=== PATIENT | male | born 1955 | race Caucasian/White ===

== ENCOUNTER → 2023-12-08 10:55 | Outpatient (REF) | payer MEDICARE, SELFPAY | LOC: RAD 10:55 | PROVIDERS: ATTENDING PHYSICIAN Surgery Vascular Surgery; FAMILY PHYSICIAN Family Medicine | DX: I73.9 Peripheral vascular disease, unspecified (principal) | CPT/HCPCS: 93922; 93925 ==

== ENCOUNTER → 2024-02-27 14:01 | Outpatient (REF) | payer MEDICARE, SELFPAY | LOC: RAD 14:01 | PROVIDERS: ATTENDING PHYSICIAN Registered Nurse; FAMILY PHYSICIAN Family Medicine | DX: I73.9 Peripheral vascular disease, unspecified (principal) | CPT/HCPCS: 93922; 93925 ==

== ENCOUNTER 2024-03-09 06:57 | Day surgery (SDC) | payer MEDICARE, SELFPAY ==
[2024-03-06 09:28] VITALS: BMI 21.3
--- NOTE | 2024-03-07 13:13 | PTCARENOTE ---
Patients 03/06 Creat- 1.5; GFR- 51.03; Hgb 9.8- Pauline @ Dr. Mendoza office notified
[2024-03-09] VITALS (22 sets, daily range): BP systolic 105–181; BP diastolic 52–79; BMI 21.2
[2024-03-09 07:30] LABS: Hematocrit 30.4 % (39.0-52.0); Hemoglobin 9.9 g/dL (13.0-18.0); Mean Corp Hgb Conc. 32.6 g/dL (33.0-37.0); Mean Corpuscular Hgb 25.4 pg (27.0-31.0); Mean Corpuscular Volume 78.1 fL (80.0-94.0); Mean Platelet Volume 11.6 fL (7.4-10.4); Platelet Count 117 10^3/uL (130-400); Red Blood Cell Count 3.89 10^6/uL (4.70-6.10); Red Cell Dist. Width 15.4 % (11.5-14.5); White Blood Cell Count 7.4 10^3/uL (4.8-10.8)
--- NOTE | 2024-03-09 08:15 | W.SUR.PREOP ---
Pre-Operative Surgical Note
-
I have examined this patient prior to the performance of the scheduled procedure.
The patient's condition is unchanged from the time of the current History and
Physical and the patient is able to undergo the scheduled procedure.
--- NOTE | 2024-03-09 09:57 | W.IMMPOSTOP ---
Surgical Immed Post Op Note
-
Primary Surgeon: Dr. Dar Morrison III, MD
Assisting Surgeon: Ramsey Felipe MD, PhD (PGY-2)
Pre-op Diagnosis: LLE peripheral arterial occlusive disease
Post-op Diagnosis: LLE peripheral arterial occlusive disease
Procedure Performed: Diagnostic arteriogram, balloon angioplasty, intravascular lithotripsy, PTX stents x2
Anesthesia Type: MAC
Specimen / Cultures: None
Estimated Blood Loss: 2cc
Complications: None
Operative Findings: The patient was brought to the OR and placed in the supine position. The patient was prepped and draped in usual sterile fashion. Fluoroscopy was used to identify the inferior and superior boundaries of the femoral head. Under
ultrasound guidance, the right PRODUCTION SHIFT SUPERVISOR was identified. Local anesthetic was delivered to the proposed puncture site. Micropuncture kit was used to access the right PRODUCTION SHIFT SUPERVISOR. This was upsized to a 5Fr sheath over a Bentson wire. A macario's hook catheter was
advanced over a guidewire into the abdominal aorta. Diagnostic arteriogram showed a patent aorto-iliac system without major occlusive disease. A glidewire and quickcross catheter was used to access the contralateral L iliofemoral system. Diagnostic
arteriogram showed disease in the proximal SFA, distal SFA, and popliteal artery. Distally, there was two vessel run off with AT and peroneal flow. A wire was advanced into the TP trunk and balloon angioplasty with intravascular lithotripsy was
performed from the popliteal and distal SFA to the proximal SFA. A small non flow limiting focal dissection was noted in the SFA. PTX stents x2 were delivered in the distal SFA-above knee popliteal artery segment and in the mid SFA. Proximally, a
balloon angioplasty with intravascular lithotripsy was performed at the proximal SFA. Post stent balloon angioplasty was performed. Completion arteriogram showed improved patency of the left SFA, popliteal artery, with continued two vessel run off
distally (AT and peroneal arteries). The sheath was pulled back to the right external iliac artery. Diagnostic arteriogram showed proximal SFA disease on the right side proximal to the previous stent delivered. In addition, there was SFA disease
distal to the previously placed stent, popliteal artery segments. Doppler signals were noted in both PT and DP sites bilaterally. The patient was transported to the PACU in stable condition and the sheath was removed with manual pressure.
[2024-03-09] MEDS: NSS 1000 IV (13:12)
[2024-03-09] MEDS: PLAVIX 75 MG PO (13:12)
--- NOTE | 2024-03-09 13:42 | OR.RPT ---
Operative Report
Operative Report
Date of Operation: 03/09/2024
Pre Op Diagnosis: Chronic limb threatening ischemia, left lower extremity with nonhealing left toe wound and osteomyelitis
Post Op Diagnosis: Chronic limb threatening ischemia, left lower extremity with nonhealing left toe wound and osteomyelitis
Procedure:
1.) Intravascular lithotripsy to left superficial femoral artery and popliteal artery calcified stenoses (6 mm x 80 mm E8 shockwave balloon)
2.) Balloon angioplasty and stenting of left popliteal artery/distal left superficial femoral artery (overlapping 6 mm x 140 mm / 6 mm x 40 mm Zilver PTX stents)
3.) Diagnostic aortobiiliac arteriogram
4.) Diagnostic bilateral lower extremity arteriogram
5.) Ultrasound-guided percutaneous access to the right common femoral artery
Surgeon: Dar Morrison III, MD
Ornamental Ironworker Helper: Ramsey Felipe MD PhD, PGY2
Anesthesia: Sedation with local
Fluoroscopy:
21.9 min
65 mGy
14.3 Gy.cm2
Complications: None
Estimated Blood Loss: Less than 20 cc
History and Indications for Procedure: 68-year-old male with chronic limb threatening ischemia of his left lower extremity manifested by nonhealing toe wound and associated osteomyelitis
Procedure in Detail: Jd Cuello was correctly identified and placed supine on the operating table. After adequate induction of anesthesia the bilateral groins were prepped and draped in the usual sterile fashion. A timeout was performed with the
nursing and anesthesia staff confirming the patient's identity as well as the nature and laterality of the procedure.
The right common femoral artery was identified under ultrasound guidance. The artery was patent. The superior and inferior aspects of the femoral head were identified with radiographic guidance and marked at the skin level. The proposed puncture
site was infiltrated with local anesthesia. Under ultrasound guidance we accessed the right common femoral artery with a micropuncture needle and upsized to a 5 Fr sheath over a Bentson wire. The wire and a [employer] hook flush catheter were
advanced into the distal abdominal aorta and a diagnostic aorto-biiliac arteriogram was performed:
AORTO-ILIAC ARTERIOGRAM:
Aorta: Patent with no significant stenosis identified. Heavily calcified
Right common iliac artery: Patent with no significant stenosis identified. Heavily calcified
Right external iliac artery: Patent with no significant stenosis identified. Heavily calcified
Left common iliac artery: Patent with no significant stenosis identified. Heavily calcified
Left external iliac artery: Patent with no significant stenosis identified. Heavily calcified
Under roadmap guidance using a Glidewire and the [employer] hook catheter we selected the left common iliac artery and then the external iliac artery. A catheter was tracked up and over the aortic bifurcation and placed in the distal external iliac
artery. A diagnostic left lower extremity arteriogram was then performed which demonstrated the following:
LEFT LOWER EXTREMITY:
Common femoral artery: Calcified but patent with mild stenosis identified
Profunda femoral artery: Patent with no significant stenosis identified
Superficial femoral artery: Patent. Scattered heavy calcification throughout. High-grade calcified stenosis proximally. Calcified stenosis identified distally
Popliteal artery: Patent. Calcified stenosis in the above-knee popliteal segment.
Anterior tibial artery: High takeoff of the anterior tibial artery. Patent. Continues across the ankle into the foot.
Tibioperoneal trunk: Patent. Mild stenosis Identified
Peroneal artery: Patent
Posterior tibial artery: Occluded
ENDOVASCULAR INTERVENTION: Systemic heparin was administered. Exchanged out for a 6 Fr 45 cm sheath over a [employer] wire. Selected the superficial femoral artery under roadmap guidance with Quickcross catheter and glidewire. The calcified stenoses in
the superficial femoral artery and popliteal artery were crossed with a Quickcross and Glidewire. The wire and catheter were advanced into the popliteal artery and subtraction angio confirmed proper position in the true lumen. Exchanged out for a
[place] ST 0.014 wire.
Due to the heavily calcified nature of the arterial disease and in an effort to modify the calcium to achieve maximum luminal gain with endovascular intervention I elected to proceed with intravascular lithotripsy. A 6 mm x 80 mm Shockwave balloon
was placed across the popliteal stenosis under roadmap guidance. Alternating rounds of lithotripsy pulse delivery at sub-nominal pressure and angioplasty at nominal pressure was performed across the stenosis. In between rounds of pulse delivery and
angioplasty the balloon was deflated and repositioned under roadmap guidance. The same balloon was used to treat the calcified disease in the proximal superficial femoral artery. All 400 pulses were delivered.
Subsequent arteriogram demonstrated a significantly improved result. The proximal superficial femoral artery was widely patent. There is a short focal nonflow limiting dissection identified in the treated segment. The flow was brisk throughout
the superficial femoral artery and popliteal artery. Distally, the popliteal artery was patent but there was a dissection flap and residual disease identified. I treated this segment with overlapping Zilver PTX stents, 6 mm x 140 mm stent was
positioned distally. A 6 mm x 40 mm was extended just proximal. The stents were deployed in the desired location and profiled with a 5 mm angioplasty balloon.
COMPLETION ARTERIOGRAM: Excellent technical result. Brisk flow through a widely patent superficial femoral artery and popliteal artery with no significant residual stenosis identified. Brisk outflow demonstrated through the anterior tibial artery
and peroneal artery.
Satisfied with this result we concluded the procedure. The sheath tip was pulled back into the right external iliac artery. A runoff arteriogram of the right lower extremity was performed which demonstrated the following:.
RIGHT LOWER EXTREMITY:
Common femoral artery: Calcified but patent with no significant stenosis identified
Profunda femoral artery: Patent with no significant stenosis identified
Superficial femoral artery: Patent. Scattered heavy calcification in the proximal artery contributing to a high-grade just proximal to the proximal stent. Scattered calcification identified throughout. Remaining stents widely patent with no
significant stenosis identified
Popliteal artery: Patent. Scattered areas of mild stenosis above the knee and behind the knee.
The patient tolerated the procedure well and was taken to the recovery area in stable condition.
Attestation: I was present and responsible for the entire procedure.
Signed:
Dar Morrison III, MD
[facility]
[phone] (cell)
== END 2024-03-09 16:31 | disposition home or self-care (01) ==
LOC: CATH 06:57
PROVIDERS: Nurse Practitioner Acute Care; ATTENDING PHYSICIAN Surgery Vascular Surgery; FAMILY PHYSICIAN Family Medicine; OTHER PHYSICIAN Internal Medicine Cardiovascular Disease
DX: I70.228 Atherosclerosis of native arteries of extremities with rest pain, other extremity (principal); M86.9 Osteomyelitis, unspecified; E11.9 Type 2 diabetes mellitus without complications; I10 Essential (primary) hypertension; J44.9 Chronic obstructive pulmonary disease, unspecified; F17.210 Nicotine dependence, cigarettes, uncomplicated; Z79.82 Long term (current) use of aspirin; Z79.02 Long term (current) use of antithrombotics/antiplatelets; Z79.4 Long term (current) use of insulin
CPT/HCPCS: C9765; C1725; C1894; 75625; 75716; 76937; 85027; 85730; C1769; C1874; Q9967

== ENCOUNTER 2024-05-04 09:16 | Day surgery (SDC) | payer MEDICARE, SELFPAY ==
[2024-05-04] VITALS (31 sets, daily range): BP systolic 121–178; BP diastolic 55–105
[2024-05-04 10:38] LABS: Glucose - Point of Care 124 mg/dl (70-99)
[2024-05-04 10:47] LABS: Blood Urea Nitrogen 24 mg/dl (9-20); Calcium 8.4 mg/dl (8.4-10.2); Carbon Dioxide 23 mmol/L (22-30); Chloride 104 mmol/L (98-107); Glucose 128 mg/dl (70-99); Hematocrit 30.6 % (39.0-52.0); Hemoglobin 9.8 g/dL (13.0-18.0); INR 1.04; Mean Corpuscular Hgb 25.5 pg (27.0-31.0); Mean Corpuscular Volume 79.7 fL (80.0-94.0); PT 13.9 Sec (11.4-14.6); Potassium 4.7 mmol/L (3.5-5.1); Red Blood Cell Count 3.84 10^6/uL (4.70-6.10); Red Cell Dist. Width 17.1 % (11.5-14.5); Sodium 136 mmol/L (135-145); White Blood Cell Count 5.9 10^3/uL (4.8-10.8); eGFR 43.91
[2024-05-04 10:48] LABS: APTT 39.1 Sec (23.4-35.0)
--- NOTE | 2024-05-04 11:24 | HP.FOC2 ---
Focused History & Physical
Chief Complaint
HPI:
Chief Complaint: Nonhealing right foot wound, PAD
HPI / Indication for Planned Procedure: This is a 68-year-old male with significant past medical history of COPD, peripheral arterial disease, hypertension, diabetes, and anemia who presents to [facility] for scheduled right lower extremity
angiogram with percutaneous femoral puncture of left femoral artery with Dr. Dar Morrison III for the treatment of his peripheral arterial disease. Patient denies recent illness, trauma, or hospitalization. Endorses he is at his baseline health.
Denies fever, chills, nausea, vomiting, abdominal pain, chest pain, and cough.
Relevant Past Medical History: COPD or Pulmonary Disease, Diabetes, Hypertension and Other
Relevant Social History: Tobacco Use
Relevant Past Surgical History: Positive for
Review of Systems
Review of Pertinent Systems: All Systems Negative
Medication
See Medication form for detailed medications: Yes
Medication List (including Herbals & OTC):
folic acid 1 mg tablet 1 mg PO NOON 11/28/15
pantoprazole 40 mg tablet,delayed release 40 mg PO .AFTERNOON 11/28/15
pregabalin 300 mg capsule (Lyrica) 300 mg PO TID 11/28/15
aspirin 81 mg chewable tablet 81 mg PO DAILY 12/04/15
gabapentin 300 mg capsule 600 mg PO DIRECTED PRN neuropathy/pain 06/09/21
amlodipine 5 mg tablet 10 mg PO DAILY 03/18/22
methadone 5 mg tablet 5 mg PO TID 03/18/22
trazodone 50 mg tablet 50 mg PO HS 03/18/22
clopidogrel 75 mg tablet (Plavix) 75 mg PO DAILY #30 tabs 04/02/22
fluticasone propionate 50 mcg/actuation nasal spray,suspension (Flonase Allergy Relief) 2 spray intranasal DAILY 04/02/22
lisinopril 40 mg tablet 40 mg PO DAILY 04/02/22
atorvastatin 40 mg tablet 40 mg PO DAILY 03/02/24
duloxetine 60 mg capsule,delayed release 60 mg PO NOON 03/02/24
lorazepam 1 mg tablet 1 mg PO .AFTERNOON 03/02/24
naproxen sodium 220 mg tablet (Aleve) 440 mg PO PRN PRN PAIN 03/02/24
Tandem T:Slim Insulin Pump 1 dose SC DIRECTED 05/03/24
clonidine HCl 0.1 mg tablet 0.1 mg PO DAILY 05/03/24
doxycycline hyclate 100 mg tablet,delayed release 100 mg PO BID 05/03/24
hydrochlorothiazide 25 mg tablet 25 mg PO DAILY 05/03/24
spironolactone 25 mg tablet 25 mg PO DAILY 05/03/24
Medications Reviewed: Yes
Allergies and Reactions
Patient has Allergies: No
Noted Allergies and Reactions:
Allergy/AdvReac Type Severity Reaction Status Date / Time
No Known Allergies Allergy Verified 05/04/24 09:45
Pertinent Physical Exam
All Other Systems: Negative
Head/Neck: Normal
Lungs: Normal
Heart: Other (Bradycardia, RRR)
Abdomen: Normal (NTND)
Extremities: Other (Right foot wound, nonpalpable distal DP and PT pulses)
Neurological: Normal
Diagnosis / Assessment
Assessment: 70-year-old male with peripheral arterial disease and evidence of high-grade stenosis involving proximal SFA into an existing stent via ultrasound.
Plan / Procedure
Plan: Will proceed with scheduled right lower extremity angiogram with left femoral access in hopes of treating proximal SFA disease within existing stent with Dr. Dar Morrison III
Anesthesia/Sedation to be done by Anesthesia Provider: Yes
[2024-05-04 11:59] LABS: Platelet Count 71 10^3/uL (130-400)
[2024-05-04 13:30] LABS: ACT-LR - POC > 397 Seconds (116-155)
[2024-05-04 14:10] LABS: Glucose - Point of Care 104 mg/dl (70-99)
--- NOTE | 2024-05-04 14:11 | W.IMMPOSTOP ---
Surgical Immed Post Op Note
-
Primary Surgeon: Prince
Assisting Surgeon: Josefa
Pre-op Diagnosis: Chronic limb threatening ischemia
Post-op Diagnosis: Chronic limb threatening ischemia, restenosis of prior L iliac stent
Procedure Performed: RLE IVL, angio, stent
Anesthesia Type: Sedation/local
Specimen / Cultures: None
Estimated Blood Loss: 2 cc
Complications: None
Operative Findings: Restenosis of proximal portion of prior R iliac stent, diffuse disease of AT, PT, peroneal arteries. Balloon angioplasty and IVL of lesions.
--- NOTE | 2024-05-04 15:02 | OR.RPT ---
Operative Report
Operative Report
Date of Operation: 05/04/2024
Pre Op Diagnosis:Chronic limb threatening ischemia, right lower extremity, with right fifth toe ulceration
Post Op Diagnosis: Chronic limb threatening ischemia, right lower extremity, with right fifth toe ulceration
Procedure:
1.) intravascular lithotripsy to proximal right superficial femoral artery stenosis (7 mm x 60 mm M5+ shockwave)
2.) intravascular lithotripsy to right anterior tibial artery occlusion (shockwave javelin catheter)
3.) balloon angioplasty of right anterior tibial artery occlusion (2.5 mm x 150 mm)
4.) balloon angioplasty of right dorsalis pedis artery (2.5 mm balloon)
5.) balloon angioplasty and stenting of right tibioperoneal trunk stenosis (3 mm x 28 mm Almodovar Esprit, post-dilated with 3 mm NC balloon)
6.) balloon angioplasty of right distal peroneal artery (2 mm x 40 mm)
7.) diagnostic aortobiiliac arteriogram
8.) diagnostic right lower extremity arteriogram
9. Ultrasound-guided percutaneous access to the left common femoral artery
Surgeon: Dar Morrison III, MD
Set Up Mechanic: Alpesh Rivero MD PGY1
Anesthesia: Sedation with local
Fluoroscopy:
46.3 min
158 mGy
29.14 Gy.cm2
Complications: None
Estimated Blood Loss: Less than 20 cc
History and Indications for Procedure: 68-year-old male with severe peripheral arterial occlusive disease/ atherosclerosis of the right lower extremity arteries leading to chronic limb threatening ischemia manifested by a right fifth toe ulceration.
Procedure in Detail: Jd Cuello was correctly identified and placed supine on the operating table. After adequate induction of anesthesia the bilateral groins were prepped and draped in the usual sterile fashion. A timeout was performed with the
nursing and anesthesia staff confirming the patient's identity as well as the nature and laterality of the procedure.
The left common femoral artery was identified under ultrasound guidance. The artery was patent with calcified luminal plaque identified. The superior and inferior aspects of the femoral head were identified with radiographic guidance and marked at
the skin level. The proposed puncture site was infiltrated with local anesthesia. Under ultrasound guidance we accessed the left common femoral artery with a micropuncture needle and upsized to a 5 Fr sheath over a [employer] wire. The wire and a
Shepherds hook flush catheter were advanced into the distal abdominal aorta and a diagnostic aorto-biiliac arteriogram was performed:
AORTO-ILIAC ARTERIOGRAM:
Aorta: Diffusely calcified but patent with no significant stenosis identified
Right common iliac artery: Calcified. Stenosis identified but not high-grade.
Right external iliac artery: Patent with no significant stenosis identified
Left common iliac artery: Calcified. No significant stenosis identified
Left external iliac artery: Patent with no significant stenosis identified
Under roadmap guidance using a Glidewire and the Shepherds hook catheter we selected the right common iliac artery and then the external iliac artery. A catheter was tracked up and over the aortic bifurcation and placed in the distal external iliac
artery. A diagnostic right lower extremity arteriogram was then performed which demonstrated the following:
RIGHT LOWER EXTREMITY:
Common femoral artery: Patent with no stenosis identified
Profunda femoral artery: Patent with no stenosis identified
Superficial femoral artery: Heavily calcified high-grade stenosis in the proximal segment proximal to an existing stent. Existing stents are patent with no significant stenosis identified.
Popliteal artery: Patent with no significant stenosis identified
Anterior tibial artery: Patent origin. Segmentally occluded throughout. Faint reconstitution of the dorsalis pedis artery.
Tibioperoneal trunk: Calcified high-grade stenosis
Peroneal artery: Patent to the ankle with focal occlusion distally
Posterior tibial artery: Occluded with no distal reconstitution
ENDOVASCULAR INTERVENTION: Systemic heparin was administered. Exchanged out for a 6 Fr 45 cm sheath over a [employer] wire. Selected the superficial femoral artery under roadmap guidance with Quickcross catheter and glidewire. The SFA stenosis was
crossed with this approach and the catheter and wire advanced to the popliteal artery below the knee. Under roadmap guidance I then selected the anterior tibial artery with a quick cross catheter and Glidewire. I could not advance the Quickcross
catheter beyond the proximal anterior tibial artery. Under roadmap guidance I was able to advance a 0.014 [employer] wire through the anterior tibial artery occlusion and into the dorsalis pedis artery in the foot.
Due to the calcified nature of the anterior tibial artery occlusion and in an effort to achieve calcium modification, maximum luminal gain and ability to deliver additional endovascular therapy I elected to proceed with intravascular lithotripsy.
Over the 0.014 wire I brought into position the shockwave javelin catheter. The catheter was positioned in the proximal anterior tibial artery. I slowly advanced the javelin catheter through the entire anterior tibial artery while simultaneously
delivering lithotripsy pulses. The catheter was advanced through the entire length of occluded anterior tibial artery and into the foot to the dorsalis pedis artery. Additional pulses were then delivered while pulling the catheter back slowly
through the entire treated segment. All 120 pulses were delivered. Subsequent arteriogram demonstrated significantly improved flow through the anterior tibial artery which was now patent. I then brought into position a 2.5 mm x 150 mm angioplasty
balloon. This was brought into position under roadmap guidance and positioned in the dorsalis pedis artery in the foot. The dorsalis pedis artery and the entire length of the anterior tibial artery back to its origin was treated with the 2.5 mm
angioplasty balloon. Each inflation was performed at nominal pressure and held in place for 2 minutes. Subsequent arteriogram demonstrated an outstanding technical result with a widely patent anterior tibial artery and dorsalis pedis artery with
no residual stenosis identified.
I then focused my attention on the tibioperoneal trunk and peroneal artery disease. Under roadmap guidance I selected the tibioperoneal trunk and peroneal artery using the quick cross catheter and Glidewire. I then exchanged out for the 0.014
[employer] wire which was advanced through the distal peroneal artery occlusion and into a posterior branch at the ankle. A 2 mm x 40 mm was used to treat the focal distal peroneal artery occlusion. This was inflated to nominal pressure in the desired
location and left in place for 2 minutes. Subsequent arteriogram demonstrated a patent peroneal artery with no significant residual stenosis identified. We then examined the tibioperoneal trunk disease under magnification view. Once again
demonstrated was a high-grade stenosis involving the tibioperoneal trunk. This was treated with a 3 mm x 28 mm Almodovar Esprit scaffold with followed by a 3 mm noncompliant angioplasty balloon with an excellent technical result And no residual
stenosis identified.
We then focused our attention on the calcified proximal superficial femoral artery disease. Due to the heavily calcified nature of the arterial disease and in an effort to modify the calcium to achieve maximum luminal gain with endovascular
intervention I elected to proceed with intravascular lithotripsy. A 7 mm x 60 mm M5+ Shockwave balloon was placed across the calcified superficial femoral artery stenosis under roadmap guidance. Alternating rounds of lithotripsy pulse delivery at
sub-nominal pressure and angioplasty at nominal pressure was performed across the stenosis. In between rounds of pulse delivery and angioplasty the balloon was deflated and repositioned under roadmap guidance. All 300 pulses were delivered.
Subsequent arteriogram demonstrated an excellent technical result with a widely patent proximal superficial femoral artery and no residual stenosis identified.
COMPLETION ARTERIOGRAM: Patent superficial femoral artery and popliteal artery with brisk flow. Patent stents. Widely patent anterior tibial artery with brisk flow to the dorsalis pedis artery and flow to the forefoot and fifth digit. Widely
patent tibioperoneal trunk and peroneal artery with no residual stenosis identified. Posterior tibial artery occlusion as seen pretreatment.
Satisfied with this result we concluded the procedure. The sheath tip was pulled back into the left external iliac artery. Protamine was administered. The sheath was secured in place with the plan to pull it in the recovery room.
The patient tolerated the procedure well and was taken to the recovery area in stable condition.
Attestation: I was present and responsible for the entire procedure.
Signed:
Dar Morrison III, MD
[facility]
[phone] (bjgy)
--- NOTE | 2024-05-04 15:17 | SUR.PHASEI ---
Left groin sheet site hemostasis achieved at 1444. Site dressed with gauze and tegaderm C/D/I
--- NOTE | 2024-05-04 15:49 | W.PN.UPDATE ---
Update Note
Progress Note Update
Patient with noted minimal bleeding at left groin puncture site, pressure held immediately by myself and then RN. No evidence of hematoma, following additional hold of 10 minutes hemostasis was achieved. However, this does delay patient's
discharge and he indicated his daughter who lives roughly an hour away would likely not feel comfortable spending the night with him or taking him home that late in the evening. Will have patient stay overnight as prolonged recovery with discharge
in the morning.
--- NOTE | 2024-05-04 15:53 | PTCARENOTE ---
received pt w ooze of left marti site that became fullly bleeding. pressure held , data operations leader colten lyon at bedside orders given to hold for 15 min and use innoseal closure pad. pt currently without hematoma or oozing .
[2024-05-04] MEDS: TYLENOL 650 MG PO (16:09)
[2024-05-04] MEDS: NSS 1000 IV (19:56)
--- NOTE | 2024-05-04 19:57 | PTCARENOTE ---
pt arrived to floor 1700. to lay flat until 2029. c/o rt toe pain probably recirculation pain. NSS at 80ml via 20g LAC. Femoral site is CDI, no hematoma. drowsy, speech a little slow. 1630 BS 139. own insulin pump
[2024-05-04] MEDS: PT'S OWN INSULIN PUMP - HumaLOG SC ×2 (20:03→22:10)
[2024-05-04] MEDS: VIBRAMYCIN 100 MG PO (22:05)
[2024-05-04] MEDS: DOLOPHINE 5 MG PO (22:05)
[2024-05-04] MEDS: LYRICA 300 MG PO (22:06)
[2024-05-04 22:10] LABS: Glucose - Point of Care 111 mg/dl (70-99)
[2024-05-05 03:00] VITALS: BP 144/62
[2024-05-05 07:23] VITALS: BP 154/63
[2024-05-05] MEDS: PT'S OWN INSULIN PUMP - HumaLOG SC (07:50)
[2024-05-05 08:16] LABS: Hemoglobin 9.3 g/dL (13.0-18.0); Mean Corp Hgb Conc. 32.1 g/dL (33.0-37.0); Mean Corpuscular Hgb 25.5 pg (27.0-31.0); Mean Corpuscular Volume 79.7 fL (80.0-94.0); Platelet Count 60 10^3/uL (130-400); Red Blood Cell Count 3.64 10^6/uL (4.70-6.10); Red Cell Dist. Width 16.9 % (11.5-14.5); White Blood Cell Count 4.9 10^3/uL (4.8-10.8)
[2024-05-05 08:21] LABS: Blood Urea Nitrogen 19 mg/dl (9-20); Calcium 8.6 mg/dl (8.4-10.2); Carbon Dioxide 23 mmol/L (22-30); Chloride 107 mmol/L (98-107); Estimated Creatinine Clearance 50 ml/min; Glucose 99 mg/dl (70-99); Potassium 4.6 mmol/L (3.5-5.1); Sodium 137 mmol/L (135-145); eGFR 55.43
--- NOTE | 2024-05-05 09:01 | W.PN.VS ---
Today's Communication / Plan
-
DC Home
Assessment/Plan
-
68M POD 1 s/p RLE angio.
-Okay for Diet
-DC Home
Subjective Data
-
Date of Service: May 05, 2024
Pt seen and examined at bedside. Resting comfortably. NAEO.
Objective Data
-
Vital Signs
Temp Pulse Resp BP Pulse Ox
97.9 F 62 16 154/63 97
05/05/24 07:23 05/05/24 07:23 05/05/24 07:23 05/05/24 07:23 05/05/24 07:23
Intake and Output
05/04/24 05/05/24 05/06/24
06:59 06:59 06:59
Intake Total 1060 / 1060
Output Total 1550 / 1550
Balance -490 / -490
Intake:
Oral fluids 1060 / 1060
Output:
Urine, Voided 1550 / 1550
Lab Results
05/05/24 06:23
05/05/24 06:23
Calcium 8.6 mg/dl (8.4-10.2) 05/05/24 06:23
Physical Exam
-
Left Groin: C/D/I. no hematoma
[2024-05-05] MEDS: VIBRAMYCIN 100 MG PO (09:17)
[2024-05-05] MEDS: TYLENOL 650 MG PO (09:17)
[2024-05-05] MEDS: LYRICA 300 MG PO (09:18)
[2024-05-05] MEDS: PLAVIX 75 MG PO (09:19)
[2024-05-05] MEDS: ZESTRIL 40 MG PO (09:19)
[2024-05-05] MEDS: NORVASC 10 MG PO (09:20)
[2024-05-05] MEDS: ALDACTONE 25 MG PO (09:20)
[2024-05-05] MEDS: DOLOPHINE 5 MG PO (09:21)
[2024-05-05] MEDS: LIPITOR 40 MG PO (09:21)
[2024-05-05] MEDS: CATAPRES 0.1 MG PO (09:22)
[2024-05-05] MEDS: LOW STRENGTH ASPIRIN 81 MG PO (09:22)
[2024-05-05] MEDS: ORETIC 25 MG PO (09:23)
--- NOTE | 2024-05-05 10:36 | CM ---
Patient seen at bedside. Patient lives with in a 2 story home with no needs. Patient PCP is Dr. Dee and he uses the [facility] on [address] in [place]. Patient family to provide transportation and patient declined any needs. IMM
completed and signed form placed on chart. CM will continue to follow for discharge planning needs.
Plan; home with no needs.
[2024-05-05 11:15] VITALS: BP 120/45
[2024-05-05] MEDS: FOLVITE 1 MG PO (11:23)
[2024-05-05] MEDS: CYMBALTA DELAYED RELEASE 60 MG PO (11:23)
[2024-05-05] MEDS: PT'S OWN INSULIN PUMP - HumaLOG 1.5 UNIT SC (12:37)
== END 2024-05-05 13:10 | disposition home or self-care (01) ==
LOC: CATH 09:16
PROVIDERS: Nurse Practitioner; ATTENDING PHYSICIAN Surgery Vascular Surgery; FAMILY PHYSICIAN Family Medicine; OTHER PHYSICIAN Internal Medicine Cardiovascular Disease
DX: I70.235 Atherosclerosis of native arteries of right leg with ulceration of other part of foot (principal); L97.519 Non-pressure chronic ulcer of other part of right foot with unspecified severity; E11.51 Type 2 diabetes mellitus with diabetic peripheral angiopathy without gangrene; I10 Essential (primary) hypertension; E11.621 Type 2 diabetes mellitus with foot ulcer; J44.9 Chronic obstructive pulmonary disease, unspecified; Z79.02 Long term (current) use of antithrombotics/antiplatelets; Z79.82 Long term (current) use of aspirin; Z79.4 Long term (current) use of insulin
CPT/HCPCS: C9773; C9764; 75625; 75716; 80048; 82962; 85027; 85610; 85730; C1725; C1769; C1874; C1894; Q9967

== ENCOUNTER → 2024-06-11 10:29 | Outpatient (REF) | payer MEDICARE, SELFPAY | LOC: RAD 10:29 | PROVIDERS: ATTENDING PHYSICIAN Surgery Vascular Surgery; FAMILY PHYSICIAN Family Medicine | DX: I73.9 Peripheral vascular disease, unspecified (principal) | CPT/HCPCS: 93923; 93925 ==

== ENCOUNTER 2024-08-15 18:23 | Inpatient (IN) | payer MEDICARE, SELFPAY ==
[2024-08-15 15:05] VITALS: BP 147/58
--- NOTE | 2024-08-15 15:34 | ED.GENMED ---
History of Present Illness
General
Chief Complaint: Skin Problem
Source: patient
Time Seen by Provider: 08/15/24 15:27
History of Present Illness
History of Present Illness:
68-year-old male with past medical history of hypertension, hyperlipidemia, insulin-dependent diabetes, peripheral arterial disease, previous alcohol abuse presenting to the emergency department at the request of his equal opportunity officer, Dr. Molina and
vascular surgeon, Dr. Morrison for wounds to the right second toe and left great toe that have been getting worse over the last couple of weeks with patient noting that he injured the left great toe a few weeks ago and the pain/swelling gotten to the
point where he is unable to tolerate. He denies any fevers, chills, rigors. He does note a history of diabetic neuropathy. He denies any drainage to the area and that his equal opportunity officer has been providing wound care since the injury.
Past History
Past History
ED Past Medical History: HTN, Hypercholesterolemia, IDDM, Psychiatric and Other (Ankle abuse)
ED Past Surgical History: None
Social History
Tobacco: Non-smoker
Alcohol: Chronic alcoholic
Drug: None
Personal:
Living: with family
Review of Systems
Review of Systems
All Other Systems: ROS reviewed and negative except as documented in HPI and ROS
Phy Exam
Physical Exam
Physical Exam:
GENERAL: Alert , in no apparent distress
EYE: conjunctiva clear
Head: Normocephalic atraumatic
NECK: Supple,
ENT: mmm.
LUNGS: no acute respiratory distress
NEUROLOGICAL: Alert and oriented
SKIN: Warm and dry, dressings overlying the left great toe and right 2nd toe. mild erythema noted. chronic PAD skin changes/mottled appearance to b/l lower legs which patient reports is chronic for him
MUSCULOSKELETAL: Difficult to palpate pedal and tibial pulses bilateral. CR ~2.5-3 seconds
PSYCH: Normal and appropriate interaction.
Scores
Heart Failure Risk
Heart Failure Risk Score: Not Applicable
Heart Score for Chest Pain Patients
STEMI patient?: Not applicable
Withdrawal Assessment of Alcohol
Withdrawal Assessment Completed?: Not applicable
Course
Orders/Labs/Results
Orders:
Orders
08/15/24 Dinner
2000 calorie (17 carb) Diabetic
At Your Request: Full Participation
Fluid Restriction: 1440 mL/day (48 oz)
Diabetic Diet: Potassium, 2 Gram
08/15/24 15:31
Morphine Sulfate 4 mg IV NOW STA
Piperacillin/Tazo 4.5 Gram [Zosyn] 4.5 gram in 100 ml IV NOW
CR Foot - Left Min 3 Views Urgent
Comment:
Reason For Exam: 2nd toe infection, concern for osteo
CR Foot - Right Min 3 Views Urgent
Comment:
Reason For Exam: 2nd toe infection, concern for osteo
08/15/24 16:02
Basic Metabolic Panel Urgent
CRP [C-Reactive Protein] Urgent
Complete Blood Count/With Diff Urgent
ESR [Erythrocyte Sed Rate] Urgent
08/15/24 17:14
Admit/Transfer Patient As Directed
Co-Sign Provider:
Level of Care: Inpatient admission
Assign to:: Medical/Surgical
Physician / Group: Torri Brewster
Diagnosis: PAD, bilateral foot wounds
Reason for Hospitalization: PAD, bilateral foot wounds
Expected length of stay greater than two midnights?: Yes
ELOS- Estimated Length of Stay in days: 2
I certify the patient meets the requirements for IP care: Yes
PRN Pain Medication Management As Directed
May give lesser potent ordered pain med per pt: Yes
preference::
Protocol:: Medication orders for pain may be administered in a
manner that supports deferring to patient preference
when the pt is:
- Requesting an ordered lesser potent pain medication.
Least to most potent pain medications are defined
as: acetaminophen < NSAID < tramadol < opioids
(morphine, oxycodone, hydromorphone).
- Requesting a lesser dose of the same medication IF
ORDERED.
- Requesting a less intrusive route of administration
if both routes are prescribed by the provider (PO <
IV).
08/15/24 17:16
Code Status As Directed
Resuscitation Status: Full Code
08/15/24 19:35
Gabapentin [Neurontin] 600 mg PO QIDPRN PRN
08/15/24 19:35
Diabetes Management by Nurse Practitioner Routine
Consulting Provider: Cassandra Tanner
Was provider already notified?: Yes
Reason for Consult: Insulin Management
PODIATRY CONSULT Routine
Consulting Provider: Amelia Cruz
Was physician already notified: Yes
Vascular Surgery Consult Routine
Consulting Provider: Collin Harrison
Was physician already notified: Yes
WOUND/OSTOMY CONSULT Routine
Reason for Consult: bilateral toe wounds
Osmolality, Random Urine Routine
Date Specimen was Collected: 08/16/24
Time Specimen was Collected: 00:24
Urine Creatinine Routine
Date Specimen was Collected: 08/16/24
Time Specimen was Collected: 00:24
Urine Sodium Routine
Date Specimen was Collected: 08/16/24
Time Specimen was Collected: 00:24
Activity As Directed
Activity Level: As Tolerated
Intake/ Output As Directed
Frequency: Per unit guidelines
Vital Signs As Directed
Frequency: Per unit guidelines
DX Deep Vein Thrombosis Video Routine
08/15/24 20:00
Pantoprazole [Protonix] 40 mg PO QPM
08/15/24 22:00
Insulin Pump [Patient's Own Insulin Pump] See Dose Instructions SC ACHS
Pregabalin [Lyrica] 100 mg PO TID
Trazodone [Desyrel] 50 mg PO HS
08/16/24 00:00
Heparin 5,000 units SC Q8
08/16/24 07:19
Basic Metabolic Panel IN AM
Complete Blood Count/No Diff IN AM
Glycohemoglobin (HgbA1c) IN AM
08/16/24 08:00
Amlodipine [Norvasc] 10 mg PO DAILY
Aspirin Chewable [Low Strength Aspirin] 81 mg PO DAILY
Atorvastatin [Lipitor] 40 mg PO DAILY
Clonidine [Catapres] 0.1 mg PO DAILY
Clopidogrel Bisulfate [Plavix] 75 mg PO DAILY
Nicotine [Nicoderm Transdermal] 21 mg TRANSDERM DAILY
08/16/24 12:00
Duloxetine Delayed Release [Cymbalta Delayed Release] 60 mg PO NOON
FOLic ACID [Folvite] 1 mg PO NOON
08/16/24 14:00
Lorazepam [Ativan] 1 mg PO DAILY@1400
Abnormal Lab Results
08/15/24
16:02
RBC 3.20 L 10^6/uL
(4.70-6.10)
Hgb 8.4 L g/dL
(13.0-18.0)
Hct 25.0 L %
(39.0-52.0)
MCV 78.1 L fL
(80.0-94.0)
MCH 26.3 L pg
(27.0-31.0)
RDW 15.0 H %
(11.5-14.5)
Plt Count 89 L 10^3/uL
(130-400)
MPV 12.9 H fL
(7.4-10.4)
Absolute Neuts (auto) 7.6 H 10^3/uL
(1.4-6.5)
Neutrophils % 76.8 H %
(42.2-75.2)
Lymphocytes % 14.8 L %
(20.5-51.1)
ESR 41 H mm/hour
(0-20)
Sodium 130 L mmol/L
(135-145)
Potassium 5.3 H mmol/L
(3.5-5.1)
Carbon Dioxide 21 L mmol/L
(22-30)
BUN 23 H mg/dl
(9-20)
Creatinine 1.6 H mg/dL
(0.7-1.3)
Glucose 139 H mg/dl
(70-99)
C-Reactive Protein 19.80 H mg/L
(0.0-10.00)
08/15/24 16:02
08/15/24 16:02
Vital Signs
Initial and Last Documented VS:
Initial Vital Signs
Temp Pulse Resp BP Pulse Ox
98.3 F 68 20 147/58 99
08/15/24 15:05 08/15/24 15:05 08/15/24 15:05 08/15/24 15:05 08/15/24 15:05
Last Documented Vital Signs
Temp Pulse Resp BP Pulse Ox
98.0 F 52 13 165/60 100
08/16/24 15:50 08/16/24 16:35 08/16/24 16:35 08/16/24 16:35 08/16/24 16:35
MDM/Problems Addressed
Differential Diagnosis Includes:
Diabetic foot ulcer, osteomyelitis, cellulitis, PAD, PVD
MDM/Problems Addressed:
68-year-old male presenting to the ER for evaluation at the request of his equal opportunity officer and vascular surgeon for admission for treatment of bilateral foot wounds. Patient with insulin-dependent diabetes, chronic diabetic foot neuropathy and has
poorly healing wounds likely secondary to his already known PAD/PVD. Will initiate patient on Zosyn. Labs and x-ray imaging ordered. Will notify podiatry here as patient's main equal opportunity officer does not come to this facility. Hospitalist team to admit.
Chronic conditions affecting care: DM and PVD
Acute Exacerbation and/or Progression of Chronic Illness: DM and PVD
*Radiology
Radiology exam reviewed: preliminary read by ED provider (no definitive osteo on either foot XR)
*Pulse Oximetry
Patient hypoxic: no
*Critical Care Note
Total Time (30-74mins, 75-104mins- exclusive of procedures): Not Applicable
Data Reviewed
Review of Other/Old Records Reveals: Labs and Records
ED Attending Note
-
Portions of this chart may have been created with voice recognition software.� Occasional wrong word or��sound alike� substitutions may have occurred due to the inherent limitations of voice recognition software.
Discharge Plan
Departure
Patient Disposition: Admit
Date of Disposition: 08/15/24
Time of Disposition: 16:10
Presentation/result/management discussed w/ accepting MD/DO: Hospitalist
Discharge Problem:
Diabetic foot ulcers, PAD (peripheral artery disease)
Interventions
Interventions:
*Risk Screen - Suicide Last Done: 08/15/24 15:54
*General Assessment Last Done: 08/15/24 15:05
*Neglect/Abuse Screening Last Done: 08/15/24 15:54
*ED- Fall Risk Assessment Last Done: 08/15/24 15:54
*ED COVID-19 Vaccine History Last Done: 08/15/24 15:54
*Nursing Disposition Last Done: 08/15/24 19:01
ED-Skin Assessment Last Done: 08/15/24 16:16
Discharge Date and Time
Discharge Date/Time: 08/15/24 19:20
[2024-08-15 15:54] VITALS: BMI 21.2
[2024-08-15] MEDS: MORPHINE SULFATE 4 MG IV (16:03)
[2024-08-15] MEDS: ZOSYN 100 IV (16:04)
[2024-08-15 16:07] VITALS: BP 124/72
--- NOTE | 2024-08-15 16:13 | HPS.HSE ---
Family Physician
-
Family Physician: Lei Dee, DO
Chief Complaint
-
referred for bilateral foot wounds
History of Present Illness
Patient is a 68-year-old male with past medical history significant for hypertension, PAD, type 2 diabetes, neuropathy, COPD and anemia who presented to [facility] ED for evaluation at request of his retail sales associate bilingual, Dr. Villanueva, and vascular surgeon,
Prince. Patient states that approximately 5 days ago he started with cramping in left calf, he has been seen by ED and primary who were attributing pain to neuropathy. He has been unable to bear weight so he called podiatry to be seen. He was seen in
office this morning and retail sales associate bilingual, Dr. Villanueva called and discussed with Dr. Morrison and they both agreed patient should be sent to hospital for evaluation and treatment. Patients Left great toe and right 2nd toe with new dressings in place from
podiatry. Patient reports some intermittent lightheadedness in past few days. Denies any fevers, chills, cough, shortness of breath, nausea, vomiting, constipation, diarrhea or urinary symptoms.
Medical History
Past Medical History
Past Medical History: Reports Other
Additional Past Medical History:
hypertension
PAD
type 2 diabetes
neuropathy
COPD
anemia
Past Surgical History: Reports Other
Additional Past Surgical History:
angioplasty
RLE arteriogram
retina surgery
Social History
Tobacco: Smoker (1.5pack per day )
Alcohol: None
Drug: None
Personal:
Living: With Family
Employment: Retired
Family History
Family History: Not pertinent
Allergies / Home Medications
Allergies reflects when Allergies were last updated in [employer].
Home Medications with original date entered in [employer]
Allergy/Medication List:
Allergies
Allergy/AdvReac Type Severity Reaction Status Date / Time
No Known Allergies Allergy Verified 08/15/24 15:05
Home Medications
folic acid 1 mg tablet 1 mg PO NOON 11/28/15
pantoprazole 40 mg tablet,delayed release 40 mg PO .AFTERNOON 11/28/15
pregabalin 300 mg capsule (Lyrica) 300 mg PO TID 11/28/15
aspirin 81 mg chewable tablet 81 mg PO DAILY 12/04/15
gabapentin 300 mg capsule 600 mg PO QIDPRN PRN neuropathy 06/09/21
amlodipine 5 mg tablet 10 mg PO DAILY 03/18/22
methadone 5 mg tablet 5 mg PO QID 03/18/22
trazodone 50 mg tablet 50 mg PO HS 03/18/22
clopidogrel 75 mg tablet (Plavix) 75 mg PO DAILY #30 tabs 04/02/22
fluticasone propionate 50 mcg/actuation nasal spray,suspension (Flonase Allergy Relief) 2 spray intranasal DAILY 04/02/22
lisinopril 40 mg tablet 40 mg PO DAILY 04/02/22
atorvastatin 40 mg tablet 40 mg PO DAILY 03/02/24
duloxetine 60 mg capsule,delayed release 60 mg PO NOON 03/02/24
lorazepam 1 mg tablet 1 mg PO .AFTERNOON 03/02/24
naproxen sodium 220 mg tablet (Aleve) 440 mg PO PRN PRN PAIN 03/02/24
Tandem T:Slim Insulin Pump 1 dose SC DIRECTED 05/03/24
clonidine HCl 0.1 mg tablet 0.1 mg PO DAILY 05/03/24
hydrochlorothiazide 25 mg tablet 25 mg PO DAILY 05/03/24
spironolactone 25 mg tablet 25 mg PO DAILY 05/03/24
Review of Systems
-
History Source: Patient
Constitutional: Reports No Symptoms
EENT: Reports No Symptoms
Respiratory: Reports No Symptoms
Cardiac: Reports No Symptoms
Abdomen/GI: Reports No Symptoms
: Reports No Symptoms
Musculoskeletal: Reports Muscle Pain and Other (bilateral feet pain)
Skin: Reports No Symptoms
Neurological: Reports No Symptoms
Endocrine: Reports No Symptoms
Hematologic/Lymphatic: Reports No Symptoms
Psych: Reports No Symptoms
Physical Exam
Vital Signs
Vital Signs
Temp Pulse Resp BP Pulse Ox
98.3 F 63 16 147/58 97
08/15/24 15:05 08/15/24 16:07 08/15/24 16:07 08/15/24 15:05 08/15/24 16:07
Physical Exam
General: Well Developed, Well Nourished, No Apparent Distress and Conversant
HEENT: NormoCephalic, Moist mucous membranes, Atraumatic, Rivanna Conjunctivae, Nose Appears Normal and Ears Appear Normal
Respiratory: Clear
Cardiac: S1/S2 and Regular Rhythm
Breast: Deferred by me
GI: Soft, Non Tender, Non Distended and Normal Bowel Sounds; No Organomegaly
Rectal: Deferred by Provider
Genito-urinary: Deferred by me
Musculoskeletal: No Clubbing, No Cyanosis, No Edema and Other (left great toe wound, right 2nd toe wound, chronic BLLE PAD changes (pale and cool to touch) )
Skin: Rash and IV/Catheter Site
Neuro: Awake, Alert, AO x 3 and Nonfocal/grossly intact
Psych: Calm and Intact Judgment/Insight
Data Reviewed
-
Diagnostic Radiology: Report Reviewed by me (L Foot: First digit soft tissue swelling without radiographic evidence to suggest osteomyelitis. Chronic appearing deformity of the fourth digit, as described. No acute fracture or dislocation.) and
Other (R Foot: Second digit soft tissue swelling. No radiographic evidence of osteomyelitis. No acute fracture or dislocation.)
Lab Data: Labs Reviewed by me
Impression/Plan
-
IMPRESSION/PLAN:
#bilateral foot wounds
#PAD
WBC 9.9
Left great toe wound, Right 2nd toe wound
Left Foot: First digit soft tissue swelling without radiographic evidence to suggest osteomyelitis.
Chronic appearing deformity of the fourth digit, as described.
No acute fracture or dislocation.
Right Foot: Second digit soft tissue swelling. No radiographic evidence of osteomyelitis. No acute fracture or dislocation.
- Admit to med/surg
- Consult podiatry
- Consult vascular
- hold on antibiotics at this time
- Consult wound care
#acute kidney injury
BUN 23, Creat 1.6
- IVF
- monitor BMP
#hyponatremia
Na+ 130
- IVF
- monitor BMP
#hypertension
- continue amlodipine and clonidine
- Hold HCTZ, lisinopril and spironolactone
#PAD
- continue aspirin, atorvastatin and clopidogrel
#type 2 diabetes
- continue patients own pump
- Consult Diabetic LICENSED MORTGAGE LOAN OFFICER
#neuropathy
- continue duloxetine, gabapentin, methadone and pregabalin
#depression/anxiety
- continue duloxetine and lorazepam
#anemia
hgb 8.4, hct 25.0
- monitor H/H
#COPD
Code status: full code
DVT prophylaxis: heparin sq
[2024-08-15 16:27] LABS: % Basophils 0.4 % (0-2); % Eosinophils 1.5 % (0-6); % Immature Granulocytes 0.3 % (0-0.5); % Lymphocytes 14.8 % (20.5-51.1); % Monocytes 6.2 % (1.7-9.3); % Neutrophils 76.8 % (42.2-75.2); Absolute Eosinophils 0.2 10^3/uL (0-0.7); Absolute Lymphocytes 1.5 10^3/uL (1.2-3.4); Absolute Monocytes 0.6 10^3/uL (0.1-0.6); Absolute Neutrophils 7.6 10^3/uL (1.4-6.5); Hemoglobin 8.4 g/dL (13.0-18.0); Mean Corp Hgb Conc. 33.6 g/dL (33.0-37.0); Mean Corpuscular Hgb 26.3 pg (27.0-31.0); Mean Corpuscular Volume 78.1 fL (80.0-94.0); Nucleated Red Blood Cells % 0 % (-); White Blood Cell Count 9.9 10^3/uL (4.8-10.8)
[2024-08-15 16:29] LABS: Blood Urea Nitrogen 23 mg/dl (9-20); Calcium 8.7 mg/dl (8.4-10.2); Carbon Dioxide 21 mmol/L (22-30); Chloride 101 mmol/L (98-107); Estimated Creatinine Clearance 43 ml/min; Glucose 139 mg/dl (70-99); Potassium 5.3 mmol/L (3.5-5.1); Sodium 130 mmol/L (135-145); eGFR 47.23
[2024-08-15 16:40] LABS: Erythrocyte Sed Rate 41 mm/hour (0-20); Mean Platelet Volume 12.9 fL (7.4-10.4); Platelet Count 89 10^3/uL (130-400)
[2024-08-15 17:00] VITALS: BP 136/59
--- NOTE | 2024-08-15 17:07 | W.PN.UPDATE ---
Update Note
Progress Note Update
This is an addendum to H&P written by CHERYL Allen
I saw and examined the patient.
The PHYSICALLY IMPAIRED TEACHER's note was reviewed and I agree with the note.
Comment:
Mr. Jd Cuello is a 68 yo man with hx essential HTN, HLD, IDDM, PAD , previous alcohol use presents to the ER for worsening diabetic wound b/l LE involving the right second toe and left great toe. No fevers/chills.
Triage VS: T 98.3, P 68, RR 20, BP 147/58, SpO2 99%
On exam patient is awake, alert, in no distress; CV: S1, S2, RRR: Chest clear. left great toe with betadine wrapping, mild erythema; right 2nd toe with wrapping and mild swelling /erythema
LABS: WBC 9.9, Hg 8.4, PLT 89, Na 130, K+ 5.3, CO2 21, BUN 23, Cr 1.6, Glucose 139, CRP 19.8, ESR 41
Left Foot X-Ray
IMPRESSION:
First digit soft tissue swelling without radiographic evidence to suggest osteomyelitis.
Chronic appearing deformity of the fourth digit, as described.
No acute fracture or dislocation.
Right Foot X-Ray
IMPRESSION:
Second digit soft tissue swelling. No radiographic evidence of osteomyelitis. No acute fracture or dislocation.
MAR: IV Morphine, IV Zosyn
Bilateral non-heeling diabetic foot wounds
Hx Peripheral Arterial Disease with multiple prior procedures, most recently RLE IVL/ balloon angioplasty and stent placement (05/04/24)
-with lack of fevers/WBC will hold off on further antibiotics to allow for biopsy
-low threshold to start antibiotics if patient develops signs of sepsis
-Vascular surgery consult
-Podiatry consult
-WAREHOUSE UNLOADER asa/plavix/statin
Chronic pain
-WAREHOUSE UNLOADER Methadone, Gabapentin, Lyrica
Essential HTN
-Hold WAREHOUSE UNLOADER Lisinopril with K+ 5.3
-Hold WAREHOUSE UNLOADER HCTZ given hyponatremia
-Hold WAREHOUSE UNLOADER Spironolactone
-WAREHOUSE UNLOADER Clonidine
-WAREHOUSE UNLOADER Amlodipine
Mild hyper K
-hold spironolactone/Lisinopril
-low K diet until resolves
IDDM
-patient to use own insulin pump
-PHYSICALLY IMPAIRED TEACHER DM consult
CKD III
-creatinine stable
mild Hyponatremia
-hold WAREHOUSE UNLOADER HCTZ
-follow up urine studies
-fluid restriction
Remainder of plan per PHYSICALLY IMPAIRED TEACHER note
76 minutes spent on patient care
[2024-08-15] MEDS: DILAUDID 0.5 MG IV (18:31)
[2024-08-15 19:58] LABS: Glucose - Point of Care 164 mg/dl (70-99)
[2024-08-15 20:19] VITALS: BP 159/72
[2024-08-15] MEDS: PROTONIX 40 MG PO (20:59)
[2024-08-15] MEDS: DESYREL 50 MG PO (20:59)
[2024-08-15] MEDS: LYRICA 100 MG PO (21:32)
[2024-08-15 22:02] LABS: Glucose - Point of Care 245 mg/dl (70-99)
[2024-08-15] MEDS: PATIENT'S OWN INSULIN PUMP 8 UNITS SC (22:25)
[2024-08-15] MEDS: DOLOPHINE 10 MG PO (22:26)
--- NOTE | 2024-08-15 22:34 | PTCARENOTE ---
Patient arrived to unit at change of shift. AAOX3. Flat affect. Cooperative with care. Bed and chair alarm in place. During skin assessment, Patient refused to have left great toe dressing, right 2nd toe and left 4th toe dressings removed as
podiatry had just applied them today. Patient educated on importance of skin assessment, but still insisted that dressing to be removed until podiatry see him in am. Call bobby within reach. oriented to unit.
[2024-08-15 23:24] VITALS: BP 156/52
[2024-08-16] VITALS (30 sets, daily range): BP systolic 108–204; BP diastolic 51–91
[2024-08-16] MEDS: DILAUDID 0.5 MG IV ×3 (00:06→22:22)
[2024-08-16] MEDS: HEPARIN 5000 UNITS SC ×2 (00:07→08:52)
[2024-08-16 01:03] LABS: Osmolality Urine 325 mOsm/kg (300-900)
[2024-08-16 01:16] LABS: Urine Sodium 86 mmol/L (30-90)
[2024-08-16] MEDS: NEURONTIN 300 MG PO (03:29)
--- NOTE | 2024-08-16 07:20 | CON.MD ---
Consultation - Medical
-
Consultation Request
Date/Time Consultation Requested :08/15/2024 @ 1740, consult performed 08/16/2024 @ 725a
Requesting Provider:Dr. Torri Brewster
Performing Provider: Dr. Amelia Cruz
Reason for Consultation: Bilateral lower extremity foot wounds/gangrene toes
Medical History
-
Chief Complaint: Gangrene toes
History of Present Illness:
This is a 68-year-old male with significant past medical history of COPD, hypertension, diabetes, active smoker, and peripheral arterial disease who has had endovascular interventions in the past to B/L Ej. He states that pain started for one week
and he believes he 'had pulled some skin off of the right 2nd toe' and he also noted discoloration to the left great toe. He called his Party Demonstrator in [place] who sent him to the ED. I was consulted to follow for potential surgical intervention
and wound care.
Past Medical History
Past Medical History: COPD, HTN, IDDM and Other (Anemia, peripheral arterial disease)
Past Surgical History: Other (Right lower extremity angio with intervention 05/04, left lower extremity angio with intervention 03/11, right lower extremity angio with intervention 06/09, right lower extremity angio with intervention 12/01)
Social History
Tobacco: Smoker-current, History of opiod dependance on methadone, history of excess ETOH intake
Family history: N/C
Medications: Reviewed on chart
Lyrica Active
Vitamin B 12
Glucotrol
Pantoprazole Sodium Active
Lisinopril 40 MG 1 tablet Orally Once a day Active
Ativan 1 MG 1 tablet in the afternoon Active
Levemir Unknown
Varenicline Tartrate 1 MG as directed Orally Not-Taking/PRN
traZODone HCl 50 MG 1 tablet at bedtime as needed Orally Once a day Not-Taking/PRN
Gabapentin 300 MG up to 10 tablets Orally Once a day Active
Clopidogrel Bisulfate 75 MG 1 tablet Orally Once a day for 90 days Active
Atorvastatin Calcium 40 MG 1 tablet Orally Once a day Active
hydroCHLOROthiazide 25 MG 1 tablet in the morning Orally Once a day Active
Balanced B-50 Complex Not-Taking/PRN
traMADol HCl Not-Taking/PRN
Aspir-81 81 MG 1 tablet Orally Once a day Active
Cefadroxil 500 MG 2 Orally every 12 hrs Not-Taking/PRN
Methadone HCl 5 MG 1 tablet Orally three times a day Active
Metformin
Allergies: None known
Vital Signs / Labs
-
Vital Signs and Labs:
Temp Pulse Resp BP Pulse Ox
98.0 F 52 13 165/60 100
08/16/24 15:50 08/16/24 16:35 08/16/24 16:35 08/16/24 16:35 08/16/24 16:35
08/16/24 16:32
08/16/24 16:32
08/15/24 08/15/24 08/16/24
19:56 21:27 07:19
RBC 3.83 L
Hgb 9.9 L
Hct 29.8 L
MCV 77.8 L
MCH 25.8 L
RDW 15.0 H
Plt Count 99 L
MPV 12.5 H
Sodium 132 L
Potassium
Carbon Dioxide
BUN 21 H
Creatinine 1.5 H
Glucose 185 H
Hemoglobin A1c 8.2 H
POC Glucose 164 H 245 H
08/16/24 08/16/24 08/16/24
08:16 11:54 15:16
RBC
Hgb
Hct
MCV
MCH
RDW
Plt Count
MPV
Sodium
Potassium
Carbon Dioxide
BUN
Creatinine
Glucose
Hemoglobin A1c
POC Glucose 221 H 174 H 164 H
08/16/24 08/16/24
16:32 16:53
RBC 3.46 L
Hgb 9.1 L
Hct 26.3 L
MCV 76.0 L
MCH 26.3 L
RDW 14.8 H
Plt Count 78 L D
MPV 12.6 H
Sodium 130 L
Potassium 5.4 H
Carbon Dioxide 21 L
BUN
Creatinine
Glucose 183 H
Hemoglobin A1c
POC Glucose 186 H
Physical Exam
Vital Signs
Vital Signs
Temp Pulse Resp BP Pulse Ox
98.0 F 52 13 165/60 100
08/16/24 15:50 08/16/24 16:35 08/16/24 16:35 08/16/24 16:35 08/16/24 16:35
XRAYS-personally reviewed.
IMPRESSION: RIGHT FOOT:Second digit soft tissue swelling. No radiographic evidence of osteomyelitis. No acute fracture or dislocation.
LEFT FOOT: First digit soft tissue swelling without radiographic evidence to suggest osteomyelitis.
Physical Exam
General: Alert & Awake and in NAD
Other: LE focused exam- Toe dressings were removed and there is dry gangrene noted to the medial left grt toe- no odor or drainage.Right foot with mild malodor + edema and erythema to the sulcus of the right foot 2nd toe, lateral and distal right
2nd toe with gangrene/ischemic changes. Non palpable pedal pulses B/L. Mild pain to the toes. Decreased protective sensation B/L. Decreased muscle strength B/L. No ascending cellulitis BL
Assessemnt/Plan
-
1-NIDDM with PAD- Vascular following, intervention today
2-NIDDM with DPN Vs other neuropathy
3-H/O Alcohol and Opiod dependance- on Methadone tx
4-Current smoker- rec cessation
5-Early cellulitis right 2nd toe Vs ischemic rubor
6-Gangrene toes r2nd and left grt toe. Recommend close observation post endovasc procedures for demarcation and determination if amputation is required.
Wound care orders on chart. If Patient develops acute infection will proceed to the next step of amp, for now will follow along post revasc
[2024-08-16 08:06] LABS: Hematocrit 29.8 % (39.0-52.0); Hemoglobin 9.9 g/dL (13.0-18.0); Mean Corp Hgb Conc. 33.2 g/dL (33.0-37.0); Mean Corpuscular Hgb 25.8 pg (27.0-31.0); Mean Corpuscular Volume 77.8 fL (80.0-94.0); Mean Platelet Volume 12.5 fL (7.4-10.4); Platelet Count 99 10^3/uL (130-400); Red Blood Cell Count 3.83 10^6/uL (4.70-6.10); White Blood Cell Count 7.2 10^3/uL (4.8-10.8)
--- NOTE | 2024-08-16 08:15 | PN.DE.MGMTRT ---
Insulin Management
- -
08/16/2024: Diabetes Insulin pump Management Consult
68 year old male with PMH: HTN PAD, Neuropathy, COPD, Anemia and T2DM who presented to [facility] ED for evaluation at request of his regional sales representative, Dr. Villanueva, and vascular surgeon, Dr. Morrison. Patient states that approximately 5 days ago he started with
cramping in left calf and then it he was unable to bear weight so he called his regional sales representative to be seen.
Pt is awake, alert, oriented, resting in bed, offers no complaints, Able to discuss diabetes management.
States he was switched to an insulin pump 5 years ago and has been using Tandem T-Slim, Humalog insulin and Dexcom G7 prior to admission.
He routinely sees Dr. Vaca for diabetes care, states his recent A1C in the office was 7.1%, his A1C on admission was 8.2%, Cr 1.5, baseline 0.7.
Current blood sugar is 141 via his CGM, FBG 185 V, 221 POC this AM via hospital glucose monitor. Pt states he has been administering bolus at meal times.
He is NPO for OR later today. Will consider increasing his basal rates if glucose remains elevated after procedure.
Pump settings as follows:
Basal Correction CHO ratio target
6am-5p 0.75 1:30 1:13 110
5pm- 8p 0.95 1:30 1:13 110
8p-12am 0.95 1:30 1:14 110
12am-3a 0.85 1:30 1:14 110
3a-6a 0.85 1:30 1:13 110
24 hour basal total 20 units.
Discussed with nurse and instructed on use of bedside insulin pump work sheet. Will cont to follow
Diabetes History
- -
Type of Diabetes: 2 requiring insulin
Pre-Admission Diabetes Regimen
08/15/24
16:02
Creatinine 1.6 H
Insulin Pump Settings
IP Diabetes Regimen
08/15/24 08/15/2408/15/25
16:02 19:56 21:27
Glucose 139 H
POC Glucose 164 H 245 H
Patient Education
[2024-08-16 08:16] LABS: Glucose - Point of Care 221 mg/dl (70-99)
[2024-08-16 08:31] LABS: Blood Urea Nitrogen 21 mg/dl (9-20); Carbon Dioxide 23 mmol/L (22-30); Chloride 98 mmol/L (98-107); Estimated Creatinine Clearance 43 ml/min; Glucose 185 mg/dl (70-99); Sodium 132 mmol/L (135-145); eGFR 51.03
--- NOTE | 2024-08-16 08:39 | W.PN.HOSP.TC ---
Today's Communication/Plan
-
Vascular surgery consult
Podiatry consult
Albuterol nebs as needed
Assessment / Plan
Assessment / Plan
Gen-AAOx3, NAD
HEENT-NC, AT, anicteric, clear oral mm
Neck-supple
CV-reg, no M, +S1/S2
Lungs- bilateral expiratory wheezes and rhonchi
Abd-soft, NT, ND
Ext-no edema
Musculoskeletal-no cyanosis, clubbing
Skin-warm and dry
Neuro-grossly non-focal
Psych-calm, cooperative
PAD/lower extremity digital gangrene -left first toe, right second toe. No osteomyelitis noted on x-ray. Suspect ischemic etiology including PAD versus emboli. Vascular surgery and podiatry consulted. Ultrasound lower extremity with LYLA ordered.
Antibiotics on hold, no evidence of sepsis. Continue aspirin/clopidogrel.
Suspected COPD -with mild exacerbation characterized by wheezing. Does not have a formal diagnosis. Start albuterol nebs as needed. Recommend outpatient follow-up with pulmonary for PFTs. Smoking cessation.
Hyponatremia -suspect SIADH. High urine osmolarity noted. Mild fluid restriction.
Hyperkalemia -resolved. Low potassium diet.
Tobacco dependence -cessation advised.
Chronic pain syndrome/chronic opiate dependence -he goes to a pain clinic. On chronic methadone for neuropathy, dose was just increased to 20 mg daily.. Also on gabapentin.
Chronic thrombocytopenia -unclear etiology. Patient is unaware of the diagnosis. Low platelet count dates back to at least 2016.
Chronic microcytic anemia -hemoglobin at baseline. He has seen hematology in the past, [facility].
CKD 3a -doubt CHIN. Creatinine suspected to be at baseline.
DM2 with hyperglycemia -he uses a insulin pump. Has a Dexcom CGM. Diabetes [employer] consulted. Hemoglobin A1c pending.
Chronic peripheral neuropathy -likely due to diabetes.
Essential hypertension -uncontrolled.
Hyperlipidemia -atorvastatin.
Depression/anxiety
Full code
Anticipated Discharge: > 48 hours
Subjective/Interval History
-
Date of Service: August 16, 2024
Patient seen and examined. Complaining of some pain in his legs. Primarily the left calf.
Objective Data
-
Labs:
Laboratory Results
08/16/24
07:19
WBC 7.2
Hgb 9.9 L
Hct 29.8 L
Plt Count 99 L
Sodium 132 L
Potassium 5.0
Chloride 98
Carbon Dioxide 23
BUN 21 H
Creatinine 1.5 H
Glucose 185 H
Calcium 9.0
Vital Signs:
Vital Signs
Temp Pulse Resp BP Pulse Ox
97.9 F 53 18 156/52 97
08/15/24 23:24 08/15/24 23:24 08/15/24 23:24 08/15/24 23:24 08/15/24 23:24
I&O
08/15/24 08/16/24 08/17/24
06:59 06:59 06:59
Intake Total 670 / 670
Output Total 400 / 400
Balance 270 / 270
Review of Systems
-
History Source: Patient
All other systems: Reviewed and negative
[2024-08-16] MEDS: NORVASC 10 MG PO (08:51)
[2024-08-16] MEDS: CATAPRES 0.1 MG PO (08:51)
[2024-08-16] MEDS: LIPITOR 40 MG PO (08:51)
[2024-08-16] MEDS: LOW STRENGTH ASPIRIN 81 MG PO (08:52)
[2024-08-16] MEDS: LYRICA 100 MG PO ×3 (08:52→22:00)
[2024-08-16] MEDS: PLAVIX 75 MG PO (08:52)
[2024-08-16] MEDS: NICODERM TRANSDERMAL 21 MG TRANSDERM (08:52)
[2024-08-16 08:54] LABS: Glycohemoglobin (HgbA1c) 8.2 % (4.0-5.6)
[2024-08-16] MEDS: PATIENT'S OWN INSULIN PUMP SC ×2 (09:28→12:38)
[2024-08-16] MEDS: DOLOPHINE 10 MG PO ×2 (09:29→22:00)
--- NOTE | 2024-08-16 09:37 | WOUNDNOTE ---
[facility] RN note: Patient admitted with PAD, toe wounds. Patient is . Follows liver trimmer Dr. Villanueva and vascular surgeon Dr. Morrison. Dr. Ornelas and Dr. Harrison on consult.
See H&P for complete history.
PMH: HTN, PAD, DM, neuropathy, COPD, anemia, smoker.
Wound Location and type/assessment: Patient admitted with: L great toe tip and R 2nd toe dry gangrene ulcerations. L elbow dermal skin tear. Small liner purple abhilash with pinpoint old ss drainage on Band-aide. Patient stated he had an epidural. L
heel blanchable red.
Appetite: on a 2000 calorie diet.
Pressure redistribution devices in place: [employer] Accumax. Patient moves self in bed.
Plan: Dry gauze changed on R 2nd toe. Heels elevated off bed with pillow. Instructed patient importance of heel elevation while in bed to prevent a pressure injury. Vascular to see. Podiatry to manage toe wounds/gangrene.
Discussed with BEAN Guzman.
Care plan to be updated. Will follow peripherally as needed.
Note to case management requested for discharge: VN if goes home.
Patient to follow up with vascular and liver trimmer.
--- NOTE | 2024-08-16 10:19 | WOUNDNOTE ---
R 2ND TOE
--- NOTE | 2024-08-16 10:19 | WOUNDNOTE ---
L GREAT TOE TIP
--- NOTE | 2024-08-16 10:26 | WOUNDNOTE ---
R 2ND TOE TIP
--- NOTE | 2024-08-16 11:33 | W.PN.UPDATE ---
Addendum entered and electronically signed by Collin Harrison MD 08/16/24 13:39:
Addendum to below. He also does have calf tenderness on exam. Suggest that the muscles have suffered somewhat. Discussed this again with the patient. I also discussed extensively with the patient's the findings and the plan. They do
understand all and wished to proceed.
Original Note:
Update Note
Progress Note Update
Seen and evaluated. 68-year-old male known to vascular service status post bilateral lower extremity interventions (endovascular). Has been having for 1 week bilateral but more so on the left pain in the lower extremity. Pain in the calf but in
the foot constantly. Significant pain with walking and inability to walk he notes. He therefore had presented to the emergency room. We were consulted on a routine basis. Therefore I saw him just now. When I examined him he is not in any acute
distress. His breathing is unlabored. His abdomen is soft. He has palpable femoral pulses left stronger than right. Nonpalpable distally bilaterally. Right second toe with ischemic changes appears to be early gangrene. Left first toe with
chronic dry gangrene. However his foot looks a little bit mottled/pale. Poor capillary refill initially. When I asked him to move his foot and ankle he has very limited ankle movement, nothing within the foot. He notes he cannot move it has been
going on for about a week. When I hang his foot down off the bed, I am able to elicit some dependent rubor and then capillary refill improved.
Duplex reviewed. Toe pressure of 0 on the left side. Occluded left SFA stents.
Plan/ Subacute left lower extremity ischemia. Sounds like he has been ischemic for about a week. The stents likely occluded. He has loss of motor function. Therefore its relatively more urgent to fix except the fact that it has been going on for
a week. In addition I am not sure the leg is fully salvageable. Typically with loss of motor function and mottling, he is close to a [place] 3 classification which is irreversible ischemia. The only thing is when I dangle his foot down he does
have some dependent rubor. And is limited ankle dorsi and plantarflexion. It may be worth an attempt at salvage. I discussed this all with him. Discussed that I cannot guarantee limb salvage. Discussed with him he has a high risk of amputation.
Discussed proceeding with angiography and attempted angioplasty/stenting to restore patency of his vasculature. Discussed the possibility of there being clot which would preclude safe angioplasty/stenting. I do not think he is a candidate for
lysis/thrombolysis as this would prolong revascularization of the limb. Therefore in that case may attempt bypass if he has a suitable vein or otherwise, or if he has a distal target. If no distal target then really no intervention to render.
Explained this all to him. He understands. Will add him on urgently for today for a left lower extremity arteriogram, possible bypass.
[2024-08-16 11:56] LABS: Glucose - Point of Care 174 mg/dl (70-99)
--- NOTE | 2024-08-16 11:56 | CON.VAS ---
Consultation
Consultation Request
Date/Time Consultation Performed: 08/16/24 1130
Requesting Provider: Hospitalist
Performing Provider: Bree Horton, GENERAL CLEANER-C for Collin Harrison MD
Reason for Consultation: Bilateral lower extremity foot wounds
Medical History
-
Chief Complaint: Bilateral lower extremity foot wounds
History of Present Illness:
This is a 68-year-old male with significant past medical history of COPD, hypertension, diabetes, active smoker, and peripheral arterial disease known to vascular service status post bilateral lower extremity interventions (endovascular), see
vascular surgical history below. Has been having for one week bilateral but more so on the left pain in the lower extremity. Pain in the calf but in the foot constantly. Significant pain with walking and inability to walk he notes. He therefore
had presented to the emergency room. We were consulted on a routine basis. When asked to move his foot and ankle he has very limited ankle movement, nothing within the foot. He notes he cannot move it has been going on for about a week. Duplex
reviewed. Toe pressure of 0 on the left side. Occluded left SFA stents.
Vascular past surgical history:
12/03/15- Aortogram and pelvic angiogram, right lower extremity arteriogram, third-order vessel catheterization of right posterior tibial artery via left common femoral artery puncture, balloon angioplasty of right tibioperoneal trunk with 2.5-mm and
3-mm angioplasty balloons, left femoral angiogram, left femoral 6-Bengali Angio-Seal closure. Collin Harrison MD
06/12/21- Shockwave intravascular balloon lithotripsy of right superficial femoral artery stenoses (5 mm x 50 mm Shockwave balloon), balloon angioplasty and drug-eluting stenting of right proximal and distal superficial femoral artery stenoses (6 mm
x 80 mm Zilver PTX, x 2), drug coated balloon angioplasty of right below the knee popliteal artery stenosis (4 mm x 40 mm INPACT), drug coated balloon angioplasty of right [id number] popliteal artery stenosis (5 mm x 40 mm INPACT), diagnostic
aortobiiliac arteriogram, diagnostic right lower extremity arteriogram, ultrasound-guided percutaneous access to the left common femoral artery. Dar Morrison III, MD
04/02/22- Drug-coated balloon angioplasty of in-stent restenosis involving both proximal and distal superficial femoral artery stents (5 mm x 120 mm & 5 mm x 80 mm Inpact DCB), diagnostic aortobiiliac arteriogram, diagnostic right lower extremity
arteriogram, ultrasound-guided percutaneous access to the left common femoral artery. Dar Morrison III, MD
03/09/24- Intravascular lithotripsy to left superficial femoral artery and popliteal artery calcified stenoses (6 mm x 80 mm E8 shockwave balloon), balloon angioplasty and stenting of left popliteal artery/distal left superficial femoral artery
(overlapping 6 mm x 140 mm / 6 mm x 40 mm Zilver PTX stents), diagnostic aortobiiliac arteriogram, diagnostic bilateral lower extremity arteriogram, ultrasound-guided percutaneous access to the right common femoral artery. Dar Morrison III, MD
05/04/24- Intravascular lithotripsy to proximal right superficial femoral artery stenosis (7 mm x 60 mm M5+ shockwave), intravascular lithotripsy to right anterior tibial artery occlusion (shockwave javelin catheter), balloon angioplasty of right
anterior tibial artery occlusion (2.5 mm x 150 mm), balloon angioplasty of right dorsalis pedis artery (2.5 mm balloon), balloon angioplasty and stenting of right tibioperoneal trunk stenosis (3 mm x 28 mm Almodovar Esprit, post-dilated with 3 mm NC
balloon), balloon angioplasty of right distal peroneal artery (2 mm x 40 mm), diagnostic aortobiiliac arteriogram, diagnostic right lower extremity arteriogram, ultrasound-guided percutaneous access to the left common femoral artery. Dar Morrison
MD ELIER
Past Medical History
Past Medical History: COPD, HTN, IDDM and Other (Anemia, peripheral arterial disease)
Past Surgical History: Other (Right lower extremity angio with intervention 05/04, left lower extremity angio with intervention 03/11, right lower extremity angio with intervention 06/09, right lower extremity angio with intervention 12/01)
Social History
Tobacco: Smoker
Allergies / Home Medications
Allergy/AdvReac Type Severity Reaction Status Date / Time
No Known Allergies Allergy Verified 08/15/24 15:05
�Medication �Instructions �Recorded �Confirmed �Type
folic acid 1 mg tablet 1 mg PO NOON Supplement 11/28/15 08/15/24 History
pantoprazole 40 mg tablet,delayed 40 mg PO .AFTERNOON 11/28/15 08/15/24 History
release Gastrointestinal Issue
pregabalin 300 mg capsule (Lyrica) 300 mg PO TID Neurological 11/28/15 08/15/24 History
Condition
aspirin 81 mg chewable tablet 81 mg PO DAILY 12/04/15 08/15/24 Rx
gabapentin 300 mg capsule 600 mg PO QIDPRN PRN neuropathy 06/09/21 08/15/24 History
amlodipine 5 mg tablet 10 mg PO DAILY Blood Pressure 03/18/22 08/15/24 History
methadone 5 mg tablet 5 mg PO QID Pain 03/18/22 08/15/24 History
trazodone 50 mg tablet 50 mg PO HS Sleep 03/18/22 08/15/24 History
clopidogrel 75 mg tablet (Plavix) 75 mg PO DAILY #30 tabs 04/02/22 08/15/24 Rx
fluticasone propionate 50 2 spray intranasal DAILY Allergies 04/02/22 08/15/24 History
mcg/actuation nasal
spray,suspension (Flonase Allergy
Relief)
lisinopril 40 mg tablet 40 mg PO DAILY Blood Pressure 04/02/22 08/15/24 History
atorvastatin 40 mg tablet 40 mg PO DAILY High Cholesterol 03/02/24 08/15/24 History
duloxetine 60 mg capsule,delayed 60 mg PO NOON Mental Health/Anxiety 03/02/24 08/15/24 History
release
lorazepam 1 mg tablet 1 mg PO .AFTERNOON Mental 03/02/24 08/15/24 History
Health/Anxiety
naproxen sodium 220 mg tablet 440 mg PO PRN PRN PAIN 03/02/24 08/15/24 History
(Aleve)
Tandem T:Slim Insulin Pump 1 dose SC DIRECTED Diabetes 05/03/24 08/15/24 History
clonidine HCl 0.1 mg tablet 0.1 mg PO DAILY Blood Pressure 05/03/24 08/15/24 History
hydrochlorothiazide 25 mg tablet 25 mg PO DAILY Fluid 05/03/24 08/15/24 History
Retention/Swelling
spironolactone 25 mg tablet 25 mg PO DAILY Fluid 05/03/24 08/15/24 History
Retention/Swelling
Review of Systems
-
History Source: Patient
Constitutional: Reports No Symptoms
EENT: Reports No Symptoms
Respiratory: Reports No Symptoms
Cardiac: Reports No Symptoms
Vascular: Reports Leg Pain / Claudication, Numbness, Tingling and Other (No motor function past ankle of left lower extremity)
Abdomen/GI: Reports No Symptoms
: Reports No Symptoms
Musculoskeletal: Reports Muscle Pain (Left lower extremity calf pain)
Skin: Reports Other (Left foot hallux and right foot second digit with wound)
Neurological: Reports No Symptoms
Endocrine: Reports No Symptoms
Physical Exam
Vital Signs
Temp Pulse Resp BP Pulse Ox
98.1 F 52 16 145/59 96
08/16/24 07:40 08/16/24 07:40 08/16/24 07:40 08/16/24 07:40 08/16/24 07:40
Lab Results
08/16/24 07:19
08/16/24 07:19
Physical Exam
General: No Apparent Distress
HEENT: Normocephalic, Anicteric and Atraumatic
Respiratory: Non Labored Respirations
Cardiac: Negative JVD
GI: Soft, Non Tender and Non Distended
Musculoskeletal: No Edema
Skin: Other (Right second toe with ischemic changes appears to be early gangrene. Left first toe with chronic dry gangrene. However his foot looks a little bit mottled/pale. Poor capillary refill initially.)
Neuro: AO x 3 and Other (No motor function of left foot, patient endorses this has been going on for roughly a week)
Pulses: Left Femoral: +2 and Right Femoral: +1 (Unable to palpate bilateral distal pulses)
Assessment / Plan
-
Assessment: 68-year-old male with subacute left lower extremity ischemia.
Plan:
Per patient reports appears he has been been ischemic for about a week. The stents likely occluded, based off of ultrasound and he has loss of motor function. Therefore, its relatively more urgent to fix except the fact that it has been going on
for a week, and unfortunately due to reports of a week of ischemia it increases the odds patient will require amputation. Typically with loss of motor function and mottling, he is close to a [place] 3 classification which is irreversible
ischemia. In an attempt to exhaust all options of limb salvage we will proceed with angiogram including possible bypass. Dr. Collin Harrison is also at bedside and discussed cannot guarantee limb salvage, high risk of amputation, angiography and
attempted angioplasty/stenting to restore patency of his vasculature, possibility of there being clot which would preclude safe angioplasty/stenting, and possible attempt at bypass if he has a suitable vein or otherwise, or if he has a distal
target. If no distal target then really no intervention to render. Dr. Collin Harrison explained this all to him. He understands. Will add him on urgently for today for a left lower extremity arteriogram, possible bypass.
[2024-08-16] MEDS: CYMBALTA DELAYED RELEASE PO (12:05)
[2024-08-16] MEDS: FOLVITE PO (12:06)
[2024-08-16] MEDS: PERIDEX 0.12% ORAL RINSE 15 ML PO (13:14)
[2024-08-16] MEDS: BACTROBAN 2% OINTMENT 1 APPLIC NASAL (13:14)
--- NOTE | 2024-08-16 14:58 | W.SUR.POST ---
Surgical Immediate Post Op
Note
Pre Op Diagnosis: PAD
Post Op Diagnosis: PAD
Procedure Performed: LLE arteriogram, left SFA overlapping VBX stents (in-stent stenosis) x2, distal SFA balloon angioplasty
Primary Surgeon: Hunter
Anesthesia: local and sedation
Estimated Blood Loss: <2cc
Fluids: see anesthesia flow sheet
Drains/Shunts: none
Specimens/Cultures: none
Doppler/Duplex/Angio (Y/N): Y
Complications: None
Operative Findings: successful stent placement
[2024-08-16 15:18] LABS: Glucose - Point of Care 164 mg/dl (70-99)
--- NOTE | 2024-08-16 15:24 | OR.RPT ---
Operative Report
Operative Report
PROCEDURE DATE: 08/16/2024
Preoperative diagnosis: Subacute left lower extremity ischemia, history of severe bilateral lower extremity peripheral arterial disease.
Postoperative diagnosis: Same
Procedure:
1. Duplex assisted right common femoral artery cannulation.
2. Aortogram and pelvic angiogram.
3. Left lower extremity arteriogram with third order vessel catheterization of left peroneal artery via right common femoral artery puncture.
4. Placement of overlapping Madison Viabahn covered stents left above-knee popliteal artery to proximal SFA.
5. Balloon angioplasty of left proximal superficial femoral artery with 5 mm angioplasty balloon.
6. Right femoral and right lower extremity arteriogram through existing sheath.
7. Supervision and interpretation.
Surgeon: Hunter
Consumer Insights Specialist: None
Complications: None
Anesthesia: Local, sedation
Fluoroscopy:
17.9 min
53 mGy
10.75 gy.cm2
Indications for procedure:
Patient presented to the hospital with worsened leg pain and discoloration and new wound. History of known peripheral arterial disease status post multiple interventions. He had had pain in the left calf and foot as well as loss of motor function
of the left foot for about a week prior to admission. I was asked to see him this morning and examined him and noted that he had loss of motor function left foot and ankle, evidence of severe malperfusion distally in the left lower extremity,
tenderness in the calf muscles, and ultrasound findings to confirm occluded prior stents and toe pressure of 0. When I hung his leg off the bed, there was dependent rubor/improved perfusion with capillary refill again noted. Therefore I felt that
there was some flow getting to the foot and may be worth salvage. Risk/benefits/alternatives all extensively discussed. Risk of limb loss clearly discussed even in the setting of successful intervention. Discussed potential for need for surgical
bypass urgently as well. Patient understood all this and wished to proceed.
Description of procedure:
Patient was identified, brought to the operating room. Placed on the table in the supine position. After the adequate administration of anesthesia, the patient was prepped and draped in the standard surgical fashion. A standard preoperative
timeout was undertaken and everybody was in agreement with the plan.
The right common femoral artery was accessed with a micropuncture kit under direct duplex ultrasound guidance. A 5 [place] sheath was then advanced over a 0.035 inch wire, and a macario's hook catheter was advanced into the abdominal aorta.
Aortogram and pelvic angiogram was obtained. Findings as follows:
The infrarenal aorta and bilateral common and external iliac arteries were heavily calcified with eccentric plaque, but no significant stenoses were identified.
Using a floppy angled hydrophilic wire, the left common femoral artery was cannulated and the catheter was advanced. Left lower extremity arteriogram was obtained. Findings as follows:
Common femoral artery: Patent with likely moderate at least stenosis with opacity/significant plaque near the bifurcation. Difficult to assess the degree of stenosis.
Profunda femoris artery: Patent with no significant stenosis.
Superficial femoral artery: Patent, with moderate stenosis in the proximal 8 cm or so. Not severe though but at least moderate. The remainder of the SFA was patent up until the level of the stent and then the stent was completely occluded. Stent
extended into the above-knee popliteal artery. There is reconstituted flow noted in the behind the knee popliteal artery. As noted on prior angiography there is a high anterior tibial artery origin. There appeared to be flow through the anterior
tibial and peroneal (two-vessel runoff) as well as noted on prior angiography. Distal flow was very slow and difficult to assess based on the occlusion. Posterior tibial artery chronically occluded.
I could note calcified tibial vessels on fluoroscopy as well. Therefore, I debated whether primary bypass would be better here. However given the extent of calcified plaque, calcification in the common femoral as well as the tibial runoff vessels,
and subacute nature of the ischemia here I felt that more expeditious revascularization and a minimally invasive technique might be better. I at least felt it was worth probing the stent occlusion to see if there was clot or the wire passage
reflected potential clot within the stents. I noted that there may have been 1 or possibly 2 areas where the stents were slightly deformed or fractured and therefore this may have been regions of failure of the stent. At this point I selectively
cannulated the superficial femoral artery on the left side and then exchanged for a Storq wire and an up and over 6 [place] sheath. The patient had been given 6008 of intravenous heparin. At this point I used a flopping of hydrophilic wire and a
CXI catheter and was able to wire through the occluded stent. The catheter and wires did not pass very easily to suggest that this was all clot/thrombus. Therefore I felt that realigning this may be of benefit. I was able to pass my catheter into
the outflow distal popliteal artery. Angiogram confirmed I was in the true lumen. I backed my catheter up proximal to the high bifurcation of the anterior tibial and tibioperoneal trunk. I then wired into the tibioperoneal trunk and then the
peroneal artery under roadmap assisted guidance with a flopping of hydrophilic wire. I then advanced my catheter into the peroneal artery and then exchanged for a Storq wire initially, but then exchanged for a 0.018 inch V18 wire. I now used a
Madison Viabahn 6 mm x 15 cm covered stent, which extended from the popliteal artery just distal to the occluded stent but proximal to the high bifurcation of the anterior tibial and tibioperoneal trunk. And I extended with a second Madison Viabahn 6 mm
x 10 cm proximally to the SFA just proximal to the stent. The Viabahn's did not expand to their completion due to the likely residual plaque as well as potential stent deformity. I therefore now used a 5 mm angioplasty balloon to angioplasty the
profile of the Madison Viabahn stents. Completion angiogram now demonstrated an excellent result with brisk flow through the entire SFA and popliteal and into the runoff. Both anterior tibial and peroneal arteries filled nicely. At this point I was
satisfied with that. I then turned my attention to the more proximal SFA and reimaged it. Given the moderate stenosis in for concern for adequate inflow into the stents, I angioplastied this segment with a 5 mm balloon. Completion angiogram
demonstrated an excellent result. At this point I was satisfied. I then withdrew my sheath over a 0.35 inch wire to the right external iliac artery. Right femoral angiogram demonstrated good puncture in the right common femoral artery. Right
lower extremity arteriogram demonstrated patent right SFA stents. Patent flow into the below the knee system and into the tibial vessels. However contrast was getting washed out and I had poor imaging below the knee. In addition I used a fair
amount of contrast and I felt at this point I would not do any further imaging. I then exchanged the sheath for a short 6 [place] sheath. All wires and catheters were removed. The patient was transported to the recovery room in stable condition
where the sheath will be withdrawn and manual pressure applied to the puncture site. The patient tolerated procedure well. Upon completion he had an excellent phasic distal anterior tibial artery Doppler signal. And the foot pinked up (except for
the first toe gangrenous lesion).
The patient tolerated procedure well.
[2024-08-16] MEDS: DILAUDID 0.25 MG IV (15:29)
--- NOTE | 2024-08-16 15:47 | CON.INTV ---
Consultation
Consultation Request
Date/Time Consultation Requested: 08/16/2024-4 PM
Date/Time Consultation Performed: 08/16/2024-4:30 PM
Requesting Provider: vascular surgery
Performing Provider: Dr. Lehamn
Reason for Consultation: postoperative critical care management
Medical History
-
Chief Complaint: PAD
History of Present Illness:
68-year-old male smoker with a history of hypertension, diabetes, neuropathy, COPD, anemia presented with significant PAD and underwent successful left lower extremity stent placement, -vascular surgery worried about potential compartment
syndrome-per diem physical therapist consulted for postoperative critical care management 08/16/2024. . The patient states that he had pain for over a week. He went to see other doctors and they felt like he might be neuropathy. Even once was pain doctor. It
turns out he had significant PAD and underwent revascularization. He continues to have some left lower extremity pain but it is improved. He has some mild shortness of breath. Did not complain of any chest pain or abdominal pain. He had smoked a
pack of cigarettes daily until yesterday.
Past Medical History
Past Medical History: None (Hypertension. PAD. Cigarette smoker-ongoing. COPD. Neuropathy. Type 2 diabetes. Anemia. Right lower extremity angioplasty. Retinal surgery.)
Social History
Tobacco: Smoker ( 1 and 1/2 packs of cigarettes daily)
Alcohol: None
Drug: None
Personal:
Living: With Family
Occupational Exposures: no known asbestos exposure
Environmental Exposures: no known tuberculosis exposure
Family History
Family History: Reviewed & Not Pertinent
Allergies / Home Medications
Allergies
Allergy/AdvReac Type Severity Reaction Status Date / Time
No Known Allergies Allergy Verified 08/15/24 15:05
Home Medications
�Medication �Instructions �Recorded �Confirmed �Last Taken �Type
folic acid 1 mg tablet 1 mg PO NOON Supplement 11/28/15 08/15/24 05/03/24 15:00 History
pantoprazole 40 mg tablet,delayed 40 mg PO .AFTERNOON 11/28/15 08/15/24 05/03/24 12:00 History
release Gastrointestinal Issue
pregabalin 300 mg capsule (Lyrica) 300 mg PO TID Neurological 11/28/15 08/15/24 08/15/24 History
Condition
aspirin 81 mg chewable tablet 81 mg PO DAILY 12/04/15 08/15/24 08/15/24 Rx
gabapentin 300 mg capsule 600 mg PO QIDPRN PRN neuropathy 06/09/21 08/15/24 08/15/24 History
amlodipine 5 mg tablet 10 mg PO DAILY Blood Pressure 03/18/22 08/15/24 08/15/24 History
methadone 5 mg tablet 5 mg PO QID Pain 03/18/22 08/15/24 08/15/24 History
trazodone 50 mg tablet 50 mg PO HS Sleep 03/18/22 08/15/24 08/14/24 History
clopidogrel 75 mg tablet (Plavix) 75 mg PO DAILY #30 tabs 04/02/22 08/15/24 08/15/24 Rx
fluticasone propionate 50 2 spray intranasal DAILY Allergies 04/02/22 08/15/24 05/04/24 07:30 History
mcg/actuation nasal
spray,suspension (Flonase Allergy
Relief)
lisinopril 40 mg tablet 40 mg PO DAILY Blood Pressure 04/02/22 08/15/24 08/15/24 History
atorvastatin 40 mg tablet 40 mg PO DAILY High Cholesterol 03/02/24 08/15/24 08/15/24 History
duloxetine 60 mg capsule,delayed 60 mg PO NOON Mental Health/Anxiety 03/02/24 08/15/24 05/03/24 12:00 History
release
lorazepam 1 mg tablet 1 mg PO .AFTERNOON Mental 03/02/24 08/15/24 05/03/24 15:00 History
Health/Anxiety
naproxen sodium 220 mg tablet 440 mg PO PRN PRN PAIN 03/02/24 08/15/24 03/08/24 18:30 History
(Aleve)
Tandem T:Slim Insulin Pump 1 dose SC DIRECTED Diabetes 05/03/24 08/15/24 08/15/24 History
clonidine HCl 0.1 mg tablet 0.1 mg PO DAILY Blood Pressure 05/03/24 08/15/24 08/15/24 History
hydrochlorothiazide 25 mg tablet 25 mg PO DAILY Fluid 05/03/24 08/15/24 08/15/24 History
Retention/Swelling
spironolactone 25 mg tablet 25 mg PO DAILY Fluid 05/03/24 08/15/24 08/15/24 History
Retention/Swelling
Review of Systems
-
Unable to Obtain full review of systems at this time due to: Other ( per HPI)
Vitals / Labs / Diagnostic Testing
Vital Signs
Temp Pulse Resp BP Pulse Ox
98.2 F 55 13 161/62 100
08/16/24 15:05 08/16/24 15:40 08/16/24 15:40 08/16/24 15:40 08/16/24 15:40
Diagnostic Testing:
Physical Exam
-
Exam:
well-nourished and well-developed in no apparent distress
HEENT-atraumatic, normocephalic
Neck-supple, no JVD, no bruit
Heart-regular rate and rhythm-no murmurs, rubs or gallops
Chest-clear to auscultation, no wheezes, crackles
Back-no tenderness
Abdomen-soft, nontender, nondistended, no hepatosplenomegaly
Extremities-no cyanosis, clubbing, edema and good peripheral pulses
Integument-intact, no rashes, lesions or ecchymosis
Neurology-alert and oriented, nonfocal motor and sensory exam
Assessment
-
68-year-old male smoker with a history of hypertension, diabetes, neuropathy, COPD, anemia presented with significant PAD and underwent successful left lower extremity stent placement, -vascular surgery worried about potential compartment
syndrome-per diem physical therapist consulted for postoperative critical care management 08/16/2024.
PAD with lower extremity digital ulcers/gangrene
Status post left lower extremity stent-overlapping stents above the knee popliteal artery to proximal SFA, angioplasty left proximal SFA 08/16/2024-vascular surgery worried about compartment syndrome
Suspected COPD
Hyponatremia
Hyperkalemia
Chronic pain syndrome/chronic opiate dependence
Thrombocytopenia
Microcytic anemia
Hyperglycemia-A1c 8.2
Conditions present prior to admission:
Hypertension.
PAD.
Cigarette smoker-ongoing.
COPD.
Neuropathy.
Type 2 diabetes.
Anemia.
Right lower extremity angioplasty. Retinal surgery.
Plan
Postoperative surgical intensive care unit monitoring
Supplemental oxygen as needed
Incentive spirometry
Aspiration precautions
Chest x-ray in ICU
Nebulizers as needed
Neuro and vascular checks per protocol
Monitor blood pressure/perfusion pressures and pulses closely
Heparin drip per vascular surgery
Vascular surgery following-correspondence and operative notes reviewed
Patient on methadone
Smoking cessation counseling
Nicotine patch
DVT prophylaxis
Early nutrition
Early mobilization
Recommend outpatient pulmonary evaluation-PFTs, smoking cessation counseling, yearly low-dose lung cancer screening CT
Critical care statement: A total of 55 minutes of critical care time was provided for this patient today. This includes management of unstable vital signs, evaluation of the patient at bedside, reviewing the patient's pertinent medical records
including radiographs, microbiology, laboratory evaluations, and discussion with primary team, consultants, pharmacy, nutrition, physical therapy, case management, charge nurse, critical care nursing, and respiratory therapy.
Diagnostic data:
Lower extremity arterial study 08/16/2024-left lower extremity mid and distal superficial femoral arteries are occluded, posterior tibial artery is occluded
Data Reviewed
-
EKG: Report reviewed by me
Medical Tests (Nuc Med, Echo etc): Report reviewed by me
Labs: Labs reviewed by me
Old Records: Reviewed
Critical Care Time (in minutes): 55
[2024-08-16 16:50] LABS: Hematocrit 26.3 % (39.0-52.0); Hemoglobin 9.1 g/dL (13.0-18.0); Mean Corp Hgb Conc. 34.6 g/dL (33.0-37.0); Mean Corpuscular Hgb 26.3 pg (27.0-31.0); Mean Platelet Volume 12.6 fL (7.4-10.4); Platelet Count 78 10^3/uL (130-400); Red Blood Cell Count 3.46 10^6/uL (4.70-6.10); Red Cell Dist. Width 14.8 % (11.5-14.5); White Blood Cell Count 6.8 10^3/uL (4.8-10.8)
[2024-08-16] MEDS: PATIENT'S OWN INSULIN PUMP 6 UNITS SC ×2 (17:00→19:19)
[2024-08-16 17:04] LABS: Glucose - Point of Care 186 mg/dl (70-99)
[2024-08-16] MEDS: ATIVAN 1 MG PO (17:08)
[2024-08-16] MEDS: PROTONIX 40 MG PO (17:09)
[2024-08-16 17:13] LABS: Blood Urea Nitrogen 19 mg/dl (9-20); Calcium 8.9 mg/dl (8.4-10.2); Carbon Dioxide 21 mmol/L (22-30); Chloride 103 mmol/L (98-107); Estimated Creatinine Clearance 54 ml/min; Glucose 183 mg/dl (70-99); Potassium 5.4 mmol/L (3.5-5.1); Sodium 130 mmol/L (135-145); eGFR > 60.00
[2024-08-16] MEDS: NSS 1000 IV (17:19)
[2024-08-16 18:29] LABS: INR 0.98; PT 13.5 Sec (11.4-14.6)
[2024-08-16 18:30] LABS: APTT 33.1 Sec (23.4-35.0)
--- NOTE | 2024-08-16 18:34 | PTCARENOTE ---
Received pt from pacu c/o 7/10 l foot pain, all pulses noted by doppler. Received call shortly after arrival that baseline ptt was qns. No appreciable veins noted to draw labs. Pt also c/o discomfort at l hand iv site. Site does flush easily
with minimal blood return at hub. Blood sugar as charted, pt on insulin pump and gave himself 6 units based on result. Pt also bladder scan for >925, unable to void, he was straight cath for 1000ml clear yellow urine. IV team in and was unable to
place peripheral site, midline placed and ptt sent once midline placed. Dr Harrison in to see pt just after 6, was aware that heparin had not been initiated given issues with access and labs. REport to next shift. aware that heparin needs to be
initiated.
[2024-08-16 19:21] LABS: Glucose - Point of Care 175 mg/dl (70-99)
[2024-08-16] MEDS: HEPARIN 25000 UNITS/250 ML IV (19:54)
--- NOTE | 2024-08-16 20:00 | PTCARENOTE ---
Received pt resting in bed, AAOx3, pleasant, without complaints at this time. SB on tele. HR 40s-50s. BP 110-130s/50s-60s. Neurovasc checks ongoing - B/L DP/PT pulses by doppler. On 2L NC spo2 99%- placed on RA, spo2 97%. Lungs CTA but diminished. +
bowel sounds. Ate most of his dinner. Straight cath'd on day shift - will follow voids/bladder scans as needed. R groin with dsg c/d/i. Multiple toe wounds present. L midline and L hand #20 present. NSS @ 80ml/hr and heparin gtt initiated at
1100units/hr. PTT due 0200. Monitoring
Cannot verify vital signs captured prior to 190.
[2024-08-16] MEDS: DESYREL 50 MG PO (20:15)
[2024-08-16 22:22] LABS: Glucose - Point of Care 245 mg/dl (70-99)
[2024-08-16] MEDS: PATIENT'S OWN INSULIN PUMP 20 UNITS SC (22:22)
--- NOTE | 2024-08-16 23:49 | PTCARENOTE ---
HR hitting 38 briefly while pt. asleep. HR sitting in 40s most of the night. BP stable. TRAVIS Buenrostro aware.
Dilaudid given for L foot pain with good relief.
Pt. attempted to use urinal but was unable to void. Bladder scanned for 177ml. Will monitor throughout night.
[2024-08-17] VITALS (18 sets, daily range): BP systolic 105–176; BP diastolic 36–94; BMI 20.1
[2024-08-17] MEDS: PT'S OWN INSULIN PUMP - HumaLOG 6 UNIT SC (00:35)
[2024-08-17 00:44] LABS: Glucose - Point of Care 232 mg/dl (70-99)
[2024-08-17] MEDS: DILAUDID 0.5 MG IV ×5 (03:03→21:58)
--- NOTE | 2024-08-17 03:15 | PTCARENOTE ---
Been monitoring pt. blood glucose closely overnight via accucheck machine. Accuchecks have consistently been running much higher (about 80) than what pt. insulin pump is reading. On this recheck, accucheck = 212. Pt. pump reading = 134. Pt. does not
feel comfortable giving himself any insulin at this time because he feels it will bottom himself out. See MAR for previous insulin pump administrations. TRAVIS Buenrostro aware of this and previous readings.
[2024-08-17 03:18] LABS: Glucose - Point of Care 212 mg/dl (70-99)
[2024-08-17] MEDS: NSS 1000 IV (04:18)
[2024-08-17 04:56] LABS: % Basophils 0.2 % (0-2); % Immature Granulocytes 0.4 % (0-0.5); % Lymphocytes 13.6 % (20.5-51.1); % Monocytes 5.1 % (1.7-9.3); % Neutrophils 80.7 % (42.2-75.2); Absolute Lymphocytes 0.7 10^3/uL (1.2-3.4); Absolute Monocytes 0.3 10^3/uL (0.1-0.6); Absolute Neutrophils 4.1 10^3/uL (1.4-6.5); Hematocrit 23.7 % (39.0-52.0); Hemoglobin 7.9 g/dL (13.0-18.0); Mean Corp Hgb Conc. 33.3 g/dL (33.0-37.0); Mean Corpuscular Hgb 25.8 pg (27.0-31.0); Mean Corpuscular Volume 77.5 fL (80.0-94.0); Mean Platelet Volume 12.3 fL (7.4-10.4); Nucleated Red Blood Cells % 0 % (-); Platelet Count 68 10^3/uL (130-400); Red Blood Cell Count 3.06 10^6/uL (4.70-6.10); Red Cell Dist. Width 14.9 % (11.5-14.5); White Blood Cell Count 5.1 10^3/uL (4.8-10.8)
[2024-08-17 05:10] LABS: ALT (SGPT) 22 U/L (0-50); AST (SGOT) 26 U/L (17-59); Albumin 2.7 g/dl (3.5-5.0); Alkaline Phosphatase 68 U/L (38-126); Blood Urea Nitrogen 23 mg/dl (9-20); Calcium 8.1 mg/dl (8.4-10.2); Carbon Dioxide 19 mmol/L (22-30); Chloride 105 mmol/L (98-107); Estimated Creatinine Clearance 50 ml/min; Glucose 182 mg/dl (70-99); Potassium 4.8 mmol/L (3.5-5.1); Sodium 130 mmol/L (135-145); Total Bilirubin 0.5 mg/dl (0.2-1.3); Total Protein 5.2 g/dl (6.3-8.2); eGFR > 60.00
[2024-08-17 07:00] LABS: INR 0.96; PT 13.2 Sec (11.4-14.6)
[2024-08-17 07:28] LABS: Glucose - Point of Care 200 mg/dl (70-99)
--- NOTE | 2024-08-17 07:39 | W.PN.VS ---
Addendum entered and electronically signed by Collin Harrison MD 08/17/24 08:04:
Seen and examined with CHERYL Marroquin. Agree with findings as noted below. Patient without complaints, notes his left foot feels better. Right groin is flat. Left calf is soft. Compartments are all soft. Calf tenderness significantly improved. His
foot is warm. He has a weakly palpable DP pulse and an excellent Doppler signal. Motor function has improved, but still somewhat weak. Plan/as discussed and noted below. I would like to get a CTA of the aorta with runoff as my angiogram
demonstrated significant left common femoral artery plaque that may or may not warrant revascularization. In addition we can see plaque burden in bilateral lower extremities to assess any extrinsic compression of the stent that may warrant us to
primarily consider electively bypassing the left lower extremity given concerns of repeated stent failure. Limited angiography was performed of the right lower extremity at the time I did the left lower extremity angiogram yesterday, and below the
knee vessels not as well-visualized. He still may benefit from repeated right lower extremity arteriogram down the line.
Addendum entered and electronically signed by TARVIS Hardwick 08/17/24 07:53:
Can downgrade to telemetry from vascular standpoint
Original Note:
Today's Communication / Plan
-
Seen and assessed with Dr. Harrison
Assessment/Plan
-
POD 1 left lower extremity arteriogram, SFA stents x 2
Plan:
- Recheck hemoglobin at 12
- If creatinine remains stable will check CTA aorta with runoff tomorrow with hydration to assess inflow disease
- Continue heparin drip
- Podiatry following for foot wounds, if could hold off on any surgical intervention until after CTA tomorrow to be sure no further vascular intervention necessary
Subjective Data
-
Date of Service: August 17, 2024
Patient seen at bedside this a.m. with Dr. Harrison. Patient offers no complaints at this time. Patient was straight cathed x 2 overnight
Objective Data
-
Vital Signs
Temp Pulse Resp BP Pulse Ox
97.2 F 56 14 109/41 98
08/17/24 07:34 08/17/24 06:00 08/17/24 06:00 08/17/24 05:02 08/17/24 06:00
Intake and Output
08/16/24 08/17/24 08/18/24
06:59 06:59 06:59
Intake Total 670 / 670 1227 / 1227
Output Total 400 / 400 1500 / 1500
Balance 270 / 270 -273 / -273
Intake:
Oral fluids 670 / 670
IV fluids (Total) 122 / 1227
Heparin 117 / 117
Normosol 150 / 150
Nss 1,000 ml @ 80 mls/hr IV . 960 / 960
[id number] GINO Rx#:[id number]
Output:
Urine, Voided 400 / 400
Straight cath output 1500 / 1500
Other:
Number of approximated SMALL 1
amounts of urine
Number of approximated MODERATE 1
amounts of urine
Lab Results
08/17/24 04:14
08/17/24 04:14
Calcium 8.1 mg/dl (8.4-10.2) L 08/17/24 04:14
Total Bilirubin 0.5 mg/dl (0.2-1.3) 08/17/24 04:14
AST 26 U/L (17-59) 08/17/24 04:14
ALT 22 U/L (0-50) 08/17/24 04:14
Alkaline Phosphatase 68 U/L (38-126) 08/17/24 04:14
Total Protein 5.2 g/dl (6.3-8.2) L 08/17/24 04:14
Albumin 2.7 g/dl (3.5-5.0) L 08/17/24 04:14
Physical Exam
-
AAO x 3
No tachypnea on room air
No tachycardia
Abdomen soft
Groin site clean, dry, intact, soft, flat
Palpable DP pulse
[2024-08-17] MEDS: PATIENT'S OWN INSULIN PUMP SC ×2 (08:00→23:01)
--- NOTE | 2024-08-17 08:33 | PN.DE.MGMTRT ---
Insulin Management
- -
08/17/2024: Diabetes Insulin pump Management Followup
68 year old male with PMH: HTN PAD, Neuropathy, COPD, Anemia and T2DM who presented to [facility] ED for evaluation at request of his comfort filler, Dr. Villanueva, and vascular surgeon, Dr. Morrison. Patient states that approximately 5 days ago he started with
cramping in left calf and then it he was unable to bear weight so he called his comfort filler to be seen. States he was switched to an insulin pump 5 years ago and has been using Tandem T-Slim, Humalog insulin and Dexcom G7 prior to admission. He
routinely sees Dr. Vaca for diabetes care, states his recent A1C in the office was 7.1%, his A1C on admission was 8.2%, Cr 1.5, baseline 0.7.
Pt is awake, alert, oriented, resting in bed, offers no complaints, Able to discuss diabetes management.
POD #1 left lower extremity arteriogram, SFA stents x 2. Per Vascular, plan is for CTA aorta with runoff tomorrow if Cr remains stable
Pt is noted for Hyperglycemia, pt reports that she has not been administering bolus with meals because he did not know how to read the meal ticket on the tray to determine how many carbs were on his tray. Current blood sugar is 342 via hospital
glucose monitor. His glucose range has been 212 to 245.
Will administer 1.9 bolus via pump and increase his basal rates by 30% as noted below.
Discussed and reviewed how to read meal ticket to determine amount of CHO at each meal so pt can administer bolus with meals.
Discussed with Nurse and asked her to assist pt at meal time so he can appropriately enter the correct number of CHO.
Pump settings as follows:
Basal Correction CHO ratio target
6am-5p 0.975 1:30 1:13 110
5pm- 8p 1.235 1:30 1:13 110
8p-12am 1.235 1:30 1:14 110
12am-3a 1.105 1:30 1:14 110
3a-6a 1.105 1:30 1:13 110
24 hour basal total 26 units.
Discussed with nurse and instructed on use of bedside insulin pump work sheet. Will cont to follow
Diabetes History
- -
Type of Diabetes: 2 requiring insulin
Pre-Admission Diabetes Regimen
08/16/24 08/17/24
16:32 04:14
Creatinine 1.2 1.3
Lab Results
Hemoglobin A1c 8.2 % (4.0-5.6) H 08/16/24 07:19
Insulin Pump Settings
IP Diabetes Regimen
08/16/24 08/16/24 08/16/24
11:54 15:16 16:32
Glucose 183 H
POC Glucose 174 H 164 H
08/16/24 08/16/24 08/16/24
16:53 19:09 22:11
Glucose
POC Glucose 186 H 175 H 245 H
08/17/24 08/17/24 08/17/24
00:33 03:06 04:14
Glucose 182 H
POC Glucose 232 H 212 H
08/17/24
07:17
Glucose
POC Glucose 200 H
Meal type: Breakfast
Amount consumed: 100%
Patient Education
--- NOTE | 2024-08-17 08:52 | W.PN.HOSP.TC ---
Today's Communication/Plan
-
Stop clonidine
Assessment / Plan
Assessment / Plan
Gen-AAOx3, NAD
HEENT-NC, AT, anicteric, clear oral mm
Neck-supple
CV-reg, no M, +S1/S2
Lungs-clear
Abd-soft, NT, ND
Ext-no edema
Musculoskeletal-no cyanosis, clubbing
Skin-warm and dry
Neuro-grossly non-focal
Psych-calm, cooperative
PAD/lower extremity digital gangrene -left first toe, right second toe. No osteomyelitis noted on x-ray. Suspect ischemic etiology including PAD versus emboli.
Stable after lower extremity angiogram August 16 with placement of left above-knee popliteal artery to proximal SFA stent. Balloon angioplasty of left proximal superficial femoral artery.
Vascular surgery wants to pursue CTA of aorta with runoff.
Suspected COPD -wheezing improved. Continue albuterol nebs as needed, although does not look like he received a dose yet. Does not have a formal COPD diagnosis. Start albuterol nebs as needed. Recommend outpatient follow-up with pulmonary for
PFTs. Smoking cessation.
Hyponatremia -suspect SIADH. High urine osmolarity noted. Mild fluid restriction.
Hyperkalemia -resolved. Low potassium diet.
Tobacco dependence -cessation advised.
Chronic pain syndrome/chronic opiate dependence -he goes to a pain clinic. On chronic methadone for neuropathy, dose was just increased to 20 mg daily.. Also on gabapentin.
Chronic thrombocytopenia -unclear etiology. Patient is unaware of the diagnosis. Low platelet count dates back to at least 2016.
Chronic microcytic anemia -hemoglobin at baseline. He has seen hematology in the past, [facility].
CHIN on CKD 3a -CHIN resolved. May have been due to volume depletion. Creatinine 1.6 on admission, 1.3 today.
DM2 with hyperglycemia -he uses an insulin pump. Glucose 200 this morning, 245 last night. Has a Dexcom CGM. Diabetes MANAGER USER EXPERIENCE consulted. Hemoglobin A1c 8.2%. Insulin pump is infusing.
Chronic peripheral neuropathy -likely due to diabetes.
Essential hypertension -stable. Bradycardia noted, will hold clonidine.
Hyperlipidemia -atorvastatin.
Depression/anxiety
Full code
Anticipated Discharge: > 48 hours
Subjective/Interval History
-
Date of Service: August 17, 2024
Patient seen and examined. No complaints.
Objective Data
-
Labs:
Laboratory Results
08/17/24 08/17/24 08/17/24
02:08 04:14 06:00
WBC 5.1
Hgb 7.9 L
Hct 23.7 L
Plt Count 68 L
PT 13.2 Cancelled
INR 0.96 Cancelled
APTT 122.0 H
Sodium 130 L
Potassium 4.8
Chloride 105
Carbon Dioxide 19 L
BUN 23 H
Creatinine 1.3
Glucose 182 H
Calcium 8.1 L
Total Bilirubin 0.5
AST 26
ALT 22
Alkaline Phosphatase 68
08/17/24 08/17/24
09:00 12:00
WBC
Hgb Pending
Hct Pending
Plt Count
PT
INR
APTT Pending
Sodium
Potassium
Chloride
Carbon Dioxide
BUN
Creatinine
Glucose
Calcium
Total Bilirubin
AST
ALT
Alkaline Phosphatase
Vital Signs:
Vital Signs
Temp Pulse Resp BP Pulse Ox
97.2 F 56 14 109/41 98
08/17/24 07:34 08/17/24 06:00 08/17/24 06:00 08/17/24 05:02 08/17/24 06:00
I&O
08/16/24 08/17/24 08/18/24
06:59 06:59 06:59
Intake Total 670 / 670 1227 / 1227
Output Total 400 / 400 1500 / 1500
Balance 270 / 270 -273 / -273
Review of Systems
-
History Source: Patient
All other systems: Reviewed and negative
--- NOTE | 2024-08-17 08:55 | W.PN.INTV ---
Today's Communication / Plan
Recommendations
Heparin drip continues
Neurovascular checks
If remains hemodynamically stable with follow-up hemoglobin stable then consider transfer out of ICU-at that point unhairing machine operator would sign off-call pulmonary if respiratory issues arise
Outpatient pulmonary follow-up
Assessment
-
68-year-old male smoker with a history of hypertension, diabetes, neuropathy, COPD, anemia presented with significant PAD and underwent successful left lower extremity stent placement, -vascular surgery worried about potential compartment
syndrome-unhairing machine operator consulted for postoperative critical care management 08/16/2024.
PAD with lower extremity digital ulcers/gangrene
Status post left lower extremity stent-overlapping stents above the knee popliteal artery to proximal SFA, angioplasty left proximal SFA 08/16/2024-vascular surgery worried about compartment syndrome
Suspected COPD
Hyponatremia
Hyperkalemia
Chronic pain syndrome/chronic opiate dependence
Thrombocytopenia
Microcytic anemia
Hyperglycemia-A1c 8.2
Conditions present prior to admission:
Hypertension.
PAD.
Cigarette smoker-ongoing.
COPD.
Neuropathy.
Type 2 diabetes.
Anemia.
Right lower extremity angioplasty. Retinal surgery.
Plan
Remains hemodynamically stable with good neurovascular checks
Supplemental oxygen as needed
Incentive spirometry encouraged
Aspiration precautions
Chest x-ray 02/05/2024-NAD
Nebulizers as needed-currently not bronchospastic
Neuro and vascular checks per protocol
Monitor blood pressure/perfusion pressures and pulses closely
Heparin drip per vascular surgery
Vascular surgery following-correspondence and operative notes reviewed
Hemoglobin dropped this morning
Repeat hemoglobin
Transfuse if needed
Patient on methadone
Smoking cessation counseling ongoing
Nicotine patch
DVT prophylaxis
Early nutrition
Early mobilization
If remains hemodynamically stable with hemoglobin stable as well could be transferred out of ICU-unhairing machine operator with sign off at that point
Recommend outpatient pulmonary evaluation-PFTs, smoking cessation counseling, yearly low-dose lung cancer screening CT
Reviewed the patient's pertinent medical records including radiographs, microbiology, laboratory evaluations, and discussion with primary team, consultants, pharmacy, nutrition, physical therapy, case management, charge nurse, critical care
nursing, and respiratory therapy.
Diagnostic data:
Lower extremity arterial study 08/16/2024-left lower extremity mid and distal superficial femoral arteries are occluded, posterior tibial artery is occluded
Subjective Dataa
Subjective Data
Date of Service:
Date of Service: August 17, 2024
Chief Complaint: Receiving Operator Follow Up and Pulmonary Follow Up
Subjective:
hemoglobin dropped, peripheral pulses remain, foot warm, no complaints of shortness of breath, chest pain or abdominal pain
Review of Systems
General: Other ( Per HPI)
Objective Data
Data Reviewed
Vital Signs / I&O / Oxygen:
Vital Signs
Temp Pulse Resp BP Pulse Ox
97.2 F 56 14 109/41 98
08/17/24 07:34 08/17/24 06:00 08/17/24 06:00 08/17/24 05:02 08/17/24 06:00
Intake and Output
08/16/24 08/17/24 08/18/24
06:59 06:59 06:59
Intake Total 670 / 670 1227 / 1227
Output Total 400 / 400 1500 / 1500
Balance 270 / 270 -273 / -273
SaO2 98
Nasal Cannula flow liters per 2
minute
Physical Exam
General: Respiratory Distress (n) and Comfortable
HEENT: Normocephalic, Anicteric and Moist Mucous Membranes
Cardiovascular: Regular Rhythm and Murmur
Respiratory: Clear ( diminished breath sounds and prolonged expiratory time), Wheeze (n), Crackles (n), Rhonchi (n), Non-Labored Respirations, Accessory Resp Muscle Use (n) and Stridor
GI: Soft, Non Distended and Non Tender
Neurology: Awake, Alert and No Motor Deficits
Skin: Warm, Good Color, Cyanosis (n) and Jaundice (n)
Labs/Micro/Reports
Lab Data
08/17/24 04:14
Laboratory Results
08/16/24 08/16/24 08/17/24
16:35 18:12 02:08
PT Cancelled 13.5 13.2
INR Cancelled 0.98 0.96
APTT Cancelled 33.1 122.0 H
08/17/24
06:00
PT Cancelled
INR Cancelled
APTT
[2024-08-17] MEDS: NICODERM TRANSDERMAL 21 MG TRANSDERM (09:00)
[2024-08-17] MEDS: LOW STRENGTH ASPIRIN 81 MG PO (09:00)
[2024-08-17] MEDS: LYRICA 100 MG PO ×3 (09:00→21:50)
[2024-08-17] MEDS: DOLOPHINE 10 MG PO ×2 (09:00→23:00)
[2024-08-17] MEDS: LIPITOR 40 MG PO (09:00)
[2024-08-17] MEDS: PLAVIX 75 MG PO (09:00)
[2024-08-17] MEDS: NORVASC 10 MG PO (09:00)
--- NOTE | 2024-08-17 09:00 | PTCARENOTE ---
pt is awake and alert , NRS - sinus lb on monitor , pt am glucose 200 on accu check , pt using his insulin pump for meals , he is confused on how to dose himself because he does not understand the ticket given with the meal tray , Diabetic GANG PUNCH OPERATOR to
counselor aide patient
[2024-08-17 09:56] LABS: Glucose - Point of Care 342 mg/dl (70-99)
[2024-08-17 10:53] LABS: APTT 61.3 Sec (23.4-35.0)
[2024-08-17] MEDS: HEPARIN 5000 UNITS IV (11:38)
[2024-08-17] MEDS: CATAPRES PO (12:24)
[2024-08-17 12:45] LABS: Glucose - Point of Care 320 mg/dl (70-99)
[2024-08-17 12:52] LABS: Hematocrit 26.3 % (39.0-52.0); Hemoglobin 9.1 g/dL (13.0-18.0)
[2024-08-17] MEDS: PATIENT'S OWN INSULIN PUMP 5.5 UNITS SC (13:00)
[2024-08-17] MEDS: CYMBALTA DELAYED RELEASE 60 MG PO (13:52)
[2024-08-17] MEDS: FOLVITE 1 MG PO (13:52)
[2024-08-17] MEDS: ATIVAN 1 MG PO (13:52)
--- NOTE | 2024-08-17 15:53 | PTCARENOTE ---
pt blood glucose up to 300s via accu check , diabetic DECK BUILDER here at 1300 and adjusted his insulin pump and increased his rate up to 30% , the patient was instructed on how to read the carbs on the meal ticket , the plan is for him to bolus his insulin
dose on the accu check and not from his Dexcom reader as per diabetic DECK BUILDER , he is now written for telemetry status , his vascular checks are now Q 4 hours , his repeat Hemoglobin at 12 was 9.1 , he continues on heparin gtt as per protocol
[2024-08-17 15:57] LABS: Glucose - Point of Care 188 mg/dl (70-99)
--- NOTE | 2024-08-17 16:44 | PTCARENOTE ---
pt to transfer to [id number] report called to receiving RN
[2024-08-17] MEDS: PATIENT'S OWN INSULIN PUMP 10.3 UNITS SC (17:25)
[2024-08-17] MEDS: PROTONIX 40 MG PO (17:26)
[2024-08-17] MEDS: HEPARIN 25000 UNITS/250 ML IV (17:27)
[2024-08-17 17:34] LABS: Glucose - Point of Care 226 mg/dl (70-99)
--- NOTE | 2024-08-17 17:41 | CM ---
Alert awake oriented patient who lives with his Jocelyne in a 2 story home with 0 step to enter and 12 steps to bed and bathroom. He is independent in driving and in all activities of daily living.He uses a cane.
DH VN hx / No SNF history
Pharmacy [facility]
PCP DR Dee
PLAN Will depend on hospital course of care
[2024-08-17 18:00] LABS: APTT > 200 Sec (23.4-35.0)
[2024-08-17 21:36] LABS: Glucose - Point of Care 146 mg/dl (70-99)
[2024-08-17] MEDS: DESYREL 50 MG PO (21:50)
[2024-08-18] MEDS: DILAUDID 0.5 MG IV ×4 (02:02→20:16)
[2024-08-18 03:07] VITALS: BP 135/69
[2024-08-18 03:46] LABS: APTT 80.5 Sec (23.4-35.0)
[2024-08-18 06:38] LABS: Hemoglobin 7.8 g/dL (13.0-18.0); Mean Corp Hgb Conc. 33.9 g/dL (33.0-37.0); Mean Corpuscular Hgb 26.2 pg (27.0-31.0); Mean Corpuscular Volume 77.2 fL (80.0-94.0); Mean Platelet Volume 12.4 fL (7.4-10.4); Platelet Count 69 10^3/uL (130-400); Red Blood Cell Count 2.98 10^6/uL (4.70-6.10); Red Cell Dist. Width 14.9 % (11.5-14.5); White Blood Cell Count 5.6 10^3/uL (4.8-10.8)
[2024-08-18 07:05] LABS: ALT (SGPT) 21 U/L (0-50); AST (SGOT) 22 U/L (17-59); Albumin 3.1 g/dl (3.5-5.0); Alkaline Phosphatase 75 U/L (38-126); Blood Urea Nitrogen 22 mg/dl (9-20); Calcium 8.4 mg/dl (8.4-10.2); Carbon Dioxide 21 mmol/L (22-30); Chloride 106 mmol/L (98-107); Estimated Creatinine Clearance 50 ml/min; Glucose 133 mg/dl (70-99); Potassium 4.4 mmol/L (3.5-5.1); Sodium 134 mmol/L (135-145); Total Bilirubin 0.4 mg/dl (0.2-1.3); Total Protein 5.6 g/dl (6.3-8.2); eGFR > 60.00
--- NOTE | 2024-08-18 07:34 | W.PN.UPDATE ---
Update Note
Progress Note Update
Patient seen at bedside this a.m. Patient is ambulating without difficulty around his room. No events overnight. Creatinine remained stable at 1.3 this morning. Hydration and CTA runoff ordered for this a.m. Patient agreeable to plan.
[2024-08-18 07:45] VITALS: BP 158/66
[2024-08-18 08:04] LABS: Glucose - Point of Care 146 mg/dl (70-99)
[2024-08-18] MEDS: PATIENT'S OWN INSULIN PUMP SC ×4 (08:06→21:20)
[2024-08-18] MEDS: NORVASC 10 MG PO (08:08)
[2024-08-18] MEDS: NICODERM TRANSDERMAL 21 MG TRANSDERM (08:08)
[2024-08-18] MEDS: PLAVIX 75 MG PO (08:08)
[2024-08-18] MEDS: LOW STRENGTH ASPIRIN 81 MG PO (08:08)
[2024-08-18] MEDS: LYRICA 100 MG PO ×3 (08:08→21:14)
[2024-08-18] MEDS: LIPITOR 40 MG PO (08:08)
--- NOTE | 2024-08-18 09:43 | W.PN.HOSP.TC ---
Today's Communication/Plan
-
Resume lisinopril
CTA
PT/OT
Assessment / Plan
Assessment / Plan
Gen-AAOx3, NAD
HEENT-NC, AT, anicteric, clear oral mm
Neck-supple
CV-reg, no M, +S1/S2
Lungs-clear
Abd-soft, NT, ND
Ext-no edema
Musculoskeletal-no cyanosis, clubbing
Skin-warm and dry
Neuro-grossly non-focal
Psych-calm, cooperative
PAD/lower extremity digital gangrene -left first toe, right second toe. No osteomyelitis noted on x-ray. Suspect ischemic etiology including PAD versus emboli.
Stable after lower extremity angiogram August 16 with placement of left above-knee popliteal artery to proximal SFA stent. Balloon angioplasty of left proximal superficial femoral artery.
Vascular surgery has ordered CTA angiogram with runoff today. IV heparin per vascular surgery.
Suspected COPD -wheezing improved. Continue albuterol nebs as needed, although does not look like he received a dose yet. Does not have a formal COPD diagnosis. Start albuterol nebs as needed. Recommend outpatient follow-up with pulmonary for
PFTs. Smoking cessation.
Hyponatremia -suspect SIADH. High urine osmolarity noted. Mild fluid restriction. Hydrochlorothiazide contributed to hyponatremia, now on hold.
Hyperkalemia -resolved. Low potassium diet. Lisinopril and spironolactone on hold.
Tobacco dependence -cessation advised.
Chronic pain syndrome/chronic opiate dependence -he goes to a pain clinic. On chronic methadone for neuropathy, dose was just increased to 20 mg daily. Also on gabapentin.
Chronic thrombocytopenia -unclear etiology. Patient is unaware of the diagnosis. Low platelet count dates back to at least 2016.
Chronic microcytic anemia -hemoglobin at baseline. He has seen hematology in the past, [facility].
CHIN on CKD 3a -CHIN resolved. May have been due to volume depletion. Creatinine 1.6 on admission, 1.3 today.
DM2 with hyperglycemia -he uses an insulin pump. Glucose 146 this morning, 146 last night. Has a [employer] CGM. Diabetes TOBACCO FLAVORER following. Hemoglobin A1c 8.2%. Insulin pump doses have been increased. Patient concerned about hypoglycemia and I spent
time informing him that we will monitor closely in the hospital and adjust pump dose if needed.
Chronic peripheral neuropathy -likely due to diabetes.
Essential hypertension -stable. Bradycardia improved off clonidine. Continue amlodipine, resume lisinopril. Continue to hold spironolactone given presentation with hyperkalemia. Continue to hold hydrochlorothiazide given presentation with
hyponatremia.
Hyperlipidemia -atorvastatin.
Depression/anxiety
Full code
Anticipated Discharge: > 48 hours
Subjective/Interval History
-
Date of Service: August 18, 2024
Patient seen and examined. No complaints.
Objective Data
-
Labs:
Laboratory Results
08/18/24 08/18/24 08/18/24
03:18 06:02 09:30
WBC 5.6
Hgb 7.8 L
Hct 23.0 L
Plt Count 69 L
APTT 80.5 H Pending
Sodium 134 L
Potassium 4.4
Chloride 106
Carbon Dioxide 21 L
BUN 22 H
Creatinine 1.3
Glucose 133 H
Calcium 8.4
Total Bilirubin 0.4
AST 22
ALT 21
Alkaline Phosphatase 75
Vital Signs:
Vital Signs
Temp Pulse Resp BP Pulse Ox
97.5 F 64 16 158/66 96
08/18/24 07:45 08/18/24 07:45 08/18/24 07:45 08/18/24 07:45 08/18/24 07:45
I&O
08/17/24 08/18/24 08/19/24
06:59 06:59 06:59
Intake Total 1227 / 1317 1745 / 1745
Output Total 1500 / 1500 850 / 850
Balance -273 / -183 895 / 895
Review of Systems
-
History Source: Patient
All other systems: Reviewed and negative
[2024-08-18 09:55] LABS: Reticulocyte Count 1.2 % (0.4-2.8)
[2024-08-18 10:04] LABS: Iron 36 ug/dl (49-181)
[2024-08-18 10:13] LABS: Percent Saturation 12 % (20-50); Total Iron Binding Capacity 293 ug/dl (261-462)
[2024-08-18 10:39] LABS: Ferritin 19.5 ng/ml (17.9-464.0)
[2024-08-18 11:05] VITALS: BP 150/60
[2024-08-18] MEDS: SODIUM BICARBONATE 1150 MEQ IV (11:07)
[2024-08-18 11:11] LABS: Folate > 20.0 ng/ml (2.76-20); Vitamin B12 273 pg/ml (239-931)
[2024-08-18 11:13] LABS: APTT > 200 Sec (23.4-35.0)
[2024-08-18] MEDS: ZESTRIL 40 MG PO (11:30)
[2024-08-18] MEDS: FOLVITE 1 MG PO (11:30)
[2024-08-18] MEDS: CYMBALTA DELAYED RELEASE 60 MG PO (11:30)
[2024-08-18] MEDS: DOLOPHINE 10 MG PO ×2 (11:30→21:14)
[2024-08-18 13:07] LABS: Glucose - Point of Care 138 mg/dl (70-99)
[2024-08-18] MEDS: ATIVAN 1 MG PO (14:44)
[2024-08-18 15:45] VITALS: BP 148/63
--- NOTE | 2024-08-18 16:13 | W.PN.POD ---
Today's Communication
Today's Communication
Toes were redressed. Recommend present wound care xeroform and 2x2 affix with surgilast sz 1.
Avoid tape or constrictive dressings. Affix xeroform and gauze with elastic tube /surgilast size 1
WBAT with trauma shoe and walker assist
Will follow prn while here and as outpt. per pt request
Assessment / Plan
-
1-DM2 with PAD S/P intervention
2-Cellulitis right forefoot 2nd toe Vs rubor- resolved
3-Dry gangrene to toes right 2nd and left grt toe-demarcating without evidence of infection
4-Pain to toes- Opiod dependance, pain is being managed well with current regimen
Subjective
Chief Complaint
gangrene toes/PAD
Subjective
Pt states there is some improved pain to toes, but pain persists
Objective
Temp Pulse Resp BP Pulse Ox
97.9 F 59 16 150/60 96
08/18/24 11:05 08/18/24 11:05 08/18/24 11:05 08/18/24 11:05 08/18/24 11:05
08/18/24 06:02
08/18/24 06:02
Vital Signs and Lab results were reviewed.
Inspection: Cellulitis (none)
Review of Systems
Review of Systems
Review of Systems: No Fever, No Chills, No Nausea and No Diarrhea
Physical Exam
Physical Exam
General: No Apparent Distress
Musculoskeletal: No Edema
Skin: Dry and Necrotic (ischemic areas to the left medial great toe and lateral right 2nd toes. No cellulitis, drainage or malodor. )
Neuro: AO x 3 and Protective Sensation Intact
Vascular: Capillary Refill Delayed (to toes and absent to the ischemic toes )
Dorsalis Pedis: Diminished
Posterior Tibialis: Diminished
[2024-08-18 17:26] LABS: Glucose - Point of Care 200 mg/dl (70-99)
[2024-08-18] MEDS: PROTONIX 40 MG PO (18:01)
[2024-08-18 19:22] VITALS: BP 133/63
[2024-08-18] MEDS: VENTOLIN NEBULES 2.5 MG INH (20:33)
[2024-08-18] MEDS: DESYREL 50 MG PO (21:14)
[2024-08-18 21:20] LABS: Glucose - Point of Care 166 mg/dl (70-99)
[2024-08-18] MEDS: HEPARIN 5000 UNITS IV (21:35)
[2024-08-18 23:57] VITALS: BP 140/56
[2024-08-19] VITALS (7 sets, daily range): BP systolic 140–159; BP diastolic 59–66; PULSE 59; O2SAT 94
[2024-08-19] MEDS: DILAUDID 0.5 MG IV ×5 (00:20→20:07)
[2024-08-19] MEDS: HEPARIN 25000 UNITS/250 ML IV (03:59)
[2024-08-19 04:05] LABS: % Basophils 0.5 % (0-2); % Eosinophils 1.8 % (0-6); % Immature Granulocytes 0.4 % (0-0.5); % Lymphocytes 35.5 % (20.5-51.1); % Monocytes 7.9 % (1.7-9.3); % Neutrophils 53.9 % (42.2-75.2); Absolute Eosinophils 0.1 10^3/uL (0-0.7); Absolute Monocytes 0.5 10^3/uL (0.1-0.6); Absolute Neutrophils 3.1 10^3/uL (1.4-6.5); Hematocrit 24.7 % (39.0-52.0); Hemoglobin 8.2 g/dL (13.0-18.0); Mean Corp Hgb Conc. 33.2 g/dL (33.0-37.0); Mean Corpuscular Hgb 25.9 pg (27.0-31.0); Mean Corpuscular Volume 78.2 fL (80.0-94.0); Mean Platelet Volume 13.3 fL (7.4-10.4); Nucleated Red Blood Cells % 0 % (-); Platelet Count 70 10^3/uL (130-400); Red Blood Cell Count 3.16 10^6/uL (4.70-6.10); Red Cell Dist. Width 14.7 % (11.5-14.5); White Blood Cell Count 5.7 10^3/uL (4.8-10.8)
[2024-08-19 04:27] LABS: APTT 178.9 Sec (23.4-35.0)
[2024-08-19 05:28] LABS: Carbon Dioxide 25 mmol/L (22-30); Chloride 99 mmol/L (98-107); Estimated Creatinine Clearance 54 ml/min; Glucose 142 mg/dl (70-99); Sodium 134 mmol/L (135-145); eGFR > 60.00
[2024-08-19 05:39] LABS: Blood Urea Nitrogen 22 mg/dl (9-20); Calcium 8.5 mg/dl (8.4-10.2)
[2024-08-19 08:03] LABS: Glucose - Point of Care 148 mg/dl (70-99)
[2024-08-19] MEDS: PATIENT'S OWN INSULIN PUMP SC ×4 (08:40→21:46)
[2024-08-19] MEDS: PLAVIX 75 MG PO (08:46)
[2024-08-19] MEDS: ZESTRIL 40 MG PO (08:46)
[2024-08-19] MEDS: LIPITOR 40 MG PO (08:46)
[2024-08-19] MEDS: LYRICA 100 MG PO ×3 (08:46→21:46)
[2024-08-19] MEDS: NORVASC 10 MG PO (08:46)
[2024-08-19] MEDS: LOW STRENGTH ASPIRIN 81 MG PO (08:47)
[2024-08-19] MEDS: NICODERM TRANSDERMAL 21 MG TRANSDERM (08:47)
--- NOTE | 2024-08-19 10:21 | W.PN.HOSP.TC ---
Today's Communication/Plan
-
Continue current care
Assessment / Plan
Assessment / Plan
Gen-AAOx3, NAD
HEENT-NC, AT, anicteric, clear oral mm
Neck-supple
CV-reg, no M, +S1/S2
Lungs-clear
Abd-soft, NT, ND
Ext-no edema
Musculoskeletal-no cyanosis, clubbing
Skin-warm and dry
Neuro-grossly non-focal
Psych-calm, cooperative
PAD/lower extremity digital gangrene -left first toe, right second toe. No osteomyelitis noted on x-ray. Suspect ischemic etiology including PAD versus emboli.
Stable after lower extremity angiogram August 16 with placement of left above-knee popliteal artery to proximal SFA stent. Balloon angioplasty of left proximal superficial femoral artery.
CTA angiogram with runoff completed, awaiting vascular surgery input. Still on IV heparin drip.
Suspected COPD -wheezing improved. Continue albuterol nebs as needed, although does not look like he received a dose yet. Does not have a formal COPD diagnosis. Start albuterol nebs as needed. Recommend outpatient follow-up with pulmonary for
PFTs. Smoking cessation.
Hyponatremia -suspect SIADH. High urine osmolarity noted. Mild fluid restriction. Hydrochlorothiazide contributed to hyponatremia, now on hold.
Hyperkalemia -resolved. Low potassium diet. Lisinopril and spironolactone on hold.
Tobacco dependence -cessation advised.
Chronic pain syndrome/chronic opiate dependence -he goes to a pain clinic. On chronic methadone for neuropathy, dose was just increased to 20 mg daily. Also on gabapentin.
Chronic thrombocytopenia -unclear etiology. Patient is unaware of the diagnosis. Low platelet count dates back to at least 2016.
Chronic microcytic anemia -hemoglobin at baseline. He has seen hematology in the past, [facility]. Labs are not consistent with iron deficiency. Does have vitamin B12 deficiency, will start repletion.
CHIN on CKD 3a -CHIN resolved. May have been due to volume depletion. Creatinine 1.6 on admission, 1.3 today.
DM2 with hyperglycemia -he uses an insulin pump. Glucose 146 this morning, 146 last night. Has a Dexcom CGM. Diabetes MOTOR ROUTE CARRIER following. Hemoglobin A1c 8.2%. Insulin pump doses have been increased. Patient concerned about hypoglycemia and I spent
time informing him that we will monitor closely in the hospital and adjust pump dose if needed.
Chronic peripheral neuropathy -likely due to diabetes.
Essential hypertension -stable. Bradycardia improved somewhat off clonidine. Continue amlodipine, resume lisinopril. Continue to hold spironolactone given presentation with hyperkalemia. Continue to hold hydrochlorothiazide given presentation
with hyponatremia.
Hyperlipidemia -atorvastatin.
Depression/anxiety
Full code
PT/OT
Anticipated Discharge: > 48 hours
Subjective/Interval History
-
Date of Service: August 19, 2024
Patient seen and examined. No complaints.
Objective Data
-
Labs:
Laboratory Results
08/19/24 08/19/24
03:47 11:30
WBC 5.7
Hgb 8.2 L
Hct 24.7 L
Plt Count 70 L
APTT 178.9 H* Pending
Sodium 134 L
Potassium 4.0
Chloride 99
Carbon Dioxide 25
BUN 22 H
Creatinine 1.2
Glucose 142 H
Calcium 8.5
Vital Signs:
Vital Signs
Temp Pulse Resp BP Pulse Ox
98.2 F 56 16 140/59 95
08/19/24 07:45 08/19/24 08:46 08/19/24 07:45 08/19/24 08:46 08/19/24 07:45
I&O
08/18/24 08/19/24 08/20/24
06:59 06:59 06:59
Intake Total 1745 / 1745 1410 / 1410
Output Total 850 / 850 850 / 850
Balance 895 / 895 560 / 560
Review of Systems
-
History Source: Patient
All other systems: Reviewed and negative
[2024-08-19] MEDS: VITAMIN B-12 1000 MCG PO (10:48)
[2024-08-19] MEDS: DOLOPHINE 10 MG PO ×2 (10:48→21:46)
[2024-08-19 11:38] LABS: APTT 49.2 Sec (23.4-35.0)
[2024-08-19 11:54] LABS: Glucose - Point of Care 152 mg/dl (70-99)
[2024-08-19] MEDS: HEPARIN 5000 UNITS IV (12:09)
[2024-08-19] MEDS: FOLVITE 1 MG PO (12:11)
[2024-08-19] MEDS: CYMBALTA DELAYED RELEASE 60 MG PO (12:11)
--- NOTE | 2024-08-19 12:25 | W.PN.VS ---
Today's Communication / Plan
-
await plan for sx
Assessment/Plan
-
POD 2 left lower extremity arteriogram, SFA stents x 2
Plan:
- will review CTA and plan potential inflow surgery
-f/u podiatry
Subjective Data
-
Date of Service: August 19, 2024
Seen and examined at bedside. resting comfortably. NAEO
Objective Data
-
Vital Signs
Temp Pulse Resp BP Pulse Ox
98.3 F 59 16 159/65 95
08/19/24 11:10 08/19/24 11:10 08/19/24 11:10 08/19/24 11:10 08/19/24 11:10
Intake and Output
08/18/24 08/19/24 08/20/24
06:59 06:59 06:59
Intake Total 1745 / 1745 1410 / 1410
Output Total 850 / 850 850 / 850
Balance 895 / 895 560 / 560
Intake:
Oral fluids 990 / 990 810 / 810
IV fluids (Total) 755 / 755 600 / 600
Heparin 115 / 115
Nss 1,000 ml @ 80 mls/hr IV . 640 / 640
[id number] [facility] Rx#:[id number]
Output:
Urine, Voided 850 / 850 850 / 850
Other:
Number of approximated MODERATE 2
amounts of urine
Lab Results
08/19/24 03:47
08/19/24 03:47
Calcium 8.5 mg/dl (8.4-10.2) 08/19/24 03:47
Total Bilirubin 0.4 mg/dl (0.2-1.3) 08/18/24 06:02
AST 22 U/L (17-59) 08/18/24 06:02
ALT 21 U/L (0-50) 08/18/24 06:02
Alkaline Phosphatase 75 U/L (38-126) 08/18/24 06:02
Total Protein 5.6 g/dl (6.3-8.2) L 08/18/24 06:02
Albumin 3.1 g/dl (3.5-5.0) L 08/18/24 06:02
Physical Exam
-
Groin: soft, nt, nd- dressing removed
[2024-08-19] MEDS: ATIVAN 1 MG PO (14:18)
[2024-08-19 17:40] LABS: Glucose - Point of Care 244 mg/dl (70-99)
[2024-08-19] MEDS: PROTONIX 40 MG PO (18:26)
[2024-08-19 18:45] LABS: APTT 174.5 Sec (23.4-35.0)
[2024-08-19] MEDS: DESYREL 50 MG PO (21:46)
[2024-08-19 21:49] LABS: Glucose - Point of Care 178 mg/dl (70-99)
[2024-08-20] VITALS (8 sets, daily range): BP systolic 135–156; BP diastolic 56–66
[2024-08-20] MEDS: DILAUDID 0.5 MG IV ×4 (00:38→18:07)
[2024-08-20 02:18] LABS: APTT 166.5 Sec (23.4-35.0)
[2024-08-20 05:39] LABS: % Basophils 0.6 % (0-2); % Eosinophils 3.6 % (0-6); % Immature Granulocytes 0.4 % (0-0.5); % Lymphocytes 33.7 % (20.5-51.1); % Monocytes 8.7 % (1.7-9.3); Absolute Eosinophils 0.2 10^3/uL (0-0.7); Absolute Lymphocytes 1.6 10^3/uL (1.2-3.4); Absolute Monocytes 0.4 10^3/uL (0.1-0.6); Absolute Neutrophils 2.5 10^3/uL (1.4-6.5); Mean Corp Hgb Conc. 33.3 g/dL (33.0-37.0); Mean Corpuscular Hgb 26.2 pg (27.0-31.0); Mean Corpuscular Volume 78.7 fL (80.0-94.0); Mean Platelet Volume 13.5 fL (7.4-10.4); Nucleated Red Blood Cells % 0 % (-); Platelet Count 66 10^3/uL (130-400); Red Blood Cell Count 2.67 10^6/uL (4.70-6.10); Red Cell Dist. Width 14.9 % (11.5-14.5); White Blood Cell Count 4.7 10^3/uL (4.8-10.8)
[2024-08-20 07:06] LABS: Glucose - Point of Care 135 mg/dl (70-99)
[2024-08-20] MEDS: NICODERM TRANSDERMAL 21 MG TRANSDERM (08:07)
[2024-08-20] MEDS: LYRICA 100 MG PO ×3 (08:09→21:18)
[2024-08-20] MEDS: VITAMIN B-12 1000 MCG PO (08:09)
[2024-08-20] MEDS: NORVASC 10 MG PO (08:09)
[2024-08-20] MEDS: PLAVIX 75 MG PO (08:09)
[2024-08-20] MEDS: ZESTRIL 40 MG PO (08:09)
[2024-08-20] MEDS: LOW STRENGTH ASPIRIN 81 MG PO (08:10)
[2024-08-20] MEDS: LIPITOR 40 MG PO (08:10)
--- NOTE | 2024-08-20 08:14 | W.PN.VS ---
Addendum entered and electronically signed by Dar Morrison III, MD 08/20/24 18:31:
This patient was seen and examined in collaboration with TRAVIS Hardwick. I agree with the history and physical exam as well as the assessment and plan. I have the following additions:
Planning for right lower extremity arteriogram and possible endovascular intervention 08/21/2024
Patient agrees with plan
Please transfuse for hemoglobin of 7 in anticipation of arteriogram tomorrow
Obtain echocardiogram
Signed:
Dar Morrison III, MD
Vascular Surgery
[facility]
Original Note:
Today's Communication / Plan
-
Seen and assessed with Dr. Morrison
Assessment/Plan
-
POD 4 left lower extremity arteriogram, SFA stents x 2
Plan:
- 1 unit packed red blood cells today for hemoglobin 7
- Echo
- Plan for right lower extremity arteriogram tomorrow
- Patient wishes to continue to follow with Dr. Cruz as an outpatient
Subjective Data
-
Date of Service: August 20, 2024
Patient seen at bedside this a.m. with Dr. Morrison. Patient offers no complaints at this time. No events overnight.
Objective Data
-
Vital Signs
Temp Pulse Resp BP Pulse Ox
98.0 F 59 16 135/65 95
08/20/24 03:13 08/20/24 03:13 08/20/24 03:13 08/20/24 03:13 08/20/24 03:13
Intake and Output
08/19/24 08/20/24 08/21/24
06:59 06:59 06:59
Intake Total 1410 / 1410 1080 / 1080
Output Total 850 / 850 550 / 550
Balance 560 / 560 530 / 530
Intake:
Oral fluids 810 / 810 960 / 960
IV fluids (Total) 600 / 600
IV piggybacks 120 / 120
Output:
Urine, Voided 850 / 850 550 / 550
Other:
Number of approximated MODERATE 2
amounts of urine
Number of approximated LARGE 1
amounts of urine
Lab Results
08/20/24 05:02
08/19/24 03:47
Calcium 8.5 mg/dl (8.4-10.2) 08/19/24 03:47
Total Bilirubin 0.4 mg/dl (0.2-1.3) 08/18/24 06:02
AST 22 U/L (17-59) 08/18/24 06:02
ALT 21 U/L (0-50) 08/18/24 06:02
Alkaline Phosphatase 75 U/L (38-126) 08/18/24 06:02
Total Protein 5.6 g/dl (6.3-8.2) L 08/18/24 06:02
Albumin 3.1 g/dl (3.5-5.0) L 08/18/24 06:02
Physical Exam
-
AAO x 3
Pale appearing
No tachypnea on room air
No tachycardia
Abdomen soft
Groin site stable
Regained some movement to his left ankle/toes
Toe wounds dressed
[2024-08-20] MEDS: PATIENT'S OWN INSULIN PUMP 4.37 UNITS SC (08:40)
--- NOTE | 2024-08-20 08:47 | PN.DE.MGMTRT ---
Insulin Management
- -
08/20/2024: Diabetes Insulin pump Management Followup
68 year old male with PMH: HTN PAD, Neuropathy, COPD, Anemia and T2DM who presented to [facility] ED for evaluation at request of his interior design faculty member, Dr. Villanueva, and vascular surgeon, Dr. Morrison. Patient states that approximately 5 days ago he started with
cramping in left calf and then it he was unable to bear weight so he called his interior design faculty member to be seen. States he was switched to an insulin pump 5 years ago and has been using Tandem T-Slim, Humalog insulin and Dexcom G7 prior to admission. He
routinely sees Dr. Vaca for diabetes care, states his recent A1C in the office was 7.1%, his A1C on admission was 8.2%, Cr 1.5, baseline 0.7.
Pt is awake, alert, oriented, resting in bed, offers no complaints, Able to discuss diabetes management.
POD #4 left lower extremity arteriogram, SFA stents x 2. Per Vascular, plan is for CTA aorta with runoff tomorrow if Cr remains stable
Glucose after basal rate adjustments on 08/17 but noted for elevations around dinner time.
Pt states he has been administering bolus with each meal.
Pre-dinner glucose has been consistently >200, all other glucose readings have been in acceptable range.
Discussed with pt pre-dinner glucose trend and he was agreeable to adjusted basal rate between 12pm to 5pm from 0.975 to 1.235, which is an increase by 1.3 units of his TDD as noted below
Pump settings as follows:
Basal Correction CHO ratio target
6am-12p 0.975 1:30 1:13 110
12pm- 8p 1.235 1:30 1:13 110
8p-12am 1.235 1:30 1:14 110
12am-3a 1.105 1:30 1:14 110
3a-6a 1.105 1:30 1:13 110
24 hour basal total 27.3 units.
Says his Dexcom sensor expires today but he is not sure if his is coming to the hospital today. Pt has reached out to his Dtr for assistance in bringing him a new sensor but is waiting to hear back.
Discussed with nurse and instructed on use of bedside insulin pump work sheet. Will cont to follow
Diabetes History
- -
Type of Diabetes: 2 requiring insulin
Pre-Admission Diabetes Regimen
Lab Results
Hemoglobin A1c 8.2 % (4.0-5.6) H 08/16/24 07:19
Insulin Pump Settings
IP Diabetes Regimen
08/19/24 08/19/24 08/19/24
11:53 17:39 21:47
POC Glucose 152 H 244 H 178 H
08/20/24
07:05
POC Glucose 135 H
Meal type: Dinner
Meal type: Lunch
Meal type: Breakfast
Amount consumed: 95%
Amount consumed: 100%
Amount consumed: 100%
Patient Education
[2024-08-20 09:46] LABS: APTT 61.4 Sec (23.4-35.0)
[2024-08-20] MEDS: HEPARIN 5000 UNITS IV (10:07)
[2024-08-20] MEDS: HEPARIN 25000 UNITS/250 ML IV (10:10)
[2024-08-20] MEDS: FOLVITE 1 MG PO (11:35)
[2024-08-20] MEDS: DOLOPHINE 10 MG PO ×2 (11:35→21:18)
[2024-08-20] MEDS: CYMBALTA DELAYED RELEASE 60 MG PO (11:35)
--- NOTE | 2024-08-20 12:06 | CM ---
Reviewed the chart notes and spoke with the patient at the bedside. Currently receiving 1 unit PRBC for hgb 7.0. Per patient, he is anticipates having a another surgical procedure tomorrow with vascular surgeon. Patient feels he will need
SNF/rehab prior to returning to home. PT currently recommending home health. CM continues to be available to patient/family and is monitoring medical plan for needs at discharge.
Plan: Discharge plans will depend on the patient's progress.
[2024-08-20 13:06] LABS: Glucose - Point of Care 173 mg/dl (70-99)
--- NOTE | 2024-08-20 13:06 | W.PN.HOSP.TC ---
Today's Communication/Plan
-
pain control
RLE angiogram tomorrow
ECHO
monitor HgB, transfuse 1u prbc today
Assessment / Plan
Assessment / Plan
Gen-AAOx3, NAD
HEENT-NC, AT, anicteric, clear oral mm
Neck-supple
CV-reg, no M, +S1/S2
Lungs-clear
Abd-soft, NT, ND
Ext-no edema
Musculoskeletal-no cyanosis, clubbing
Skin-warm and dry
Neuro-grossly non-focal
Psych-calm, cooperative
PAD/lower extremity digital gangrene -left first toe, right second toe. No osteomyelitis noted on x-ray. Suspect ischemic etiology including PAD versus emboli.
Stable after lower extremity angiogram August 16 with placement of left above-knee popliteal artery to proximal SFA stent. Balloon angioplasty of left proximal superficial femoral artery.
CTA angiogram with runoff completed,; plan for RLE angiogram tomorrow. on IV heparin drip. ECHO;
Suspected COPD -wheezing improved. Continue albuterol nebs as needed; Does not have a formal COPD diagnosis. Start albuterol nebs as needed. Recommend outpatient follow-up with pulmonary for PFTs. Smoking cessation.
Hyponatremia -suspect SIADH. High urine osmolarity noted. Mild fluid restriction. Hydrochlorothiazide contributed to hyponatremia, now on hold.
Hyperkalemia -resolved. Low potassium diet. Lisinopril and spironolactone on hold.
Tobacco dependence -cessation advised.
Chronic pain syndrome/chronic opiate dependence -he goes to a pain clinic. On chronic methadone for neuropathy, dose was just increased to 20 mg daily. Also on gabapentin.
Chronic thrombocytopenia -unclear etiology. Patient is unaware of the diagnosis. Low platelet count dates back to at least 2015.
Acute on Chronic microcytic anemia ; Acute Blood Loss anemia; 2/2 to post/nicolasa operative blood loss; Transfuse 1u 5/5. He has seen hematology in the past, [facility]. Labs are not consistent with iron deficiency. Does have vitamin B12
deficiency, will start repletion.
CHIN on CKD 3a -CHIN resolved. May have been due to volume depletion. Creatinine 1.6 on admission, 1.3 today.
DM2 with hyperglycemia -he uses an insulin pump. Glucose 146 this morning, 146 last night. Has a Dexcom CGM. Diabetes MANAGER OF APPLICATIONS DEVELOPMENT following. Hemoglobin A1c 8.2%. Insulin pump doses have been increased. Patient concerned about hypoglycemia and I spent
time informing him that we will monitor closely in the hospital and adjust pump dose if needed.
Chronic peripheral neuropathy -likely due to diabetes.
Essential hypertension -stable. Bradycardia improved somewhat off clonidine. Continue amlodipine, resume lisinopril. Continue to hold spironolactone given presentation with hyperkalemia. Continue to hold hydrochlorothiazide given presentation
with hyponatremia.
Hyperlipidemia -atorvastatin.
Depression/anxiety
Full code
PT/OT
Anticipated Discharge: > 48 hours
Subjective/Interval History
-
Date of Service: August 20, 2024
with LE pain still, pulses preseent on doppler. pending RLE violetta jamil
Objective Data
-
Labs:
Laboratory Results
08/20/24 08/20/24 08/20/24
01:50 05:02 09:19
WBC 4.7 L
Hgb 7.0 L
Hct 21.0 L
Plt Count 66 L
APTT 166.5 H* 61.4 H
08/20/24
16:15
WBC
Hgb
Hct
Plt Count
APTT Pending
Vital Signs:
Vital Signs
Temp Pulse Resp BP Pulse Ox
97.9 F 56 20 150/64 97
08/20/24 11:48 08/20/24 11:48 08/20/24 11:48 08/20/24 11:48 08/20/24 11:48
I&O
08/19/24 08/20/24 08/21/24
06:59 06:59 06:59
Intake Total 1410 / 1410 1080 / 1080 0 / 0
Output Total 850 / 850 550 / 550
Balance 560 / 560 530 / 530 0 / 0
Review of Systems
-
History Source: Patient
All other systems: Not reviewed unless documented
Data Reviewed
-
CT Scan: Report Reviewed by me
Labs: Labs Reviewed by me
[2024-08-20] MEDS: PATIENT'S OWN INSULIN PUMP 7.72 UNITS SC (13:45)
[2024-08-20] MEDS: ATIVAN 1 MG PO (13:53)
[2024-08-20 17:02] LABS: APTT 131.4 Sec (23.4-35.0)
[2024-08-20 17:08] LABS: Glucose - Point of Care 99 mg/dl (70-99)
[2024-08-20] MEDS: PROTONIX 40 MG PO (17:19)
[2024-08-20] MEDS: PATIENT'S OWN INSULIN PUMP SC ×2 (17:22→21:19)
[2024-08-20 17:45] LABS: Glucose - Point of Care 107 mg/dl (70-99)
[2024-08-20] MEDS: VENTOLIN NEBULES 2.5 MG INH (18:25)
--- NOTE | 2024-08-20 20:00 | PTCARENOTE ---
Patient NPO at midnight tonight for RLE arteriogram per vascular, hep gtt infusing through R FA IV at 8ml/hr, next PTT ordered for 0030 tonight. Patient medicated with PRN 0.5mg IV dilaudid for B/L toe pain rated 8/10, L first toe and R second toe
dressings changed by Marianna DEL ANGEL this AM, C/D/I. +doppler pulses. Patient ambulatory in room with standby assist and cane, community marketing manager made aware to order B/L darco shoes per MD order. Patient states insulin pump censor expires tonight after HS dose,
requesting insulin pen coverage until family can bring in new censor tomorrow, hand-off given to mine shifter RN.
[2024-08-20 20:55] LABS: Glucose - Point of Care 228 mg/dl (70-99)
[2024-08-20] MEDS: DESYREL 50 MG PO (21:18)
[2024-08-21] VITALS (12 sets, daily range): BP systolic 123–160; BP diastolic 55–75
[2024-08-21] MEDS: DILAUDID 0.5 MG IV ×4 (00:36→15:10)
[2024-08-21 01:07] LABS: APTT 71.5 Sec (23.4-35.0)
[2024-08-21] MEDS: HEPARIN 2500 UNITS IV ×2 (01:37→15:54)
[2024-08-21 03:51] LABS: Glucose - Point of Care 133 mg/dl (70-99)
[2024-08-21 05:44] LABS: Glucose - Point of Care 142 mg/dl (70-99)
[2024-08-21] MEDS: PATIENT'S OWN INSULIN PUMP SC ×4 (06:52→23:00)
--- NOTE | 2024-08-21 07:47 | PN.DE.MGMTRT ---
Insulin Management
- -
08/21/2024: Diabetes Insulin pump Management Followup
Patient admitted 08/15 request of his clipper machine, Dr. Villanueva, and vascular surgeon, Dr. Morrison, due to worsening or wounds L great toe and R second toe. PMH: HTN PAD, Neuropathy, COPD, Anemia and T2DM. States he was switched to an insulin pump 5 years
ago and has been using Tandem T-Slim, Humalog insulin and Dexcom G7 prior to admission. He routinely sees Dr. Vaca for diabetes care, states his recent A1C in the office was 7.1%, his A1C on admission was 8.2%.
Pt is awake, alert, oriented, resting in bed, offers no complaints, Able to discuss diabetes management.
POD #5 left lower extremity arteriogram, SFA stents x 2. Per Vascular, plan is for OR today, currently NPO. Insulin pump infusing basal rate.
Glucose range 99 to 228. Patient did not bolus for dinner, HS glucose 228.
Pump settings as follows:
Basal Correction CHO ratio target
12AM 1.105 1:30 1:14 110
3AM 1.105 1:30 1:14 110
6am .975 1:30 1:13 110
12PM 1.235 1:30 1:13 110
8pm 1.235 1:30 1:13 110
24 hour basal total 27.3 units.
Still waiting for sensor from home.
Discussed with nurse and instructed on use of bedside insulin pump work sheet.
Will cont to follow
Diabetes History
- -
Pre-Admission Diabetes Regimen
Lab Results
Hemoglobin A1c 8.2 % (4.0-5.6) H 08/16/24 07:19
Insulin Pump Settings
IP Diabetes Regimen
08/20/24 08/20/24 08/20/24
13:05 17:07 17:44
POC Glucose 173 H 99 107 H
08/20/24 08/21/24 08/21/24
20:53 03:49 05:42
POC Glucose 228 H 133 H 142 H
Meal type: Lunch
Meal type: Breakfast
Amount consumed: 100%
Amount consumed: 100%
Patient Education
[2024-08-21 08:28] LABS: APTT 88.5 Sec (23.4-35.0)
[2024-08-21] MEDS: PLAVIX 75 MG PO (08:50)
[2024-08-21] MEDS: NICODERM TRANSDERMAL 21 MG TRANSDERM (08:50)
[2024-08-21] MEDS: LOW STRENGTH ASPIRIN 81 MG PO (08:51)
[2024-08-21] MEDS: LIPITOR 40 MG PO (08:51)
[2024-08-21] MEDS: ZESTRIL 40 MG PO (08:51)
[2024-08-21] MEDS: LYRICA 100 MG PO ×2 (08:51→15:11)
[2024-08-21] MEDS: NORVASC 10 MG PO (08:51)
[2024-08-21] MEDS: VITAMIN B-12 1000 MCG PO (08:51)
[2024-08-21 09:20] LABS: % Basophils 0.4 % (0-2); % Eosinophils 4.1 % (0-6); % Immature Granulocytes 0.2 % (0-0.5); % Lymphocytes 32.8 % (20.5-51.1); % Neutrophils 53.5 % (42.2-75.2); Absolute Eosinophils 0.2 10^3/uL (0-0.7); Absolute Lymphocytes 1.5 10^3/uL (1.2-3.4); Absolute Monocytes 0.4 10^3/uL (0.1-0.6); Absolute Neutrophils 2.5 10^3/uL (1.4-6.5); Hematocrit 23.8 % (39.0-52.0); Mean Corp Hgb Conc. 33.6 g/dL (33.0-37.0); Mean Corpuscular Hgb 26.6 pg (27.0-31.0); Mean Corpuscular Volume 79.1 fL (80.0-94.0); Mean Platelet Volume 12.8 fL (7.4-10.4); Nucleated Red Blood Cells % 0 % (-); Platelet Count 65 10^3/uL (130-400); Red Blood Cell Count 3.01 10^6/uL (4.70-6.10); White Blood Cell Count 4.7 10^3/uL (4.8-10.8)
[2024-08-21 09:42] LABS: ALT (SGPT) 16 U/L (0-50); AST (SGOT) 17 U/L (17-59); Albumin 2.9 g/dl (3.5-5.0); Alkaline Phosphatase 62 U/L (38-126); Blood Urea Nitrogen 25 mg/dl (9-20); Calcium 8.7 mg/dl (8.4-10.2); Carbon Dioxide 26 mmol/L (22-30); Chloride 104 mmol/L (98-107); Estimated Creatinine Clearance 50 ml/min; Glucose 104 mg/dl (70-99); Potassium 4.2 mmol/L (3.5-5.1); Sodium 134 mmol/L (135-145); Total Bilirubin 0.5 mg/dl (0.2-1.3); Total Protein 5.2 g/dl (6.3-8.2); eGFR > 60.00
[2024-08-21 11:26] LABS: Glucose - Point of Care 96 mg/dl (70-99)
[2024-08-21] MEDS: FOLVITE 1 MG PO (11:32)
[2024-08-21] MEDS: DOLOPHINE 10 MG PO (11:32)
[2024-08-21] MEDS: CYMBALTA DELAYED RELEASE 60 MG PO (11:32)
--- NOTE | 2024-08-21 13:34 | W.PN.HOSP.TC ---
Today's Communication/Plan
-
RLE angiogram today
Assessment / Plan
Assessment / Plan
Gen-AAOx3, NAD
HEENT-NC, AT, anicteric, clear oral mm
Neck-supple
CV-reg, no M, +S1/S2
Lungs-clear
Abd-soft, NT, ND
Ext-no edema
Musculoskeletal-no cyanosis, clubbing
Skin-warm and dry
Neuro-grossly non-focal
Psych-calm, cooperative
PAD/lower extremity digital gangrene -left first toe, right second toe. No osteomyelitis noted on x-ray. Suspect ischemic etiology including PAD versus emboli.
Stable after lower extremity angiogram August 16 with placement of left above-knee popliteal artery to proximal SFA stent. Balloon angioplasty of left proximal superficial femoral artery.
CTA angiogram with runoff completed,; plan for RLE angiogram today. on IV heparin drip. ECHO;
Suspected COPD -wheezing improved. Continue albuterol nebs as needed; Does not have a formal COPD diagnosis. Start albuterol nebs as needed. Recommend outpatient follow-up with pulmonary for PFTs. Smoking cessation.
Hyponatremia -suspect SIADH. High urine osmolarity noted. Mild fluid restriction. Hydrochlorothiazide contributed to hyponatremia, now on hold.
Hyperkalemia -resolved. Low potassium diet. Lisinopril and spironolactone on hold.
Tobacco dependence -cessation advised.
Chronic pain syndrome/chronic opiate dependence -he goes to a pain clinic. On chronic methadone for neuropathy, dose was just increased to 20 mg daily. Also on gabapentin.
Chronic thrombocytopenia -unclear etiology. Patient is unaware of the diagnosis. Low platelet count dates back to at least 2016.
Acute on Chronic microcytic anemia ; Acute Blood Loss anemia; 2/2 to post/nicolasa operative blood loss; Transfuse 1u 5/5. He has seen hematology in the past, [facility]. Labs are not consistent with iron deficiency. Does have vitamin B12
deficiency, will start repletion.
CHIN on CKD 3a -CHIN resolved. May have been due to volume depletion. Creatinine 1.6 on admission, 1.3 today.
DM2 with hyperglycemia -he uses an insulin pump. Glucose 146 this morning, 146 last night. Has a [employer] CGM. Diabetes TIE MILL OPERATOR following. Hemoglobin A1c 8.2%. Insulin pump doses have been increased. Patient concerned about hypoglycemia and I spent
time informing him that we will monitor closely in the hospital and adjust pump dose if needed.
Chronic peripheral neuropathy -likely due to diabetes.
Essential hypertension -stable. Bradycardia improved somewhat off clonidine. Continue amlodipine, resume lisinopril. Continue to hold spironolactone given presentation with hyperkalemia. Continue to hold hydrochlorothiazide given presentation
with hyponatremia.
Hyperlipidemia -atorvastatin.
Depression/anxiety
Full code
PT/OT
Anticipated Discharge: 24 - 48 hours
Subjective/Interval History
-
Date of Service: August 21, 2024
No acute events
Objective Data
-
Labs:
Laboratory Results
08/21/24 08/21/24 08/21/24
07:59 08:56 15:00
WBC 4.7 L
Hgb 8.0 L
Hct 23.8 L
Plt Count 65 L
APTT 88.5 H Pending
Sodium 134 L
Potassium 4.2
Chloride 104
Carbon Dioxide 26
BUN 25 H
Creatinine 1.3
Glucose 104 H
Calcium 8.7
Total Bilirubin 0.5
AST 17
ALT 16
Alkaline Phosphatase 62
Vital Signs:
Vital Signs
Temp Pulse Resp BP Pulse Ox
98.1 F 56 16 140/60 95
08/21/24 11:30 08/21/24 11:30 08/21/24 11:30 08/21/24 11:30 08/21/24 11:30
I&O
08/20/24 08/21/24 08/22/24
06:59 06:59 06:59
Intake Total 1080 / 1080 670 / 670
Output Total 550 / 550 900 / 900
Balance 530 / 530 -230 / -230
Review of Systems
-
History Source: Patient
All other systems: Not reviewed unless documented
Data Reviewed
-
CT Scan: Report Reviewed by me
Labs: Labs Reviewed by me
[2024-08-21] MEDS: ATIVAN 1 MG PO (14:15)
[2024-08-21] MEDS: HEPARIN 25000 UNITS/250 ML IV (15:11)
[2024-08-21 15:31] LABS: APTT 69.6 Sec (23.4-35.0)
--- NOTE | 2024-08-21 15:38 | CM ---
Reviewed the chart notes and spoke with the patient at the bedside. Waiting to go to OR. Discuss home with VN services. CM continues to be available to patient/family and is monitoring medical plan for needs at discharge.
Plan: Discharge to home with VN vs SNF.
[2024-08-21 17:19] LABS: Glucose - Point of Care 55 mg/dl (70-99)
[2024-08-21] MEDS: DEXTROSE 50% SYRINGE 12.5 GRAMS IV ×2 (17:19→22:29)
[2024-08-21] MEDS: PROTONIX 40 MG PO (17:20)
--- NOTE | 2024-08-21 17:31 | PTCARENOTE ---
Addendum entered by Nay Graham RN 08/21/24 19:48:
Per vascular surgery, further orders regarding resumption of hep gtt post-op will be placed after procedure. Report given to incoming night club manager RN.
Original Note:
Patient sent to analytical laboratory technician for RLE arteriogram. Hep gtt stopped per vascular order, CHG wipes provided prior to transport. Blood sugar 55, Patient NPO, IV dextrose administered per protocol - see MAR. Patient asymptomatic. medical laboratory assistant made aware of blood
sugar result and to check sugar pre-op. Patient transported in bed, chart sent with patient.
[2024-08-21 17:49] LABS: Glucose - Point of Care 125 mg/dl (70-99)
[2024-08-21 19:50] LABS: Glucose - Point of Care 83 mg/dl (70-99)
--- NOTE | 2024-08-21 20:02 | OR.RPT ---
Operative Report
Operative Report
Date of Operation: 08/21/24
Pre Op Diagnosis:
1. 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
2. Chronic limb threatening ischemia
3. Type 2 diabetes with lower extremity atherosclerotic disease
Post Op Diagnosis:
1. 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
2. Chronic limb threatening ischemia
3. Type 2 diabetes with lower extremity atherosclerotic disease
Procedure:
1.) Balloon angioplasty of right dorsalis pedis artery (1.5 mm x 40 mm angioplasty balloon)
2.) Balloon angioplasty of right anterior tibial artery (2 mm x 220 mm --> 2.5 mm x 220 mm angioplasty balloon)
3.) Diagnostic aortobiiliac arteriogram
4.) Diagnostic right lower extremity arteriogram
5.) Ultrasound-guided percutaneous access to the left common femoral artery
Surgeon: Dar Morrison III, MD
Meter Attendant: Gogo Espinoza MD PGY1
Anesthesia: Sedation with local
Fluoroscopy:
29 min
70 mGy
16.41 gy.cm2
Complications: None
Estimated Blood Loss: 10 cc
History and Indications for Procedure: 68-year-old male with limb threatening ischemia of the right lower extremity manifested by right second toe wound
Procedure in Detail: Jd Cuello was correctly identified and placed supine on the operating table. After adequate induction of anesthesia the bilateral groins were prepped and draped in the usual sterile fashion. A timeout was performed with the
nursing and anesthesia staff confirming the patient's identity as well as the nature and laterality of the procedure.
The left common femoral artery was identified under ultrasound guidance. The artery was patent. The superior and inferior aspects of the femoral head were identified with radiographic guidance and marked at the skin level. The proposed puncture site
was infiltrated with local anesthesia. Under ultrasound guidance we accessed the left common femoral artery with a micropuncture needle and upsized to a 5 Fr sheath over a datatrackerson wire. The wire and a [employer] hook flush catheter were advanced into
the distal abdominal aorta and a diagnostic aorto-biiliac arteriogram was performed:
AORTO-ILIAC ARTERIOGRAM:
Aorta: Heavily calcified. Patent. No significant stenosis identified
Right common iliac artery: Heavily calcified. Patent. No significant stenosis identified
Right external iliac artery: Patent with no significant stenosis identified
Left common iliac artery: Heavily calcified. Patent. No significant stenosis identified
Left external iliac artery: Patent. No significant stenosis identified
Under roadmap guidance using a Glidewire and the [employer] hook catheter we selected the right common iliac artery and then the external iliac artery. A catheter was tracked up and over the aortic bifurcation and placed in the distal external iliac
artery. A diagnostic right lower extremity arteriogram was then performed which demonstrated the following:
RIGHT LOWER EXTREMITY:
Common femoral artery: Calcified. Patent. No significant stenosis identified
Profunda femoral artery: Patent with no significant stenosis identified
Superficial femoral artery: Scattered calcified plaque identified throughout. Patent with mild areas of stenosis identified, scattered. Patent stents with no significant in-stent restenosis.
Popliteal artery: Calcified plaque. Patent with no significant stenosis identified
Anterior tibial artery: Patent proximally but occluded thereafter
Tibioperoneal trunk: Patent
Peroneal artery: Patent
Posterior tibial artery: Occluded
ENDOVASCULAR INTERVENTION: Systemic heparin was administered. Exchanged out for a 6 Fr 45 cm sheath over a Storq wire. Selected the superficial femoral artery under roadmap guidance with Quickcross catheter and glidewire. The catheter and Glidewire
were then advanced through the popliteal artery easily. The anterior tibial artery was then selected with the Quickcross catheter and Glidewire. Exchanged out for a 0.014 Mongo wire and 0.014 quick cross. The anterior tibial artery occlusion was
crossed with the Mongo wire and 0.014 Quickcross. The wire and catheter were advanced into the dorsalis pedis artery and subtraction angio confirmed proper position in the true lumen. A 2 mm x 220 mm angioplasty balloon was used to treat the entire
anterior tibial artery from the proximal dorsalis pedis artery at the ankle back to the AT origin. The balloon was inflated to nominal pressure and held in place for 3 minutes at each segment. 2 inflations were performed to treat the entire
anterior tibial artery segment. I followed this with the same approach using a 2.5 mm x 220 mm angioplasty balloon. Once again the anterior tibial artery was treated from the ankle back to the AT origin with this balloon using 2 separate
inflations each held in place for 3 minutes at nominal pressure. Subsequent arteriogram demonstrated an excellent technical result with brisk flow through a widely patent anterior tibial artery and no residual stenosis identified. Significantly
improved flow to the foot was identified. There was some spasm of the dorsalis pedis branch going towards the hallux and second digit. Nitroglycerin was directly injected into this branch through the 0.014 Quickcross. I then performed angioplasty
on this branch using a 1.5 mm x 40 mm angioplasty balloon. 2 separate inflations were performed at nominal pressure, holding each inflation in place for 3 minutes.
COMPLETION ARTERIOGRAM: Excellent technical result. Widely patent anterior tibial artery along its entire length with brisk flow into the foot. Patent dorsalis pedis artery. Significantly improved flow to the foot and forefoot.
Satisfied with this result we concluded the procedure. The sheath tip was pulled back into the left external iliac artery. Protamine was administered. The sheath was pulled and direct manual pressure was held over the puncture site until
hemostasis was achieved. A sterile dressing was applied.
The patient tolerated the procedure well and was taken to the recovery area in stable condition.
Attestation: I was present and responsible for the entire procedure.
Signed:
Dar Morrison III, MD
Vascular Surgery
[facility]
[2024-08-21] MEDS: NSS 1000 IV (22:02)
[2024-08-21 22:18] LABS: Glucose - Point of Care 54 mg/dl (70-99)
[2024-08-21] MEDS: FLUSH (NSS) 2 FLUSH IV (22:30)
[2024-08-21] MEDS: DOLOPHINE PO (23:00)
[2024-08-21] MEDS: LYRICA PO (23:00)
[2024-08-21] MEDS: DESYREL PO (23:00)
[2024-08-21 23:07] LABS: Glucose - Point of Care 104 mg/dl (70-99)
[2024-08-22] VITALS (10 sets, daily range): BP systolic 117–180; BP diastolic 55–73
[2024-08-22 01:30] LABS: Glucose - Point of Care 60 mg/dl (70-99)
[2024-08-22 01:54] LABS: Glucose - Point of Care 63 mg/dl (70-99)
[2024-08-22 02:21] LABS: Glucose - Point of Care 89 mg/dl (70-99)
[2024-08-22] MEDS: DILAUDID 0.5 MG IV ×3 (04:24→23:02)
[2024-08-22] MEDS: FLUSH (NSS) 2 FLUSH IV (04:25)
[2024-08-22 04:34] LABS: Glucose - Point of Care 99 mg/dl (70-99)
[2024-08-22 06:31] LABS: Glucose - Point of Care 113 mg/dl (70-99)
--- NOTE | 2024-08-22 06:40 | PTCARENOTE ---
Patient received from PACU via bed. He was drowsy but easily arousable. Reminded of laying flat and keeping LLE straight. See post arteriogram checks. Small amount of oozing from left groin site site noted. AIRPORT REFUELING HANDLER, covering floor, in to
eval. Picture via TT to urology surgeon vascular MD. Change dressing and Heparin as ordered at 02:20. New dressing remained C/D/I. No hematoma or ecchymosis noted. Fingerstick glucose at HS low. Hypoglycemic protocol followed. Diet advanced and po
intake encouraged.
[2024-08-22 07:05] LABS: Glucose - Point of Care 112 mg/dl (70-99)
--- NOTE | 2024-08-22 07:31 | PN.DE.MGMTRT ---
Insulin Management
- -
08/22/2024: Diabetes Insulin pump Management Followup
Patient admitted 08/15 request of his historical society director, Dr. Villanueva, and vascular surgeon, Dr. Morrison, due to worsening or wounds L great toe and R second toe. PMH: HTN PAD, Neuropathy, COPD, Anemia and T2DM. States he was switched to an insulin pump 5 years
ago and has been using Tandem T-Slim, Humalog insulin and Dexcom G7 prior to admission. He routinely sees Dr. Vaca for diabetes care, states his recent A1C in the office was 7.1%, his A1C on admission was 8.2%.
Pt is awake, alert, oriented, resting in bed, offers no complaints, Able to discuss diabetes management.
POD #6 left lower extremity arteriogram, SFA stents x 2.
POD 1 s/p RLE arteriogram with balloon angio R dorsalis pedis and anterior tibial arteries Insulin pump infusing basal rate.
Glucose range 54 to 142. 17:17 glucose 55, treated then 125; 22:00 glucose 54, treated then 104. Will reduce evening basal rates
Pump settings as follows:
Basal Correction CHO ratio target
12AM 1 1:30 1:14 110
3AM 1 1:30 1:14 110
6am .975 1:30 1:13 110
12PM 1 1:30 1:13 110
8pm 1 1:30 1:13 110
24 hour basal total units.
Still waiting for sensor from home.
Discussed with nurse and instructed on use of bedside insulin pump work sheet.
Will cont to follow
Diabetes History
- -
Pre-Admission Diabetes Regimen
08/21/24
08:56
Creatinine 1.3
Lab Results
Hemoglobin A1c 8.2 % (4.0-5.6) H 08/16/24 07:19
Insulin Pump Settings
IP Diabetes Regimen
08/21/24 08/21/24 08/21/24
08:56 11:24 17:17
Glucose 104 H
POC Glucose 96 55 L*
08/21/24 08/21/24 08/21/24
17:38 19:39 22:17
Glucose
POC Glucose 125 H 83 54 L*
08/21/24 08/22/24 08/22/24
23:06 01:29 01:52
Glucose
POC Glucose 104 H 60 L 63 L
08/22/24 08/22/24 08/22/24
02:19 04:32 06:29
Glucose
POC Glucose 89 99 113 H
08/22/24
07:03
Glucose
POC Glucose 112 H
Meal type: Lunch
Meal type: Breakfast
Patient Education
[2024-08-22] MEDS: NICODERM TRANSDERMAL 21 MG TRANSDERM (08:07)
[2024-08-22] MEDS: ZESTRIL 40 MG PO (08:08)
[2024-08-22] MEDS: VITAMIN B-12 1000 MCG PO (08:08)
[2024-08-22] MEDS: NORVASC 10 MG PO (08:08)
[2024-08-22] MEDS: LIPITOR 40 MG PO (08:08)
[2024-08-22] MEDS: LOW STRENGTH ASPIRIN 81 MG PO (08:08)
[2024-08-22] MEDS: LYRICA 100 MG PO ×3 (08:08→22:28)
[2024-08-22] MEDS: PLAVIX 75 MG PO (08:08)
[2024-08-22] MEDS: PATIENT'S OWN INSULIN PUMP SC ×3 (08:09→22:29)
[2024-08-22 08:53] LABS: % Basophils 0.6 % (0-2); % Eosinophils 4.6 % (0-6); % Immature Granulocytes 0.4 % (0-0.5); % Lymphocytes 16.2 % (20.5-51.1); % Monocytes 9.9 % (1.7-9.3); % Neutrophils 68.3 % (42.2-75.2); Absolute Eosinophils 0.2 10^3/uL (0-0.7); Absolute Lymphocytes 0.8 10^3/uL (1.2-3.4); Absolute Monocytes 0.5 10^3/uL (0.1-0.6); Absolute Neutrophils 3.4 10^3/uL (1.4-6.5); Hematocrit 26.1 % (39.0-52.0); Hemoglobin 8.6 g/dL (13.0-18.0); Mean Corpuscular Hgb 26.4 pg (27.0-31.0); Mean Corpuscular Volume 80.1 fL (80.0-94.0); Nucleated Red Blood Cells % 0 % (-); Red Blood Cell Count 3.26 10^6/uL (4.70-6.10); Red Cell Dist. Width 15.3 % (11.5-14.5)
[2024-08-22 08:57] LABS: APTT 65.1 Sec (23.4-35.0)
[2024-08-22 09:09] LABS: Mean Platelet Volume 12.9 fL (7.4-10.4); Platelet Count 78 10^3/uL (130-400)
[2024-08-22 09:21] LABS: ALT (SGPT) 15 U/L (0-50); AST (SGOT) 17 U/L (17-59); Albumin 3.2 g/dl (3.5-5.0); Alkaline Phosphatase 73 U/L (38-126); Blood Urea Nitrogen 18 mg/dl (9-20); Calcium 8.4 mg/dl (8.4-10.2); Carbon Dioxide 26 mmol/L (22-30); Chloride 105 mmol/L (98-107); Estimated Creatinine Clearance 54 ml/min; Glucose 90 mg/dl (70-99); Potassium 4.4 mmol/L (3.5-5.1); Sodium 137 mmol/L (135-145); Total Bilirubin 0.5 mg/dl (0.2-1.3); Total Protein 5.6 g/dl (6.3-8.2); eGFR > 60.00
[2024-08-22] MEDS: DOLOPHINE 10 MG PO ×2 (09:38→22:28)
[2024-08-22] MEDS: HEPARIN 2500 UNITS IV (09:39)
--- NOTE | 2024-08-22 10:49 | W.PN.VS ---
Today's Communication / Plan
-
Below plan reviewed with Dr. Collin Harrison.
Assessment/Plan
-
POD 5 left lower extremity arteriogram, SFA stents x 2, POD#1 Balloon angioplasty of right dorsalis pedis artery (1.5 mm x 40 mm angioplasty balloon), balloon angioplasty of right anterior tibial artery (2 mm x 220 mm --> 2.5 mm x 220 mm angioplasty
balloon)
Plan:
- Recommend triple therapy of Eliquis 5mg PO BID with ASA 81mg PO daily and Plavix 75mg PO daily for one month, after one month transition to OAC of Eliquis 5mg PO BID and ASA 81mg PO daily and DISCONTINUE plavix 75mg PO daily
- Patient wishes to continue to follow with Dr. Cruz as an outpatient
- Follow up placed in discharge instructions
Subjective Data
-
Date of Service: August 22, 2024
Patient seen and examined at bedside, offers no complaints. Denies nausea, vomiting, fever, and chills. Denies pain at left groin puncture site.
Objective Data
-
Vital Signs
Temp Pulse Resp BP Pulse Ox
98.5 F 67 18 165/67 96
08/22/24 07:45 08/22/24 07:45 08/22/24 07:45 08/22/24 07:45 08/22/24 07:45
Intake and Output
08/21/24 08/22/24 08/23/24
06:59 06:59 06:59
Intake Total 670 / 670 650 / 650
Output Total 900 / 900 1100 / 1100
Balance -230 / -230 -450 / -450
Intake:
Oral fluids 420 / 420 0 / 0
IV fluids (Total) 650 / 650
Blood Product Amount Infused ( 250 / 250
mL)
Packed Rbc Leukoreduced Unit 250 / 250
[id number]
Output:
Urine, Voided 900 / 900 1100 / 1100
Other:
Number of approximated MODERATE 3
amounts of urine
Number of unmeasured liquid
stools
Rectum 1
Lab Results
08/22/24 08:35
08/22/24 08:35
Calcium 8.4 mg/dl (8.4-10.2) 08/22/24 08:35
Total Bilirubin 0.5 mg/dl (0.2-1.3) 08/22/24 08:35
AST 17 U/L (17-59) 08/22/24 08:35
ALT 15 U/L (0-50) 08/22/24 08:35
Alkaline Phosphatase 73 U/L (38-126) 08/22/24 08:35
Total Protein 5.6 g/dl (6.3-8.2) L 08/22/24 08:35
Albumin 3.2 g/dl (3.5-5.0) L 08/22/24 08:35
Physical Exam
-
AAO x 3
No tachypnea on room air
No tachycardia
Abdomen soft
Left Groin site CDI, no evidence of hematoma, all surrounding compartments soft
Toe wounds dressed
[2024-08-22] MEDS: FOLVITE 1 MG PO (12:05)
[2024-08-22] MEDS: CYMBALTA DELAYED RELEASE 60 MG PO (12:05)
--- NOTE | 2024-08-22 12:54 | WOUNDNOTE ---
[facility] RN note: BEAN Hernández asked about soft heel relief boots for patient. Confirmed with Bree Horton, Vascular PRODUCT PICKER can order soft heel relief boots for patient (i.e. TruVue lite boots). Discussed with BEAN Hernández who will call [facility] for the boots. Edgar also
plans on applying a static air overlay.
[2024-08-22 13:16] LABS: Glucose - Point of Care 224 mg/dl (70-99)
--- NOTE | 2024-08-22 14:01 | W.PN.HOSP.TC ---
Today's Communication/Plan
-
await podiatry recs, and switch to oral anticoag pending plan
Assessment / Plan
Assessment / Plan
Gen-AAOx3, NAD
HEENT-NC, AT, anicteric, clear oral mm
Neck-supple
CV-reg, no M, +S1/S2
Lungs-clear
Abd-soft, NT, ND
Ext-no edema
Musculoskeletal-no cyanosis, clubbing
Skin-warm and dry
Neuro-grossly non-focal
Psych-calm, cooperative
PAD/lower extremity digital gangrene -left first toe, right second toe. No osteomyelitis noted on x-ray. Suspect ischemic etiology including PAD versus emboli.
Stable after lower extremity angiogram May 1 with placement of left above-knee popliteal artery to proximal SFA stent. Balloon angioplasty of left proximal superficial femoral artery.
CTA angiogram with runoff completed,; POD 5 left lower extremity arteriogram, SFA stents x 2, POD#1 Balloon angioplasty of right dorsalis pedis artery (1.5 mm x 40 mm angioplasty balloon), balloon angioplasty of right anterior tibial artery (2 mm x
220 mm --> 2.5 mm x 220 mm angioplasty balloon)
-Recommend triple therapy of Eliquis 5mg PO BID with ASA 81mg PO daily and Plavix 75mg PO daily for one month, after one month transition to OAC of Eliquis 5mg PO BID and ASA 81mg PO daily and DISCONTINUE plavix 75mg PO daily
-Can switch to Oral Anticoag if no further procedure, awaiting podiatry recs
Suspected COPD -wheezing improved. Continue albuterol nebs as needed; Does not have a formal COPD diagnosis. Start albuterol nebs as needed. Recommend outpatient follow-up with pulmonary for PFTs. Smoking cessation.
Hyponatremia -suspect SIADH. High urine osmolarity noted. Mild fluid restriction. Hydrochlorothiazide contributed to hyponatremia, now on hold.
Hyperkalemia -resolved. Low potassium diet. Lisinopril and spironolactone on hold.
Tobacco dependence -cessation advised.
Chronic pain syndrome/chronic opiate dependence -he goes to a pain clinic. On chronic methadone for neuropathy, dose was just increased to 20 mg daily. Also on gabapentin.
Chronic thrombocytopenia -unclear etiology. Patient is unaware of the diagnosis. Low platelet count dates back to at least 2015.
Acute on Chronic microcytic anemia ; Acute Blood Loss anemia; 2/2 to post/nicolasa operative blood loss; Transfuse 1u 5/5. Tolerated well. He has seen hematology in the past, [facility]. Labs are not consistent with iron deficiency. Does have
vitamin B12 deficiency, will start repletion.
CHIN on CKD 3a -CHIN resolved. May have been due to volume depletion. Creatinine 1.6 on admission, 1.3 today.
DM2 with hyperglycemia -he uses an insulin pump. Glucose 146 this morning, 146 last night. Has a Dexcom CGM. 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 Hemoglobin A1c 8.2%. Insulin pump doses have been increased. Patient concerned about hypoglycemia and I spent
time informing him that we will monitor closely in the hospital and adjust pump dose if needed.
Chronic peripheral neuropathy -likely due to diabetes.
Essential hypertension -stable. Bradycardia improved somewhat off clonidine. Continue amlodipine, resume lisinopril. Continue to hold spironolactone given presentation with hyperkalemia. Continue to hold hydrochlorothiazide given presentation
with hyponatremia.
Hyperlipidemia -atorvastatin.
Depression/anxiety
Full code
PT/OT
Anticipated Discharge: Within 24 hours
Subjective/Interval History
-
Date of Service: August 22, 2024
no acute events overnight
Objective Data
-
Labs:
Laboratory Results
08/22/24 08/22/24
08:35 15:30
WBC 5.0
Hgb 8.6 L
Hct 26.1 L
Plt Count 78 L
APTT 65.1 H Pending
Sodium 137
Potassium 4.4
Chloride 105
Carbon Dioxide 26
BUN 18
Creatinine 1.2
Glucose 90
Calcium 8.4
Total Bilirubin 0.5
AST 17
ALT 15
Alkaline Phosphatase 73
Vital Signs:
Vital Signs
Temp Pulse Resp BP Pulse Ox
98.4 F 66 16 155/60 97
08/22/24 11:20 08/22/24 11:20 08/22/24 11:20 08/22/24 11:20 08/22/24 11:20
I&O
08/21/24 08/22/24 08/23/24
06:59 06:59 06:59
Intake Total 670 / 670 650 / 650
Output Total 900 / 900 1100 / 1100
Balance -230 / -230 -450 / -450
Review of Systems
-
History Source: Patient
All other systems: Not reviewed unless documented
Data Reviewed
-
CT Scan: Report Reviewed by me
Labs: Labs Reviewed by me
[2024-08-22] MEDS: PATIENT'S OWN INSULIN PUMP 11.5 UNITS SC (14:27)
--- NOTE | 2024-08-22 14:49 | CM ---
Reviewed the chart notes and spoke with the patient at the bedside. Per attending, patient ready for discharge. Patient still on heparin gtt and supplemental O2. RN will attempt to wean O2. Discuss home with VN services. Patient said he had [facility]N in past. Referral sent in [facility]. CM continues to be available to patient/family and is monitoring medical plan for needs at discharge.
Plan: Discharge to home with VN services.
[2024-08-22] MEDS: ATIVAN 1 MG PO (15:06)
[2024-08-22 16:27] LABS: APTT 96.2 Sec (23.4-35.0)
[2024-08-22 17:31] LABS: Glucose - Point of Care 121 mg/dl (70-99)
[2024-08-22] MEDS: PROTONIX 40 MG PO (17:58)
[2024-08-22] MEDS: PATIENT'S OWN INSULIN PUMP 5.48 UNITS SC (19:25)
[2024-08-22] MEDS: ELIQUIS 5 MG PO (19:58)
[2024-08-22 22:19] LABS: Glucose - Point of Care 127 mg/dl (70-99)
[2024-08-22] MEDS: DESYREL 50 MG PO (22:28)
[2024-08-23 04:43] LABS: Hematocrit 22.7 % (39.0-52.0); Hemoglobin 7.7 g/dL (13.0-18.0); Mean Corp Hgb Conc. 33.9 g/dL (33.0-37.0); Mean Corpuscular Hgb 26.7 pg (27.0-31.0); Mean Corpuscular Volume 78.8 fL (80.0-94.0); Mean Platelet Volume 13.2 fL (7.4-10.4); Platelet Count 74 10^3/uL (130-400); Red Blood Cell Count 2.88 10^6/uL (4.70-6.10); Red Cell Dist. Width 14.7 % (11.5-14.5); White Blood Cell Count 5.2 10^3/uL (4.8-10.8)
[2024-08-23 05:10] LABS: ALT (SGPT) 20 U/L (0-50); AST (SGOT) 31 U/L (17-59); Albumin 2.9 g/dl (3.5-5.0); Alkaline Phosphatase 72 U/L (38-126); Blood Urea Nitrogen 19 mg/dl (9-20); Calcium 8.4 mg/dl (8.4-10.2); Carbon Dioxide 28 mmol/L (22-30); Chloride 100 mmol/L (98-107); Estimated Creatinine Clearance 59 ml/min; Glucose 119 mg/dl (70-99); Potassium 4.7 mmol/L (3.5-5.1); Sodium 130 mmol/L (135-145); Total Bilirubin 0.6 mg/dl (0.2-1.3); Total Protein 5.3 g/dl (6.3-8.2); eGFR > 60.00
--- NOTE | 2024-08-23 07:15 | PN.DE.MGMTRT ---
Insulin Management
- -
08/23/2024: Diabetes Insulin pump Management Followup
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 Villanueva, and vascular surgeon, Dr. Morrison, due to worsening or wounds L great toe and R second toe. PMH: HTN PAD, Neuropathy, COPD, Anemia and T2DM. States he was switched to an insulin pump 5 years
ago and has been using Tandem T-Slim, Humalog insulin and Dexcom G7 prior to admission. He routinely sees Dr. Vaca for diabetes care, states his recent A1C in the office was 7.1%, his A1C on admission was 8.2%.
Pt is awake, alert, oriented, resting in bed, offers no complaints, Able to discuss diabetes management.
POD #7 left lower extremity arteriogram, SFA stents x 2.
POD 2 s/p RLE arteriogram with balloon angio R dorsalis pedis and anterior tibial arteries Insulin pump infusing basal rate.
5/7 Glucose range 113 to 127, one elevation pre lunch, no hypoglycemia. Basal rates reduced 5/7, will continue revised basal rates.
Pump settings as follows:
Basal Correction CHO ratio target
12AM 1 1:30 1:14 110
3AM 1 1:30 1:14 110
6am .975 1:30 1:13 110
12PM 1 1:30 1:13 110
8pm 1 1:30 1:13 110
24 hour basal total units 23.85.
Still waiting for sensor from home.
Discussed with nurse and instructed on use of bedside insulin pump work sheet.
Will cont to follow
Diabetes History
- -
Type of Diabetes: 2 requiring insulin
Pre-Admission Diabetes Regimen
08/22/24 08/23/24
08:35 04:18
Creatinine 1.2 1.1
Lab Results
Hemoglobin A1c 8.2 % (4.0-5.6) H 08/16/24 07:19
Insulin Pump Settings
IP Diabetes Regimen
08/22/24 08/22/24 08/22/24
08:35 13:15 17:30
Glucose 90
POC Glucose 224 H 121 H
08/22/24 08/23/24
22:17 04:18
Glucose 119 H
POC Glucose 127 H
Meal type: Lunch
Meal type: Breakfast
Amount consumed: 100%
Amount consumed: 100%
Patient Education
[2024-08-23 08:00] VITALS: BP 155/68
[2024-08-23 08:12] LABS: Glucose - Point of Care 115 mg/dl (70-99)
[2024-08-23] MEDS: NORVASC 10 MG PO (09:10)
[2024-08-23] MEDS: ZESTRIL 40 MG PO (09:10)
[2024-08-23] MEDS: PLAVIX 75 MG PO (09:10)
[2024-08-23] MEDS: ELIQUIS 5 MG PO (09:10)
[2024-08-23] MEDS: NICODERM TRANSDERMAL 21 MG TRANSDERM (09:11)
[2024-08-23] MEDS: VITAMIN B-12 1000 MCG PO (09:12)
[2024-08-23] MEDS: LIPITOR 40 MG PO (09:12)
[2024-08-23] MEDS: LOW STRENGTH ASPIRIN 81 MG PO (09:12)
[2024-08-23] MEDS: LYRICA 100 MG PO (09:12)
[2024-08-23] MEDS: DILAUDID 0.5 MG IV ×2 (09:37→13:57)
[2024-08-23] MEDS: DOLOPHINE 10 MG PO (09:37)
[2024-08-23] MEDS: PATIENT'S OWN INSULIN PUMP 3.63 UNITS SC (09:43)
--- NOTE | 2024-08-23 10:27 | CM ---
Reviewed the chart notes and spoke with the patient at the bedside. IMM reviewed. The patient is ready for discharge. Patient's daughter will provide transportation home. CM continues to be available to patient/family and is monitoring medical
plan for needs at discharge.
Plan: Discharge to home with [facility] services.
[facility]
[2024-08-23 12:20] LABS: Glucose - Point of Care 99 mg/dl (70-99)
[2024-08-23 12:36] LABS: Hematocrit 24.8 % (39.0-52.0); Hemoglobin 8.3 g/dL (13.0-18.0); Mean Corp Hgb Conc. 33.5 g/dL (33.0-37.0); Mean Corpuscular Hgb 26.3 pg (27.0-31.0); Mean Corpuscular Volume 78.5 fL (80.0-94.0); Platelet Count 87 10^3/uL (130-400); Red Blood Cell Count 3.16 10^6/uL (4.70-6.10); Red Cell Dist. Width 14.7 % (11.5-14.5); White Blood Cell Count 5.3 10^3/uL (4.8-10.8)
[2024-08-23 12:44] LABS: Blood Urea Nitrogen 18 mg/dl (9-20); Calcium 8.9 mg/dl (8.4-10.2); Carbon Dioxide 29 mmol/L (22-30); Chloride 99 mmol/L (98-107); Estimated Creatinine Clearance 59 ml/min; Glucose 87 mg/dl (70-99); Potassium 4.6 mmol/L (3.5-5.1); Sodium 131 mmol/L (135-145); eGFR > 60.00
[2024-08-23] MEDS: CYMBALTA DELAYED RELEASE 60 MG PO (12:44)
[2024-08-23] MEDS: FOLVITE 1 MG PO (12:45)
[2024-08-23] MEDS: PATIENT'S OWN INSULIN PUMP 0.93 UNITS SC (13:12)
--- NOTE | 2024-08-23 13:29 | W.PN.HOSP.TC ---
Today's Communication/Plan
-
-Recommend triple therapy of Eliquis 5mg PO BID with ASA 81mg PO daily and Plavix 75mg PO daily for one month, after one month transition to OAC of Eliquis 5mg PO BID and ASA 81mg PO daily and DISCONTINUE plavix 75mg PO daily
As per Podiatry: plan is allow for demarcation-outpt wound care w/serial x-rays Q3 -4 weeks and see how it looks over the next few weeks and then if necessary, bring him back outpatient for debridement or amputation
F/u Podiatry, Vascular, PCP, Pulmonary out
F/u CBC and CMP outpt
hold aldactone
Assessment / Plan
Assessment / Plan
Gen-AAOx3, NAD
HEENT-NC, AT, anicteric, clear oral mm
No tachypnea on room air
No tachycardia
Abdomen soft
Left Groin site CDI, no evidence of hematoma, all surrounding compartments soft
Toe wounds dressed
PAD/lower extremity digital gangrene -left first toe, right second toe. No osteomyelitis noted on x-ray. Suspect ischemic etiology including PAD versus emboli.
Stable after lower extremity angiogram May 1 with placement of left above-knee popliteal artery to proximal SFA stent. Balloon angioplasty of left proximal superficial femoral artery.
CTA angiogram with runoff completed,; POD 5 left lower extremity arteriogram, SFA stents x 2, POD#1 Balloon angioplasty of right dorsalis pedis artery (1.5 mm x 40 mm angioplasty balloon), balloon angioplasty of right anterior tibial artery (2 mm x
220 mm --> 2.5 mm x 220 mm angioplasty balloon)
-Recommend triple therapy of Eliquis 5mg PO BID with ASA 81mg PO daily and Plavix 75mg PO daily for one month, after one month transition to OAC of Eliquis 5mg PO BID and ASA 81mg PO daily and DISCONTINUE plavix 75mg PO daily
-switch to Oral Anticoag as no further procedure
As per Podiatry: plan is allow for demarcation-outpt wound care w/serial x-rays Q3 -4 weeks and see how it looks over the next few weeks and then if necessary, bring him back outpatient for debridement or amputation
Suspected COPD -wheezing improved. Continue albuterol nebs as needed; Does not have a formal COPD diagnosis. Start albuterol nebs as needed. Recommend outpatient follow-up with pulmonary for PFTs. Smoking cessation.
Hyponatremia -suspect SIADH. High urine osmolarity noted. Mild fluid restriction. Hydrochlorothiazide contributed to hyponatremia, now on hold. Monitor outpt
Hyperkalemia -resolved. Low potassium diet. Lisinopril and spironolactone on hold.
Tobacco dependence -cessation advised.
Chronic pain syndrome/chronic opiate dependence -he goes to a pain clinic. On chronic methadone for neuropathy, dose was just increased to 20 mg daily. Also on gabapentin.
Chronic thrombocytopenia -unclear etiology. Patient is unaware of the diagnosis. Low platelet count dates back to at least 2015.
Acute on Chronic microcytic anemia ; Acute Blood Loss anemia; 2/2 to post/nicolasa operative blood loss; Transfuse 1u 5/5. Tolerated well. He has seen hematology in the past, [facility]. Labs are not consistent with iron deficiency. Does have
vitamin B12 deficiency, will start repletion.
CHIN on CKD 3a -CHIN resolved. May have been due to volume depletion. Creatinine 1.6 on admission, 1.3 today.
DM2 with hyperglycemia -he uses an insulin pump. Glucose 146 this morning, 146 last night. Has a Dexcom CGM. Diabetes SCREENING REPRESENTATIVE following. Hemoglobin A1c 8.2%. Insulin pump doses have been increased. Patient concerned about hypoglycemia and I spent
time informing him that we will monitor closely in the hospital and adjust pump dose if needed.
Chronic peripheral neuropathy -likely due to diabetes.
Essential hypertension -stable. Bradycardia improved somewhat off clonidine. Continue amlodipine, resume lisinopril. Continue to hold spironolactone given presentation with hyperkalemia. Continue to hold hydrochlorothiazide given presentation
with hyponatremia.
Hyperlipidemia -atorvastatin.
Depression/anxiety
Full code
PT/OT
More than 30 minutes spent in discharge including
Final examination of the patient
Summarizing hospital stay
Instructions for continuing care to all relevant caregivers
Preparation of discharge records, prescriptions, and referral forms
Total time spent (in minutes): 37
Anticipated Discharge: Today
Subjective/Interval History
-
Date of Service: August 23, 2024
No acute events
Objective Data
-
Labs:
Laboratory Results
08/23/24 08/23/24
04:18 12:23
WBC 5.2 5.3
Hgb 7.7 L 8.3 L
Hct 22.7 L 24.8 L
Plt Count 74 L 87 L
Sodium 130 L 131 L
Potassium 4.7 4.6
Chloride 100 99
Carbon Dioxide 28 29
BUN 19 18
Creatinine 1.1 1.1
Glucose 119 H 87
Calcium 8.4 8.9
Total Bilirubin 0.6
AST 31
ALT 20
Alkaline Phosphatase 72
Vital Signs:
Vital Signs
Temp Pulse Resp BP Pulse Ox
98.5 F 60 17 155/68 96
08/23/24 08:00 08/23/24 09:10 08/23/24 08:00 08/23/24 09:10 08/23/24 08:00
I&O
08/22/24 08/23/24 08/24/24
06:59 06:59 06:59
Intake Total 650 / 650 1140 / 1140
Output Total 1100 / 1100 2275 / 2275
Balance -450 / -450 -1135 / -1135
Review of Systems
-
History Source: Patient
All other systems: Not reviewed unless documented
Data Reviewed
-
CT Scan: Report Reviewed by me
Labs: Labs Reviewed by me
--- NOTE | 2024-08-23 13:33 | W.DS.TRANS ---
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
-
Discharge Instructions:
Discharge Diagnosis/Procedures PAD/lower extremity digital gangrene
left lower extremity arteriogram, SFA stents x 2
Balloon angioplasty of right dorsalis pedis
artery (1.5 mm x 40 mm angioplasty balloon),
balloon angioplasty of right anterior tibial
artery (2 mm x 220 mm --> 2.5 mm x 220 mm
angioplasty balloon)
Diet Low Cholesterol,Restrict fluids to 48 oz
Activity No strenuous activity
Blood Work cbc and cmp in 3-5 days with pcp
Monitor HgB, Sodium, Potassium, Renal Function
Others Tests Your arterial ultrasound is scheduled on
2024 at 2:30 PM here at [facility]
Health
Instructions:
Stand-Alone Forms: Vascular Surg Discharge Instr
Changes to Home Medications: Yes
Discharge Medications:
DC Medications w/original date entered in [employer]
folic acid 1 mg tablet 1 mg PO NOON Supplement 11/28/15
pantoprazole 40 mg tablet,delayed release 40 mg PO .AFTERNOON Gastrointestinal Issue 11/28/15
amlodipine 5 mg tablet 10 mg PO DAILY Blood Pressure 03/18/22
methadone 5 mg tablet 5 mg PO QID Pain 03/18/22
trazodone 50 mg tablet 50 mg PO HS Sleep 03/18/22
fluticasone propionate 50 mcg/actuation nasal spray,suspension (Flonase Allergy Relief) 2 spray intranasal DAILY Allergies 04/02/22
lisinopril 40 mg tablet 40 mg PO DAILY Blood Pressure 04/02/22
atorvastatin 40 mg tablet 40 mg PO DAILY High Cholesterol 03/02/24
duloxetine 60 mg capsule,delayed release 60 mg PO NOON Mental Health/Anxiety 03/02/24
lorazepam 1 mg tablet 1 mg PO .AFTERNOON Mental Health/Anxiety 03/02/24
naproxen sodium 220 mg tablet (Aleve) 440 mg PO PRN PRN PAIN 03/02/24
Tandem T:Slim Insulin Pump 1 dose SC DIRECTED Diabetes 05/03/24
spironolactone 25 mg tablet 25 mg PO DAILY Fluid Retention/Swelling 05/03/24
apixaban 5 mg tablet (Eliquis) 5 mg PO BID 30 days #60 tabs 08/23/24
aspirin 81 mg chewable tablet 81 mg PO DAILY 30 days #30 tabs 08/23/24
clopidogrel 75 mg tablet (Plavix) 75 mg PO DAILY 30 days #30 tabs 08/23/24
pregabalin 300 mg capsule (Lyrica) 300 mg PO TID Neurological Condition 30 days #90 caps 08/23/24
Home Medication Changes
aspirin 81 mg chewable tablet 81 mg PO DAILY 30 days #30 tabs 08/23/24
clopidogrel 75 mg tablet (Plavix) 75 mg PO DAILY 30 days #30 tabs 08/23/24
pregabalin 300 mg capsule (Lyrica) 300 mg PO TID Neurological Condition 30 days #90 caps 08/23/24
Pending Results: No
[2024-08-23] MEDS: ATIVAN 1 MG PO (13:56)
--- NOTE | 2024-08-23 14:21 | WOUNDNOTE ---
L GREAT TOE TIP
--- NOTE | 2024-08-23 14:22 | WOUNDNOTE ---
R 2ND TOE
--- NOTE | 2024-08-23 14:22 | WOUNDNOTE ---
R 2ND TOE TIP
--- NOTE | 2024-08-23 14:23 | WOUNDNOTE ---
[facility] RN note: Patient for discharged today to follow up with Dr. Cruz and vascular. Toan texted Dr. Cruz, Bree Horton, Vascular PA and Dr. Ram R 2nd toe and L great toe picture mentioning L great toe tip gangrene larger and R 2nd toe base
slightly more red than last week. Dr. Cruz responded the erythema to the second toe may be hyperemia from now getting blood flow to foot. No obvious odor and no purulence. Dressing changed as ordered. Patient has a almost healed small circular
abrasion on his R heel. Protective foam dressing applied. Skin on L heel blanchable mild red and intact. Patient likes the TruVue lite heel relief boots. Air chair cushion given. Sacral skin intact without erythema. Patient turns self in bed.
Patient will have VN. Wound care supplies left in room. Instructed patient pressure injury prevention measures. Patient report a good appetite. Patient instructed to take air chair cushion and soft heel relief boots home with him. Updated RN
Angelica.
[2024-08-23 16:05] VITALS: BP 162/64
[2024-08-23 16:42] VITALS: BP 176/71
--- NOTE | 2024-08-23 16:42 | PTCARENOTE ---
Patient called staff, recent midline removal by VAT RN. Went into room to assist primary RN. Copious amount of blood on arm/gown/floor. Removed initial VAT RN dressing, applied pressure dressing and held pressure for about five minutes. Checked to
assess for any active bleeding, bleeding stopped. Arm soft/no evidence of swelling/hematoma. Redressed with 4x4 gauze and tegaderm. Dressing CDI. Assisted patient back into bed with primary RN. Vitals stable throughout however patient now
queasy/reports being lightheaded. Refer to primary RN note for intervention/MD notification.
[2024-08-23 16:46] LABS: Hematocrit 26.8 % (39.0-52.0); Hemoglobin 9.2 g/dL (13.0-18.0)
[2024-08-23 16:57] VITALS: BP 161/67
[2024-08-23 17:01] LABS: Glucose - Point of Care 264 mg/dl (70-99)
[2024-08-23 17:14] VITALS: BP 154/70; BP 159/68; BP 160/64; PULSE 60; PULSE 64; PULSE 73
[2024-08-23] MEDS: LYRICA PO (17:26)
--- NOTE | 2024-08-23 17:42 | PTCARENOTE ---
Patient called staff, recent midline removal by VAT RN. Went into room and noticed copious amount of blood on arm/gown/floor. Removed initial VAT dressing. Applied pressure, for 10 mis. bleeding stooped. New dressing applied. PT reported being
lightheaded, vs documented. aware. STat H&H and orthostatics ordered. PT in bed. No s/s of distress noted at this time. AAOx3, pt states he feels better. Dressing CDI. Orthostatics negative. aware. Ok to d/c. daughter at bedside.
== END 2024-08-23 18:47 | disposition home health service (06) | DRG 253 ==
LOC: 2 NORTH 18:23
PROVIDERS: Hospitalist; Internal Medicine; Nurse Practitioner Acute Care; Nurse Practitioner Family; Physician Assistant Medical; Surgery Vascular Surgery; ADMITTING PHYSICIAN Student in an Organized Health Care Education/Training Program; ATTENDING PHYSICIAN Internal Medicine; CONSULT PHYSICIAN Internal Medicine Critical Care Medicine; CONSULT PHYSICIAN Podiatrist Foot & Ankle Surgery; CONSULT PHYSICIAN Surgery Vascular Surgery; EMERGENCY PHYSICIAN Student in an Organized Health Care Education/Training Program; FAMILY PHYSICIAN Family Medicine
PROC: B41D1ZZ Fluoroscopy of Aorta and Bilateral Lower Extremity Arteries using Low Osmolar Contrast (ICD-10-PCS; 2024-08-16)
PROC: B41C1ZZ Fluoroscopy of Pelvic Arteries using Low Osmolar Contrast (ICD-10-PCS; 2024-08-16)
PROC: B4101ZZ Fluoroscopy of Abdominal Aorta using Low Osmolar Contrast (ICD-10-PCS; 2024-08-16)
PROC: 047L3ZZ Dilation of Left Femoral Artery, Percutaneous Approach (ICD-10-PCS; 2024-08-16)
PROC: 047N3EZ Dilation of Left Popliteal Artery with Two Intraluminal Devices, Percutaneous Approach (ICD-10-PCS; 2024-08-16)
PROC: 30233N1 Transfusion of Nonautologous Red Blood Cells into Peripheral Vein, Percutaneous Approach (ICD-10-PCS; 2024-08-20)
PROC: 047W3ZZ Dilation of Left Foot Artery, Percutaneous Approach (ICD-10-PCS; 2024-08-21)
PROC: B41F1ZZ Fluoroscopy of Right Lower Extremity Arteries using Low Osmolar Contrast (ICD-10-PCS; 2024-08-21)
PROC: 047P3ZZ Dilation of Right Anterior Tibial Artery, Percutaneous Approach (ICD-10-PCS; 2024-08-21)
DX: T82.856A Stenosis of peripheral vascular stent, initial encounter (principal); D62 Acute posthemorrhagic anemia; E11.52 Type 2 diabetes mellitus with diabetic peripheral angiopathy with gangrene; F11.20 Opioid dependence, uncomplicated; I70.263 Atherosclerosis of native arteries of extremities with gangrene, bilateral legs; N17.9 Acute kidney failure, unspecified; E22.2 Syndrome of inappropriate secretion of antidiuretic hormone; L97.519 Non-pressure chronic ulcer of other part of right foot with unspecified severity; I13.10 Hypertensive heart and chronic kidney disease without heart failure, with stage 1 through stage 4 chronic kidney disease, or unspecified chronic kidney disease; E78.00 Pure hypercholesterolemia, unspecified; E11.40 Type 2 diabetes mellitus with diabetic neuropathy, unspecified; J44.9 Chronic obstructive pulmonary disease, unspecified; D50.9 Iron deficiency anemia, unspecified; F32.A Depression, unspecified; F41.9 Anxiety disorder, unspecified; F17.210 Nicotine dependence, cigarettes, uncomplicated; E11.621 Type 2 diabetes mellitus with foot ulcer; R26.2 Difficulty in walking, not elsewhere classified; E87.5 Hyperkalemia; G89.4 Chronic pain syndrome; N18.31 Chronic kidney disease, stage 3a; D69.6 Thrombocytopenia, unspecified; L03.031 Cellulitis of right toe; E11.65 Type 2 diabetes mellitus with hyperglycemia; F10.20 Alcohol dependence, uncomplicated; E11.22 Type 2 diabetes mellitus with diabetic chronic kidney disease; E53.8 Deficiency of other specified B group vitamins; L97.529 Non-pressure chronic ulcer of other part of left foot with unspecified severity; Y83.1 Surgical operation with implant of artificial internal device as the cause of abnormal reaction of the patient, or of later complication, without mention of misadventure at the time of the procedure; Y92.9 Unspecified place or not applicable; Y71.2 Prosthetic and other implants, materials and accessory cardiovascular devices associated with adverse incidents; Z96.41 Presence of insulin pump (external) (internal); Z79.4 Long term (current) use of insulin; Z79.82 Long term (current) use of aspirin; Z79.02 Long term (current) use of antithrombotics/antiplatelets; Z79.51 Long term (current) use of inhaled steroids; Z79.84 Long term (current) use of oral hypoglycemic drugs; Z95.820 Peripheral vascular angioplasty status with implants and grafts
CPT/HCPCS: 37226; 37228; 37232; 71045; 73630; 75625; 75635; 75710; 75716; 80048; 80053; 82570; 82607; 82728; 82746; 82962; 83036; 83540; 83550; 83935; 84300; 85014; 85018; 85025; 85027; 85045; 85610; 85652; 85730; 86140; 86850; 86900; 86901; 86920; 87070; 93005; 93306; 93922; 93925; 94640; 96365; 96375; 97162; 97167; 97535; 99284; 99406; C1725; C1769; C1874; C1887; C1894; P9016; Q9967

== ENCOUNTER → 2024-09-06 13:58 | Outpatient (REF) | payer MEDICARE, SELFPAY | LOC: HWRAD 13:58 | PROVIDERS: ATTENDING PHYSICIAN Podiatrist Foot & Ankle Surgery; FAMILY PHYSICIAN Family Medicine | DX: E11.52 Type 2 diabetes mellitus with diabetic peripheral angiopathy with gangrene (principal); L97.524 Non-pressure chronic ulcer of other part of left foot with necrosis of bone | CPT/HCPCS: 73630 ==

== ENCOUNTER 2024-09-11 15:23 | Inpatient (IN) | payer MEDICARE, SELFPAY ==
[2024-09-11] VITALS (7 sets, daily range): BP systolic 108–157; BP diastolic 50–77; BMI 23.2; BMI 26.5
--- NOTE | 2024-09-11 13:48 | ED.GENMED ---
History of Present Illness
General
Chief Complaint: Skin Problem
Source: patient and physician
Time Seen by Provider: 09/11/24 13:06
History of Present Illness
History of Present Illness:
68-year-old male with past medical history of diabetes with diabetic peripheral neuropathy, known peripheral arterial disease status post placement of superficial femoral artery stents x 2 and balloon angioplasty of the right dorsalis pedis and
right anterior tibial artery presenting back to the emergency department at the request of podiatry, Dr. Cruz, to be admitted for antibiotics and amputation of the left great toe and right second toe after failed outpatient treatment. Patient
endorses persistent pain to the affected area but otherwise no fevers. He notes the recent admission here for the after mentioned treatment as well as recent admission at [facility] due to hyponatremia. Patient has no other concerns at
this time.
Past History
Past History
ED Past Medical History: HTN, Hypercholesterolemia, IDDM, Psychiatric and Other (Ankle abuse)
ED Past Surgical History: None
Social History
Tobacco: Non-smoker
Alcohol: Chronic alcoholic
Drug: None
Personal:
Living: with family
Review of Systems
Review of Systems
All Other Systems: ROS reviewed and negative except as documented in HPI and ROS
Phy Exam
Physical Exam
Physical Exam:
GENERAL: Alert , in no apparent distress
EYE: conjunctiva clear
Head: Normocephalic atraumatic
NECK: Supple,
ENT: mmm.
LUNGS: no acute respiratory distress
NEUROLOGICAL: Alert and oriented
SKIN: Warm and dry, skin intact. Cap refill 2 seconds, warm, dressings over the left great toe and right second toe are weeping with small blood
MUSCULOSKELETAL: well perfused. Erythema along the dorsal aspect of the right foot along the 3rd, 4th and 5th metatarsals
PSYCH: Normal and appropriate interaction.
Scores
Heart Failure Risk
Heart Failure Risk Score: Not Applicable
Heart Score for Chest Pain Patients
STEMI patient?: Not applicable
Withdrawal Assessment of Alcohol
Withdrawal Assessment Completed?: Not applicable
Course
Orders/Labs/Results
Orders:
Orders
09/11/24 13:35
Basic Metabolic Panel Urgent
CRP [C-Reactive Protein] Urgent
Complete Blood Count/With Diff Urgent
ESR [Erythrocyte Sed Rate] Urgent
PTT Urgent
Prothrombin Time Urgent
HYDROmorphone [Dilaudid] 0.5 mg IV NOW STA
09/11/24 13:38
Vancomycin [Vancocin] 1,500 mg 0.9% Sodium Chloride 500 ml [Nss] 500 ml IV NOW
09/11/24 14:50
Admit/Transfer Patient As Directed
Co-Sign Provider:
Level of Care: Inpatient admission
Assign to:: Medical/Surgical
Physician / Group: Austin Hines
Diagnosis: Gangrene to left great toe and right second toe, CHIN, anemia
Reason for Hospitalization: Gangrene to left great toe and right second toe, CHIN, anemia
Expected length of stay greater than two midnights?: Yes
ELOS- Estimated Length of Stay in days: 3
I certify the patient meets the requirements for IP care: Yes
PRN Pain Medication Management As Directed
May give lesser potent ordered pain med per pt: Yes
preference::
Protocol:: Medication orders for pain may be administered in a
manner that supports deferring to patient preference
when the pt is:
- Requesting an ordered lesser potent pain medication.
Least to most potent pain medications are defined
as: acetaminophen < NSAID < tramadol < opioids
(morphine, oxycodone, hydromorphone).
- Requesting a lesser dose of the same medication IF
ORDERED.
- Requesting a less intrusive route of administration
if both routes are prescribed by the provider (PO <
IV).
09/11/24 14:52
Code Status As Directed
Resuscitation Status: Full Code
09/11/24 15:05
Blood Bank Products [* Blood Bank Products] Routine
Blood Bank Products: *Packed RBC Leuko(PRBC's)
Quantity: 1
Transfuse Today: Yes
Reason: Anemia
Type+Screen Stat
09/11/24 15:07
US LE Arterial with Art. Brachial Index [US Periph Art LOWER Ext w LYLA] Routine
Comment:
Reason For Exam: s/p BL angio re-eval post
Abnormal Lab Results
09/11/24 09/11/24
13:35 15:01
RBC 2.69 L 10^6/uL
(4.70-6.10)
Hgb 7.1 L g/dL
(13.0-18.0)
Hct 21.3 L %
(39.0-52.0)
MCV 79.2 L fL
(80.0-94.0)
MCH 26.4 L pg
(27.0-31.0)
RDW 15.3 H %
(11.5-14.5)
Plt Count 70 L 10^3/uL
(130-400)
MPV 12.6 H fL
(7.4-10.4)
Absolute Lymphs (auto) 1.1 L 10^3/uL
(1.2-3.4)
Lymphocytes % 19.5 L %
(20.5-51.1)
PT 16.5 H Sec
(11.4-14.6)
APTT 61.8 H Sec
(23.4-35.0)
Sodium 132 L mmol/L
(135-145)
BUN 26 H mg/dl
(9-20)
Creatinine 1.4 H mg/dL
(0.7-1.3)
C-Reactive Protein 30.30 H mg/L
(0.0-10.00)
POC Glucose 59 L mg/dl
(70-99)
09/11/24 13:35
09/11/24 13:35
Vital Signs
Initial and Last Documented VS:
Initial Vital Signs
Temp Pulse Resp BP Pulse Ox
98.2 F 64 20 122/72 98
09/11/24 11:33 09/11/24 11:33 09/11/24 11:33 09/11/24 11:33 09/11/24 11:33
Last Documented Vital Signs
Temp Pulse Resp BP Pulse Ox
98.2 F 64 20 122/72 98
09/11/24 11:33 09/11/24 11:33 09/11/24 11:33 09/11/24 11:33 09/11/24 11:33
MDM/Problems Addressed
Differential Diagnosis Includes:
Osteomyelitis/gangrene, cellulitis, abscess, trench foot
MDM/Problems Addressed:
68-year-old male presenting to the ER at the request of podiatry for evaluation and admission for gangrene of the left great toe and right second toe. Attempt was made to better perfuse the lower extremities with vascular on admission at the
beginning of this month were ultimately unsuccessful. Podiatry requesting labs, hospitalist admission, vascular consult and they will also see in with plans to amputate the left great toe and right second toe
Chronic conditions affecting care: DM
Acute Exacerbation and/or Progression of Chronic Illness: DM
*Pulse Oximetry
Patient hypoxic: no
*Critical Care Note
Total Time (30-74mins, 75-104mins- exclusive of procedures): Not Applicable
Data Reviewed
Review of Other/Old Records Reveals: Labs, Records, Operative Reports and Discharge Summary
Source: patient and records
Patient Management
Discussion with other providers: Hospitalist and Restaurant General Manager
Escalation/DeEscalation of care consider admission/obs:
Podiatry notified patient will be admitted to hospitalist service and they will see in consult. Vascular surgery team also to see the patient in consult at podiatry's request. Patient's labs do reveal hemoglobin of 7.1 which is slightly lower than
patient's baseline and given his plan for operative management will likely need blood. Patient consented for blood. He does have a mild CHIN. Hospitalist team is aware and accepts for continued evaluation and treatment.
ED Attending Note
-
Portions of this chart may have been created with voice recognition software.� Occasional wrong word or��sound alike� substitutions may have occurred due to the inherent limitations of voice recognition software.
Discharge Plan
Departure
Patient Disposition: Admit
Date of Disposition: 09/11/24
Time of Disposition: 14:32
Presentation/result/management discussed w/ accepting MD/DO: Hospitalist
Discharge Problem:
Gangrene of toe of left foot, Gangrene of toe of right foot
Interventions
Interventions:
*Risk Screen - Suicide Last Done: 09/11/24 11:33
*General Assessment Last Done: 09/11/24 11:33
*Neglect/Abuse Screening Last Done: 09/11/24 11:33
[2024-09-11 13:58] LABS: % Basophils 0.4 % (0-2); % Eosinophils 3.1 % (0-6); % Immature Granulocytes 0.2 % (0-0.5); % Lymphocytes 19.5 % (20.5-51.1); % Monocytes 7.2 % (1.7-9.3); % Neutrophils 69.6 % (42.2-75.2); Absolute Eosinophils 0.2 10^3/uL (0-0.7); Absolute Lymphocytes 1.1 10^3/uL (1.2-3.4); Absolute Monocytes 0.4 10^3/uL (0.1-0.6); Absolute Neutrophils 3.8 10^3/uL (1.4-6.5); Hematocrit 21.3 % (39.0-52.0); Hemoglobin 7.1 g/dL (13.0-18.0); Mean Corp Hgb Conc. 33.3 g/dL (33.0-37.0); Mean Corpuscular Hgb 26.4 pg (27.0-31.0); Mean Corpuscular Volume 79.2 fL (80.0-94.0); Nucleated Red Blood Cells % 0 % (-); Red Blood Cell Count 2.69 10^6/uL (4.70-6.10); Red Cell Dist. Width 15.3 % (11.5-14.5); White Blood Cell Count 5.4 10^3/uL (4.8-10.8)
[2024-09-11] MEDS: DILAUDID 0.5 MG IV (14:02)
[2024-09-11] MEDS: VANCOCIN 530 MG IV (14:03)
[2024-09-11 14:08] LABS: Blood Urea Nitrogen 26 mg/dl (9-20); Calcium 8.4 mg/dl (8.4-10.2); Carbon Dioxide 23 mmol/L (22-30); Chloride 102 mmol/L (98-107); Estimated Creatinine Clearance 49 ml/min; Glucose 89 mg/dl (70-99); Potassium 4.4 mmol/L (3.5-5.1); Sodium 132 mmol/L (135-145); eGFR 55.43
[2024-09-11 14:14] LABS: INR 1.31; PT 16.5 Sec (11.4-14.6)
--- NOTE | 2024-09-11 14:14 | HPS.HSE ---
Family Physician
-
Family Physician:
Chief Complaint
-
toe infection
History of Present Illness
Patient is a 68-year-old male with past medical history significant for hypertension, PAD, type 2 diabetes, neuropathy, COPD and anemia who presented to [facility] ED at request of podiatry, Dr. Cruz, for IV antibiotics and amputation of the left great
toe and right second toe after failed out patient treatment. Patient with recent placement of superficial femoral artery stents x 2 and balloon angioplasty of the right dorsalis pedis and right anterior tibial artery. Patient states there is pain to
affected toes, denies any associated fevers.
Medical History
Past Medical History
Past Medical History: Reports Other
Additional Past Medical History:
hypertension
PAD
type 2 diabetes
neuropathy
COPD
depression/anxiety
anemia
Past Surgical History: Reports Other
Additional Past Surgical History:
angioplasty
RLE arteriogram
retina surgery
Social History
Tobacco: Smoker (1.5pack per day )
Alcohol: None
Drug: None
Personal:
Living: With Family
Employment: Retired
Family History
Family History: Not pertinent
Allergies / Home Medications
Allergies reflects when Allergies were last updated in [facility].
Home Medications with original date entered in [facility]
Allergy/Medication List:
Allergies
Allergy/AdvReac Type Severity Reaction Status Date / Time
No Known Allergies Allergy Verified 09/11/24 11:37
Home Medications
folic acid 1 mg tablet 1 mg PO DAILY@1500 Supplement 11/28/15
pantoprazole 40 mg tablet,delayed release 40 mg PO DAILY@1500 Gastrointestinal Issue 11/28/15
trazodone 50 mg tablet 50 mg PO HS Sleep 03/18/22
lisinopril 40 mg tablet 40 mg PO DAILY Blood Pressure 04/02/22
atorvastatin 40 mg tablet 40 mg PO DAILY High Cholesterol 03/02/24
duloxetine 60 mg capsule,delayed release 60 mg PO DAILY@1500 Mental Health/Anxiety 03/02/24
lorazepam 1 mg tablet 1 mg PO DAILY@1500 Mental Health/Anxiety 03/02/24
apixaban 5 mg tablet (Eliquis) 5 mg PO BID 30 days #60 tabs 08/23/24
clopidogrel 75 mg tablet (Plavix) 75 mg PO DAILY 30 days #30 tabs 08/23/24
pregabalin 300 mg capsule (Lyrica) 300 mg PO TID Neurological Condition 30 days #90 caps 08/23/24
amlodipine 10 mg tablet (Norvasc) 10 mg PO DAILY 09/11/24
cholecalciferol (vitamin D3) 50 mcg (2,000 unit) capsule (Vitamin D3) 50 mcg PO DAILY 09/11/24
gabapentin 300 mg capsule 600 mg PO TID 09/11/24
methadone 10 mg tablet 10 mg PO BID 09/11/24
tamsulosin 0.4 mg capsule (Flomax) 0.4 mg PO DAILY 09/11/24
Review of Systems
-
History Source: Patient
Constitutional: Reports No Symptoms
EENT: Reports No Symptoms
Respiratory: Reports No Symptoms
Cardiac: Reports No Symptoms
Abdomen/GI: Reports No Symptoms
: Reports No Symptoms
Musculoskeletal: Reports Other (eft great toe and right second toe gangrene)
Skin: Reports No Symptoms
Neurological: Reports No Symptoms
Endocrine: Reports No Symptoms
Hematologic/Lymphatic: Reports No Symptoms
Psych: Reports No Symptoms
Physical Exam
Vital Signs
Vital Signs
Temp Pulse Resp BP Pulse Ox
98.2 F 64 20 122/72 98
09/11/24 11:33 09/11/24 11:33 09/11/24 11:33 09/11/24 11:33 09/11/24 11:33
Physical Exam
General: Well Developed, Well Nourished, No Apparent Distress, Comfortable and Conversant
HEENT: NormoCephalic, Moist mucous membranes, Atraumatic, [place] Conjunctivae, Nose Appears Normal and Ears Appear Normal
Respiratory: Clear and Non Labored Respirations
Cardiac: S1/S2 and Regular Rhythm
Breast: Deferred by me
GI: Soft, Non Tender, Non Distended and Normal Bowel Sounds
Rectal: Deferred by Provider
Genito-urinary: Morrison
Musculoskeletal: No Clubbing, No Cyanosis and No Edema
Skin: Warm, IV/Catheter Site and Other (left great toe and right second toe gangrene )
Neuro: Awake, Alert, AO x 3 and Nonfocal/grossly intact
Psych: Calm and Intact Judgment/Insight
Laboratory Results
-
09/11/24 13:35
09/11/24 13:35
Data Reviewed
-
Lab Data: Labs Reviewed by me (hgb 7.1, hct 21.3, Na+ 132, BUN 26, Creat 1.4, eGFR 55.43, CrCl 49, CRP 30.30)
Impression/Plan
-
IMPRESSION/PLAN:
#left great toe and right second toe
#PAD
CRP 30.30
- Admit to med/surg
- Consult Vascular Surgery
- Consult Podiatry
- hold Eliquis and clopidogrel
- continue atorvastatin
- pain regimen
#anemia
hgb 7.1, hct 21.3
- continue folic acid
- transfuse 1 unit PRBCs
- monitor H/H
#acute kidney injury
BUN 26, Creat 1.4, eGFR 55.43, CrCl 49
recent hospitalization at [facility] for CHIN and retention with chronic Morrison placed
- monitor BMP
- request records
#urinary retention
- chronic Morrison in place
- continue tamsulosin
#hyponatremia
Na+ 132
recent hospitalization at [facility] for CHIN and retention with chronic Morrison placed
- monitor BMP
#hypertension
- continue amlodipine
- Hold lisinopril
#type 2 diabetes
- continue patients own pump
- Consult Diabetic MAINSPRING TORQUE TESTER
#neuropathy
- continue duloxetine, gabapentin, methadone and pregabalin
#depression/anxiety
- continue duloxetine and lorazepam
- hold trazodone
#COPD
Code status: full code
DVT prophylaxis: contradicted will resume post surgery
[2024-09-11 14:15] LABS: APTT 61.8 Sec (23.4-35.0)
--- NOTE | 2024-09-11 14:48 | W.PN.UPDATE ---
Update Note
Progress Note Update
This note serves as an addendum to the H&P by distillery worker HILDA Sofía Allen
68M Essential HTN, HLD, IDDM, PAD , peripheral neuropathy, known PAD s/p superficial femoral artery stents x 2 and balloon angioplasty of the Rt. dorsalis pedis and right anterior tibial artery seen at ER:
- the request of podiatry, Dr. Cruz, to be admitted for antibiotics and amputation of the left great toe and right second toe after failed outpatient treatment.
- Patient endorses persistent pain to the affected area but otherwise no fevers.
- the recent admission here for the after mentioned treatment as well as recent admission at [facility] due to hyponatremia.
VS: T 98.2, P 64, RR 20, BP 122/72 , SpO2 98%
PE:
wake, alert, in no distress;
CV: S1, S2, RRR:
Chest clear.
MS:
: chr F cath for 2 weeks
Lt. great toe gangrene mild erythema;
right 2nd toe with wrapping and mild swelling /erythema
LABS:
WBC 5.4
Hg 7.1
PLT pending was 89
Na 1302
K+ 4.4 , CO2 23
BUN 26
Cr 1.4 eGFR 55
Glucose 89
CRP 30
IMPRESSION:
Lt Great toe gangrene
Rt second toe gangrene
Chr ischemic Leg pain
- Empiric IV vanco and Zosyn
- c/w ASA for now
- hold Plavix and hold Eliquis till vascular evaluated
- Vascular consulted to evaluate for amputation or what not
HX PAD with multiple prior procedures
- most recently RLE IVL/ balloon angioplasty and stent placement (05/04/24)
- Vascular surgery follow up
- SUSTAINABILITY COORDINATOR ASA
- Holding Plavix and Eliquis
Severe new interval anemia Hgb 7.1
- Blood consented
- to give 1 PRBC
- f/u Hgb in AM
Chronic pain
- SUSTAINABILITY COORDINATOR Methadone, Gabapentin, Lyrica
Essential HTN
-Hold SUSTAINABILITY COORDINATOR Lisinopril
IDDM
- use own insulin pump
- METALIZING MACHINE OPERATOR DM consult
CKD3
- creatinine stable
DVT Px: on Eliquis
Full code
IP MS
[2024-09-11 14:56] LABS: Mean Platelet Volume 12.6 fL (7.4-10.4)
[2024-09-11 14:57] LABS: Platelet Count 70 10^3/uL (130-400)
[2024-09-11 15:02] LABS: Glucose - Point of Care 59 mg/dl (70-99)
--- NOTE | 2024-09-11 15:08 | CON.VAS ---
Addendum entered and electronically signed by Collin Harrison MD 09/12/24 07:51:
Seen and examined with CHERYL Horton. Agree with findings as noted below. Recently has undergone staged left and then right lower extremity arteriogram by our service (myself and Morrison). Despite that he continues to have dry gangrene left hallux and
right second digit. Plan for podiatric amputation of those toes. Complex medical history as outlined below.
On exam/his feet are both warm. Dry gangrenous changes to the aforementioned toes. No evidence of gross infection or purulence.
Plan/noninvasive studies reviewed. Diminished toe pressures bilaterally. Has small vessel disease, and despite recent interventions, may not be much from a revascularization standpoint to offer. However if no healing, could consider for
TADV/LimFlow. In meanwhile agree with toe amputation and removal of gangrene, err towards proximal amputation. If nonhealing, we will workup further for TADV/repeat angiography.
Original Note:
Consultation
Consultation Request
Date/Time Consultation Performed: 09/01/24 1300
Requesting Provider: Hospitalist
Performing Provider: Bree Horton, CHERYL-C for Collin Harrison M.D.
Reason for Consultation: BL LE wounds
Medical History
-
History of Present Illness:
This is a 68-year-old male with significant past medical history of COPD, hypertension, diabetes, active smoker, and peripheral arterial disease known to our vascular service status post bilateral lower extremity interventions (endovascular), see
vascular surgical history below, during recent admission from 08/15/24 to 08/23/24. 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 Cruz for amputation of dry
gangrene foot digits. He does endorse that he was recently admitted at [facility] for urinary retention and hyponatremia, was subsequently discharged with indwelling Morrison catheter. He does report significant discomfort from Morrison catheter
and intermittent pain at left hallux and right foot second digit wounds, otherwise offers no complaints. Denies claudication or rest pain. Endorses from a peripheral arterial disease perspective he is feeling well, and even notes that he has
regained some movement at left foot digits, and full movement at his ankle following revascularization procedure during last admission.
Vascular past surgical history:
12/03/15- Aortogram and pelvic angiogram, right lower extremity arteriogram, third-order vessel catheterization of right posterior tibial artery via left common femoral artery puncture, balloon angioplasty of right tibioperoneal trunk with 2.5-mm and
3-mm angioplasty balloons, left femoral angiogram, left femoral 6-Kyr[place] Angio-Seal closure. Collin Harrison MD
06/12/21- Shockwave intravascular balloon lithotripsy of right superficial femoral artery stenoses (5 mm x 50 mm Shockwave balloon), balloon angioplasty and drug-eluting stenting of right proximal and distal superficial femoral artery stenoses (6 mm
x 80 mm Zilver PTX, x 2), drug coated balloon angioplasty of right below the knee popliteal artery stenosis (4 mm x 40 mm INPACT), drug coated balloon angioplasty of right [id number] popliteal artery stenosis (5 mm x 40 mm INPACT), diagnostic
aortobiiliac arteriogram, diagnostic right lower extremity arteriogram, ultrasound-guided percutaneous access to the left common femoral artery. Dar Morrison III, MD
04/02/22- Drug-coated balloon angioplasty of in-stent restenosis involving both proximal and distal superficial femoral artery stents (5 mm x 120 mm & 5 mm x 80 mm Inpact DCB), diagnostic aortobiiliac arteriogram, diagnostic right lower extremity
arteriogram, ultrasound-guided percutaneous access to the left common femoral artery. Dar Morrison III, MD
03/09/24- Intravascular lithotripsy to left superficial femoral artery and popliteal artery calcified stenoses (6 mm x 80 mm E8 shockwave balloon), balloon angioplasty and stenting of left popliteal artery/distal left superficial femoral artery
(overlapping 6 mm x 140 mm / 6 mm x 40 mm Zilver PTX stents), diagnostic aortobiiliac arteriogram, diagnostic bilateral lower extremity arteriogram, ultrasound-guided percutaneous access to the right common femoral artery. Dar Morrison III, MD
05/04/24- Intravascular lithotripsy to proximal right superficial femoral artery stenosis (7 mm x 60 mm M5+ shockwave), intravascular lithotripsy to right anterior tibial artery occlusion (shockwave javelin catheter), balloon angioplasty of right
anterior tibial artery occlusion (2.5 mm x 150 mm), balloon angioplasty of right dorsalis pedis artery (2.5 mm balloon), balloon angioplasty and stenting of right tibioperoneal trunk stenosis (3 mm x 28 mm Almodovar Esprit, post-dilated with 3 mm NC
balloon), balloon angioplasty of right distal peroneal artery (2 mm x 40 mm), diagnostic aortobiiliac arteriogram, diagnostic right lower extremity arteriogram, ultrasound-guided percutaneous access to the left common femoral artery. Dar Morrison
MD ELIER
08/16/24- Duplex assisted right common femoral artery cannulation, aortogram and pelvic angiogram, left lower extremity arteriogram with third order vessel catheterization of left peroneal artery via right common femoral artery puncture, placement of
overlapping [place] Viabahn covered stents left above-knee popliteal artery to proximal SFA, balloon angioplasty of left proximal superficial femoral artery with 5 mm angioplasty balloon, right femoral and right lower extremity arteriogram through
existing sheath. Collin Harrison MD
08/21/24- Balloon angioplasty of right dorsalis pedis artery (1.5 mm x 40 mm angioplasty balloon), balloon angioplasty of right anterior tibial artery (2 mm x 220 mm --> 2.5 mm x 220 mm angioplasty balloon), diagnostic aortobiiliac arteriogram,
diagnostic right lower extremity arteriogram, ultrasound-guided percutaneous access to the left common femoral artery. Dar Morrison III, MD
Past Medical History
Past Medical History: COPD, HTN, IDDM and Other (Anemia, peripheral arterial disease)
Past Surgical History: Other (see HPI for vascular past surgical history )
Social History
Tobacco: Smoker
Personal:
Living: With Family
Allergies / Home Medications
Allergy/AdvReac Type Severity Reaction Status Date / Time
No Known Allergies Allergy Verified 09/11/24 11:37
�Medication �Instructions �Recorded �Confirmed �Type
folic acid 1 mg tablet 1 mg PO DAILY@1500 Supplement 11/28/15 09/11/24 History
pantoprazole 40 mg tablet,delayed 40 mg PO DAILY@1500 11/28/15 09/11/24 History
release Gastrointestinal Issue
trazodone 50 mg tablet 50 mg PO HS Sleep 03/18/22 09/11/24 History
lisinopril 40 mg tablet 40 mg PO DAILY Blood Pressure 04/02/22 09/11/24 History
atorvastatin 40 mg tablet 40 mg PO DAILY High Cholesterol 03/02/24 09/11/24 History
duloxetine 60 mg capsule,delayed 60 mg PO DAILY@1500 Mental 03/02/24 09/11/24 History
release Health/Anxiety
lorazepam 1 mg tablet 1 mg PO DAILY@1500 Mental 03/02/24 09/11/24 History
Health/Anxiety
apixaban 5 mg tablet (Eliquis) 5 mg PO BID 30 days #60 tabs 08/23/24 09/11/24 Rx
clopidogrel 75 mg tablet (Plavix) 75 mg PO DAILY 30 days #30 tabs 08/23/24 09/11/24 Rx
pregabalin 300 mg capsule (Lyrica) 300 mg PO TID Neurological 08/23/24 09/11/24 Rx
Condition 30 days #90 caps
amlodipine 10 mg tablet (Norvasc) 10 mg PO DAILY 09/11/24 09/11/24 History
cholecalciferol (vitamin D3) 50 50 mcg PO DAILY 09/11/24 09/11/24 History
mcg (2,000 unit) capsule (Vitamin
D3)
gabapentin 300 mg capsule 600 mg PO TID 09/11/24 09/11/24 History
methadone 10 mg tablet 10 mg PO BID 09/11/24 09/11/24 History
tamsulosin 0.4 mg capsule (Flomax) 0.4 mg PO DAILY 09/11/24 09/11/24 History
Review of Systems
-
History Source: Patient
Constitutional: Reports No Symptoms
EENT: Reports No Symptoms
Respiratory: Reports No Symptoms
Cardiac: Reports No Symptoms
Vascular: Denies Leg Pain / Claudication
Abdomen/GI: Reports No Symptoms
: Reports Other (Morrison catheter placed for urinary retention)
Musculoskeletal: Reports No Symptoms
Skin: Reports Other (Ongoing chronic wounds of the left foot hallux and right second digit toe)
Neurological: Reports No Symptoms
Endocrine: Reports No Symptoms
Physical Exam
Vital Signs
Temp Pulse Resp BP Pulse Ox
98.2 F 64 20 122/72 98
09/11/24 11:33 09/11/24 11:33 09/11/24 11:33 09/11/24 11:33 09/11/24 11:33
Lab Results
09/11/24 13:35
09/11/24 13:35
Physical Exam
General: No Apparent Distress
HEENT: Normocephalic, Anicteric and Atraumatic
Respiratory: Non Labored Respirations
Cardiac: Negative JVD
GI: Soft, Non Tender and Non Distended
Genito-urinary: Clear Urine (Clear yellow urine present in Morrison catheter leg bag)
Musculoskeletal: No Edema
Skin: Warm and Other (Chronic left hallux dry gangrene and right foot second digit dry gangrene, non-malodorous, no significant drainage appreciated)
Neuro: AO x 3
Pulses: Bilateral Femoral: +2, Bilateral Dorsalis Pedis: Doppler and Bilateral Posterior Tibial: Doppler
Assessment / Plan
-
Assessment: 68-year-old male with peripheral arterial disease status post bilateral lower extremity endovascular interventions, presents to ED at request of locker room supervisor for digit amputations of chronic wounds.
Plan:
Patient was scheduled for postoperative follow-up tomorrow 09/12/2024, will cancel outpatient appointment, as part of appointment patient was to obtain arterial duplex ultrasound with LYLA/TBI will obtain for full postoperative evaluation of
endovascular intervention while patient is here in the hospital.
Of note patient was to stop his Plavix 75 mg p.o. daily 1 month after his second procedure on 08/21/2024, therefore starting on 09/21/2024 patient can discontinue Plavix 75 mg p.o. daily, and he is to continue aspirin 81 mg p.o. daily with his Eliquis
5 mg p.o. twice daily.
I performed this shared service with the attending. I evaluated the patient [id number] and have entered clinical documentation as shown in the encounter note. I performed the following component(s):�history and physical exam. Note that medical
decision making is not final until attested by vascular attending.
Plan reviewed with on-call vascular surgeon Collin Harrison M.D.
[2024-09-11 16:23] LABS: Glucose - Point of Care 186 mg/dl (70-99)
[2024-09-11 16:33] LABS: Erythrocyte Sed Rate 89 mm/hour (0-20)
[2024-09-11] MEDS: ZOSYN 50 IV ×2 (17:46→23:40)
[2024-09-11] MEDS: MORPHINE SULFATE 2 MG IV (17:47)
--- NOTE | 2024-09-11 17:48 | PHA.VAN.IN ---
Assessment
- Assessment
Renal Function: Appears elevated from baseline (08/23/24 BASELINE SCR: 1.1)
Concomitant Antimicrobials: ZOSYN
- Previous Dosing Experience
Previous Regimen: 1GM IV Q12H
Date of Regimen: 11/30/15
Provided Trough of: 14
Provided AUC of: UNKNOWN
Patient's SCR is: Elevated compared to previous dosing experience (11/29/15 SCR = 0.7)
Patient's weight is: Elevated compared to previous dosing experience (11/30/15 WT = 62 KG)
Plan
- Plan
Initial / Loading Dose: 1500MG
Maintenance Regimen: DOSING BY RANDOM LEVEL
Monitoring: RANDOM VANCOMYCIN LEVEL 09/12/24 AM
Pharmacokinetics Vancomycin I
- -
Patient Age: 68
Patient Sex: Male
Vancomycin Day #: 1
Indication: Prophylaxis (Surg,Hiv,...) (TOES AMPUTATION)
Requesting Provider: ALICIA
Height / Weight:
Height 5 ft 2 in
Actual Weight 65.771 kg
Pertinent Past Medical History: HX GANGRENE - FAILED OUTPT [place]
- Vital Signs / Lab Results
Temp Pulse Resp BP Pulse Ox
97.9 F 59 16 157/62 99
09/11/24 17:16 09/11/24 17:16 09/11/24 17:16 09/11/24 17:16 09/11/24 17:16
Lab Results - Hematology
09/11/24
13:35
WBC 5.4
Lab Results - Chemistry
09/11/24
13:35
BUN 26 H
Creatinine 1.4 H
Estimated Creat Clear 49
[2024-09-11] MEDS: FOLVITE 1 MG PO (17:52)
[2024-09-11] MEDS: CYMBALTA DELAYED RELEASE 60 MG PO (17:52)
[2024-09-11] MEDS: ATIVAN 1 MG PO (17:52)
[2024-09-11] MEDS: PROTONIX 40 MG PO (17:52)
[2024-09-11 18:01] LABS: Glucose - Point of Care 120 mg/dl (70-99)
[2024-09-11] MEDS: LYRICA 50 MG PO ×2 (18:22→23:03)
--- NOTE | 2024-09-11 18:27 | PTCARENOTE ---
Arrived to unit and pulled over to bed. Patient reports he is able to walk with assistance of cane. Wounds documented and redressed. Oriented to room. Call bobby within reach.
[2024-09-11] MEDS: DOLOPHINE 10 MG PO (19:50)
[2024-09-11 23:01] LABS: Glucose - Point of Care 116 mg/dl (70-99)
[2024-09-11] MEDS: DESYREL 50 MG PO (23:03)
[2024-09-12] VITALS (7 sets, daily range): BP systolic 127–141; BP diastolic 56–63
[2024-09-12] MEDS: MORPHINE SULFATE 2 MG IV ×4 (02:58→22:46)
[2024-09-12 05:59] LABS: Hematocrit 23.7 % (39.0-52.0); Hemoglobin 7.9 g/dL (13.0-18.0); Mean Corp Hgb Conc. 33.3 g/dL (33.0-37.0); Mean Corpuscular Hgb 26.4 pg (27.0-31.0); Mean Corpuscular Volume 79.3 fL (80.0-94.0); Mean Platelet Volume 11.7 fL (7.4-10.4); Platelet Count 63 10^3/uL (130-400); Red Blood Cell Count 2.99 10^6/uL (4.70-6.10); Red Cell Dist. Width 15.5 % (11.5-14.5); White Blood Cell Count 4.1 10^3/uL (4.8-10.8)
[2024-09-12 06:05] LABS: Glucose - Point of Care 102 mg/dl (70-99)
[2024-09-12 06:12] LABS: Blood Urea Nitrogen 23 mg/dl (9-20); Calcium 7.9 mg/dl (8.4-10.2); Carbon Dioxide 22 mmol/L (22-30); Chloride 109 mmol/L (98-107); Estimated Creatinine Clearance 43 ml/min; Glucose 89 mg/dl (70-99); Potassium 4.1 mmol/L (3.5-5.1); Sodium 133 mmol/L (135-145); eGFR > 60.00
[2024-09-12] MEDS: ZOSYN 50 IV ×4 (06:14→22:47)
[2024-09-12 06:15] LABS: Vancomycin Random 10.1 ug/ml
--- NOTE | 2024-09-12 07:16 | PN.DE.MGMTRT ---
Insulin Management
- -
09/12/2024: Diabetes Insulin pump Management
Patient admitted 09/11 request of his roving technician, Dr. Cruz, due to worsening or wounds L great toe and R second toe. Patient was seen on previous admission by our team for diabetes management. PMH: HTN PAD, Neuropathy, COPD, Anemia and T2DM, s/p
RLE arteriogram with balloon angio R dorsalis pedis and anterior tibial arteries 08/22 and left lower extremity arteriogram, SFA stents x 2. A1C from last admission, 08/21, was 8.2%.
Pt is awake, alert, oriented, resting in bed, offers no complaints, Able to discuss diabetes management. States he was switched to an insulin pump 5 years ago and has been using Tandem T-Slim, Humalog insulin and Dexcom G7 prior to admission. He
routinely sees Dr. Vaca for diabetes care.
Patient is NPO for OR today.
09/11 Glucose range 89 to 120.
Fasting glucose today 89 venous.
Pump settings as follows:
Basal Correction CHO ratio target
12AM 1 1:30 1:14 110
3AM 1 1:30 1:14 110
6am .975 1:30 1:13 110
12PM 1 1:30 1:13 110
8pm 1 1:30 1:13 110
24 hour basal total units 23.85.
Will make no change to pump settings.
Discussed with nurse and instructed on use of bedside insulin pump work sheet.
Will cont to follow
Diabetes History
- -
Type of Diabetes: 2 requiring insulin
Pre-Admission Diabetes Regimen
09/11/24 09/12/24
13:35 05:42
Creatinine 1.4 H 1.3
Insulin Pump Settings
IP Diabetes Regimen
09/11/24 09/11/24 09/11/24
13:35 15:01 16:21
Glucose 89
POC Glucose 59 L 186 H
09/11/24 09/11/24 09/12/24
18:00 22:59 05:42
Glucose 89
POC Glucose 120 H 116 H
09/12/24
06:04
Glucose
POC Glucose 102 H
Patient Education
[2024-09-12] MEDS: LIPITOR 40 MG PO (07:42)
[2024-09-12] MEDS: DOLOPHINE 10 MG PO ×2 (07:42→19:48)
[2024-09-12] MEDS: FLOMAX 0.4 MG PO (07:42)
[2024-09-12] MEDS: LYRICA 50 MG PO ×3 (07:42→19:47)
[2024-09-12] MEDS: NORVASC 10 MG PO (07:42)
--- NOTE | 2024-09-12 08:12 | W.PN.HOSP.TC ---
Today's Communication/Plan
-
OR today
Assessment / Plan
Assessment / Plan
Impression:
68-year-old male with past medical history significant for hypertension, PAD, type 2 diabetes, neuropathy, COPD and anemia who presented to [facility] ER at request of podiatry, Dr. Cruz, for IV antibiotics and amputation of the left
great toe and right second toe after failed out patient treatment. Patient with recent placement of superficial femoral artery stents x 2 and balloon angioplasty of the right dorsalis pedis and right anterior tibial artery. Patient states there is
pain to affected toes, denies any associated fevers.
Assessment/plan:
PAD/lower extremity digital gangrene -left Big toe, right second toe
No osteomyelitis noted on x-ray.
Suspect ischemic etiology including PAD versus emboli.
Seen by vascular surgery.
Patient s/p staged left and then right lower extremity arteriogram
Patient presented with dry gangrene left hallux and right second digit.
Podiatry consult and plan for amputation today.
Eliquis and Plavix on hold
Continue atorvastatin.
Pain control
Acute on chronic microcytic anemia.
Acute blood loss anemia.
Monitor hemoglobin.
Transfuse if needed
Acute kidney injury
Creatinine stable, improved
Monitor daily BMP
Urinary retention
- chronic Morrison in place
- continue tamsulosin
- Remove Morrison after surgery with voiding trial
History of diabetes mellitus
Continue insulin pump
Insulin sliding scale
Diabetic diet
health promotion educator
History of hypertension
Continue home meds
- continue amlodipine
- Hold lisinopril
neuropathy
- continue duloxetine, gabapentin, methadone and pregabalin
depression/anxiety
- continue duloxetine and lorazepam
- hold trazodone
COPD
CODE STATUS: Full code
DVT prophylaxis: Lovenox
Diet: NPO
Disposition: OR today
Total time spent on today's encounter was 65 minutes which included time spent in counseling the patient/family regarding diagnosis and treatment plan as listed above, goals of care, and symptom management. Case was discussed with nursing staff,
specialists, and care coordinators/case management. All labs and imaging personally reviewed by me. Remainder the time spent in detailed review of previous records, lab data, imaging, and other medical provider documentation.
Anticipated Discharge: > 48 hours
Subjective/Interval History
-
Date of Service: September 12, 2024
Patient seen and examined at bedside, denies any chest pain or shortness of breath, no abdominal pain, no nausea, no vomiting, no diarrhea or constipation.
Admitted with toe gangrene, plan for OR today.
Objective Data
-
Labs:
Laboratory Results
09/12/24
05:42
WBC 4.1 L
Hgb 7.9 L
Hct 23.7 L
Plt Count 63 L
Sodium 133 L
Potassium 4.1
Chloride 109 H
Carbon Dioxide 22
BUN 23 H
Creatinine 1.3
Glucose 89
Calcium 7.9 L
Vital Signs:
Vital Signs
Temp Pulse Resp BP Pulse Ox
98 F 55 18 131/58 99
09/11/24 23:41 09/11/24 23:41 09/11/24 23:41 09/11/24 23:41 09/11/24 17:16
I&O
09/11/24 09/12/24 09/13/24
06:59 06:59 06:59
Intake Total 1030 / 1030
Output Total 1250 / 1250
Balance -220 / -220
Physical Exam
-
General: Well Developed, Well Nourished, No Apparent Distress and Comfortable
HEENT: Normocephalic, Atraumatic, Moist Mucous Membranes, No Ptosis, PERRLA and Nose Appears Normal
Respiratory: Clear to Auscultation and Non Labored Respirations
Cardiac: Regular Rhythm and S1/S2
Breast: Deferred by me
GI: Soft, Nontender, Nondistended and Normal Bowel Sounds
Genito-urinary: No Costovertebral Tender
Musculoskeletal: No Clubbing, No Cyanosis, No Edema and Other (dry gangrene to the right 2nd and left great toe)
Skin: Warm
Neuro: Awake, Alert, Oriented, AO x 3 and No Motor Deficits
Psych: Calm
Data Reviewed
-
Diagnostic Radiology: Image personally visualized and interpreted and Report Reviewed by me
CT Scan: Image personally visualized and interpreted and Report Reviewed by me
Ultrasound: Image personally visualized and interpreted and Report Reviewed by me
MRI: Image personally visualized and interpreted and Report Reviewed by me
Medical Tests (Nuc Med, Echo etc): Image personally visualized and interpreted and Report Reviewed by me
Labs: Labs Reviewed by me
Old Records: Reviewed
--- NOTE | 2024-09-12 08:14 | W.CS.POD ---
Consult Summary - Podiatry
-
History of Present Illness:
This is a 68-year-old male with significant past medical history of COPD, hypertension, IDDM, active smoker, and peripheral arterial disease known to me since last admission for evaluation and management of dry gangrene to the right 2nd and left
great toe. He is status post bilateral lower extremity interventions (endovascular), He presented to the office for follow up and was noted to be well demarcated on the right foot 2nd toe to bone and with increased pain to the toe, as well as
demarcation, erythema left great toe. I recommended we proceed with the amputations and pt was sent to ED for amputation of right 2nd and left great toes.
Vital Signs / Labs
-
Vital Signs and Labs:
Temp Pulse Resp BP Pulse Ox
98 F 55 18 131/58 99
09/11/24 23:41 09/11/24 23:41 09/11/24 23:41 09/11/24 23:41 09/11/24 17:16
09/12/24 05:42
09/12/24 05:42
09/11/24 09/11/24 09/11/24
13:35 15:01 16:18
WBC
RBC 2.69 L
Hgb 7.1 L
Hct 21.3 L
MCV 79.2 L
MCH 26.4 L
RDW 15.3 H
Plt Count 70 L
MPV 12.6 H
Absolute Lymphs (auto) 1.1 L
Lymphocytes % 19.5 L
ESR 89 H
PT 16.5 H
APTT 61.8 H
Sodium 132 L
Chloride
BUN 26 H
Creatinine 1.4 H
Calcium
C-Reactive Protein 30.30 H
POC Glucose 59 L
Crossmatch IS Only See Detail
09/11/24 09/11/24 09/11/24
16:21 18:00 22:59
WBC
RBC
Hgb
Hct
MCV
MCH
RDW
Plt Count
MPV
Absolute Lymphs (auto)
Lymphocytes %
ESR
PT
APTT
Sodium
Chloride
BUN
Creatinine
Calcium
C-Reactive Protein
POC Glucose 186 H 120 H 116 H
Crossmatch IS Only
09/12/24 09/12/24
05:42 06:04
WBC 4.1 L
RBC 2.99 L
Hgb 7.9 L
Hct 23.7 L
MCV 79.3 L
MCH 26.4 L
RDW 15.5 H
Plt Count 63 L
MPV 11.7 H
Absolute Lymphs (auto)
Lymphocytes %
ESR
PT
APTT
Sodium 133 L
Chloride 109 H
BUN 23 H
Creatinine
Calcium 7.9 L
C-Reactive Protein
POC Glucose 102 H
Crossmatch IS Only
ARTERIAL STUDY IMPRESSION:
1. Right lower extremity: LYLA 0.87, consistent with mild arterial deficiency. Decreased from prior study 0.99. Unable to obtain toe pressure/waveform. Multiphasic waveforms are common femoral through proximal superficial femoral artery with
progressive velocity elevation in the proximal SFA with 356 cm/s. However, the velocity ratio relative to the adjacent segment is not consistent with any stenosis greater than 50%. No additional velocity elevations to suggest any other stenoses
through the popliteal artery identified. Continous doppler waveforms at the dorsalis pedis and posterior tibial arteries are monophasic suggestive of infrapopliteal artery disease.
2. Left lower extremity: LYLA 1.03, within normal limits. TBI 0.33, severely reduced. Mildly diffusely elevated velocities throughout common femoral/profunda/proximal SFA. Multiphasic waveforms throughout SFA and popliteal artery with no velocity
elevation to suggest any stenosis greater than 50%. SFA stents appear patent. Continuous Doppler waveforms at the dorsalis pedis and posterior tibial arteries are monophasic suggestive of infrapopliteal artery disease.
XRAYS personally reviewed, no overt signs of infection/osteomyelitis to toes
Physical Exam
Vital Signs
Vital Signs
Temp Pulse Resp BP Pulse Ox
98 F 55 18 131/58 99
09/11/24 23:41 09/11/24 23:41 09/11/24 23:41 09/11/24 23:41 09/11/24 17:16
Physical Exam
General: Alert/oriented x 3 in NAD
Other: LE focused:
Feet warm and dry, no cellulitis. 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 No other areas of ishemia are noted to feet.
Assessemnt/Plan
-
IDDM- on insulin pump
PAD- s/p endovascular procedures B/L Dr Hunter Pagan following
Gangrene- dry to rt 2nd and left grt toes- for amputation today,continue NPO status. surgery late this am /this afternoon.
Anemia- Hgb now 7.9 S/P tranfusion 1 unit prbcs, will follow while here, medicine managing
--- NOTE | 2024-09-12 09:18 | PHA.VAN.FU ---
Vancomycin Assessment / Plan
- Assessment
Renal Function: Stable
WBC's are: Stable
In the past 24 hrs, patient has been: Afebrile
Concomitant Antimicrobials: piperacillin/tazobactam
- Assessment - Therapeutic Drug Monitoring
Random Level: 10.1 - drawn ~15.5H after 1500mg loading dose
- Dosing Plan
Dosing by Level: Re-dose today (Vanc 1000mg)
- Monitoring Plan
Random Level: 09/13 599
- Follow Up
Pharmacy will continue to follow.
Vancomycin Follow UP
- -
Patient Age: 68
Patient Sex: Male
Vancomycin Day #: 2
Indication: Diabetic Foot
Requesting Provider: Atilio Allen
Pertinent Antimicrobial Allergies:
NKDA
Height / Weight:
Height 5 ft 2 in
Actual Weight 65.771 kg
Pertinent Past Medical History: DM 2
- Vital Signs / Lab Results
Temp Pulse Resp BP Pulse Ox
97.9 F 51 16 132/56 98
09/12/24 07:27 09/12/24 07:27 09/12/24 07:27 09/12/24 07:27 09/12/24 07:27
Lab Results - Hematology
09/11/24 09/12/24
13:35 05:42
WBC 5.4 4.1 L
Lab Results - Chemistry
09/11/24 09/12/24
13:35 05:42
BUN 26 H 23 H
Creatinine 1.4 H 1.3
Estimated Creat Clear 49 43
Therapeutic Drug Monitoring
Random Vancomycin 10.1 ug/ml 09/12/24 05:42
[2024-09-12] MEDS: D5/0.9% SODIUM CHLORIDE 1000 IV (10:01)
[2024-09-12] MEDS: VANCOCIN 200 IV (10:04)
--- NOTE | 2024-09-12 11:16 | PTCARENOTE ---
report given to sports commentator
--- NOTE | 2024-09-12 14:00 | W.SUR.POST ---
Surgical Immediate Post Op
Note
Pre Op Diagnosis: Gangrene r2nd and left great toe
Post Op Diagnosis: Gangrene r2nd and left great toe
Procedure Performed: Amp right 2nd toe and left great toe
Primary Surgeon: Alexia Cruz
Secondary Surgeons: NA
Anesthesia: IV sed/ Local block
Estimated Blood Loss: 30 mL
Fluids: NA
Drains/Shunts:
NA
Specimens/Cultures: Toes sent for path
Doppler/Duplex/Angio (Y/N): N
Complications: see report
Operative Findings: See report- as result of lack of blood flow to the left great toe intra op- left great toe amp transitioned to partial left 1st ray amp
[2024-09-12] MEDS: CYMBALTA DELAYED RELEASE 60 MG PO (15:27)
[2024-09-12] MEDS: FOLVITE 1 MG PO (15:27)
[2024-09-12] MEDS: PROTONIX 40 MG PO (15:27)
[2024-09-12] MEDS: ATIVAN 1 MG PO (15:54)
--- NOTE | 2024-09-12 16:03 | CM ---
Alert awake oriented patient who lives with his Jocelyne who lives in a 2 story home with 0 step to enter and 10 steps to bed and bathroom. He is independent in all activities of daily living.He uses walker cane and jon offloading boots.
Spoke with Jocelyne pt was in surgery.
[facility] hx / No SNF history
Ph[facility]acy [facility]
PCP DR Dee
PLAN Will need PT OT postop for dc planning
--- NOTE | 2024-09-12 16:08 | DOWNTIME ---
There was a Slice Client Maintenance Porter Downtime on 09/12/2024 from 1230 to 09/12/2024 at 1550. Downtime documentation of patient's care, including medication administrations, has been reconciled in the electronic record per guidelines. Refer to the
patient's paper chart under the miscellaneous tab to see printed paper medication records and downtime forms.
[2024-09-12] MEDS: PATIENT'S OWN INSULIN PUMP SC (16:25)
[2024-09-12] MEDS: DESYREL 50 MG PO (19:48)
[2024-09-12 21:41] LABS: Glucose - Point of Care 270 mg/dl (70-99)
[2024-09-12] MEDS: PATIENT'S OWN INSULIN PUMP 2 UNITS SC (21:43)
[2024-09-12] MEDS: COLACE 100 MG PO (22:46)
[2024-09-13 03:30] VITALS: BP 141/61
[2024-09-13] MEDS: MORPHINE SULFATE 2 MG IV ×2 (03:39→09:37)
[2024-09-13] MEDS: ZOSYN 50 IV ×4 (04:54→23:32)
[2024-09-13] MEDS: ROXICODONE 5 MG PO ×3 (04:54→23:55)
[2024-09-13 06:11] LABS: Hematocrit 25.1 % (39.0-52.0); Hemoglobin 8.5 g/dL (13.0-18.0); Mean Corp Hgb Conc. 33.9 g/dL (33.0-37.0); Mean Corpuscular Hgb 26.6 pg (27.0-31.0); Mean Corpuscular Volume 78.7 fL (80.0-94.0); Mean Platelet Volume 12.3 fL (7.4-10.4); Platelet Count 63 10^3/uL (130-400); Red Blood Cell Count 3.19 10^6/uL (4.70-6.10); Red Cell Dist. Width 15.4 % (11.5-14.5); White Blood Cell Count 5.3 10^3/uL (4.8-10.8)
[2024-09-13 06:16] LABS: Vancomycin Random 11.4 ug/ml
[2024-09-13 07:02] LABS: Blood Urea Nitrogen 19 mg/dl (9-20); Calcium 8.3 mg/dl (8.4-10.2); Carbon Dioxide 27 mmol/L (22-30); Chloride 104 mmol/L (98-107); Estimated Creatinine Clearance 51 ml/min; Glucose 100 mg/dl (70-99); Potassium 4.5 mmol/L (3.5-5.1); Sodium 135 mmol/L (135-145); eGFR > 60.00
[2024-09-13 07:37] VITALS: BP 145/58
--- NOTE | 2024-09-13 07:38 | W.PN.UPDATE ---
Update Note
Progress Note Update
POD #1 S/p right partial 2nd ray and left partial 1st ray amp.
Pt states anesthetics wore off around 5a today and he had 10/10 pain requiring pain meds, he is feeling ok now. Denies F/C/N/V/leg pain/SOB/cough/cp
Surgical Dressings <24h with noted bleeding- I will change 09/14 unlessit becomes excessive.
May WBAT in post op shoes with walker assist.
Offload and protect heels while in bed- will order prevalon boots and tegaderm foam to heels
Will follow closely while here
--- NOTE | 2024-09-13 07:58 | PN.DE.MGMTRT ---
Insulin Management
- -
09/13/2024: Diabetes Insulin pump Management Follow up
Patient admitted 09/11 at request of his speech therapy assistant, Dr. Cruz, due to worsening of wounds L great toe and R second toe. Patient was seen on previous admission by our team for diabetes management. PMH: HTN PAD, Neuropathy, COPD, Anemia and T2DM,
s/p RLE arteriogram with balloon angio R dorsalis pedis and anterior tibial arteries 08/22 and left lower extremity arteriogram, SFA stents x 2. A1C from last admission, 08/21, was 8.2%.
Pt is awake, alert, oriented, resting in bed, offers no complaints, able to discuss diabetes management. Currently using Tandem T-Slim insulin pump, Humalog insulin and Dexcom G7 prior to admission. He routinely sees Dr. Vaca for diabetes care.
POD 1 s/p amputation R 2nd toe and L great toe.
Fasting glucose today 100.
Pump settings as follows:
Basal Correction CHO ratio target
12AM 1 1:30 1:14 110
3AM 1 1:30 1:14 110
6am .975 1:30 1:13 110
12PM 1 1:30 1:13 110
8pm 1 1:30 1:13 110
24 hour basal total units 23.85.
Will make no change to pump settings.
Discussed with nurse and instructed on use of bedside insulin pump work sheet.
Will cont to follow
Diabetes History
- -
Type of Diabetes: 2 requiring insulin
Pre-Admission Diabetes Regimen
09/13/24
05:45
Creatinine 1.1
Insulin Pump Settings
IP Diabetes Regimen
09/12/24 09/13/24
21:40 05:45
Glucose 100 H
POC Glucose 270 H
Meal type: Dinner
Meal type: Lunch
Meal type: Breakfast
Amount consumed: 100%
Amount consumed: 35%
Patient Education
[2024-09-13 08:03] LABS: Glucose - Point of Care 122 mg/dl (70-99)
--- NOTE | 2024-09-13 08:12 | PHA.VAN.FU ---
Vancomycin Assessment / Plan
- Assessment
Renal Function: SCR Decreasing
WBC's are: Stable
In the past 24 hrs, patient has been: Afebrile
Concomitant Antimicrobials: piperacillin/tazobactam
- Assessment - Therapeutic Drug Monitoring
Random Level: 11.4 - drawn ~19.5H after previous dose of 1000mg
- Dosing Plan
Dosing by Level: Re-dose today (Vanc 1000mg)
- Monitoring Plan
Random Level: 09/14 06
- Follow Up
Pharmacy will continue to follow.
Vancomycin Follow UP
- -
Patient Age: 68
Patient Sex: Male
Vancomycin Day #: 3
Indication: Diabetic Foot
Requesting Provider: Atilio Allen
Pertinent Antimicrobial Allergies:
NKDA
Height / Weight:
Height 5 ft 2 in
Actual Weight 65.771 kg
Pertinent Past Medical History: DM 2
- Vital Signs / Lab Results
Temp Pulse Resp BP Pulse Ox
98.9 F 68 18 145/58 98
09/13/24 07:43 09/13/24 07:37 09/13/24 07:37 09/13/24 07:37 09/13/24 07:37
Lab Results - Hematology
09/11/24 09/12/24 09/13/24
13:35 05:42 05:45
WBC 5.4 4.1 L 5.3
Lab Results - Chemistry
09/11/24 09/12/24 09/13/24
13:35 05:42 05:45
BUN 26 H 23 H 19
Creatinine 1.4 H 1.3 1.1
Estimated Creat Clear 49 43 51
Therapeutic Drug Monitoring
Random Vancomycin 11.4 ug/ml 09/13/24 05:45
[2024-09-13] MEDS: DOLOPHINE 10 MG PO ×2 (08:18→20:10)
[2024-09-13] MEDS: COLACE 100 MG PO ×2 (08:18→20:10)
[2024-09-13] MEDS: FLOMAX 0.4 MG PO (08:19)
[2024-09-13] MEDS: LIPITOR 40 MG PO (08:19)
[2024-09-13] MEDS: LYRICA 50 MG PO ×3 (08:20→20:11)
[2024-09-13] MEDS: NORVASC 10 MG PO (08:20)
[2024-09-13] MEDS: PATIENT'S OWN INSULIN PUMP 4.17 UNITS SC (09:00)
--- NOTE | 2024-09-13 10:55 | CM ---
Pt is postop amputation of right 2 nd toe an left great toe.
Requested PT OT evals from when appropriate.
Pt has offloading boots .
PLAN Will need PT OT for dc planning
[2024-09-13] MEDS: VANCOCIN 200 IV (11:13)
[2024-09-13 11:32] VITALS: BP 155/65
[2024-09-13 12:06] LABS: Glucose - Point of Care 184 mg/dl (70-99)
--- NOTE | 2024-09-13 12:30 | W.PN.HOSP.TC ---
Today's Communication/Plan
-
Physical therapy consult.
Assessment / Plan
Assessment / Plan
Impression:
68-year-old male with past medical history significant for hypertension, PAD, type 2 diabetes, neuropathy, COPD and anemia who presented to [facility] ER at request of podiatry, Dr. Cruz, for IV antibiotics and amputation of the left
great toe and right second toe after failed out patient treatment. Patient with recent placement of superficial femoral artery stents x 2 and balloon angioplasty of the right dorsalis pedis and right anterior tibial artery. Patient states there is
pain to affected toes, denies any associated fevers.
S/p right partial 2nd ray and left partial 1st ray amp.
Assessment/plan:
PAD/lower extremity digital gangrene -left Big toe, right second toe
S/p right partial 2nd ray and left partial 1st ray amp.
No osteomyelitis noted on x-ray.
Eliquis and Plavix on hold
Continue atorvastatin.
Pain control
Acute on chronic microcytic anemia.
Acute blood loss anemia.
Monitor hemoglobin.
Transfuse if needed
Acute kidney injury
Creatinine stable, improved
Monitor daily BMP
Urinary retention
- chronic Morrison in place
- continue tamsulosin
- Remove Morrison today with voiding trial
History of diabetes mellitus
Continue insulin pump
Insulin sliding scale
Diabetic diet
outreach educator
History of hypertension
Continue home meds
- continue amlodipine
- Hold lisinopril
neuropathy
- continue duloxetine, gabapentin, methadone and pregabalin
depression/anxiety
- continue duloxetine and lorazepam
- hold trazodone
COPD
CODE STATUS: Full code
DVT prophylaxis: Lovenox
Diet: DM
Disposition:Pt/OT
Total time spent on today's encounter was 65 minutes which included time spent in counseling the patient/family regarding diagnosis and treatment plan as listed above, goals of care, and symptom management. Case was discussed with nursing staff,
specialists, and care coordinators/case management. All labs and imaging personally reviewed by me. Remainder the time spent in detailed review of previous records, lab data, imaging, and other medical provider documentation.
Anticipated Discharge: 24 - 48 hours
Subjective/Interval History
-
Date of Service: September 13, 2024
Patient seen and examined at bedside, S/p right partial 2nd ray and left partial 1st ray amp yesterday.
denies any chest pain or shortness of breath.
Objective Data
-
Labs:
Laboratory Results
09/13/24
05:45
WBC 5.3
Hgb 8.5 L
Hct 25.1 L
Plt Count 63 L
Sodium 135
Potassium 4.5
Chloride 104
Carbon Dioxide 27
BUN 19
Creatinine 1.1
Glucose 100 H
Calcium 8.3 L
Vital Signs:
Vital Signs
Temp Pulse Resp BP Pulse Ox
98.5 F 70 18 155/65 98
09/13/24 11:32 09/13/24 11:32 09/13/24 11:32 09/13/24 11:32 09/13/24 11:32
I&O
09/12/24 09/13/24 09/14/24
06:59 06:59 06:59
Intake Total 1030 / 1030 1690 / 1690
Output Total 1250 / 1250 2350 / 2350
Balance -220 / -220 -660 / -660
Physical Exam
-
General: Well Developed, Well Nourished, No Apparent Distress and Comfortable
HEENT: Normocephalic, Atraumatic, Moist Mucous Membranes, No Ptosis, PERRLA and Nose Appears Normal
Respiratory: Clear to Auscultation and Non Labored Respirations
Cardiac: Regular Rhythm and S1/S2
Breast: Deferred by me
GI: Soft, Nontender, Nondistended and Normal Bowel Sounds
Genito-urinary: No Costovertebral Tender
Musculoskeletal: No Clubbing, No Cyanosis, No Edema and Other (Bilateral foot dressing.)
Skin: Warm
Neuro: Awake, Alert, Oriented, AO x 3 and No Motor Deficits
Psych: Calm
Data Reviewed
-
Diagnostic Radiology: Image personally visualized and interpreted and Report Reviewed by me
CT Scan: Image personally visualized and interpreted and Report Reviewed by me
Ultrasound: Image personally visualized and interpreted and Report Reviewed by me
MRI: Image personally visualized and interpreted and Report Reviewed by me
Medical Tests (Nuc Med, Echo etc): Image personally visualized and interpreted and Report Reviewed by me
Labs: Labs Reviewed by me
Old Records: Reviewed
[2024-09-13 12:51] VITALS: BP 179/72; BP 196/89; PULSE 66; O2SAT 99
[2024-09-13] MEDS: PATIENT'S OWN INSULIN PUMP 6.39 UNITS SC (12:57)
[2024-09-13] MEDS: DILAUDID 1 MG IV ×3 (14:30→22:41)
[2024-09-13 15:02] VITALS: BP 159/64
[2024-09-13] MEDS: PROTONIX 40 MG PO (15:36)
[2024-09-13] MEDS: FOLVITE 1 MG PO (15:36)
[2024-09-13] MEDS: CYMBALTA DELAYED RELEASE 60 MG PO (15:36)
[2024-09-13] MEDS: ATIVAN 1 MG PO (15:36)
[2024-09-13 17:04] LABS: Glucose - Point of Care 114 mg/dl (70-99)
[2024-09-13] MEDS: PATIENT'S OWN INSULIN PUMP 5.08 UNITS SC (17:35)
[2024-09-13] MEDS: DESYREL 50 MG PO (20:10)
[2024-09-13 21:39] LABS: Glucose - Point of Care 128 mg/dl (70-99)
[2024-09-13] MEDS: PATIENT'S OWN INSULIN PUMP SC (21:43)
[2024-09-13 23:38] VITALS: BP 144/64
[2024-09-14] MEDS: ZOSYN 50 IV ×3 (05:00→17:35)
[2024-09-14] MEDS: DILAUDID 1 MG IV ×3 (05:04→20:59)
[2024-09-14 06:47] LABS: Hemoglobin 7.5 g/dL (13.0-18.0); Mean Corp Hgb Conc. 34.1 g/dL (33.0-37.0); Mean Corpuscular Hgb 27.1 pg (27.0-31.0); Mean Corpuscular Volume 79.4 fL (80.0-94.0); Mean Platelet Volume 12.7 fL (7.4-10.4); Platelet Count 68 10^3/uL (130-400); Red Blood Cell Count 2.77 10^6/uL (4.70-6.10); Red Cell Dist. Width 15.4 % (11.5-14.5); White Blood Cell Count 4.8 10^3/uL (4.8-10.8)
[2024-09-14 06:50] LABS: Vancomycin Random 11.5 ug/ml
--- NOTE | 2024-09-14 06:58 | PN.DE.MGMTRT ---
Insulin Management
- -
09/14/2024: Diabetes Insulin pump Management Follow up
Patient admitted 09/11 at request of his dealer accounts investigator, Dr. Cruz, due to worsening of wounds L great toe and R second toe. Patient was seen on previous admission by our team for diabetes management. PMH: HTN PAD, Neuropathy, COPD, Anemia and T2DM,
s/p RLE arteriogram with balloon angio R dorsalis pedis and anterior tibial arteries 08/22 and left lower extremity arteriogram, SFA stents x 2. A1C from last admission, 08/21, was 8.2%.
Pt is awake, alert, oriented, resting in bed, offers no complaints, able to discuss diabetes management. Currently using Tandem T-Slim insulin pump, Humalog insulin and Dexcom G7 prior to admission. He routinely sees Dr. Vaca for diabetes care.
POD 2 s/p amputation R 2nd toe and L great toe.
Glucose @ HS 128. Glucose range 64 this AM to 93 pre lunch. Spoke with patient re lower bs this AM, he agrees to be cautious with dinner bolus. Patients sensor , did ask for someone from home to bring one in.
Pump settings as follows:
Basal Correction CHO ratio target
12AM 1 1:30 1:14 110
3AM 1 1:30 1:14 110
6am .975 1:30 1:13 110
12PM 1 1:30 1:13 110
8pm 1 1:30 1:13 110
24 hour basal total units 23.85.
Will make no change to pump settings.
Discussed with nurse and instructed on use of bedside insulin pump work sheet.
Will cont to follow
Diabetes History
- -
Type of Diabetes: 2 requiring insulin
Pre-Admission Diabetes Regimen
09/13/24
05:45
Creatinine 1.1
Insulin Pump Settings
IP Diabetes Regimen
09/13/24 09/13/24 09/13/24
05:45 08:01 12:04
Glucose 100 H
POC Glucose 122 H 184 H
09/13/24 09/13/24
17:03 21:37
Glucose
POC Glucose 114 H 128 H
Meal type: Dinner
Meal type: Breakfast
Amount consumed: 100%
Amount consumed: 100%
Patient Education
[2024-09-14 07:04] LABS: Blood Urea Nitrogen 15 mg/dl (9-20); Calcium 8.1 mg/dl (8.4-10.2); Carbon Dioxide 25 mmol/L (22-30); Chloride 104 mmol/L (98-107); Estimated Creatinine Clearance 51 ml/min; Glucose 69 mg/dl (70-99); Potassium 3.7 mmol/L (3.5-5.1); Sodium 132 mmol/L (135-145); eGFR > 60.00
[2024-09-14 07:20] LABS: Glucose - Point of Care 64 mg/dl (70-99)
[2024-09-14 07:25] VITALS: BP 150/69
[2024-09-14 07:40] LABS: Glucose - Point of Care 106 mg/dl (70-99)
--- NOTE | 2024-09-14 08:10 | PHA.VAN.FU ---
Vancomycin Assessment / Plan
- Assessment
Renal Function: Stable
WBC's are: WNL
In the past 24 hrs, patient has been: Afebrile
Concomitant Antimicrobials: Zosyn 3.375 gram IV q6h
- Assessment - Therapeutic Drug Monitoring
Random Level: 11.5 (09/14 at 5:33 AM) - ~18 hour level
- Dosing Plan
Dosing by Level: Re-dose today (Vacnomycin 1000 mg (~15 mg/kg) x 1 dose)
- Monitoring Plan
Random Level: 09/15 at AM labs
- Follow Up
Pharmacy will continue to follow.
Vancomycin Follow UP
- -
Patient Age: 68
Patient Sex: Male
Vancomycin Day #: 4
Indication: Diabetic Foot
Requesting Provider: Atilio Allen
Pertinent Antimicrobial Allergies:
NKDA
Height / Weight:
Height 5 ft 2 in
Actual Weight 65.771 kg
Pertinent Past Medical History: DM 2
- Vital Signs / Lab Results
Temp Pulse Resp BP Pulse Ox
98.2 F 64 16 144/64 98
09/13/24 23:38 09/13/24 23:38 09/13/24 23:38 09/13/24 23:38 09/13/24 23:38
Lab Results - Hematology
09/11/24 09/12/24 09/13/24
13:35 05:42 05:45
WBC 5.4 4.1 L 5.3
09/14/24
05:33
WBC 4.8
Lab Results - Chemistry
09/11/24 09/12/24 09/13/24
13:35 05:42 05:45
BUN 26 H 23 H 19
Creatinine 1.4 H 1.3 1.1
Estimated Creat Clear 49 43 51
09/14/24
05:33
BUN 15
Creatinine 1.1
Estimated Creat Clear 51
Therapeutic Drug Monitoring
Random Vancomycin 11.5 ug/ml 09/14/24 05:33
[2024-09-14] MEDS: LYRICA 50 MG PO ×3 (08:13→20:39)
[2024-09-14] MEDS: LIPITOR 40 MG PO (08:13)
[2024-09-14] MEDS: ROXICODONE 5 MG PO ×3 (08:13→20:38)
[2024-09-14] MEDS: DOLOPHINE 10 MG PO ×2 (08:13→19:57)
[2024-09-14] MEDS: NORVASC 10 MG PO (08:13)
[2024-09-14] MEDS: FLOMAX 0.4 MG PO (08:13)
[2024-09-14] MEDS: COLACE PO ×2 (08:16→19:57)
[2024-09-14] MEDS: MIRALAX 17 GRAMS PO (09:01)
[2024-09-14] MEDS: PATIENT'S OWN INSULIN PUMP SC ×4 (09:04→23:00)
[2024-09-14] MEDS: DULCOLAX 10 MG RECTAL (09:56)
[2024-09-14 12:23] LABS: Glucose - Point of Care 93 mg/dl (70-99)
[2024-09-14] MEDS: VANCOCIN 200 IV (13:45)
--- NOTE | 2024-09-14 14:14 | PN.CDI ---
CDI
- -
CDI:
Physician Documentation Request
Admit Date: 09/11/24 15:23
Dear Doctor Rani,
Hospitalist progress notes include a diagnosis of CHIN.
Creatinine results:
Laboratory Tests
09/11/24 09/12/24 09/14/24
13:35 05:42 05:33
Creatinine 1.4 H 1.3 1.1
Criteria for CHIN*
1 Increase in serum creatinine by > or = to 0.3 mg/dL (> or = to 26.5 micromol/L) within 48 hours, OR
2 Increase in serum creatinine to > or = to 1.5 times baseline, which is known or presumed to have occurred within 7 days, OR
3 Urine volume < 0.5 nL/kg/hour for six hours
Based on the above information and the recognized standard for CHIN could you please verify this diagnoses is still accurate and reflective of the patient�s condition to ensure quality of the medical record.
Please clarify in the Progress Notes:
�CHIN is/was present and is a clinical diagnosis based on (please include this additional support in the medical record)
�After study CHIN has been ruled out
�Other
Use of terms such as suspected, likely, concern for, or probable (associated with a specific diagnosis that is being evaluated, monitored, or treated as if it exists) are acceptable and can be coded in the inpatient setting, when documented at the
time of discharge.
Thank you,
Rhoda Barton RN, BSN
CDI Specialist
tiger text
Please use your independent medical judgment in providing your response.
[2024-09-14] MEDS: FOLVITE 1 MG PO (14:43)
[2024-09-14] MEDS: CYMBALTA DELAYED RELEASE 60 MG PO (14:43)
[2024-09-14] MEDS: ATIVAN 1 MG PO (14:43)
[2024-09-14] MEDS: PROTONIX 40 MG PO (14:43)
[2024-09-14 15:11] VITALS: BP 148/74
--- NOTE | 2024-09-14 15:11 | W.PN.HOSP.TC ---
Addendum entered and electronically signed by Keely Saravia MD 09/14/24 15:21:
[facility]
Original Note:
Today's Communication/Plan
-
Resume aspirin/Plavix/Eliquis.
Discharge to rehab once bed available.
Monitor hemoglobin
Assessment / Plan
Assessment / Plan
Impression:
68-year-old male with past medical history significant for hypertension, PAD, type 2 diabetes, neuropathy, COPD and anemia who presented to [facility] ER at request of podiatry, Dr. Cruz, for IV antibiotics and amputation of the left
great toe and right second toe after failed out patient treatment. Patient with recent placement of superficial femoral artery stents x 2 and balloon angioplasty of the right dorsalis pedis and right anterior tibial artery. Patient states there is
pain to affected toes, denies any associated fevers.
S/p right partial 2nd ray and left partial 1st ray amp.
Physical still recommending rehab.
Assessment/plan:
PAD/lower extremity digital gangrene -left Big toe, right second toe
S/p right partial 2nd ray and left partial 1st ray amp.
No osteomyelitis noted on x-ray.
Eliquis and Plavix on hold--> will resume
Continue atorvastatin.
Pain control
Acute on chronic microcytic anemia.
Acute blood loss anemia.
Monitor hemoglobin.
Transfuse if needed
Acute kidney injury
Creatinine stable, improved
Monitor daily BMP
Urinary retention
continue tamsulosin
Morrison removed and patient passed voiding trial
History of diabetes mellitus
Continue insulin pump
Insulin sliding scale
Diabetic diet
visual educator
History of hypertension
Continue home meds
- continue amlodipine
- Hold lisinopril
neuropathy
- continue duloxetine, gabapentin, methadone and pregabalin
depression/anxiety
- continue duloxetine and lorazepam
- hold trazodone
COPD
No acute exacerbation
CODE STATUS: Full code
DVT prophylaxis: Lovenox
Diet: DM
Disposition:Pt/OT
Total time spent on today's encounter was 65 minutes which included time spent in counseling the patient/family regarding diagnosis and treatment plan as listed above, goals of care, and symptom management. Case was discussed with nursing staff,
specialists, and care coordinators/case management. All labs and imaging personally reviewed by me. Remainder the time spent in detailed review of previous records, lab data, imaging, and other medical provider documentation.
Anticipated Discharge: Within 24 hours
Subjective/Interval History
-
Date of Service: September 14, 2024
Patient seen and examined at bedside, denies any chest pain or shortness of breath, no abdominal pain, no nausea, no vomiting, was complaining of constipation in the morning but resolved.
Pain on bilateral foot managed with Dilaudid.
Objective Data
-
Labs:
Laboratory Results
09/14/24
05:33
WBC 4.8
Hgb 7.5 L
Hct 22.0 L
Plt Count 68 L
Sodium 132 L
Potassium 3.7
Chloride 104
Carbon Dioxide 25
BUN 15
Creatinine 1.1
Glucose 69 L
Calcium 8.1 L
Vital Signs:
Vital Signs
Temp Pulse Resp BP Pulse Ox
98.0 F 68 18 150/69 93
09/14/24 07:25 09/14/24 07:25 09/14/24 07:25 09/14/24 07:25 09/14/24 08:00
I&O
09/13/24 09/14/24 09/15/24
06:59 06:59 06:59
Intake Total 1690 / 1690 1840 / 1840
Output Total 2350 / 2350 2475 / 2475
Balance -660 / -660 -635 / -635
Physical Exam
-
General: Well Developed, Well Nourished, No Apparent Distress and Comfortable
HEENT: Normocephalic, Atraumatic, Moist Mucous Membranes, No Ptosis, PERRLA and Nose Appears Normal
Respiratory: Clear to Auscultation and Non Labored Respirations
Cardiac: Regular Rhythm and S1/S2
Breast: Deferred by me
GI: Soft, Nontender, Nondistended and Normal Bowel Sounds
Genito-urinary: No Costovertebral Tender
Musculoskeletal: No Clubbing, No Cyanosis, No Edema and Other (Bilateral foot dressing.)
Skin: Warm
Neuro: Awake, Alert, Oriented, AO x 3 and No Motor Deficits
Psych: Calm
Data Reviewed
-
Diagnostic Radiology: Image personally visualized and interpreted and Report Reviewed by me
CT Scan: Image personally visualized and interpreted and Report Reviewed by me
Ultrasound: Image personally visualized and interpreted and Report Reviewed by me
MRI: Image personally visualized and interpreted and Report Reviewed by me
Medical Tests (Nuc Med, Echo etc): Image personally visualized and interpreted and Report Reviewed by me
Labs: Labs Reviewed by me
Old Records: Reviewed
--- NOTE | 2024-09-14 16:21 | CM ---
Pt is postop amputation of right 2 nd toe an left great toe.
Requested PT OT evals indicated SNF.
Spoke with pt he requested to speak with . LM with Pt requested call to dgt [facility] [phone].
Spoke with dgt she requested [facility] . Spoke with Karen Luis she reviewed pt chart and dx . Karen Luis said pt does not qualify for acute rehab and [facility].
Dgt requested SNF near pts home.Referral placed in care port and calls made.
[facility] no beds,[facility] said no beds,[facility] ,[facility] ,[facility] [phone] ,
Pt has offloading boots .
PLAN Locate SNF
--- NOTE | 2024-09-14 16:30 | W.PN.POD ---
Today's Communication
Today's Communication
Dressings were changed to the right and left foot surgical sites
Will observe closely for necrosis or failure to heal until D/C
Assessment / Plan
-
DM2 with PAD-Dr Harrison following
Gangrene of the r2nd and left grt toes POD #2 S/p Amp right 2nd toe/met and amp left 1st ray
Subjective
Chief Complaint
Gangrene S/P amputation right 2nd ray and left 1st ray (toes and met heads)
Subjective
Pt states he is doing better, still having 'shooting' pain
Objective
Temp Pulse Resp BP Pulse Ox
97.6 F 66 16 148/74 96
09/14/24 15:11 09/14/24 15:11 09/14/24 15:11 09/14/24 15:11 09/14/24 15:11
09/14/24 05:33
09/14/24 05:33
Vital Signs and Lab results were reviewed.
Review of Systems
Review of Systems
Review of Systems: No Fever, Chills ( ), No Nausea, No Diarrhea and No Skin Rash
Physical Exam
Physical Exam
General: No Apparent Distress and Conversant
Musculoskeletal: No Cyanosis (right 2nd toe amp site C/D/I, +rubor to forefoot, ) and Cyanosis (medial 1st met left foot, area is warm and incision is intact )
Skin: Warm, Dry and Other (incision C/D/I, no active bleeding is appreciated. )
Neuro: AO x 3 and Protective Sensation Diminished
Vascular: Capillary Refill Delayed, Pedal Hair Absent and Skin Temperature Warm to Warm
Dorsalis Pedis: Diminished
Posterior Tibialis: Absent
[2024-09-14 17:16] LABS: Glucose - Point of Care 70 mg/dl (70-99)
[2024-09-14] MEDS: DESYREL 50 MG PO (20:39)
[2024-09-14 21:02] LABS: Glucose - Point of Care 138 mg/dl (70-99)
[2024-09-14 23:30] VITALS: BP 127/57
[2024-09-15] MEDS: ZOSYN 50 IV ×2 (00:47→05:31)
[2024-09-15 03:04] LABS: Glucose - Point of Care 51 mg/dl (70-99)
[2024-09-15 03:23] LABS: Glucose - Point of Care 71 mg/dl (70-99)
[2024-09-15] MEDS: DILAUDID 1 MG IV ×4 (03:37→20:59)
[2024-09-15] MEDS: ROXICODONE 5 MG PO (05:33)
[2024-09-15 07:15] LABS: Glucose - Point of Care 65 mg/dl (70-99)
[2024-09-15 07:25] VITALS: BP 156/64
[2024-09-15 07:34] LABS: Glucose - Point of Care 57 mg/dl (70-99)
[2024-09-15 08:02] LABS: Glucose - Point of Care 76 mg/dl (70-99)
[2024-09-15] MEDS: PATIENT'S OWN INSULIN PUMP SC ×4 (08:31→23:00)
[2024-09-15] MEDS: COLACE PO ×2 (08:32→21:13)
[2024-09-15] MEDS: LYRICA 50 MG PO ×3 (08:32→20:59)
[2024-09-15] MEDS: LIPITOR 40 MG PO (08:32)
[2024-09-15] MEDS: NORVASC 10 MG PO (08:33)
[2024-09-15] MEDS: DOLOPHINE 10 MG PO ×2 (08:33→20:59)
[2024-09-15] MEDS: FLOMAX 0.4 MG PO (08:33)
[2024-09-15 09:03] LABS: Hematocrit 23.6 % (39.0-52.0); Mean Corp Hgb Conc. 33.9 g/dL (33.0-37.0); Mean Corpuscular Hgb 26.9 pg (27.0-31.0); Mean Corpuscular Volume 79.5 fL (80.0-94.0); Mean Platelet Volume 12.8 fL (7.4-10.4); Platelet Count 70 10^3/uL (130-400); Red Blood Cell Count 2.97 10^6/uL (4.70-6.10); Red Cell Dist. Width 15.7 % (11.5-14.5); White Blood Cell Count 4.1 10^3/uL (4.8-10.8)
[2024-09-15 09:05] LABS: Vancomycin Random 11.8 ug/ml
[2024-09-15 09:21] LABS: Blood Urea Nitrogen 14 mg/dl (9-20); Calcium 7.9 mg/dl (8.4-10.2); Carbon Dioxide 29 mmol/L (22-30); Chloride 103 mmol/L (98-107); Estimated Creatinine Clearance 47 ml/min; Glucose 50 mg/dl (70-99); Potassium 3.6 mmol/L (3.5-5.1); Sodium 135 mmol/L (135-145); eGFR > 60.00
[2024-09-15] MEDS: ELIQUIS 5 MG PO ×2 (10:05→20:58)
[2024-09-15] MEDS: PLAVIX 75 MG PO (10:05)
[2024-09-15] MEDS: LOW STRENGTH ASPIRIN 81 MG PO (10:05)
[2024-09-15] MEDS: VIBRAMYCIN 100 MG PO ×2 (10:05→20:59)
[2024-09-15] MEDS: CEFTIN 500 MG PO ×2 (10:06→20:58)
[2024-09-15] MEDS: ROXICODONE 10 MG PO (11:51)
--- NOTE | 2024-09-15 11:53 | W.PN.HOSP.TC ---
Today's Communication/Plan
-
Medically cleared for discharge.
Assessment / Plan
Assessment / Plan
Impression:
68-year-old male with past medical history significant for hypertension, PAD, type 2 diabetes, neuropathy, COPD and anemia who presented to [facility] ER at request of podiatry, Dr. Cruz, for IV antibiotics and amputation of the left
great toe and right second toe after failed out patient treatment. Patient with recent placement of superficial femoral artery stents x 2 and balloon angioplasty of the right dorsalis pedis and right anterior tibial artery. Patient states there is
pain to affected toes, denies any associated fevers.
S/p right partial 2nd ray and left partial 1st ray amp.
Physical still recommending rehab.
Antibiotics switched to oral, pain medication switched to oral.
Eliquis/aspirin/Plavix resumed, hemoglobin stayed stable.
Discharge to rehab once bed available.
Assessment/plan:
PAD/lower extremity digital gangrene -left Big toe, right second toe
S/p right partial 2nd ray and left partial 1st ray amp.
No osteomyelitis noted on x-ray.
Aspirin/Eliquis and Plavix initially placed on hold, now resumed.
Continue atorvastatin.
Pain control
Switched IV Dilaudid to bimodal pain regimen including oxycodone 5 mg for moderate pain and 10 mg for severe pain
Acute on chronic microcytic anemia.
Acute blood loss anemia.
Monitor hemoglobin.
Transfuse if needed.
resumed Aspirin/Eliquis and Plavix.
Acute kidney injury
Creatinine stable, improved
Monitor daily BMP
Urinary retention
continue tamsulosin
Morrison removed and patient passed voiding trial.
History of diabetes mellitus
Continue insulin pump
Insulin sliding scale
Diabetic diet
prosthodontist/educator
09/15
Episodes of hypoglycemia
History of hypertension
Continue home meds
- continue amlodipine
- resumed lisinopril
neuropathy
- continue duloxetine, gabapentin, methadone and pregabalin
depression/anxiety
- continue duloxetine and lorazepam
- continue trazodone
COPD
No acute exacerbation
CODE STATUS: Full code
DVT prophylaxis: Lovenox
Diet: DM
Disposition: Medically cleared for discharge
Total time spent on today's encounter was 65 minutes which included time spent in counseling the patient/family regarding diagnosis and treatment plan as listed above, goals of care, and symptom management. Case was discussed with nursing staff,
specialists, and care coordinators/case management. All labs and imaging personally reviewed by me. Remainder the time spent in detailed review of previous records, lab data, imaging, and other medical provider documentation.
Anticipated Discharge: Today
Subjective/Interval History
-
Date of Service: September 15, 2024
Patient seen and examined at bedside, denies any chest pain or shortness of breath, no abdominal pain, no nausea, no vomiting, constipation improved.
Objective Data
-
Labs:
Laboratory Results
09/15/24
07:11
WBC 4.1 L
Hgb 8.0 L
Hct 23.6 L
Plt Count 70 L
Sodium 135
Potassium 3.6
Chloride 103
Carbon Dioxide 29
BUN 14
Creatinine 1.2
Glucose 50 L*
Calcium 7.9 L
Vital Signs:
Vital Signs
Temp Pulse Resp BP Pulse Ox
97.8 F 64 18 156/64 96
09/15/24 07:25 09/15/24 07:25 09/15/24 07:25 09/15/24 07:25 09/15/24 07:25
I&O
09/14/24 09/15/24 09/16/24
06:59 06:59 06:59
Intake Total 1840 / 1840 1380 / 1380
Output Total 2475 / 2475 850 / 850
Balance -635 / -635 530 / 530
Physical Exam
-
General: Well Developed, Well Nourished, No Apparent Distress and Comfortable
HEENT: Normocephalic, Atraumatic, Moist Mucous Membranes, No Ptosis, PERRLA and Nose Appears Normal
Respiratory: Clear to Auscultation and Non Labored Respirations
Cardiac: Regular Rhythm and S1/S2
Breast: Deferred by me
GI: Soft, Nontender, Nondistended and Normal Bowel Sounds
Genito-urinary: No Costovertebral Tender
Musculoskeletal: No Clubbing, No Cyanosis, No Edema and Other (Bilateral foot dressing.)
Skin: Warm
Neuro: Awake, Alert, Oriented, AO x 3 and No Motor Deficits
Psych: Calm
Data Reviewed
-
Diagnostic Radiology: Image personally visualized and interpreted and Report Reviewed by me
CT Scan: Image personally visualized and interpreted and Report Reviewed by me
Ultrasound: Image personally visualized and interpreted and Report Reviewed by me
MRI: Image personally visualized and interpreted and Report Reviewed by me
Medical Tests (Nuc Med, Echo etc): Image personally visualized and interpreted and Report Reviewed by me
Labs: Labs Reviewed by me
Old Records: Reviewed
[2024-09-15 12:10] LABS: Glucose - Point of Care 92 mg/dl (70-99)
[2024-09-15] MEDS: FOLVITE 1 MG PO (14:30)
[2024-09-15] MEDS: ATIVAN 1 MG PO (14:30)
[2024-09-15] MEDS: CYMBALTA DELAYED RELEASE 60 MG PO (14:30)
[2024-09-15] MEDS: PROTONIX 40 MG PO (14:30)
[2024-09-15 15:30] VITALS: BP 162/66
[2024-09-15 16:52] LABS: Glucose - Point of Care 110 mg/dl (70-99)
--- NOTE | 2024-09-15 17:06 | W.PN.POD ---
Today's Communication
Today's Communication
Incisions redressed and reevaluated, there remains no sign of dehiscence or necrosis at this time.
Will follow while here
Pain management per hospitalist
Anemia- improved but not optimal @ 8g/dL
Albumin-2.9, Pt requires increased nutrition. I have recommended ensure drinks as well as Mendez to boost wound healing
Assessment / Plan
-
DM2 with PAD-Dr Harrison following
Gangrene of the r2nd and left grt toes POD #3 S/p Amp right 2nd toe/met and amp left 1st ray
Subjective
Chief Complaint
POD # 3 S/P amp left 1st and right 2nd ray
Subjective
Patient states pain is relatively unchanged, he had increased pain last night but feels it is being better managed today on Dilaudid. He expressed concern that his previous management of neuropathy with Gabapentin and Pregabalin were well tolerated
and more effective for him
Objective
Temp Pulse Resp BP Pulse Ox
98.4 F 65 18 162/66 91
09/15/24 15:30 09/15/24 15:30 09/15/24 15:30 09/15/24 15:30 09/15/24 15:30
09/15/24 07:11
09/15/24 07:11
Vital Signs and Lab results were reviewed.
Physical Exam
Physical Exam
General: No Apparent Distress, Comfortable and Conversant
Musculoskeletal: Other (ecchymosis left 1st mtpj- foot warm and tender to touch.)
Skin: Warm, Dry and Other (Incisions are well coapted B/L with no signs of dehiscence- no drainage other than scant blood to dressings. Erythema/rubor right forefoot improved)
Neuro: AO x 3 and Protective Sensation Intact
Vascular: Capillary Refill Delayed, Pedal Hair Absent and Skin Temperature Warm to Warm
[2024-09-15 18:08] LABS: Glucose - Point of Care 93 mg/dl (70-99)
[2024-09-15] MEDS: DESYREL 50 MG PO (20:59)
[2024-09-15 21:08] LABS: Glucose - Point of Care 212 mg/dl (70-99)
[2024-09-15 23:03] VITALS: BP 147/55
[2024-09-16] MEDS: DILAUDID 1 MG IV ×4 (01:49→20:29)
[2024-09-16 04:18] LABS: Glucose - Point of Care 247 mg/dl (70-99)
[2024-09-16 07:00] VITALS: BP 146/60
[2024-09-16 07:22] LABS: Glucose - Point of Care 234 mg/dl (70-99)
[2024-09-16 08:10] LABS: Hemoglobin 8.1 g/dL (13.0-18.0); Mean Corp Hgb Conc. 33.8 g/dL (33.0-37.0); Mean Corpuscular Hgb 26.8 pg (27.0-31.0); Mean Corpuscular Volume 79.5 fL (80.0-94.0); Mean Platelet Volume 12.7 fL (7.4-10.4); Platelet Count 78 10^3/uL (130-400); Red Blood Cell Count 3.02 10^6/uL (4.70-6.10); White Blood Cell Count 4.3 10^3/uL (4.8-10.8)
[2024-09-16 08:22] LABS: Blood Urea Nitrogen 15 mg/dl (9-20); Calcium 8.4 mg/dl (8.4-10.2); Carbon Dioxide 28 mmol/L (22-30); Chloride 102 mmol/L (98-107); Estimated Creatinine Clearance 51 ml/min; Glucose 209 mg/dl (70-99); Potassium 4.2 mmol/L (3.5-5.1); Sodium 132 mmol/L (135-145); eGFR > 60.00
[2024-09-16] MEDS: LYRICA 50 MG PO ×3 (08:35→20:25)
[2024-09-16] MEDS: DOLOPHINE 10 MG PO ×2 (08:35→20:24)
[2024-09-16] MEDS: VIBRAMYCIN 100 MG PO ×2 (08:35→20:24)
[2024-09-16] MEDS: ELIQUIS 5 MG PO ×2 (08:36→20:24)
[2024-09-16] MEDS: LOW STRENGTH ASPIRIN 81 MG PO (08:36)
[2024-09-16] MEDS: LIPITOR 40 MG PO (08:36)
[2024-09-16] MEDS: FLOMAX 0.4 MG PO (08:36)
[2024-09-16] MEDS: NORVASC 10 MG PO (08:36)
[2024-09-16] MEDS: ZESTRIL 40 MG PO (08:36)
[2024-09-16] MEDS: PLAVIX 75 MG PO (08:36)
[2024-09-16] MEDS: COLACE PO ×2 (08:36→20:21)
[2024-09-16] MEDS: CEFTIN 500 MG PO ×2 (08:36→20:24)
[2024-09-16] MEDS: PATIENT'S OWN INSULIN PUMP 3.9 UNITS SC (09:50)
[2024-09-16] MEDS: ROXICODONE 5 MG PO ×2 (11:16→17:51)
[2024-09-16 11:54] LABS: Glucose - Point of Care 182 mg/dl (70-99)
--- NOTE | 2024-09-16 12:24 | W.PN.HOSP.TC ---
Today's Communication/Plan
-
Discharge to rehab once bed available.
Assessment / Plan
Assessment / Plan
Impression:
68-year-old male with past medical history significant for hypertension, PAD, type 2 diabetes, neuropathy, COPD and anemia who presented to [facility] ER at request of podiatry, Dr. Cruz, for IV antibiotics and amputation of the left
great toe and right second toe after failed out patient treatment. Patient with recent placement of superficial femoral artery stents x 2 and balloon angioplasty of the right dorsalis pedis and right anterior tibial artery. Patient states there is
pain to affected toes, denies any associated fevers.
S/p right partial 2nd ray and left partial 1st ray amp.
Physical still recommending rehab.
Antibiotics switched to oral, pain medication switched to oral.
Eliquis/aspirin/Plavix resumed, hemoglobin stayed stable.
Discharge to rehab once bed available.
Assessment/plan:
PAD/lower extremity digital gangrene -left Big toe, right second toe
S/p right partial 2nd ray and left partial 1st ray amp.
No osteomyelitis noted on x-ray.
Aspirin/Eliquis and Plavix initially placed on hold, now resumed.
Continue atorvastatin.
Pain control
Switched IV Dilaudid to bimodal pain regimen including oxycodone 5 mg for moderate pain and 10 mg for severe pain.
09/16
Was having pain yesterday, and IV Dilaudid resumed but agree for oxycodone 10/5 regimen on discharge
Still pending bed availability for discharge.
Acute on chronic microcytic anemia.
Acute blood loss anemia.
Monitor hemoglobin.
Transfuse if needed.
resumed Aspirin/Eliquis and Plavix.
Acute kidney injury
Creatinine stable, improved
Monitor daily BMP
Urinary retention
continue tamsulosin
Morrison removed and patient passed voiding trial.
History of diabetes mellitus
Continue insulin pump
Insulin sliding scale
Diabetic diet
adaptive physical educator
09/15
Episodes of hypoglycemia
History of hypertension
Continue home meds
- continue amlodipine
- resumed lisinopril
neuropathy
- continue duloxetine, gabapentin, methadone and pregabalin
depression/anxiety
- continue duloxetine and lorazepam
- continue trazodone
COPD
No acute exacerbation
CODE STATUS: Full code
DVT prophylaxis: Lovenox
Diet: DM
Disposition: Medically cleared for discharge
Total time spent on today's encounter was 65 minutes which included time spent in counseling the patient/family regarding diagnosis and treatment plan as listed above, goals of care, and symptom management. Case was discussed with nursing staff,
specialists, and care coordinators/case management. All labs and imaging personally reviewed by me. Remainder the time spent in detailed review of previous records, lab data, imaging, and other medical provider documentation.
Anticipated Discharge: Today
Subjective/Interval History
-
Date of Service: September 16, 2024
Patient seen and examined at bedside, denies any chest pain or shortness of breath, no abdominal pain, no nausea, no vomiting, no diarrhea or constipation.
Bilateral foot pain improved.
Objective Data
-
Labs:
Laboratory Results
09/16/24
07:07
WBC 4.3 L
Hgb 8.1 L
Hct 24.0 L
Plt Count 78 L
Sodium 132 L
Potassium 4.2
Chloride 102
Carbon Dioxide 28
BUN 15
Creatinine 1.1
Glucose 209 H
Calcium 8.4
Vital Signs:
Vital Signs
Temp Pulse Resp BP Pulse Ox
97.6 F 66 16 146/60 97
09/16/24 07:00 09/16/24 07:00 09/16/24 07:00 09/16/24 07:00 09/16/24 07:00
I&O
09/15/24 09/16/24 09/17/24
06:59 06:59 06:59
Intake Total 1380 / 1380 1650 / 1650
Output Total 850 / 850 1900 / 1900
Balance 530 / 530 -250 / -250
Physical Exam
-
General: Well Developed, Well Nourished, No Apparent Distress and Comfortable
HEENT: Normocephalic, Atraumatic, Moist Mucous Membranes, No Ptosis, PERRLA and Nose Appears Normal
Respiratory: Clear to Auscultation and Non Labored Respirations
Cardiac: Regular Rhythm and S1/S2
Breast: Deferred by me
GI: Soft, Nontender, Nondistended and Normal Bowel Sounds
Genito-urinary: No Costovertebral Tender
Musculoskeletal: No Clubbing, No Cyanosis, No Edema and Other (Bilateral foot dressing.)
Skin: Warm
Neuro: Awake, Alert, Oriented, AO x 3 and No Motor Deficits
Psych: Calm
Data Reviewed
-
Diagnostic Radiology: Image personally visualized and interpreted and Report Reviewed by me
CT Scan: Image personally visualized and interpreted and Report Reviewed by me
Ultrasound: Image personally visualized and interpreted and Report Reviewed by me
MRI: Image personally visualized and interpreted and Report Reviewed by me
Medical Tests (Nuc Med, Echo etc): Image personally visualized and interpreted and Report Reviewed by me
Labs: Labs Reviewed by me
Old Records: Reviewed
[2024-09-16] MEDS: PATIENT'S OWN INSULIN PUMP SC ×2 (13:14→21:09)
[2024-09-16 15:00] VITALS: BP 140/47
[2024-09-16] MEDS: CYMBALTA DELAYED RELEASE 60 MG PO (15:57)
[2024-09-16] MEDS: FOLVITE 1 MG PO (15:58)
[2024-09-16] MEDS: PROTONIX 40 MG PO (15:58)
[2024-09-16] MEDS: ATIVAN 1 MG PO (15:59)
[2024-09-16 16:41] LABS: Glucose - Point of Care 150 mg/dl (70-99)
--- NOTE | 2024-09-16 17:45 | W.PN.POD ---
Today's Communication
Today's Communication
Incisions were cleansed gently w/nss and redressed with foam dressing. He is tolerating this dressing well and states it is comfortable for him. Will continue upon DC to SNF. Pics taken (with pt permission) to follow the ecchymotic changes to the
left foot while here and upon DC to SNF
Continue WBAT in post op shoes
Stable for DC from my perspective, will see prn while here
Assessment / Plan
-
DM2 with PAD-Dr Harrison following
Gangrene of the r2nd and left grt toes POD #4 S/p Amp right 2nd toe/met and amp left 1st ray
Subjective
Chief Complaint
Gangrene right and left foot S/P amp left 1st ray and right 2nd ray
Subjective
Resting comfortably- no signs of distress at this time, states pain is manageable
Objective
LATE ENTRY-pt seen 09/16/2024
Temp Pulse Resp BP Pulse Ox
98.8 F 58 16 159/77 96
09/17/24 23:27 09/17/24 23:27 09/17/24 23:27 09/17/24 23:27 09/17/24 23:27
09/17/24 07:26
09/17/24 07:26
Vital Signs and Lab results were reviewed.
Review of Systems
Review of Systems
Review of Systems: No Fever and No Nausea
Physical Exam
Physical Exam
General: No Apparent Distress, Conversant and Appears Chronically Ill
Musculoskeletal: Cyanosis
Skin: Warm and Other (incisions remained well coapted, no dehiscence, presently no drainage expressed. +Rubor to the right foot)
Neuro: AO x 3 and Protective Sensation Absent
Vascular: Capillary Refill Delayed and Pedal Hair Absent
Dorsalis Pedis: Diminished
Posterior Tibialis: Absent
[2024-09-16] MEDS: PATIENT'S OWN INSULIN PUMP 5.36 UNITS SC (17:48)
[2024-09-16] MEDS: DESYREL 50 MG PO (20:24)
[2024-09-16 21:04] LABS: Glucose - Point of Care 159 mg/dl (70-99)
[2024-09-16 23:12] VITALS: BP 138/48
[2024-09-17] MEDS: DILAUDID 1 MG IV ×4 (03:34→20:36)
[2024-09-17 07:15] LABS: Glucose - Point of Care 108 mg/dl (70-99)
[2024-09-17 07:30] VITALS: BP 158/70
[2024-09-17] MEDS: NORVASC 10 MG PO (07:38)
[2024-09-17] MEDS: VIBRAMYCIN 100 MG PO ×2 (07:38→20:36)
[2024-09-17] MEDS: CEFTIN 500 MG PO ×2 (07:38→20:34)
[2024-09-17] MEDS: ELIQUIS 5 MG PO ×2 (07:39→20:36)
[2024-09-17] MEDS: LIPITOR 40 MG PO (07:39)
[2024-09-17] MEDS: ZESTRIL 40 MG PO (07:39)
[2024-09-17] MEDS: DOLOPHINE 10 MG PO ×2 (07:39→20:33)
[2024-09-17] MEDS: PLAVIX 75 MG PO (07:39)
[2024-09-17] MEDS: LYRICA 50 MG PO ×3 (07:39→20:34)
[2024-09-17] MEDS: COLACE 100 MG PO ×2 (07:39→20:36)
[2024-09-17] MEDS: FLOMAX 0.4 MG PO (07:39)
[2024-09-17] MEDS: LOW STRENGTH ASPIRIN 81 MG PO (07:43)
[2024-09-17 08:17] LABS: Hematocrit 23.9 % (39.0-52.0); Mean Corp Hgb Conc. 33.5 g/dL (33.0-37.0); Mean Corpuscular Hgb 26.9 pg (27.0-31.0); Mean Corpuscular Volume 80.5 fL (80.0-94.0); Mean Platelet Volume 12.7 fL (7.4-10.4); Platelet Count 91 10^3/uL (130-400); Red Blood Cell Count 2.97 10^6/uL (4.70-6.10); Red Cell Dist. Width 15.1 % (11.5-14.5); White Blood Cell Count 4.6 10^3/uL (4.8-10.8)
--- NOTE | 2024-09-17 08:35 | PN.DE.MGMTRT ---
Addendum entered and electronically signed by TRAVIS Avila 09/17/24 15:45:
Pt's insulin pump has been discontinued, he run out insulin and does not have a family member to bring him any new supplies at the moment.
Will place orders for SQ insulin. Start AC NovoLog 4 units and low corrective with meals. Will give NPH 15 units now. Start Lantus 20 units, 1st dose in AM.
Original Note:
Insulin Management
- -
09/17/2024: Diabetes Insulin pump Management Follow up
Patient admitted 09/11 at request of his temperature logging operator, Dr. Cruz, due to worsening of wounds L great toe and R second toe. Patient was seen on previous admission by our team for diabetes management. PMH: HTN PAD, Neuropathy, COPD, Anemia and T2DM,
s/p RLE arteriogram with balloon angio R dorsalis pedis and anterior tibial arteries 08/22 and left lower extremity arteriogram, SFA stents x 2. A1C from last admission, 08/21, was 8.2%.
Pt is awake, alert, oriented, resting in bed, offers no complaints, able to discuss diabetes management. Currently using Tandem T-Slim insulin pump, Humalog insulin and Dexcom G7 prior to admission. He routinely sees Dr. Vaca for diabetes care.
POD # 5 s/p amputation R 2nd toe and L great toe. Pt up ambulating around with PT, unable to discuss diabetes care plan.
Glucose stable @ HS 159. 6/1 premeal range 150 to 186. Fasting glucose today 108 POC.
Pump settings as follows:
Basal Correction CHO ratio target
12AM 1 1:30 1:14 110
3AM 1 1:30 1:14 110
6am .975 1:30 1:13 110
12PM 1 1:30 1:13 110
8pm 1 1:30 1:13 110
24 hour basal total units 23.85.
Will make no change to pump settings.
Discussed with nurse and reinforced use of bedside insulin pump work sheet.
Will cont to follow
Diabetes History
- -
Type of Diabetes: 2 requiring insulin
Pre-Admission Diabetes Regimen
Insulin Pump Settings
IP Diabetes Regimen
09/16/24 09/16/24 09/16/24
11:53 16:40 21:03
POC Glucose 182 H 150 H 159 H
09/17/24
07:11
POC Glucose 108 H
Patient Education
[2024-09-17 09:09] LABS: Blood Urea Nitrogen 14 mg/dl (9-20); Calcium 8.4 mg/dl (8.4-10.2); Carbon Dioxide 28 mmol/L (22-30); Chloride 100 mmol/L (98-107); Estimated Creatinine Clearance 47 ml/min; Glucose 96 mg/dl (70-99); Potassium 4.1 mmol/L (3.5-5.1); Sodium 134 mmol/L (135-145); eGFR > 60.00
[2024-09-17] MEDS: PATIENT'S OWN INSULIN PUMP 4.73 UNITS SC (09:28)
[2024-09-17] MEDS: ROXICODONE 5 MG PO (10:26)
--- NOTE | 2024-09-17 10:54 | CM ---
Pt is postop amputation of right 2 nd toe an left great toe.
PT OT evals indicated SNF.
[facility] [phone] had requested SNF referral placed .
[facility] no beds,[facility] again today no beds,[facility] LM x2 today ,[facility] no bed ,[facility] [phone] this am again ,
Pt has offloading boots .
PLAN Locate SNF
[2024-09-17 11:42] LABS: Glucose - Point of Care 150 mg/dl (70-99)
--- NOTE | 2024-09-17 13:36 | W.PN.HOSP.TC ---
Today's Communication/Plan
-
Plan for discharge she is
Assessment / Plan
Assessment / Plan
Impression:
68-year-old male with past medical history significant for hypertension, PAD, type 2 diabetes, neuropathy, COPD and anemia who presented to [facility] ER at request of podiatry, Dr. Cruz, for IV antibiotics and amputation of the left
great toe and right second toe after failed out patient treatment. Patient with recent placement of superficial femoral artery stents x 2 and balloon angioplasty of the right dorsalis pedis and right anterior tibial artery. Patient states there is
pain to affected toes, denies any associated fevers.
S/p right partial 2nd ray and left partial 1st ray amp.
Physical still recommending rehab.
Antibiotics switched to oral, pain medication switched to oral.
Eliquis/aspirin/Plavix resumed, hemoglobin stayed stable.
Discharge to rehab once bed available.
Assessment/plan:
PAD/lower extremity digital gangrene -left Big toe, right second toe
S/p right partial 2nd ray and left partial 1st ray amp.
No osteomyelitis noted on x-ray.
Aspirin/Eliquis and Plavix initially placed on hold, now resumed.
Continue atorvastatin.
Continue analgesics plan to transition to oxy 10 and 5 on discharge
Acute on chronic microcytic anemia.
Acute blood loss anemia.
Monitor hemoglobin.
Transfuse if needed.
resumed Aspirin/Eliquis and Plavix.
Acute kidney injury
Creatinine stable, improved
Monitor daily BMP
Urinary retention
con continue Flomax
History of diabetes mellitus
Continue insulin pump
Insulin sliding scale
Diabetic diet
consumer educator
History of hypertension
Continue home meds
- continue amlodipine
- resumed lisinopril
neuropathy
- continue duloxetine, gabapentin, methadone and pregabalin
depression/anxiety
- continue duloxetine and lorazepam
- continue trazodone
COPD
No acute exacerbation
CODE STATUS: Full code
DVT prophylaxis: Lovenox
Diet: DM
Disposition: Medically cleared for discharge
Anticipated Discharge: Within 24 hours
Subjective/Interval History
-
Date of Service: September 17, 2024
Seen and examined. Resting comfortably in bed. No complaints at this time. He is not sure which SNF he will be going to
Objective Data
-
Labs:
Laboratory Results
09/17/24
07:26
WBC 4.6 L
Hgb 8.0 L
Hct 23.9 L
Plt Count 91 L
Sodium 134 L
Potassium 4.1
Chloride 100
Carbon Dioxide 28
BUN 14
Creatinine 1.2
Glucose 96
Calcium 8.4
Vital Signs:
Vital Signs
Temp Pulse Resp BP Pulse Ox
99.1 F 65 18 158/70 98
09/17/24 07:30 09/17/24 07:38 09/17/24 07:30 09/17/24 07:38 09/17/24 07:30
I&O
09/16/24 09/17/24 09/18/24
06:59 06:59 06:59
Intake Total 1650 / 1650 960 / 960
Output Total 1900 / 1900 1625 / 1625
Balance -250 / -250 -665 / -665
[2024-09-17] MEDS: PATIENT'S OWN INSULIN PUMP 4.16 UNITS SC (14:33)
[2024-09-17 15:27] VITALS: BP 157/67
[2024-09-17] MEDS: FOLVITE 1 MG PO (15:38)
[2024-09-17] MEDS: ATIVAN 1 MG PO (15:38)
[2024-09-17] MEDS: CYMBALTA DELAYED RELEASE 60 MG PO (15:38)
[2024-09-17] MEDS: PROTONIX 40 MG PO (15:38)
[2024-09-17 16:49] LABS: Glucose - Point of Care 159 mg/dl (70-99)
[2024-09-17] MEDS: NOVOLOG FLEXPEN 4 UNITS SC (16:52)
[2024-09-17] MEDS: HUMULIN N KWIKPEN 15 UNITS SC (16:52)
[2024-09-17] MEDS: NOVOLOG FLEXPEN-LOW RESISTANCE 1 UNITS SC (16:53)
[2024-09-17] MEDS: DESYREL 50 MG PO (20:34)
[2024-09-17 21:45] LABS: Glucose - Point of Care 160 mg/dl (70-99)
[2024-09-17 23:27] VITALS: BP 159/77
[2024-09-18] MEDS: DILAUDID 1 MG IV ×3 (02:57→14:59)
[2024-09-18 07:13] LABS: Glucose - Point of Care 106 mg/dl (70-99)
[2024-09-18 07:35] VITALS: BP 142/54
[2024-09-18 07:52] LABS: Hematocrit 21.8 % (39.0-52.0); Hemoglobin 7.4 g/dL (13.0-18.0); Mean Corp Hgb Conc. 33.9 g/dL (33.0-37.0); Mean Corpuscular Hgb 27.1 pg (27.0-31.0); Mean Corpuscular Volume 79.9 fL (80.0-94.0); Mean Platelet Volume 12.4 fL (7.4-10.4); Platelet Count 94 10^3/uL (130-400); Red Blood Cell Count 2.73 10^6/uL (4.70-6.10); White Blood Cell Count 4.7 10^3/uL (4.8-10.8)
--- NOTE | 2024-09-18 08:01 | W.PN.UPDATE ---
Update Note
Progress Note Update
Patient seen for re eval of incisions B/L feet. He is POD #6 S/P Left 1st ray and right 2nd ray amps.
Pt seen resting comfortably, however, he states that he gets 'horrible sudden shooting pains' to his feet unexpectedly and intermittently
Incisions right and left foot remain well co-apted. No drainage or sign of infection. Ecchymotic area to the left foot persists, but is not blistered and is warm to touch
A/P DM2 with PAD and gangrene S/P amp left 1st and right 2nd ray
DM2 with DPN- on Gabapentin 600mg po TID. Pt states pain management also had him on Pregabalin and he believes this combo provided greater pain management
Chronic pain - as above, medicine managing
Anemia- Hgb 8mg/dL, improved since admission w/transfusion 1u
Pt is stable from my standpoint for DC
--- NOTE | 2024-09-18 08:02 | PN.DE.MGMTRT ---
Insulin Management
- -
09/18/2024: Diabetes Insulin pump Management Follow up
Patient admitted 09/11 at request of his marketing consultant, Dr. Cruz, due to worsening of wounds L great toe and R second toe. Patient was seen on previous admission by our team for diabetes management. PMH: HTN PAD, Neuropathy, COPD, Anemia and T2DM,
s/p RLE arteriogram with balloon angio R dorsalis pedis and anterior tibial arteries 08/22 and left lower extremity arteriogram, SFA stents x 2. A1C from last admission, 08/21, was 8.2%.
Pt is awake, alert, oriented, sitting on side of bed consuming breakfast, offers no complaints, able to discuss diabetes management. Prior to admission and until 09/17 was using Tandem T-Slim insulin pump, Humalog insulin and Dexcom G7 prior to
admission. He routinely sees Dr. Vaca for diabetes care.
POD # 6 s/p amputation R 2nd toe and L great toe.
Pt's insulin pump has been discontinued, he ran out insulin and pump supplies and does not have a family member to bring him any new supplies at the moment.
Received NPH and novolog with dinner. Fasting glucose this AM 106. To start Lantus 20 units, 1st dose this AM with AC novolog 4 units and low corrective.
Glucose stable @ HS 160. 6/2 range 108 to 160.
Patient to resume insulin pump when supplies are brought in or when returns home.
Pump settings as follows:
Basal Correction CHO ratio target
12AM 1 1:30 1:14 110
3AM 1 1:30 1:14 110
6am .975 1:30 1:13 110
12PM 1 1:30 1:13 110
8pm 1 1:30 1:13 110
24 hour basal total units 23.85.
Will make no change to pump settings.
Discussed with nurse.
Will cont to follow
Diabetes History
- -
Type of Diabetes: 2 requiring insulin
Pre-Admission Diabetes Regimen
06/02/25
07:26
Creatinine 1.2
Insulin Pump Settings
IP Diabetes Regimen
09/17/24 09/17/24 09/17/24
07:26 11:38 16:42
Glucose 96
POC Glucose 150 H 159 H
09/17/24 09/18/24
21:44 07:09
Glucose
POC Glucose 160 H 106 H
Meal type: Lunch
Meal type: Breakfast
Amount consumed: 100%
Amount consumed: 100%
Patient Education
[2024-09-18] MEDS: NOVOLOG FLEXPEN-LOW RESISTANCE SC (08:49)
[2024-09-18] MEDS: NOVOLOG FLEXPEN 4 UNITS SC ×3 (08:49→16:50)
[2024-09-18] MEDS: ELIQUIS 5 MG PO ×2 (08:50→20:14)
[2024-09-18] MEDS: CEFTIN 500 MG PO ×2 (08:50→20:14)
[2024-09-18] MEDS: PLAVIX 75 MG PO (08:50)
[2024-09-18] MEDS: FLOMAX 0.4 MG PO (08:50)
[2024-09-18] MEDS: LIPITOR 40 MG PO (08:50)
[2024-09-18] MEDS: ZESTRIL 40 MG PO (08:50)
[2024-09-18] MEDS: DOLOPHINE 10 MG PO ×2 (08:50→20:15)
[2024-09-18] MEDS: LYRICA 50 MG PO ×3 (08:51→20:16)
[2024-09-18] MEDS: LOW STRENGTH ASPIRIN 81 MG PO (08:51)
[2024-09-18] MEDS: COLACE 100 MG PO ×2 (08:51→20:13)
[2024-09-18] MEDS: NORVASC 10 MG PO (08:51)
[2024-09-18] MEDS: LANTUS 0.2 UNITS SC (08:51)
[2024-09-18] MEDS: VIBRAMYCIN 100 MG PO ×2 (08:51→20:14)
[2024-09-18 09:07] LABS: Blood Urea Nitrogen 15 mg/dl (9-20); Carbon Dioxide 23 mmol/L (22-30); Chloride 101 mmol/L (98-107); Estimated Creatinine Clearance 51 ml/min; Glucose 77 mg/dl (70-99); Potassium 3.9 mmol/L (3.5-5.1); Sodium 132 mmol/L (135-145); eGFR > 60.00
[2024-09-18 11:44] LABS: Glucose - Point of Care 184 mg/dl (70-99)
--- NOTE | 2024-09-18 12:11 | CM ---
Addendum entered by Maria C Guerrero RN 09/18/24 17:22:
Toya at [facility] said she has no bed .Spoke with tom Chandra [phone] she gave additional SNF and were placed in care port .
Khadra Jacob ,Beatriz Levine,[facility] in care port.
PLAN Identify SNF
Original Note:
PT OT evals indicated SNF.
Tom Chandra [phone] had requested SNF referral placed .
Toya from [facility] did answer and said send update in care port Nursing will look at referral.
Awaiting SNF response
Pt has offloading boots .
IMM reviewed with pt yesterday and IMM signed on chart.
PLAN TO SNF
[2024-09-18] MEDS: NOVOLOG FLEXPEN-LOW RESISTANCE 1 UNITS SC (12:32)
[2024-09-18] MEDS: ROXICODONE 5 MG PO ×3 (12:33→22:19)
--- NOTE | 2024-09-18 14:51 | W.PN.HOSP.TC ---
Today's Communication/Plan
-
Pending placement for discharge
Assessment / Plan
Assessment / Plan
Impression:
68-year-old male with past medical history significant for hypertension, PAD, type 2 diabetes, neuropathy, COPD and anemia who presented to [facility] ER at request of podiatry, Dr. Cruz, for IV antibiotics and amputation of the left
great toe and right second toe after failed out patient treatment. Patient with recent placement of superficial femoral artery stents x 2 and balloon angioplasty of the right dorsalis pedis and right anterior tibial artery. Patient states there is
pain to affected toes, denies any associated fevers.
S/p right partial 2nd ray and left partial 1st ray amp.
Physical still recommending rehab.
Antibiotics switched to oral, pain medication switched to oral.
Eliquis/aspirin/Plavix resumed, hemoglobin stayed stable.
Discharge to rehab once bed available.
Assessment/plan:
PAD/lower extremity digital gangrene -left Big toe, right second toe
S/p right partial 2nd ray and left partial 1st ray amp.
No osteomyelitis noted on x-ray.
Aspirin/Eliquis and Plavix initially placed on hold, now resumed.
Continue atorvastatin.
Continue analgesics plan to transition to oxy 10 and 5 on discharge
Acute on chronic microcytic anemia.
Acute blood loss anemia.
Monitor hemoglobin.
Transfuse if needed.
resumed Aspirin/Eliquis and Plavix.
Acute kidney injury
Creatinine stable, improved
Monitor daily BMP
Urinary retention
con continue Flomax
History of diabetes mellitus
Continue insulin pump
Insulin sliding scale
Diabetic diet
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
History of hypertension
Continue home meds
- continue amlodipine
- resumed lisinopril
neuropathy
- continue duloxetine, gabapentin, methadone and pregabalin
depression/anxiety
- continue duloxetine and lorazepam
- continue trazodone
COPD
No acute exacerbation
CODE STATUS: Full code
DVT prophylaxis: Lovenox
Diet: DM
Disposition: Medically cleared for discharge
Anticipated Discharge: Today
Subjective/Interval History
-
Date of Service: September 18, 2024
Seen and examined. No new complaints. No acute overnight events.
Objective Data
-
Labs:
Laboratory Results
09/18/24
05:57
WBC 4.7 L
Hgb 7.4 L
Hct 21.8 L
Plt Count 94 L
Sodium 132 L
Potassium 3.9
Chloride 101
Carbon Dioxide 23
BUN 15
Creatinine 1.1
Glucose 77
Calcium 8.0 L
Vital Signs:
Vital Signs
Temp Pulse Resp BP Pulse Ox
98.4 F 71 16 142/54 98
09/18/24 07:35 09/18/24 08:50 09/18/24 07:35 09/18/24 08:50 09/18/24 09:10
I&O
09/17/24 09/18/24 09/19/24
06:59 06:59 06:59
Intake Total 960 / 960 2340 / 2340
Output Total 1625 / 1625 1125 / 1125
Balance -665 / -665 1215 / 1215
[2024-09-18] MEDS: ATIVAN 1 MG PO (14:58)
[2024-09-18] MEDS: PROTONIX 40 MG PO (14:58)
[2024-09-18] MEDS: CYMBALTA DELAYED RELEASE 60 MG PO (14:58)
[2024-09-18] MEDS: FOLVITE 1 MG PO (14:59)
[2024-09-18 15:15] VITALS: BP 137/57
[2024-09-18 16:43] LABS: Glucose - Point of Care 342 mg/dl (70-99)
[2024-09-18] MEDS: NOVOLOG FLEXPEN-LOW RESISTANCE 4 UNITS SC (16:50)
[2024-09-18] MEDS: DESYREL 50 MG PO (20:14)
[2024-09-18 21:30] LABS: Glucose - Point of Care 270 mg/dl (70-99)
[2024-09-18 23:21] VITALS: BP 144/67
[2024-09-19] MEDS: DILAUDID 1 MG IV ×2 (04:35→13:07)
--- NOTE | 2024-09-19 07:29 | PN.DE.MGMTRT ---
Insulin Management
- -
09/19/2024: Diabetes Insulin pump Management Follow up
Patient admitted 09/11 at request of his skin care therapist, Dr. Cruz, due to worsening of wounds L great toe and R second toe. Patient was seen on previous admission by our team for diabetes management. PMH: HTN PAD, Neuropathy, COPD, Anemia and T2DM,
s/p RLE arteriogram with balloon angio R dorsalis pedis and anterior tibial arteries / and left lower extremity arteriogram, SFA stents x 2. A1C from last admission, 08/21, was 8.2%.
Pt is awake, alert, oriented, sitting on side of bed consuming breakfast, offers no complaints, able to discuss diabetes management. Prior to admission and until 09/17 was using Tandem T-Slim insulin pump, Humalog insulin and Dexcom G7 prior to
admission. He routinely sees Dr. Vaca for diabetes care.
POD # 7 s/p amputation R 2nd toe and L great toe.
Pt's insulin pump has been discontinued, he ran out insulin and pump supplies and does not have a family member to bring him any new supplies at the moment.
Continues 09/19 with no pump supplies. 6/ pre dinner glucose 342, HS 270. Fasting glucose this AM 139. Diet was ordered 2200 calories, patient is 5'2, reduced diet to 1800 calories. Will continue Lantus 20 units AM with increased dose of AC
novolog to 6 units and low corrective.
Glucose elevated /3 range 106 to 342.
Patient to resume insulin pump when supplies are brought in or when returns home.
Pump settings as follows:
Basal Correction CHO ratio target
12AM 1 1:30 1:14 110
3AM 1 1:30 1:14 110
6am .975 1:30 1:13 110
12PM 1 1:30 1:13 110
8pm 1 1:30 1:13 110
24 hour basal total units 23.85.
Will make no change to pump settings.
Discussed with nurse.
Will cont to follow
Diabetes History
- -
Type of Diabetes: 1
Pre-Admission Diabetes Regimen
09/18/24
05:57
Creatinine 1.1
Insulin Pump Settings
IP Diabetes Regimen
09/18/24 09/18/24 09/18/24
05:57 11:38 16:40
Glucose 77
POC Glucose 184 H 342 H
09/18/24
21:28
Glucose
POC Glucose 270 H
Meal type: Lunch
Meal type: Breakfast
Amount consumed: 100%
Amount consumed: 100%
Patient Education
[2024-09-19 08:03] LABS: Glucose - Point of Care 139 mg/dl (70-99)
[2024-09-19 08:06] VITALS: BP 133/78
[2024-09-19] MEDS: NOVOLOG FLEXPEN-LOW RESISTANCE SC ×3 (08:41→16:37)
[2024-09-19] MEDS: LANTUS 0.2 UNITS SC (08:41)
[2024-09-19] MEDS: PLAVIX 75 MG PO (08:42)
[2024-09-19] MEDS: ROXICODONE 5 MG PO (08:42)
[2024-09-19] MEDS: LIPITOR 40 MG PO (08:42)
[2024-09-19] MEDS: CEFTIN 500 MG PO (08:42)
[2024-09-19] MEDS: ELIQUIS 5 MG PO (08:42)
[2024-09-19] MEDS: LOW STRENGTH ASPIRIN 81 MG PO (08:42)
[2024-09-19] MEDS: DOLOPHINE 10 MG PO (08:43)
[2024-09-19] MEDS: LYRICA 50 MG PO ×2 (08:43→15:29)
[2024-09-19] MEDS: COLACE 100 MG PO (08:43)
[2024-09-19] MEDS: VIBRAMYCIN 100 MG PO (08:43)
[2024-09-19] MEDS: FLOMAX 0.4 MG PO (08:43)
[2024-09-19] MEDS: ZESTRIL 40 MG PO (08:43)
[2024-09-19] MEDS: NOVOLOG FLEXPEN 6 UNITS SC ×3 (08:43→16:58)
[2024-09-19] MEDS: NORVASC 10 MG PO (08:43)
--- NOTE | 2024-09-19 11:23 | CM ---
CM following for discharge to SNF. [facility] and [facility] are considering. [facility] offered admission, however feels it is too far for her to visit. [facility] is preferred by pt's .
Plan: Discharge to SNF once [facility] and [facility] have responded.
[2024-09-19 11:59] LABS: Glucose - Point of Care 89 mg/dl (70-99)
--- NOTE | 2024-09-19 13:11 | W.PN.HOSP.TC ---
Today's Communication/Plan
-
Pending SNF
Assessment / Plan
Assessment / Plan
Impression:
68-year-old male with past medical history significant for hypertension, PAD, type 2 diabetes, neuropathy, COPD and anemia who presented to [facility] ER at request of podiatry, Dr. Cruz, for IV antibiotics and amputation of the left
great toe and right second toe after failed out patient treatment. Patient with recent placement of superficial femoral artery stents x 2 and balloon angioplasty of the right dorsalis pedis and right anterior tibial artery. Patient states there is
pain to affected toes, denies any associated fevers.
S/p right partial 2nd ray and left partial 1st ray amp.
Physical still recommending rehab.
Antibiotics switched to oral, pain medication switched to oral.
Eliquis/aspirin/Plavix resumed, hemoglobin stayed stable.
Discharge to rehab once bed available.
Assessment/plan:
PAD/lower extremity digital gangrene -left Big toe, right second toe
S/p right partial 2nd ray and left partial 1st ray amp.
No osteomyelitis noted on x-ray.
Aspirin/Eliquis and Plavix initially placed on hold, now resumed.
Continue atorvastatin.
Continue analgesics plan to transition to oxy 10 and 5 on discharge
Acute on chronic microcytic anemia.
Acute blood loss anemia.
Monitor hemoglobin.
Transfuse if needed.
resumed Aspirin/Eliquis and Plavix.
Acute kidney injury
Creatinine stable, improved
Monitor daily BMP
Urinary retention
con continue Flomax
History of diabetes mellitus
Continue insulin pump
Insulin sliding scale
Diabetic diet
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
History of hypertension
Continue home meds
- continue amlodipine
- resumed lisinopril
neuropathy
- continue duloxetine, gabapentin, methadone and pregabalin
depression/anxiety
- continue duloxetine and lorazepam
- continue trazodone
COPD
No acute exacerbation
CODE STATUS: Full code
DVT prophylaxis: Lovenox
Diet: DM
Disposition: Medically cleared for discharge
Anticipated Discharge: Today
Subjective/Interval History
-
Date of Service: September 19, 2024
Seen and examined. No new complaints. No acute overnight events.
Objective Data
-
Vital Signs:
Vital Signs
Temp Pulse Resp BP Pulse Ox
98 F 81 18 133/78 98
09/19/24 08:06 09/19/24 08:43 09/19/24 08:06 09/19/24 08:43 09/19/24 09:00
I&O
09/18/24 09/19/24 09/20/24
06:59 06:59 06:59
Intake Total 2340 / 2340 1200 / 1200
Output Total 1125 / 1125 1475 / 1475 400 / 400
Balance 1215 / 1215 -275 / -275 -400 / -400
--- NOTE | 2024-09-19 14:06 | CM ---
Jd has been accepted for transfer to [facility] today. Ambulance transport [facility] for [facility] and provided to [employer] for coordination of transport time.
Plan: Transfer to [facility] via ambulance today.
[facility] Report: [phone]
[facility]
--- NOTE | 2024-09-19 15:17 | W.DCSUMMARY ---
Discharge Summary
Discharge Data
Date of Admission: 09/11/24
Date of Discharge: 09/19/24
-
Pending Results: No
Hospital Course
68-year-old male with past medical history significant for hypertension, PAD, type 2 diabetes, neuropathy, COPD and anemia
Presented from podiatry office for IV antibiotics amputation of left great toe and right second toe after failed outpatient treatment. Was evaluated by vascular surgery prior ED should as recently had undergone staged left and right lower extremity
arteriogram by vascular surgery. Despite that there is continuance dry gangrene of the left hallux and right second digit. X-rays did not demonstrate osteomyelitis. Eliquis and Plavix was placed on hold preop. Was taken to the OR on 09/12/2024 for
right second toe including metatarsal head amputation and left great toe partial first ray amputation. Will continue antiobitics on discharge with ceftin and doxy for additional 5 more days. Postoperatively was evaluated by physical therapy and
recommended SNF.
Should be noted on the day of admission did receive 1 unit of PRBC for hemoglobin of 7.1.
Discharge Plan
-
Patient Disposition: Half-Way/SNF
Discharge Diagnosis/Procedures: lower extremity digital gangrene -left Big toe, right second toe S/p right partial 2nd ray and left partial 1st ray amp.
Anemia.
Diabetes.
Hypertension.
Diet: Diabetic, Carb Controlled
Additional Diets: Recommend Ensure protein drinks 1-2x per day; Mendez drink supplement for wound healing 2- 8oz glasses per day
Activity: With assistance and As tolerated
Other Services: PT and OT
Wound Care: Gently cleanse incisions right and left foot amp sites with nss, pat dry, cover with mepilex foam dressing every other day
Activity Restrictions/Additional Instructions:
Presented from podiatry office for IV antibiotics amputation of left great toe and right second toe after failed outpatient treatment. Was evaluated by vascular surgery prior ED should as recently had undergone staged left and right lower extremity
arteriogram by vascular surgery. Despite that there is continuance dry gangrene of the left hallux and right second digit. X-rays did not demonstrate osteomyelitis Eliquis Plavix was placed on hold. Was taken to the OR on 09/12/2024 for right
second toe including metatarsal head amputation and left great toe partial first ray amputation. Postoperatively was evaluated by physical therapy and recommended SNF.
Should be noted on the day of admission did receive 1 unit of PRBC for hemoglobin of 7.1.
Referrals:
Lei Dee DO [Family Provider, Family Practice]
Amelia Cruz DPM [Active, Podiatry] - in one to two weeks
Sandy Barraza CRNP [Specified Professional Personl, Vascular Surgery] - 09/26/24 9:30 am
Additional Discharge Medication Instructions: On 09/21/2024 you are to STOP plavix 75 mg by mouth daily. You will continue taking your Eliquis 5mg by mouth twice a day but also with Aspirin 81mg PO daily, you can buy this over the counter.
Prescriptions:
New
docusate sodium 100 mg Capsule
100 mg PO BID Qty: 10 0RF
cefuroxime axetil 500 mg Tablet
500 mg PO BID 5 Days Qty: 10 0RF
aspirin 81 mg Tablet,Chewable
81 mg PO DAILY Qty: 30 0RF
doxycycline hyclate 100 mg Capsule
100 mg PO Q12 Qty: 10 0RF
clopidogrel 75 mg Tablet
75 mg PO DAILY Qty: 2 0RF
oxycodone 5 mg Tablet
5 mg PO Q4HPRN PRN (Reason: moderate pain) 3 Days Qty: 12 0RF
oxycodone 10 mg tablet
10 mg PO BID PRN (Reason: Pain) 3 Days Qty: 14 0RF
Continued
pantoprazole 40 MG tablet,delayed release (DR/EC)
40 mg PO DAILY@1500
folic acid 1 MG tablet
1 mg PO DAILY@1500
trazodone 50 mg Tablet
50 mg PO HS
lisinopril 40 mg Tablet
40 mg PO DAILY
atorvastatin 40 mg Tablet
40 mg PO DAILY
lorazepam 1 mg Tablet
1 mg PO DAILY@1500
duloxetine 60 mg Capsule,Delayed Release(Dr/Ec)
60 mg PO DAILY@1500
Eliquis 5 mg Tablet
5 mg PO BID 30 Days Qty: 60 0RF
pregabalin [Lyrica] 300 MG capsule
300 mg PO TID 30 Days Qty: 90 0RF
methadone 10 mg Tablet
10 mg PO BID
tamsulosin [Flomax] 0.4 mg Capsule
0.4 mg PO DAILY
amlodipine [Norvasc] 10 mg Tablet
10 mg PO DAILY
gabapentin 300 mg Capsule
600 mg PO TID
cholecalciferol (vitamin D3) [Vitamin D3] 50 mcg (2,000 unit) Capsule
50 mcg PO DAILY
Patient's Own Insulin Pump
ACHS
Patient Comments:
Humalog
Discontinued
clopidogrel [Plavix] 75 mg tablet
75 mg PO DAILY 30 Days Qty: 30 5RF
Discharge Orders:
Discharge Patient (As Directed); Ordered 09/19/24
Ordered By: Jamin Ahn
Discharge Date and Time
Print Language: DIVEHI
[2024-09-19] MEDS: PROTONIX 40 MG PO (15:28)
[2024-09-19] MEDS: FOLVITE 1 MG PO (15:28)
[2024-09-19] MEDS: CYMBALTA DELAYED RELEASE 60 MG PO (15:29)
[2024-09-19] MEDS: ATIVAN 1 MG PO (15:29)
[2024-09-19 15:51] VITALS: BP 163/73
[2024-09-19 16:34] LABS: Glucose - Point of Care 80 mg/dl (70-99)
== END 2024-09-19 19:19 | DRG 240 ==
LOC: 4 EAST ACU 15:23
PROVIDERS: General Practice; Nurse Practitioner Family; Physician Assistant Medical; ADMITTING PHYSICIAN Internal Medicine; ATTENDING PHYSICIAN Hospitalist; CONSULT PHYSICIAN Podiatrist Foot & Ankle Surgery; EMERGENCY PHYSICIAN Emergency Medicine; FAMILY PHYSICIAN Family Medicine; OTHER PHYSICIAN Surgery Vascular Surgery
PROC: 30233N1 Transfusion of Nonautologous Red Blood Cells into Peripheral Vein, Percutaneous Approach (ICD-10-PCS; 2024-09-11)
PROC: 0Y6N0Z9 Detachment at Left Foot, Partial 1st Ray, Open Approach (ICD-10-PCS; 2024-09-12)
PROC: 0Y6M0ZB Detachment at Right Foot, Partial 2nd Ray, Open Approach (ICD-10-PCS; 2024-09-12)
DX: E11.52 Type 2 diabetes mellitus with diabetic peripheral angiopathy with gangrene (principal); D62 Acute posthemorrhagic anemia; E87.1 Hypo-osmolality and hyponatremia; I70.261 Atherosclerosis of native arteries of extremities with gangrene, right leg; I70.262 Atherosclerosis of native arteries of extremities with gangrene, left leg; L97.528 Non-pressure chronic ulcer of other part of left foot with other specified severity; L97.518 Non-pressure chronic ulcer of other part of right foot with other specified severity; N17.9 Acute kidney failure, unspecified; E11.42 Type 2 diabetes mellitus with diabetic polyneuropathy; E11.22 Type 2 diabetes mellitus with diabetic chronic kidney disease; E78.00 Pure hypercholesterolemia, unspecified; N18.30 Chronic kidney disease, stage 3 unspecified; I12.9 Hypertensive chronic kidney disease with stage 1 through stage 4 chronic kidney disease, or unspecified chronic kidney disease; E11.621 Type 2 diabetes mellitus with foot ulcer; R33.9 Retention of urine, unspecified; G89.29 Other chronic pain; J44.9 Chronic obstructive pulmonary disease, unspecified; D50.9 Iron deficiency anemia, unspecified; F32.A Depression, unspecified; F41.9 Anxiety disorder, unspecified; F17.200 Nicotine dependence, unspecified, uncomplicated; F11.90 Opioid use, unspecified, uncomplicated; E11.649 Type 2 diabetes mellitus with hypoglycemia without coma; Z96.41 Presence of insulin pump (external) (internal); Z79.4 Long term (current) use of insulin; Z95.820 Peripheral vascular angioplasty status with implants and grafts; Z79.02 Long term (current) use of antithrombotics/antiplatelets; Z79.01 Long term (current) use of anticoagulants
CPT/HCPCS: 88305; 88311; 73620; 80048; 80202; 82962; 85025; 85027; 85610; 85652; 85730; 86140; 86850; 86900; 86901; 86920; 93005; 93922; 93925; 93926; 93971; 96374; 96375; 97116; 97163; 97167; 97530; 97535; 99284; 99406; P9016

== ENCOUNTER → 2024-09-24 11:05 | Outpatient (REF) | payer OTHER, MEDICARE, SELFPAY ==
[2024-09-24 13:18] LABS: Blood Urea Nitrogen 21 mg/dl (9-20); Calcium 8.5 mg/dl (8.4-10.2); Carbon Dioxide 24 mmol/L (22-30); Chloride 100 mmol/L (98-107); Glucose 193 mg/dl (70-99); Potassium 4.3 mmol/L (3.5-5.1); Sodium 128 mmol/L (135-145); eGFR > 60.00
[2024-09-24 13:24] LABS: % Basophils 0.7 % (0-2); % Eosinophils 6.2 % (0-6); % Immature Granulocytes 0.2 % (0-0.5); % Lymphocytes 28.3 % (20.5-51.1); % Monocytes 11.3 % (1.7-9.3); % Neutrophils 53.3 % (42.2-75.2); Absolute Eosinophils 0.3 10^3/uL (0-0.7); Absolute Lymphocytes 1.3 10^3/uL (1.2-3.4); Absolute Monocytes 0.5 10^3/uL (0.1-0.6); Absolute Neutrophils 2.4 10^3/uL (1.4-6.5); Hematocrit 20.3 % (39.0-52.0); Hemoglobin 6.8 g/dL (13.0-18.0); Mean Corp Hgb Conc. 33.5 g/dL (33.0-37.0); Mean Corpuscular Hgb 26.3 pg (27.0-31.0); Mean Corpuscular Volume 78.4 fL (80.0-94.0); Mean Platelet Volume 11.8 fL (7.4-10.4); Nucleated Red Blood Cells % 0 % (-); Platelet Count 110 10^3/uL (130-400); Red Blood Cell Count 2.59 10^6/uL (4.70-6.10); Red Cell Dist. Width 14.9 % (11.5-14.5); White Blood Cell Count 4.5 10^3/uL (4.8-10.8)
[2024-09-24 15:23] LABS: % Basophils 0.5 % (0-2); % Immature Granulocytes 0.5 % (0-0.5); % Lymphocytes 17.9 % (20.5-51.1); % Monocytes 9.7 % (1.7-9.3); % Neutrophils 65.4 % (42.2-75.2); Absolute Eosinophils 0.3 10^3/uL (0-0.7); Absolute Monocytes 0.5 10^3/uL (0.1-0.6); Absolute Neutrophils 3.6 10^3/uL (1.4-6.5); Hematocrit 21.4 % (39.0-52.0); Hemoglobin 7.2 g/dL (13.0-18.0); Mean Corp Hgb Conc. 33.6 g/dL (33.0-37.0); Mean Corpuscular Hgb 26.5 pg (27.0-31.0); Mean Corpuscular Volume 78.7 fL (80.0-94.0); Mean Platelet Volume 12.1 fL (7.4-10.4); Nucleated Red Blood Cells % 0 % (-); Platelet Count 126 10^3/uL (130-400); Red Blood Cell Count 2.72 10^6/uL (4.70-6.10); Red Cell Dist. Width 14.8 % (11.5-14.5); White Blood Cell Count 5.5 10^3/uL (4.8-10.8)
== END ==
LOC: OLABP 11:05
PROVIDERS: ATTENDING PHYSICIAN Family Medicine
DX: Z47.81 Encounter for orthopedic aftercare following surgical amputation (principal); I96 Gangrene, not elsewhere classified; I70.222 Atherosclerosis of native arteries of extremities with rest pain, left leg; I73.9 Peripheral vascular disease, unspecified; E11.52 Type 2 diabetes mellitus with diabetic peripheral angiopathy with gangrene; N18.31 Chronic kidney disease, stage 3a; N17.9 Acute kidney failure, unspecified
CPT/HCPCS: 36415; 80048; 85025

== ENCOUNTER → 2024-09-26 09:50 | Outpatient (REF) | payer OTHER, MEDICARE, SELFPAY ==
[2024-09-26 11:20] LABS: Iron 29 ug/dl (49-181)
[2024-09-26 11:30] LABS: Percent Saturation 12 % (20-50); Total Iron Binding Capacity 240 ug/dl (261-462)
[2024-09-26 13:05] LABS: Ferritin 56.1 ng/ml (17.9-464.0)
[2024-09-26 13:37] LABS: Folate > 20.0 ng/ml (2.76-20); Vitamin B12 323 pg/ml (239-931)
== END ==
LOC: OLABP 09:50
PROVIDERS: ATTENDING PHYSICIAN Family Medicine
DX: Z47.81 Encounter for orthopedic aftercare following surgical amputation (principal); I96 Gangrene, not elsewhere classified; D69.6 Thrombocytopenia, unspecified
CPT/HCPCS: 36415; 82607; 82728; 82746; 83540; 83550

== ENCOUNTER 2024-10-01 18:01 | Inpatient (IN) | payer MEDICARE, SELFPAY ==
[2024-10-01] VITALS (10 sets, daily range): BP systolic 129–167; BP diastolic 54–66
[2024-10-01 15:51] LABS: % Eosinophils 6.3 % (0-6); % Immature Granulocytes 0.3 % (0-0.5); % Lymphocytes 24.9 % (20.5-51.1); % Monocytes 9.1 % (1.7-9.3); % Neutrophils 58.4 % (42.2-75.2); Absolute Eosinophils 0.3 10^3/uL (0-0.7); Absolute Monocytes 0.4 10^3/uL (0.1-0.6); Absolute Neutrophils 2.3 10^3/uL (1.4-6.5); Hematocrit 21.7 % (39.0-52.0); Hemoglobin 7.3 g/dL (13.0-18.0); Mean Corp Hgb Conc. 33.6 g/dL (33.0-37.0); Mean Corpuscular Hgb 26.3 pg (27.0-31.0); Mean Corpuscular Volume 78.1 fL (80.0-94.0); Mean Platelet Volume 12.7 fL (7.4-10.4); Nucleated Red Blood Cells % 0 % (-); Platelet Count 85 10^3/uL (130-400); Red Blood Cell Count 2.78 10^6/uL (4.70-6.10); Red Cell Dist. Width 14.7 % (11.5-14.5)
[2024-10-01 16:03] LABS: ALT (SGPT) 18 U/L (0-50); AST (SGOT) 22 U/L (17-59); Albumin 3.1 g/dl (3.5-5.0); Alkaline Phosphatase 96 U/L (38-126); Blood Urea Nitrogen 18 mg/dl (9-20); Calcium 8.4 mg/dl (8.4-10.2); Carbon Dioxide 24 mmol/L (22-30); Chloride 99 mmol/L (98-107); Glucose 188 mg/dl (70-99); Potassium 4.5 mmol/L (3.5-5.1); Sodium 128 mmol/L (135-145); Total Bilirubin 0.3 mg/dl (0.2-1.3); Total Protein 5.5 g/dl (6.3-8.2); eGFR > 60.00
--- NOTE | 2024-10-01 16:43 | ED.GENMED ---
History of Present Illness
General
Chief Complaint: Abnormal Lab Value
Source: patient
Exam Limitations: none
Time Seen by Provider: 10/01/24 15:48
Nursing documentation reviewed up to this point in time: agreed with
History of Present Illness
History of Present Illness:
see MDM
Past History
Past History
ED Past Medical History: HTN, Hypercholesterolemia, IDDM, Psychiatric and Other (Ankle abuse)
ED Past Surgical History: None
Social History
Tobacco: Non-smoker
Alcohol: Chronic alcoholic
Drug: None
Personal:
Living: with family
Review of Systems
Review of Systems
Allergies reviewed?: Yes
All Other Systems: Not applicable
Phy Exam
Physical Exam
Physical Exam:
GENERAL: Alert , in no apparent distress
EYE: pupils equal and reactive
NECK: Supple
ENT: o/p clr, mmm.
CARDIAC: Regular rate and rhythm .
LUNGS: Clear breath sounds bilaterally, no acute respiratory distress, no wheezes/rales/rhonchi
ABDOMEN: Soft, without focal tenderness, no r/g, no cvat, normal bowel sounds
heme neg brown stool
NEUROLOGICAL: Alert and oriented, no focal neuro deficits
SKIN: Warm and dry, skin intact. VERY PALE; bruised arms
MUSCULOSKELETAL: moderate edema b/l LE L>R
incision sites of ambulations of both L great toe and R 2nd toe ansari intact, well healing
PSYCH: Normal and appropriate interaction.
Course
Orders/Labs/Results
Orders:
Orders
10/01/24 14:57
Type And Crossmatch [Type+Screen] Urgent
Complete Blood Count/With Diff Urgent
Comprehensive Metabolic Panel Urgent
10/01/24 Dinner
Cholesterol Lowering
At Your Request: Limited Participation
Fluid Restriction: 1500 mL/day (50 oz)
Cholesterol Lowerin hali/15 CHO Diabetic
10/01/24 16:54
* Blood Bank Products Urgent
Blood Bank Products: *Packed RBC Leuko(PRBC's)
Quantity: 1
Transfuse Today: Yes
Reason: Anemia
10/01/24 16:59
Oxycodone [Roxicodone] 5 mg PO NOW STA
10/01/24 17:37
Admit/Transfer Patient As Directed
Co-Sign Provider:
Level of Care: Inpatient admission
Assign to:: Telemetry
Physician / Group: Dr Ulrich
Diagnosis: PVD. Anemia
Reason for Telemetry: Arrhythmia
Date to Stop Telemetry: 10/04/24
Time to Stop Telemetry: 11:00
Reason for Hospitalization: Gangrene Toes. PVD. Anemia.
Expected length of stay greater than two midnights?: Yes
ELOS- Estimated Length of Stay in days: 2
I certify the patient meets the requirements for IP care: Yes
10/01/24 17:38
PRN Pain Medication Management As Directed
May give lesser potent ordered pain med per pt: Yes
preference::
Protocol:: Medication orders for pain may be administered in a
manner that supports deferring to patient preference
when the pt is:
- Requesting an ordered lesser potent pain medication.
Least to most potent pain medications are defined
as: acetaminophen < NSAID < tramadol < opioids
(morphine, oxycodone, hydromorphone).
- Requesting a lesser dose of the same medication IF
ORDERED.
- Requesting a less intrusive route of administration
if both routes are prescribed by the provider (PO <
IV).
10/01/24 17:41
Code Status As Directed
Resuscitation Status: Full Code
10/01/24 17:42
HYDROmorphone [Dilaudid] 1 mg IV Q3HPRN PRN
10/01/24 17:44
Vascular Surgery Consult Routine
Consulting Provider: Celia Isbell
Was physician already notified: Yes
Reason for consult: PVD eval
10/01/24 17:46
Dextrose 50%-Water [Dextrose 50% Syringe] 12.5 grams IV [id number] PRN
Glucagon [GlucaGen] 1 mg IM PRN PRN
Bedside Glucose Monitoring As Directed
Frequency: AC&HS
Additional Instructions:: Change to q6h if pt on TPN, tube feeding or not eating
10/01/24 17:51
HEMATOLOGY CONSULT Routine
Consulting Provider: Dillan Marks
Was physician already notified: Yes
Reason for consult: Anemia/pancytopenia eval
HydrALAZINE [Apresoline] 10 mg IV Q6HPRN PRN
10/01/24 17:58
Ipratropium/Albuterol Sulfate [Duoneb] 3 ml INH R Q4HPRN PRN
10/01/24 18:44
Acetaminophen [Tylenol] 650 mg PO Q4HPRN PRN FEVER>100F/MILD PAIN(1-4/10) ON PAIN SCALE
Bisacodyl [Dulcolax] 10 mg RECTAL [id number] PRN
Docusate W/Senna [Senokot-S] 1 tablet PO BIDPRN PRN
Oxycodone [Roxicodone] 10 mg PO [id number] PRN SEVERE PAIN
Oxycodone [Roxicodone] 5 mg PO Q4HPRN PRN MODERATE/BREAKTHROUGH PAIN
Polyethylene Glycol Powder [Miralax] 17 grams PO DAILYPRN PRN
10/01/24 18:44
Activity As Directed
Activity Level: Out of Bed-Early Mobility
Pneumatic Compression Sleeves As Directed
Type: Knee high
Vital Signs As Directed
Frequency: Per unit guidelines
DX Deep Vein Thrombosis Video Routine
10/01/24 19:14
Osmolality, Random Urine Urgent
Date Specimen was Collected: 10/01/24
Time Specimen was Collected: 19:12
Urine Sodium Urgent
Date Specimen was Collected: 10/01/24
Time Specimen was Collected: 19:12
10/01/24 20:00
Methadone [Dolophine] 10 mg PO BID
Piperacillin/Tazo 3.375 Gram [Zosyn] 3.375 gram in 50 ml IV Q6H
Sodium Chloride 1 gram PO BID
10/01/24 22:00
Atorvastatin [Lipitor] 40 mg PO HS
Gabapentin [Neurontin] 600 mg PO TID
Insulin Glargine Lantus [Lantus] 10 units Subcutaneous Insulin Syringe [Syringe-Insulin] 0 unit SC HS
Pregabalin [Lyrica] 100 mg PO TID
Tamsulosin [Flomax] 0.4 mg PO HS
Trazodone [Desyrel] 50 mg PO HS
10/02/24 06:29
Complete Blood Count/With Diff IN AM
Glycohemoglobin (HgbA1c) IN AM
10/02/24 07:30
Insulin Aspart Corrective Mod [Novolog Flexpen-Moderate Resistance] See Protocol SC AC
10/02/24 08:00
Amlodipine [Norvasc] 10 mg PO DAILY
FOLic ACID [Folvite] 1 mg PO DAILY
Ferrous Sulfate [Feosol] 325 mg PO DAILY
Lisinopril [Zestril] 40 mg PO DAILY
10/02/24 12:00
Clonidine [Catapres] 0.1 mg PO NOON
Lorazepam [Ativan] 1 mg PO NOON
Pantoprazole [Protonix] 40 mg PO NOON
10/04/24 11:00
DC Protocol for Telemetry ONCE
Abnormal Lab Results
10/01/24
14:57
WBC 4.0 L 10^3/uL
(4.8-10.8)
RBC 2.78 L 10^6/uL
(4.70-6.10)
Hgb 7.3 L g/dL
(13.0-18.0)
Hct 21.7 L %
(39.0-52.0)
MCV 78.1 L fL
(80.0-94.0)
MCH 26.3 L pg
(27.0-31.0)
RDW 14.7 H %
(11.5-14.5)
Plt Count 85 L 10^3/uL
(130-400)
MPV 12.7 H fL
(7.4-10.4)
Absolute Lymphs (auto) 1.0 L 10^3/uL
(1.2-3.4)
Eosinophils % 6.3 H %
(0-6)
Sodium 128 L mmol/L
(135-145)
Glucose 188 H mg/dl
(70-99)
Total Protein 5.5 L g/dl
(6.3-8.2)
Albumin 3.1 L g/dl
(3.5-5.0)
Crossmatch IS Only See Detail
10/01/24 14:57
10/01/24 14:57
Vital Signs
Initial and Last Documented VS:
Initial Vital Signs
Temp Pulse Resp BP Pulse Ox
36.6 C 60 18 129/54 97
10/01/24 14:42 10/01/24 14:42 10/01/24 14:42 10/01/24 14:42 10/01/24 14:42
Last Documented Vital Signs
Temp Pulse Resp BP Pulse Ox
36.6 C 48 16 138/59 96
10/03/24 03:30 10/03/24 03:30 10/03/24 03:30 10/03/24 03:30 10/03/24 03:30
MDM/Problems Addressed
Differential Diagnosis Includes:
see MDM
MDM/Problems Addressed:
Note:
CHIEF COMPLAINT(S)
Pain management and anemia management post-amputation.
HISTORY OF PRESENT ILLNESS
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 Post-surgery, he received blood transfusions for anemia. Initially, his hemoglobin was
reported as 6.3 this morning.. he has not cervantes brennen GI bleeding
has pain in both feet, taking oxycodone
He reports previous anemia requiring transfusions and concerns about iron levels, though he is not on iron supplements at present.
Additionally, the patient experiences persistent low sodium levels with recent recordings of 128 mmol/L, reduced from previous levels of approximately 130 mmol/L. He has not been on fluid restriction recently, but previously he was treated for low
sodium levels at [facility] where fluid intake was restricted as a management approach.
CHRONIC MEDICAL CONDITIONS SIGNIFICANTLY AFFECTING CARE
- Diabetes
- Chronic anemia
- History of gangrene and amputation
REVIEW OF SYSTEMS
- Constitutional: Patient reports feelings of pallor.
- Skin: Swelling present near the wound site.
- Gastrointestinal: No gastrointestinal bleeding reported.
PHYSICAL EXAM
- General Appearance: The patient appears pale.
cardiac: regular
lungs: clear, no rales
L foot incision closed, no drainage
R foot incision closed, no drainge
tenderness mild to both feet
skin: bruising arms
Nursing notes reviewed and vital signs reviewed.
PROBLEM LIST
Acute Problems:
- Post-amputation pain
- Low sodium level (hyponatremia)
Chronic Problems:
- Diabetes
- Anemia
PLAN
- Manage post-surgical pain and evaluate appropriate pain control measures.
- Monitor hemoglobin levels and consider further supplementation if necessary.
- Assess and manage low sodium levels, possibly reimplementing fluid restrictions if clinically indicated.
DIFFERENTIAL DIAGNOSIS
The Differential Diagnosis includes, in no particular order and is not limited to:
1. Anemia secondary to chronic disease
2. Hyponatremia due to Syndrome of Inappropriate Antidiuretic Hormone Secretion (SIADH)
3. Wound infection
4. Diabetic neuropathy
5. Heart failure-related fluid imbalance
6. Chronic kidney disease manifestation
PVD
Patient presents with known anemia thrombocytopenia at baseline but with a outpatient hemoglobin of 6.3 this morning which was repeated here to be 7.3. He is heme-negative and not reporting any active bleeding. I initially was going to hold on
blood transfusion but recently learned that he is due to have vascular surgery tomorrow with Dr. Morrison, another angiogram with antegrade access. I spoke with Dr. Morrison who requested that the patient did receive blood products because of the
procedure. We also have to monitor his sodium levels, I added on urine osmolality and sodium testing. Will admit
*Pulse Oximetry
Patient hypoxic: no
Comment: 96
*Critical Care Note
Total Time (30-74mins, 75-104mins- exclusive of procedures): Not Applicable
ED Attending Note
-
Portions of this chart may have been created with voice recognition software.� Occasional wrong word or��sound alike� substitutions may have occurred due to the inherent limitations of voice recognition software.
Discharge Plan
Departure
Patient Disposition: Admit
Date of Disposition: 10/01/24
Time of Disposition: 16:55
Admit to: Med/Surg
Presentation/result/management discussed w/ accepting MD/DO: Hospitalist
Condition: Fair
Covid-19: Not Applicable
Discharge Problem:
Anemia, Hyponatremia
Interventions
Interventions:
*Risk Screen - Suicide Last Done: 10/01/24 14:42
*General Assessment Last Done: 10/01/24 14:42
*Neglect/Abuse Screening Last Done: 10/01/24 14:42
*ED COVID-19 Vaccine History Last Done: 10/01/24 18:41
*Nursing Disposition Last Done: 10/01/24 18:41
Discharge Date and Time
Discharge Date/Time: 10/01/24 18:41
[2024-10-01] MEDS: ROXICODONE 5 MG PO (17:07)
--- NOTE | 2024-10-01 17:48 | HPS.HSE ---
Addendum entered and electronically signed by Shakir Ulrich MD 10/01/24 18:39:
Additional history HPI: Patient has been experiencing increased pain in his feet despite taking pain medications. No n/v/d. No cp or so. He had scheduled surgery for his PVD in left LE tomorrow but also noticed his hemoglobin lower than usual. Does
express fatigue. No melena, no BBPR, no hematemesis. He wsa referred to hospitalist service for further evaluation.
Original Note:
Family Physician
-
Family Physician: Myah Garcia, DO
Chief Complaint
-
Low hemoglobin and pain of his toes
History of Present Illness
Patient is 68-year-old male with past medical history of peripheral vascular disease and other extensive medical history came into the hospital with abnormal labs of low hemoglobin and increasing pain of his feet and toes gangrene.
Medical History
Past Medical History
Past Medical History: Reports Other
Additional Past Medical History:
hypertension
PAD
type 2 diabetes
neuropathy
COPD
depression/anxiety
anemia
Past Surgical History: Reports Other
Additional Past Surgical History:
angioplasty
RLE arteriogram
retina surgery
Social History
Tobacco: Smoker (1.5pack per day )
Alcohol: None
Drug: None
Personal:
Living: With Family
Employment: Retired
Family History
Family History: Not pertinent
Allergies / Home Medications
Allergies reflects when Allergies were last updated in [employer].
Home Medications with original date entered in [employer]
Allergy/Medication List:
Allergies
Allergy/AdvReac Type Severity Reaction Status Date / Time
No Known Allergies Allergy Verified 10/01/24 14:46
Home Medications
folic acid 1 mg tablet 1 mg PO DAILY Supplement 11/28/15
pantoprazole 40 mg tablet,delayed release 40 mg PO NOON GERD 11/28/15
trazodone 50 mg tablet 50 mg PO HS INSOMNIA 03/18/22
lisinopril 40 mg tablet 40 mg PO DAILY HTN 04/02/22
atorvastatin 40 mg tablet 40 mg PO HS HLD 03/02/24
duloxetine 60 mg capsule,delayed release 60 mg PO NOON ANXIETY 03/02/24
lorazepam 1 mg tablet 1 mg PO NOON Mental Health/Anxiety 03/02/24
amlodipine 10 mg tablet (Norvasc) 10 mg PO DAILY HTN 09/11/24
gabapentin 300 mg capsule 600 mg PO TID NEUROPATHIC PAIN 09/11/24
methadone 10 mg tablet 10 mg PO BID 09/11/24
tamsulosin 0.4 mg capsule (Flomax) 0.4 mg PO HS BPH 09/11/24
aspirin 81 mg chewable tablet 81 mg PO DAILY #30 tabs 09/19/24
acetaminophen 325 mg tablet (Tylenol) 650 mg PO Q4HPRN PRN FEVER>100F/MILD PAIN(1-4/10) ON PAIN SCALE 09/28/24
apixaban 5 mg tablet (Eliquis) 5 mg PO BID Blood Clot Prevention/Tx 09/28/24
bisacodyl 10 mg rectal suppository (Dulcolax (bisacodyl)) 10 mg AR DAILY PRN IF NO BM BY 5TH DAY OR AFTR MOM 09/28/24
chlorhexidine gluconate 4 % topical liquid (Hibiclens) 1 applic topical BID 09/28/24
cholecalciferol (vitamin D3) 50 mcg (2,000 unit) tablet (Vitamin D3) 50 mcg PO DAILY Supplement 09/28/24
clonidine HCl 0.1 mg tablet 0.1 mg PO NOON HTN 09/28/24
docusate sodium 100 mg capsule (Colace) 100 mg PO BID Constipation 09/28/24
doxycycline hyclate 100 mg capsule 100 mg PO BID GANGRENE 09/28/24
ferrous sulfate 325 mg (65 mg iron) tablet,delayed release 325 mg PO DAILY Supplement 09/28/24
magnesium hydroxide 400 mg/5 mL oral suspension (Milk of Magnesia) 30 ml PO [id number] PRN GIVE ON DAY 4 IF NO BM BY 3RD DAY 09/28/24
oxycodone 10 mg tablet 10 mg PO [id number] PRN SEVERE PAIN 09/28/24
oxycodone 5 mg tablet 5 mg PO Q4HPRN PRN MODERATE/BREAKTHROUGH PAIN 09/28/24
pregabalin 300 mg capsule (Lyrica) 300 mg PO TID NEUROPATHIC PAIN 09/28/24
sodium chloride 1,000 mg soluble tablet 1,000 mg PO BID HYPONATREMIA 09/28/24
sodium hypochlorite 0.25 % solution (Dakin's Solution) 1 applic topical DAILY WOUND CARE 09/28/24
sodium phosphates 19 gram-7 gram/197 mL enema (Fleet Enema Extra) 197 ml AR DAILYPRN PRN IF NO BM GIVE ON DAY 6 09/28/24
insulin aspart U-100 100 unit/mL (3 mL) subcutaneous pen (Novolog FlexPen U-100 Insulin aspart) 6 sliding scale dose SC AC 10/01/24
insulin glargine 100 unit/mL (3 mL) subcutaneous pen (Lantus Solostar U-100 Insulin) 20 unit SC DAILY 10/01/24
Review of Systems
-
A 12 point ROS was completed and negative except as noted: Yes
Physical Exam
Vital Signs
Vital Signs
Temp Pulse Resp BP Pulse Ox
98.3 F 60 18 151/56 97
10/01/24 17:30 10/01/24 17:30 10/01/24 17:30 10/01/24 17:30 10/01/24 14:42
Physical exam:
General: Acutely ill
HEENT: Normocephalic, Atraumatic and Moist Mucous Membranes
Respiratory: Clear to Auscultation; Negative Wheezes, Rales or Rhonchi
Cardiac: Regular Rhythm and S1/S2
GI: Soft, Nontender and Nondistended
Musculoskeletal: Bilateral toe gangrenes and status post amputation of toes. Diminished pulses in both lower extremities but more pronounced on the left lower. No Clubbing, No Cyanosis. Mild lower extremity edema to both lower extremities.
Neuro: Awake, Alert and Oriented, no neurological deficit
Psych: Calm
Physical Exam
General: Other
Laboratory Results
-
10/01/24 14:57
10/01/24 14:57
Laboratory Results
Total Bilirubin 0.3 mg/dl (0.2-1.3) 10/01/24 14:57
AST 22 U/L (17-59) 10/01/24 14:57
ALT 18 U/L (0-50) 10/01/24 14:57
Alkaline Phosphatase 96 U/L (38-126) 10/01/24 14:57
Data Reviewed
-
Diagnostic Radiology: Image Personally Visualized and interpreted
Lab Data: Labs Reviewed by me
Impression/Plan
-
IMPRESSION:
Patient is 68-year-old with multiple comorbidities came into the hospital with anemia/pancytopenia and also persistent toe gangrene in the setting of peripheral vascular disease. Patient had increased risk of morbidity and mortality therefore he
will need to be treated in the hospital and managed accordingly.
PLAN:
Symptomatic anemia in the setting of pancytopenia:
Blood transfusion undergoing today
Monitor hematopoietic cell count
Hematology consult-discussed with hematology today
Continue ferrous sulfate, folic acid
No signs of active bleeding
Toes gangrene in the setting of peripheral vascular disease:
Vascular surgery consult-discussed with vascular surgery today
We will keep n.p.o. after midnight in case they we will go ahead with scheduled surgery
Status post left 1st and 2nd toe, partial second right and left partial first ray amputation. Status post endovascular procedures in the past. He has extensive vascular pathology.
Pain control-continue home pain medication and add IV Dilaudid for breakthrough pain
Cover empirically with broad-spectrum IV antibiotics, IV Zosyn and vancomycin
Holding antiplatelets and anticoagulation for now and if too prolonged might consider heparin drip but hold for now and reevaluate.
Hyponatremia:
Will follow-up urine sodium and urine osmolarity
Continue salt tablets
Continue fluid restriction
Continue to monitor sodium
Would consider nephrology eval if worsening despite above measures otherwise continue current management
Hypertension:
Continue home antihypertensive
Add IV hydralazine as needed
Hyperlipidemia:
Continue statin
Diabetes mellitus type 2:
Insulin sliding scale
On 6 units of short acting insulin before meals but hold off given upcoming procedure
On Lantus 20 units every evening-will use half dose tonight with 10 units
Diabetic neuropathy:
Continue current gabapentin
Depression anxiety:
Continue antidepressant and benzodiazepine
COPD:
No bronchospasm and stable
Inhalers as needed
DVT prophylaxis:
SCDs
CODE STATUS:
Full code
Time spent 77 minutes
--- NOTE | 2024-10-01 19:00 | PHA.VAN.IN ---
Assessment
- Assessment
Renal Function: SCR Appears Elevated from baseline (09/18/24 BASELINE SCR: 1.1)
Concomitant Antimicrobials: ZOSYN
- Previous Dosing Experience
Previous Regimen: DOSING BY RANDOM LEVELS
Date of Regimen: 09/11/24
Provided Trough of: UNKNOWN
Provided AUC of: UNKNOWN
Patient's SCR is: Decreased compared to previous dosing experience (09/11/24 SCR = 1.4)
Patient's weight is: Elevated compared to previous dosing experience (09/11/24 WT: 65.7 KG)
AUC Dosing Plan
- Dosing Variables
Dosing Weight (kg): 70
Dosing CrCl (ml/min): 55
Vd coefficient (L/kg): 0.7
- Empiric Dosing
Initial / Loading Dose: 1500MG
Maintenance Regimen: 1250MG IV Q24H
Estimated AUC (mcg*h/mL): 529
Estimated Peak (mcg*h/mL): 36.5
Estimated Trough (mcg/ml): 11.8
Estimated Half Life (H): 13.8
Pharmacokinetics Vancomycin I
- -
Patient Age: 68
Patient Sex: Male
Vancomycin Day #: 1
Indication: Skin And Soft Tissue (TOE GANGRENE)
Requesting Provider: MCCRAY
Height / Weight:
Height 5 ft 10 in
Actual Weight 70 kg
Pertinent Past Medical History: S/P MULTIPLE TOE AMPUTATIONS
- Vital Signs / Lab Results
Temp Pulse Resp BP Pulse Ox
98.3 F 55 19 148/56 98
10/01/24 17:30 10/01/24 18:00 10/01/24 18:00 10/01/24 18:00 10/01/24 18:00
Lab Results - Hematology
10/01/24
14:57
WBC 4.0 L
Lab Results - Chemistry
10/01/24
14:57
BUN 18
Creatinine 1.3
Albumin 3.1 L
[2024-10-01] MEDS: SODIUM CHLORIDE 1 GRAM PO (19:52)
[2024-10-01] MEDS: DOLOPHINE 10 MG PO (19:53)
[2024-10-01] MEDS: ZOSYN 50 IV (19:53)
[2024-10-01] MEDS: DILAUDID 1 MG IV (19:54)
[2024-10-01 20:12] LABS: Urine Sodium 56 mmol/L (30-90)
[2024-10-01 20:24] LABS: Osmolality Urine 295 mOsm/kg (300-900)
[2024-10-01] MEDS: VANCOCIN 530 MG IV (20:33)
[2024-10-01 22:20] LABS: Glucose - Point of Care 153 mg/dl (70-99)
[2024-10-01] MEDS: FLOMAX 0.4 MG PO (22:20)
[2024-10-01] MEDS: ROXICODONE 10 MG PO (22:20)
[2024-10-01] MEDS: LIPITOR 40 MG PO (22:20)
[2024-10-01] MEDS: DESYREL 50 MG PO (22:20)
[2024-10-01] MEDS: LANTUS 0.1 UNITS SC (22:21)
[2024-10-01] MEDS: LYRICA 100 MG PO (22:21)
[2024-10-01 22:58] LABS: Hematocrit 22.1 % (39.0-52.0); Hemoglobin 7.5 g/dL (13.0-18.0)
[2024-10-02] VITALS (9 sets, daily range): BP systolic 116–178; BP diastolic 57–80; BMI 22.2
--- NOTE | 2024-10-02 01:29 | PTCARENOTE ---
Addendum entered by Bety Singh RN 10/02/24 21:49:
Informed CHERYL Bedoya of insulin pump. Instructed to have patient turn off and follow sliding. S/w patient and he disconnect pump. pump placed in patient bag.
Addendum entered by Bety Singh RN 10/02/24 01:45:
all of patient homes meds sent to pharmacy.
Original Note:
pt is aaox3, has b/l foot/leg pain 12/26 - had recent b/l toe amputation. pt has prn meds for pain - see MAR administered w/+eff. pt is oriented to room w/ call bobby in reach.
---pt had recent b/l foot toe amputations - removed dressing. wounds approximated, sutures in placed, and dry old drinaged. cleanse wounds w/ NSS and dressing applied. pt has trace edema and very weak pedal pulses.
---pt has 1 unit of blood running. VSS. no reaction noted. blood transfusion completed.Post hgb 7.5 Informed CHERYL Bedoya.
---pt on tlel he is 1AVB, BBC, Prolong QT, lb HR =40-60s. pt is on vanco and zosyn . Informed DEPARTMENTAL SECRETARY Dinorah Bedoya.
--pt has an insulin pump on left lower abdomen and a censor on right lower abdomen. no orders for it. per patient he gets a basal rate of 3units/hour and can give himself a bolus. Informed CHERYL Bedoya of insulin pump. requested to have patient
turn off and follow sliding. S/w patient and he disconnect pump. pump placed in patient bag.
[2024-10-02] MEDS: ZOSYN 50 IV ×4 (02:30→20:09)
[2024-10-02] MEDS: VANCOCIN 275 MG IV (05:41)
[2024-10-02 05:58] LABS: Glucose - Point of Care 130 mg/dl (70-99)
[2024-10-02 07:45] LABS: Glucose - Point of Care 127 mg/dl (70-99)
[2024-10-02 07:59] LABS: % Basophils 1.1 % (0-2); % Eosinophils 7.9 % (0-6); % Immature Granulocytes 0.3 % (0-0.5); % Lymphocytes 28.8 % (20.5-51.1); % Monocytes 11.8 % (1.7-9.3); % Neutrophils 50.1 % (42.2-75.2); Absolute Eosinophils 0.3 10^3/uL (0-0.7); Absolute Lymphocytes 1.1 10^3/uL (1.2-3.4); Absolute Monocytes 0.4 10^3/uL (0.1-0.6); Absolute Neutrophils 1.8 10^3/uL (1.4-6.5); Hematocrit 23.3 % (39.0-52.0); Hemoglobin 7.9 g/dL (13.0-18.0); Mean Corp Hgb Conc. 33.9 g/dL (33.0-37.0); Mean Corpuscular Volume 79.5 fL (80.0-94.0); Mean Platelet Volume 11.8 fL (7.4-10.4); Nucleated Red Blood Cells % 0.5 % (-); Platelet Count 74 10^3/uL (130-400); Red Blood Cell Count 2.93 10^6/uL (4.70-6.10); White Blood Cell Count 3.7 10^3/uL (4.8-10.8)
[2024-10-02] MEDS: ZESTRIL 40 MG PO (08:08)
[2024-10-02] MEDS: DOLOPHINE 10 MG PO (08:08)
[2024-10-02] MEDS: SODIUM CHLORIDE 1 GRAM PO ×2 (08:08→20:08)
[2024-10-02] MEDS: FOLVITE 1 MG PO (08:08)
[2024-10-02] MEDS: NORVASC 10 MG PO (08:08)
[2024-10-02] MEDS: FEOSOL 325 MG PO (08:08)
[2024-10-02] MEDS: DILAUDID 1 MG IV ×2 (08:08→22:10)
[2024-10-02] MEDS: LYRICA 100 MG PO ×3 (08:08→21:59)
[2024-10-02 08:37] LABS: Blood Urea Nitrogen 17 mg/dl (9-20); Calcium 8.3 mg/dl (8.4-10.2); Carbon Dioxide 23 mmol/L (22-30); Chloride 105 mmol/L (98-107); Estimated Creatinine Clearance 60 ml/min; Glucose 125 mg/dl (70-99); Potassium 4.4 mmol/L (3.5-5.1); Sodium 131 mmol/L (135-145); eGFR > 60.00
--- NOTE | 2024-10-02 08:39 | PHA.VAN.FU ---
Vancomycin Assessment / Plan
- Assessment
Renal Function: Stable
WBC's are: Stable (3.7 from 4)
In the past 24 hrs, patient has been: Afebrile
Concomitant Antimicrobials: Zosyn
- Dosing Plan
Continue: Vancomycin 1250 mg IV Q24H
- Monitoring Plan
No level(s) ordered at this time: Consider level when at steady state with current regimen
- Follow Up
Pharmacy will continue to follow.
Vancomycin Follow UP
- -
Patient Age: 68
Patient Sex: Male
Vancomycin Day #: 2
Indication: Skin And Soft Tissue (TOE GANGRENE)
Requesting Provider: SHAZIA
Height / Weight:
Height 5 ft 10 in
Actual Weight 70.3 kg
Pertinent Past Medical History: S/P MULTIPLE TOE AMPUTATIONS
- Vital Signs / Lab Results
Temp Pulse Resp BP Pulse Ox
97.4 F 61 16 173/71 98
10/02/24 07:55 10/02/24 07:55 10/02/24 07:55 10/02/24 07:55 10/02/24 07:55
Lab Results - Hematology
10/01/24 10/02/24
14:57 06:29
WBC 4.0 L 3.7 L
Lab Results - Chemistry
10/01/24 10/02/24 10/02/24
14:57 06:29 07:25
BUN 18 17 Cancelled
Creatinine 1.3 1.2 Cancelled
Estimated Creat Clear 60 Cancelled
Albumin 3.1 L
--- NOTE | 2024-10-02 08:43 | W.PN.HOSP.TC ---
Today's Communication/Plan
-
Pain control. IV antibiotics. Hematology and GI consult.
Assessment / Plan
Assessment / Plan
Physical exam:
General: Acute on chronically ill
HEENT: Normocephalic, Atraumatic and Moist Mucous Membranes
Respiratory: Clear to Auscultation; Negative Wheezes, Rales or Rhonchi
Cardiac: Regular Rhythm and S1/S2
GI: Soft, Nontender and Nondistended
Musculoskeletal: No Clubbing, No Cyanosis and No Edema
Skin: Toe gangrenes, decreased pulses.
Neuro: Awake, Alert and Oriented, no neurological deficit
Psych: Calm
A/P:
Symptomatic anemia/pancytopenia:
More blood transfusion today to optimize preop goal keep Hb >8 in the setting of co-morbidities
Discussed with vascular surgery and prior to vascular procedure vascular wants clarity on his anemia since he is going to be on antiplatelets and anticoagulant postop.
Hematology consult pending
GI consult today-discussed with GI today
Monitor hemoglobin closely
Toes gangrene in the setting of peripheral vascular disease:
Vascular surgery consult-discussed with vascular today
Status post endovascular procedures in the past. He has extensive vascular pathology.
Pain control-continue home pain medication and add IV Dilaudid for breakthrough pain
Cover empirically with broad-spectrum IV antibiotics, IV Zosyn and vancomycin
Holding antiplatelets and anticoagulation for now and if too prolonged might consider heparin drip but hold for now and reevaluate.
Hyponatremia:
urine sodium and urine osmolarity consistent with SIADH and also hyperglycemia contributing.
Continue salt tablets
Continue fluid restriction
Continue to monitor sodium
Hypertension:
Continue home antihypertensives
Continue IV hydralazine as needed
Hyperlipidemia:
Continue statin
Diabetes mellitus type 2:
On insulin pump
CHEMIST INSTRUMENTATION diabetic consult
Diabetic neuropathy:
Continue current Lyrica
Depression anxiety:
Continue antidepressant and benzodiazepine
COPD:
No bronchospasm and stable
Inhalers as needed
DVT prophylaxis:
SCDs
CODE STATUS:
Full code
Total time spent on today's encounter was 52 minutes which included time spent in counseling the patient/family regarding diagnosis and treatment plan as listed above, goals of care, and symptom management. Case was discussed with nursing staff,
specialists, and care coordinators/case management. All labs and imaging personally reviewed by me. Remainder the time spent in detailed review of previous records, lab data, imaging, and other medical provider documentation.
Anticipated Discharge: > 48 hours
Subjective/Interval History
-
Date of Service: October 02, 2024
Patient complains of pain in foot area. No chest pain or shortness of breath. No melena or hematemesis. Afebrile
Objective Data
-
Labs:
Laboratory Results
10/01/24 10/02/24 10/02/24
22:53 06:29 07:25
WBC 3.7 L
Hgb 7.5 L 7.9 L
Hct 22.1 L 23.3 L
Plt Count 74 L
Sodium 131 L Cancelled
Potassium 4.4 Cancelled
Chloride 105 Cancelled
Carbon Dioxide 23 Cancelled
BUN 17 Cancelled
Creatinine 1.2 Cancelled
Glucose 125 H Cancelled
Calcium 8.3 L Cancelled
Vital Signs:
Vital Signs
Temp Pulse Resp BP Pulse Ox
97.4 F 61 16 173/71 98
10/02/24 07:55 10/02/24 07:55 10/02/24 07:55 10/02/24 07:55 10/02/24 07:55
I&O
10/01/24 10/02/24 10/03/24
06:59 06:59 06:59
Intake Total 1480 / 1480
Output Total 2650 / 2650
Balance -1170 / -1170
--- NOTE | 2024-10-02 09:08 | PN.DE.MGMTRT ---
Insulin Management
- -
10/02/2024: Diabetes Insulin pump Management
Patient admitted 10/01 from [facility] for abnormal lab, decreased hgb and increased pain in both feet. Patient was seen on previous admission by our team for diabetes management. PMH: HTN PAD, Neuropathy, COPD, Anemia and T2DM, s/p RLE arteriogram
with balloon angio R dorsalis pedis and anterior tibial arteries and left lower extremity arteriogram, SFA stents x 2, s/p amputation R 2nd toe and L great toe. A1C from last admission, 08/21, was 8.2%.
Pt is awake, alert, oriented, sitting oout of bed, offers no complaints, able to discuss diabetes management. Prior to admission was using Tandem T-Slim insulin pump, Humalog insulin and Dexcom G7 prior to admission. He routinely sees Dr. Vaca
for diabetes care.
Patients insulin pump was stopped last evening.
Glucose elevated 10/01 range 188 to 153.
Patient to resume insulin pump he has adequate supplies. Corrective insulin stopped, patient to bolus for meals and corrections as needed.
Pump settings as follows:
Basal Correction CHO ratio target
12AM 1 1:30 1:14 110
3AM 1 1:30 1:14 110
6am .975 1:30 1:13 110
12PM 1 1:30 1:13 110
8pm 1 1:30 1:13 110
24 hour basal total units 23.85.
Will make no change to pump settings.
Discussed with nurse.
Will cont to follow
Diabetes History
- -
Type of Diabetes: 1
Pre-Admission Diabetes Regimen
10/01/24 10/02/24 10/02/24
14:57 06:29 07:25
Creatinine 1.3 1.2 Cancelled
Insulin Pump Settings
IP Diabetes Regimen
10/01/24 10/01/24 10/02/24
14:57 22:19 05:57
Glucose 188 H
POC Glucose 153 H 130 H
10/02/24 10/02/24 10/02/24
06:29 07:25 07:44
Glucose 125 H Cancelled
POC Glucose 127 H
Patient Education
[2024-10-02 09:26] LABS: Hepatitis C Antibody Negative (Negative)
[2024-10-02 10:27] LABS: Glycohemoglobin (HgbA1c) 6.8 % (4.0-5.6)
[2024-10-02] MEDS: PT'S OWN INSULIN PUMP - NovoLOG 1.6 UNIT SC (10:30)
--- NOTE | 2024-10-02 11:08 | CON.ONC ---
Impression
Impression
#Pancytopenia:
Hgb currently at 7.9 status post 1 units pRBC- will receive second unit today to optimize pre-op Hb >8 per vascular surgery
Vascular procedure postponed- resuming antiplatelets and anticoagulant post-op is okay as long as plts >50,000
GI consult pending
Monitor CBC daily
# peripheral vascular disease
Vascular surgery following-OR today cancelled
Holding antiplatelets and anticoagulation for now and if too prolonged might consider heparin drip but hold for now and reevaluate
Management per primary and vascular surgery
#Hyponatremia
Management per primary
DVT prophylaxis:
SCDs
Plan
Plan
Optimize preop goal- keep Hb >8 per vascular surgery
GI consult pending
Monitor CBC daily
Resuming antiplatelets and anticoagulant post-op is okay as long as plts >50,000
Patient History
History of Present Illness
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 He was scheduled for LLE
arteriogram and possible stent/intravascular lithotripsy by Dr. Morrison today (10/02).
Patient was brought to the ED yesterday with suspicion of possible wound infection, euvolemic hyponatremia, as well as acute worsening of anemia. He was found to have Hgb of 6.3 in outpatient labs, however, repeat CBC in ED showed Hgb of 7.3. We
have been consulted for evaluation of pancytopenia as well as recs regarding resuming antiplatelets and anticoagulant post-op.
Patient Medication
�Medication �Instructions �Recorded �Confirmed �Last Taken �Type
folic acid 1 mg tablet 1 mg PO DAILY Supplement 11/28/15 10/01/24 09/10/24 History
pantoprazole 40 mg tablet,delayed 40 mg PO NOON GERD 11/28/15 10/01/24 09/10/24 History
release
trazodone 50 mg tablet 50 mg PO HS INSOMNIA 03/18/22 10/01/24 09/10/24 History
lisinopril 40 mg tablet 40 mg PO DAILY HTN 04/02/22 10/01/24 09/11/24 History
atorvastatin 40 mg tablet 40 mg PO HS HLD 03/02/24 10/01/24 09/11/24 History
duloxetine 60 mg capsule,delayed 60 mg PO NOON ANXIETY 03/02/24 10/01/24 09/10/24 History
release
lorazepam 1 mg tablet 1 mg PO NOON Mental Health/Anxiety 03/02/24 10/01/24 09/10/24 History
amlodipine 10 mg tablet (Norvasc) 10 mg PO DAILY HTN 09/11/24 10/01/24 09/11/24 History
gabapentin 300 mg capsule 600 mg PO TID NEUROPATHIC PAIN 09/11/24 10/01/24 09/11/24 History
methadone 10 mg tablet 10 mg PO BID PAIN/OUD 09/11/24 10/01/24 09/11/24 History
tamsulosin 0.4 mg capsule (Flomax) 0.4 mg PO HS BPH 09/11/24 10/01/24 09/11/24 History
aspirin 81 mg chewable tablet 81 mg PO DAILY #30 tabs 09/19/24 10/01/24 Unknown Rx
acetaminophen 325 mg tablet 650 mg PO Q4HPRN PRN 09/28/24 10/01/24 Unknown History
(Tylenol) FEVER>100F/MILD PAIN(1-4/10) ON
PAIN SCALE
apixaban 5 mg tablet (Eliquis) 5 mg PO BID Blood Clot 09/28/24 10/01/24 Unknown History
Prevention/Tx
bisacodyl 10 mg rectal suppository 10 mg OR DAILY PRN IF NO BM BY 09/28/24 10/01/24 Unknown History
(Dulcolax (bisacodyl)) DAY OR AFTR MOM
chlorhexidine gluconate 4 % 1 applic topical BID MOUTH CARE 09/28/24 10/01/24 Unknown History
topical liquid (Hibiclens)
cholecalciferol (vitamin D3) 50 50 mcg PO DAILY Supplement 09/28/24 10/01/24 Unknown History
mcg (2,000 unit) tablet (Vitamin
D3)
clonidine HCl 0.1 mg tablet 0.1 mg PO NOON HTN 09/28/24 10/01/24 Unknown History
docusate sodium 100 mg capsule 100 mg PO BID Constipation 09/28/24 10/01/24 Unknown History
(Colace)
doxycycline hyclate 100 mg capsule 100 mg PO BID GANGRENE 09/28/24 10/01/24 Unknown History
ferrous sulfate 325 mg (65 mg 325 mg PO DAILY Supplement 09/28/24 10/01/24 Unknown History
iron) tablet,delayed release
magnesium hydroxide 400 mg/5 mL 30 ml PO [id number] PRN GIVE ON DAY 4 09/28/24 10/01/24 Unknown History
oral suspension (Milk of Magnesia) IF NO BM BY 3RD DAY
oxycodone 10 mg tablet 10 mg PO [id number] PRN SEVERE PAIN 09/28/24 10/01/24 Unknown History
oxycodone 5 mg tablet 5 mg PO Q4HPRN PRN 09/28/24 10/01/24 Unknown History
MODERATE/BREAKTHROUGH PAIN
pregabalin 300 mg capsule (Lyrica) 300 mg PO TID NEUROPATHIC PAIN 09/28/24 10/01/24 Unknown History
sodium chloride 1,000 mg soluble 1,000 mg PO BID HYPONATREMIA 09/28/24 10/01/24 Unknown History
tablet
sodium hypochlorite 0.25 % 1 applic topical DAILY WOUND CARE 09/28/24 10/01/24 Unknown History
solution (Dakin's Solution)
sodium phosphates 19 gram-7 197 ml OR DAILYPRN PRN IF NO BM 09/28/24 10/01/24 Unknown History
gram/197 mL enema (Fleet Enema GIVE ON DAY 6
Extra)
insulin aspart U-100 100 unit/mL 6 sliding scale dose SC AC Diabetes 10/01/24 10/01/24 Unknown History
(3 mL) subcutaneous pen (Novolog
FlexPen U-100 Insulin aspart)
insulin glargine 100 unit/mL (3 20 unit SC DAILY Diabetes 10/01/24 10/01/24 Unknown History
mL) subcutaneous pen (Lantus
Solostar U-100 Insulin)
insulin lispro 100 unit/mL See Rx Instructions .Route .COMPLEX 10/02/24 10/02/24 10/01/24 History
subcutaneous cartridge
Active Medications
Generic Name Dose Route Start Last Admin
Trade Name Freq PRN Reason Stop Dose Admin
Acetaminophen 650 mg 10/01/24 18:44
Acetaminophen 325 Mg Tablet PO 10/29/24 18:43
Q4HPRN PRN
FEVER>100F/MILD PAIN(1-07/26) O
Albuterol/Ipratropium 3 ml 10/01/24 17:58
Ipratropium 0.5/Albuterol 3 Mg (3 Ml Ampul) INH
R Q4HPRN PRN
Shortness of breath/wheezing
Protocol
Amlodipine Besylate 10 mg 10/02/24 08:00 10/02/24 08:08
Amlodipine 10 Mg Tablet PO 10/30/24 07:59 10 mg
DAILY GINO Administration
Atorvastatin Calcium 40 mg 10/01/24 22:00 10/01/24 22:20
Atorvastatin (Lipitor) 40 Mg Tablet PO 10/29/24 21:59 40 mg
HS GINO Administration
Bisacodyl 10 mg 10/01/24 18:44
Bisacodyl 10 Mg Rectal Suppository RECTAL 10/29/24 18:43
[id number] PRN
constipation
Clonidine HCl 0.1 mg 10/02/24 12:00
Clonidine 0.1 Mg Tablet PO 10/30/24 11:59
NOON GINO
Dextrose 12.5 grams 10/01/24 17:46
Dextrose 50% (0.5 Grams/Ml) 50 Ml Syringe IV 10/29/24 17:45
[id number] PRN
hypoglycemia
Protocol
Ferrous Sulfate 325 mg 10/02/24 08:00 10/02/24 08:08
Ferrous Sulfate 325 Mg Tablet PO 10/30/24 07:59 325 mg
DAILY GINO Administration
Folic Acid 1 mg 10/02/24 08:00 10/02/24 08:08
Folic Acid 1 Mg Tablet PO 10/30/24 07:59 1 mg
DAILY GINO Administration
Glucagon 1 mg 10/01/24 17:46
Glucagon 1 Mg Vial IM 10/29/24 17:45
PRN PRN
hypoglycemia
Protocol
Hydralazine HCl 10 mg 10/01/24 17:51
Hydralazine 20 Mg/Ml Vial IV 10/29/24 17:50
Q6HPRN PRN
SBP > 170
Hydromorphone HCl 1 mg 10/01/24 17:42 10/02/24 08:08
Hydromorphone 1 Mg/Ml Carpuject IV 10/15/24 17:41 1 mg
Q3HPRN PRN Administration
breakthrough pain
Piperacillin Sod/Tazobactam Sod 3.375 gram in 50 mls @ 100 mls/hr 10/01/24 20:00 10/02/24 08:08
Zosyn IV 50 mls
Q6H GINO Administration
Vancomycin HCl 1,250 mg/ 275 mls @ 183.33 mls/hr 10/02/24 06:00 10/02/24 05:41
Sodium Chloride IV 275 mls
Q24H GINO Administration
Protocol
Insulin Aspart 0 units 10/02/24 07:30 10/02/24 06:37
Insulin Aspart Moderate Resistance 300 Units/3 Ml Pen.Injctr SC 10/30/24 07:29 Not Given
AC GINO
Protocol
Lisinopril 40 mg 10/02/24 08:00 10/02/24 08:08
Lisinopril 20 Mg Tablet PO 10/30/24 07:59 40 mg
DAILY GINO Administration
Lorazepam 1 mg 10/02/24 12:00
Lorazepam 1 Mg Tablet PO 10/30/24 11:59
NOON GINO
Methadone HCl 10 mg 10/01/24 20:00 10/02/24 08:08
Methadone 10 Mg Tablet PO 10/15/24 19:59 10 mg
BID GINO Administration
Oxycodone HCl 5 mg 10/01/24 18:44
Oxycodone 5 Mg Regular Release Tablet PO 10/15/24 18:43
Q4HPRN PRN
MODERATE/BREAKTHROUGH PAIN
Oxycodone HCl 10 mg 10/01/24 18:44 10/01/24 22:20
Oxycodone 10 Mg Regular Release Tablet PO 10/15/24 18:43 10 mg
[id number] PRN Administration
SEVERE PAIN
Pantoprazole Sodium 40 mg 10/02/24 12:00
Pantoprazole 40 Mg Delayed Release Tablet PO 10/30/24 11:59
NOON GINO
Polyethylene Glycol 17 grams 10/01/24 18:44
Polyethylene Glycol Powder 17 Grams Packet PO 10/29/24 18:43
DAILYPRN PRN
constipation
Pregabalin 100 mg 10/01/24 22:00 10/02/24 08:08
Pregabalin 100 Mg Capsule PO 10/29/24 21:59 100 mg
TID GINO Administration
Senna/Docusate Sodium 1 tablet 10/01/24 18:44
Docusate W/Senna (Tiny-Colace) Tablet PO 10/29/24 18:43
BIDPRN PRN
constipation
Sodium Chloride 0 flush 10/01/24 19:00
Sodium Chloride 0.9% (Flush) Syringe IV 10/29/24 18:59
PER PROTOCOL GINO
Sodium Chloride 1 gram 10/01/24 20:00 10/02/24 08:08
Sodium Chloride 1 Gram Tablet PO 10/29/24 19:59 1 gram
BID GINO Administration
Tamsulosin HCl 0.4 mg 10/01/24 22:00 10/01/24 22:20
Tamsulosin 0.4 Mg Capsule PO 10/29/24 21:59 0.4 mg
HS GINO Administration
Trazodone HCl 50 mg 10/01/24 22:00 10/01/24 22:20
Trazodone 50 Mg Tablet PO 10/29/24 21:59 50 mg
HS GINO Administration
Review of Systems
-
History Source: Patient
All Other Systems: Reviewed and Negative
Physical Exam
-
General: Appears Chronically Ill
Cardiology: Normal Sinus Rhythm, S1 and S2
Pulmonary: Clear
GI: Soft and Normal Bowel Sounds
Musculoskeletal: Other (incision sites of amputation of L 1st digit and R 2nd digit intact, well healing )
Extremities: Other (decreased femoral pulses L >R)
Skin: Warm, Dry and Other (b/l toe dry gangrene)
Psych: Calm
Labs
Lab Results
WBC 3.7 10^3/uL (4.8-10.8) L 10/02/24 06:29
RBC 2.93 10^6/uL (4.70-6.10) L 10/02/24 06:29
Hgb 7.9 g/dL (13.0-18.0) L 10/02/24 06:29
Hct 23.3 % (39.0-52.0) L 10/02/24 06:29
MCV 79.5 fL (80.0-94.0) L 10/02/24 06:29
MCH 27.0 pg (27.0-31.0) 10/02/24 06:29
MCHC 33.9 g/dL (33.0-37.0) 10/02/24:
RDW 15.0 % (11.5-14.5) H 10/02/24 06:29
Plt Count 74 10^3/uL (130-400) L 10/02/24 06:29
MPV 11.8 fL (7.4-10.4) H 10/02/24 06:
Abs Immat Gran (auto) 0.0 10^3/uL (0-0.05) 10/02/24:
Absolute Neuts (auto) 1.8 10^3/uL (1.4-6.5) 10/02/24 06:
Absolute Lymphs (auto) 1.1 10^3/uL (1.2-3.4) L 10/02/24 06:
Absolute Monos (auto) 0.4 10^3/uL (0.1-0.6) 10/02/24:
Absolute Eos (auto) 0.3 10^3/uL (0-0.7) 10/02/24:
Absolute Basos (auto) 0.0 10^3/uL (0-0.2) 10/02/24 06:
Immature Gran % 0.3 % (0-0.5) 10/02/24 06:29
Neutrophils % 50.1 % (42.2-75.2) 10/02/24 06:
Lymphocytes % 28.8 % (20.5-51.1) 10/02/24 06:
Monocytes % 11.8 % (1.7-9.3) H 10/02/24 06:29
Eosinophils % 7.9 % (0-6) H 10/02/24:
Basophils % 1.1 % (0-2) 10/02/24:
Creatinine Cancelled 10/02/24:
Vital Signs
Vital Signs
Temp Pulse Resp BP Pulse Ox
97.4 F 61 16 173/71 98
10/02/24 07:55 10/02/24 07:55 10/02/24 07:55 10/02/24 07:55 10/02/24 07:55
[2024-10-02] MEDS: ROXICODONE 10 MG PO ×2 (11:46→20:22)
[2024-10-02] MEDS: ATIVAN 1 MG PO (11:46)
[2024-10-02] MEDS: PROTONIX 40 MG PO (11:47)
[2024-10-02] MEDS: CATAPRES 0.1 MG PO (11:54)
--- NOTE | 2024-10-02 12:18 | W.PN.UPDATE ---
Addendum entered and electronically signed by Dar Morrison III, MD 10/02/24 14:39:
This patient was seen and examined in collaboration with TRAVIS Henry. I agree with the history and physical exam as well as the assessment and plan.
Signed:
Dar Morrison III, MD
Vascular Surgery
[facility]
Original Note:
Update Note
Progress Note Update
Patient was recently evaluated in our surgical office on 09/26/2024, at that time reported left foot wound unchanged/possibly worsening with new serosanguineous drainage, ruborous color, and pain. It was determined that he would benefit from a left
lower extremity angiogram and he was set on the schedule for today 10/02/2024. Please see note below from that appointment . However, in reviewing his outpatient labs it was noticed that he continues to have profound anemia with hemoglobin under 7,
which led our office to recommend that he come to the ED for evaluation of continued anemia and possible transfusion. He was subsequently admitted to the hospitalist group for anemia workup, hematology consultation pending, he also received
transfusion of PRBC. We will be canceling scheduled procedure until full anemia workup completed out of concern for increased bleeding risk and that procedure will require bolus of heparin/anticoagulation in setting of chronic anemia. Plan relayed
to hospitalist team, and reviewed with attending Dr. Dar Morrison III.
--- NOTE | 2024-10-02 12:21 | CON.GI ---
Addendum entered and electronically signed by Mandie Chaves MD 10/02/24 15:44:
The patient was seen and examined by me independently in collaboration with the nurse practitioner.
Past medical history/social history/medications/allergies/family history reviewed.
Lab data and imaging data reviewed.
68-year-old gentleman remote history of alcohol use, peripheral artery disease with multiple vascular procedures presenting with hemoglobin 6.3 and pancytopenia. Was initially admitted for vascular procedures but given his counts, GI asked to
evaluate. Denies any GI complaints. No weight loss. Father did of colon cancer at 83. Patient never had endoscopy or colonoscopy.
Plan for endoscopy and colonoscopy on . Risk, alternatives, benefits of endoscopy colonoscopy reviewed with patient risks including but not limited to bleeding, infection, perforation, missed lesion. Hold Eliquis for now. If needed, can
start heparin drip.
For the thrombocytopenia, we will get a ultrasound tomorrow to evaluate the liver.
Further recommendations pending procedures.
Original Note:
Consultation
-
Date/Time Consultation Requested: 10/02/24 0820
Date/Time Consultation Performed: 10/02/24 1220
Requesting Provider: Shakir Ulrich MD
Performing Provider: TRAVIS Carpenter, Basia Chaves MD
Reason for Consultation: anemia
Medical History
Chief Complaint / HPI
Chief Complaint: abnormal labs
History of Present Illness:
Pt is a 68yo with hx HTN, hypercholesterolemia, PAD with recent toe amp with gangrene, femoral stents and multiple vascular procedures at [facility], CKD, NIDDM, neuropathy, hyponatremia, COPD, prior ETOH abuse quit 8 years ago asked to see for
anemia with noted pancytopenia with outpatient hbg down to 6.3.. Pt is scheduled for further vascular procedures and asked to see for anemia prior to proceeding. In review with patient he had prior evaluation with hematology but did not recall
work up. Pt was noted with brown heme neg stool in ER. Pt admits to hx low iron with iron supplement prior to admission.
In review with patient he denies NSAID use. He admits to issue with bruising and thinning of arms and lower ext swelling but no change in abdominal girth, prior GI bleeding, or confusion. No know hx liver disease in past. He denies
odynophagia, dysphagia, GERD, nausea, vomiting, abdominal pain, diarrhea, constipation, blood or black in stools. No hx EGD or colonoscopy in past. Father with family hx colon CA. No hx IVDA, old tattoos or prior hepatitis.
Past Medical History
Past Medical History: COPD, HTN, Hypercholesterolemia, NIDDM and Other (former ETOH abuse, neuropathy, hyponatremia, PAD with multiple vascular procedures at [place] [facility] [place] in past )
Past Surgical History: Other (femoral stents and prior angioplasty, retinal surgery)
Social History
Tobacco: Former Smoker
Alcohol: Former (quit 8 years ago)
Drug: None
Personal:
Living: Other (current SNF)
Employment: Retired
Family History
Family History: Other (father with colon CA in 80's)
Allergies / Home Medications
Allergy/AdvReac Type Severity Reaction Status Date / Time
No Known Allergies Allergy Verified 10/01/24 14:46
�Medication �Instructions �Recorded
folic acid 1 mg tablet 1 mg PO DAILY Supplement 11/28/15
pantoprazole 40 mg tablet,delayed 40 mg PO NOON GERD 11/28/15
release
trazodone 50 mg tablet 50 mg PO HS INSOMNIA 03/18/22
lisinopril 40 mg tablet 40 mg PO DAILY HTN 04/02/22
atorvastatin 40 mg tablet 40 mg PO HS HLD 03/02/24
duloxetine 60 mg capsule,delayed 60 mg PO NOON ANXIETY 03/02/24
release
lorazepam 1 mg tablet 1 mg PO NOON Mental Health/Anxiety 03/02/24
amlodipine 10 mg tablet (Norvasc) 10 mg PO DAILY HTN 09/11/24
gabapentin 300 mg capsule 600 mg PO TID NEUROPATHIC PAIN 09/11/24
methadone 10 mg tablet 10 mg PO BID PAIN/OUD 09/11/24
tamsulosin 0.4 mg capsule (Flomax) 0.4 mg PO HS BPH 09/11/24
aspirin 81 mg chewable tablet 81 mg PO DAILY #30 tabs 09/19/24
acetaminophen 325 mg tablet 650 mg PO Q4HPRN PRN 09/28/24
(Tylenol) FEVER>100F/MILD PAIN(1-4/10) ON
PAIN SCALE
apixaban 5 mg tablet (Eliquis) 5 mg PO BID Blood Clot 09/28/24
Prevention/Tx
bisacodyl 10 mg rectal suppository 10 mg CO DAILY PRN IF NO BM BY 09/28/24
(Dulcolax (bisacodyl)) DAY OR AFTR MOM
chlorhexidine gluconate 4 % 1 applic topical BID MOUTH CARE 09/28/24
topical liquid (Hibiclens)
cholecalciferol (vitamin D3) 50 50 mcg PO DAILY Supplement 09/28/24
mcg (2,000 unit) tablet (Vitamin
D3)
clonidine HCl 0.1 mg tablet 0.1 mg PO NOON HTN 09/28/24
docusate sodium 100 mg capsule 100 mg PO BID Constipation 09/28/24
(Colace)
doxycycline hyclate 100 mg capsule 100 mg PO BID GANGRENE 09/28/24
ferrous sulfate 325 mg (65 mg 325 mg PO DAILY Supplement 09/28/24
iron) tablet,delayed release
magnesium hydroxide 400 mg/5 mL 30 ml PO [id number] PRN GIVE ON DAY 4 09/28/24
oral suspension (Milk of Magnesia) IF NO BM BY 3RD DAY
oxycodone 10 mg tablet 10 mg PO [id number] PRN SEVERE PAIN 09/28/24
oxycodone 5 mg tablet 5 mg PO Q4HPRN PRN 09/28/24
MODERATE/BREAKTHROUGH PAIN
pregabalin 300 mg capsule (Lyrica) 300 mg PO TID NEUROPATHIC PAIN 09/28/24
sodium chloride 1,000 mg soluble 1,000 mg PO BID HYPONATREMIA 09/28/24
tablet
sodium hypochlorite 0.25 % 1 applic topical DAILY WOUND CARE 09/28/24
solution (Dakin's Solution)
sodium phosphates 19 gram-7 197 ml CO DAILYPRN PRN IF NO BM 09/28/24
gram/197 mL enema (Fleet Enema GIVE ON DAY 6
Extra)
insulin aspart U-100 100 unit/mL 6 sliding scale dose SC AC Diabetes 10/01/24
(3 mL) subcutaneous pen (Novolog
FlexPen U-100 Insulin aspart)
insulin glargine 100 unit/mL (3 20 unit SC DAILY Diabetes 10/01/24
mL) subcutaneous pen (Lantus
Solostar U-100 Insulin)
insulin lispro 100 unit/mL See Rx Instructions .Route .COMPLEX 10/02/24
subcutaneous cartridge
Review of Systems
-
History Source: Patient and Family
Constitutional: Reports No Symptoms
EENT: Reports No Symptoms
Respiratory: Reports No Symptoms
Cardiac: Reports Other (LE swelling)
Abdomen/GI: Reports No Symptoms
: Reports No Symptoms
Musculoskeletal: Reports Other (LE with recent toe amp)
Neurological: Reports Weakness
Endocrine: Reports No Symptoms
Hematologic/Lymphatic: Reports Bruising
Vital Signs
Temp Pulse Resp BP Pulse Ox
97.4 F 61 16 178/68 98
10/02/24 07:55 10/02/24 07:55 10/02/24 07:55 10/02/24 11:54 10/02/24 07:55
Physical Exam
Exam
General: Other (pale appearing with scattered bruising on arms)
HEENT: Normocephalic and Anicteric
Respiratory: Clear
Cardiac: Regular Rhythm and Peripheral Edema
GI: Soft, Non Tender and Non Distended
Musculoskeletal: No Clubbing and No Cyanosis
Neuro: Awake, Alert and AO x 3
Psych: Calm
Results
WBC 3.7 10^3/uL (4.8-10.8) L 10/02/24 06:29
Hgb 7.9 g/dL (13.0-18.0) L 10/02/24 06:29
Hct 23.3 % (39.0-52.0) L 10/02/24 06:29
MCV 79.5 fL (80.0-94.0) L 10/02/24 06:29
Plt Count 74 10^3/uL (130-400) L 10/02/24 06:29
Absolute Neuts (auto) 1.8 10^3/uL (1.4-6.5) 10/02/24 06:29
Sodium Cancelled 10/02/24 07:25
Potassium Cancelled 10/02/24 07:25
Chloride Cancelled 10/02/24 07:25
Carbon Dioxide Cancelled 10/02/24 07:25
BUN Cancelled 10/02/24 07:25
Creatinine Cancelled 10/02/24 07:25
Calcium Cancelled 10/02/24 07:25
Total Bilirubin 0.3 mg/dl (0.2-1.3) 10/01/24 14:57
AST 22 U/L (17-59) 10/01/24 14:57
ALT 18 U/L (0-50) 10/01/24 14:57
Alkaline Phosphatase 96 U/L (38-126) 10/01/24 14:57
Hepatitis C Antibody Negative (Negative) 10/02/24 06:29
Diagnostic Image Results:
08/18/24 CT abd -liver limited with artifact from insulin pump
Prior GI Procedures:
EGD: none
Colonoscopy: none
Assessment / Plan
-
Pt is a 68yo with hx HTN, hypercholesterolemia, PAD with recent toe amp with gangrene, femoral stents and multiple vascular procedures at [facility], CKD, NIDDM, neuropathy, hyponatremia, COPD, prior ETOH abuse quit 8 years ago asked to see for
anemia with noted pancytopenia with outpatient hbg down to 6.3. Pt is scheduled for further vascular procedures and asked to see for anemia prior to proceeding. In review with patient he had prior evaluation with hematology but did not recall work
up. Pt was noted with brown heme neg stool in ER. In review with patient he denies NSAID use. He admits to issue with bruising and thinning of arms and lower ext swelling but no change in abdominal girth, prior GI bleeding, or confusion. No
know hx liver disease in past. He denies odynophagia, dysphagia, GERD, nausea, vomiting, abdominal pain, diarrhea, constipation, blood or black in stools. No hx EGD or colonoscopy in past. Father with family hx colon CA. No hx IVDA, old tattoos
or prior hepatitis. Pt admits to hx low iron with iron supplement prior to admission.
-pancytopenia with microcytosis hx iron deficiency
-PAD s/p toe amp/femoral stenting awaiting further vascular procedure
-hyponatremia
-hypoalbuminemia
-former ETOH abuse
other med problems:
-HTN
-hyperlipidemia
-CKD
-IDDM with insulin pump
-prior tobacco abuse
-COPD
-father with colon CA
PLAN:
etiology of anemia with pancytopenia related to underlying GI loss, vs heme related vs other
add iron studies, B12, folate- pt was on iron prior to admission
also concern for underlying liver disease with prior heavy ETOH use, hyponatremia, hypoalbuminemia and pancytopenia, repeat INR pending
add US abdomen to eval liver
discussed with patient about EGD/colon for work up- he is considering but proceeding to eval for underlying PUD, ectasia, mass, portal HTN, EV etc
clear diet in AM then prep 10/03 if agreeable
Eliquis hold last dose 10/01
pt states hx prior heme eval -- consult not reviewed
hep C neg -- pending work up may need further liver serologies
pt await further vascular procedure after anemia work up
-
-
Thank you for consultation and allowing me to participate in the patient's care. Please call the sewer separation designer GI physician during the after hours with any questions or concerns.
--- NOTE | 2024-10-02 12:48 | CM ---
Met with patient to obtain information for assessment. Patient was recently discharged and is currently in SNF at [facility]. He stated that he has been able to independently use a walker and a w/c for long distances. He is hoping to be
able to return to [facility] at discharge to finish his PT/OT. Will send referral.
Patient resides with his and adult daughter in a two story, single home, with two steps to enter and 13 steps between each flight of steps. He described himself as typically independent with all of his ADLs, personal care, bathing and dressing.
His does the cafeteria table attendant, cooking, cleaning and laundry right now as he is in SNF. Patient has a glucometer, an insulin pump, a walker, cane, shower chair and w/c. Patient has not been to a SNF in the past, besides [facility] and does not
want to consider another facility at this time.
He has had VN in the past through [facility] and was happy with their services.
Patient has a prescription plan and uses, [facility] in [place] for all of his medications.
Patient's PCP is, Myah Garcia.
Plan: Case management will continue to follow and assist with discharge planning. Patient would like to return to [facility]. No auth needed to send back. Will send completed Passr and clinical to admissions.
[2024-10-02 13:01] LABS: Glucose - Point of Care 134 mg/dl (70-99)
[2024-10-02 13:13] LABS: Iron 41 ug/dl (49-181)
[2024-10-02 13:22] LABS: Percent Saturation 15 % (20-50); Total Iron Binding Capacity 258 ug/dl (261-462)
[2024-10-02] MEDS: PT'S OWN INSULIN PUMP - NovoLOG 1.18 UNIT SC (14:03)
[2024-10-02 14:07] LABS: Ferritin 38.5 ng/ml (17.9-464.0)
[2024-10-02 14:38] LABS: Folate > 20.0 ng/ml (2.76-20)
[2024-10-02 15:35] LABS: Vitamin B12 321 pg/ml (239-931)
--- NOTE | 2024-10-02 15:52 | WOUNDNOTE ---
R 2ND TOE SURGICAL SITE
--- NOTE | 2024-10-02 15:53 | WOUNDNOTE ---
L GREAT TOE AMP SITE
--- NOTE | 2024-10-02 15:54 | WOUNDNOTE ---
L GREAT TOE AMP SITE
--- NOTE | 2024-10-02 15:54 | WOUNDNOTE ---
R LATERAL LOWER LEG
--- NOTE | 2024-10-02 15:57 | WOUNDNOTE ---
WON RN note: Patient [facility].
See H&P for complete history. Sent to ER from vascular due to anemia.
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
Wound Location and type/assessment: Patient known to service admitted with stable dry amp sites of R 2nd toe and L great toe. Sutures intact, dried up blood along suture lines, no redness or swelling. R 2nd toe dressing stuck to gauze, able to
remove with use of saline. Multiple healing skin tears on arms and legs, scattered bruising. R heel is intact, L heel with tiny patch of non blanchable redness medial side, suspect stage 1 PI. Patient using fiber filled boots. Patient able to turn
self in bed, sacrum is intact, blanchable pink.
Appetite: good.
Pressure redistribution devices in place: [employer] Accumax. Patient moves self in bed.
Plan: Adaptic and dry gauze dressing applied to R toe amp site. Dry gauze dressing applied to L great toe amp site. Patient states he follows with Dr. Cruz and he left a message that he was in the hospital. Foams applied to heels offloading boots
reapplied. Has own Darco shoes at bedside for when ambulating. Will confirm the above wound care with Dr. Cruz and hospitalist. Nurse Bernadette made aware of plan.
Care plan to be updated. Will sign off unless needed.
Note to case management requested for discharge: TBD.
Patient to follow up with vascular and region manager.
[2024-10-02] MEDS: DOLOPHINE 5 MG PO ×2 (16:51→22:00)
[2024-10-02 17:07] LABS: Glucose - Point of Care 188 mg/dl (70-99)
[2024-10-02] MEDS: PT'S OWN INSULIN PUMP - NovoLOG 10 UNIT SC (17:34)
[2024-10-02 21:40] LABS: Glucose - Point of Care 108 mg/dl (70-99)
[2024-10-02] MEDS: DESYREL 50 MG PO (21:59)
[2024-10-02] MEDS: LIPITOR 40 MG PO (21:59)
[2024-10-02] MEDS: FLOMAX 0.4 MG PO (21:59)
[2024-10-02] MEDS: PT'S OWN INSULIN PUMP - NovoLOG 1 UNIT SC (22:06)
[2024-10-03] MEDS: ZOSYN 50 IV ×2 (02:00→09:03)
[2024-10-03 03:30] VITALS: BP 138/59
--- NOTE | 2024-10-03 04:21 | DOWNTIME ---
Addendum entered by Lyn Liang RN 10/03/24 14:18:
Correction: Downtime was 10/03/2024 from 0100 to 10/03/2024 at 0415
Original Note:
There was a [facility] Client Emissions Repair Technician Downtime on 10/02/2024 from 0100 to 10/03/2024 at 0415. Downtime documentation of patient's care, including medication administrations, has been reconciled in the electronic record per guidelines. Refer to the
patient's paper chart under the miscellaneous tab to see printed paper medication records and downtime forms.
[2024-10-03] MEDS: VANCOCIN 275 MG IV (05:38)
[2024-10-03 05:54] LABS: Glucose - Point of Care 124 mg/dl (70-99)
[2024-10-03 07:23] LABS: INR 1.18; PT 15.3 Sec (11.4-14.6)
--- NOTE | 2024-10-03 07:33 | PN.DE.MGMTRT ---
Insulin Management
- -
10/03/2024: Diabetes Insulin pump Management Follow up
Patient admitted 10/01 from [facility] for abnormal lab, decreased hgb and increased pain in both feet. Patient was seen on previous admission by our team for diabetes management. PMH: HTN PAD, Neuropathy, COPD, Anemia and T2DM, s/p RLE arteriogram
with balloon angio R dorsalis pedis and anterior tibial arteries and left lower extremity arteriogram, SFA stents x 2, s/p amputation R 2nd toe and L great toe. A1C from last admission, 08/21, was 8.2%.
Pt is awake, alert, oriented, sitting out of bed, offers no complaints, able to discuss diabetes management. Prior to admission was using Tandem T-Slim insulin pump, Humalog insulin and Dexcom G7 prior to admission. He routinely sees Dr. Vaca
for diabetes care.
Glucose range 108 to 188, patient using pump without difficulty.
Patient evaluated by GI for endoscopy & colonoscopy on 10/04. Patient to continue insulin pump
Patient resumed insulin pump he has adequate supplies. Corrective insulin stopped, patient to bolus for meals and corrections as needed.
Pump settings as follows:
Basal Correction CHO ratio target
12AM 1 1:30 1:14 110
3AM 1 1:30 1:14 110
6am .975 1:30 1:13 110
12PM 1 1:30 1:13 110
8pm 1 1:30 1:13 110
24 hour basal total units 23.85.
Will make no change to pump settings.
Discussed with nurse.
Will cont to follow
Diabetes History
- -
Type of Diabetes: 1
Pre-Admission Diabetes Regimen
10/02/24 10/02/24
06:29 07:25
Creatinine 1.2 Cancelled
Lab Results
Hemoglobin A1c 6.8 % (4.0-5.6) H 10/02/24 06:29
Insulin Pump Settings
IP Diabetes Regimen
10/02/24 10/02/24 10/02/24
06:29 07:25 07:44
Glucose 125 H Cancelled
POC Glucose 127 H
10/02/24 10/02/24 10/02/24
13:00 17:06 21:39
Glucose
POC Glucose 134 H 188 H 108 H
10/03/24
05:53
Glucose
POC Glucose 124 H
Meal type: Dinner
Meal type: Lunch
Amount consumed: 100%
Amount consumed: 100%
Patient Education
[2024-10-03 07:43] LABS: % Basophils 1.1 % (0-2); % Eosinophils 7.2 % (0-6); % Immature Granulocytes 0.2 % (0-0.5); % Lymphocytes 24.4 % (20.5-51.1); % Monocytes 10.9 % (1.7-9.3); % Neutrophils 56.2 % (42.2-75.2); Absolute Basophils 0.1 10^3/uL (0-0.2); Absolute Eosinophils 0.3 10^3/uL (0-0.7); Absolute Lymphocytes 1.1 10^3/uL (1.2-3.4); Absolute Monocytes 0.5 10^3/uL (0.1-0.6); Absolute Neutrophils 2.5 10^3/uL (1.4-6.5); Hematocrit 26.8 % (39.0-52.0); Hemoglobin 8.8 g/dL (13.0-18.0); Mean Corp Hgb Conc. 32.8 g/dL (33.0-37.0); Mean Corpuscular Hgb 26.2 pg (27.0-31.0); Mean Corpuscular Volume 79.8 fL (80.0-94.0); Mean Platelet Volume 12.3 fL (7.4-10.4); Nucleated Red Blood Cells % 0 % (-); Platelet Count 78 10^3/uL (130-400); Red Blood Cell Count 3.36 10^6/uL (4.70-6.10); Red Cell Dist. Width 15.9 % (11.5-14.5); White Blood Cell Count 4.4 10^3/uL (4.8-10.8)
[2024-10-03 08:01] VITALS: BP 161/65
[2024-10-03] MEDS: FEOSOL 325 MG PO (08:05)
[2024-10-03] MEDS: ZESTRIL 40 MG PO (08:05)
[2024-10-03] MEDS: LYRICA 100 MG PO ×3 (08:05→21:23)
[2024-10-03] MEDS: NORVASC 10 MG PO (08:05)
[2024-10-03] MEDS: PROTONIX 40 MG PO (08:05)
[2024-10-03] MEDS: FOLVITE 1 MG PO (08:05)
[2024-10-03] MEDS: SODIUM CHLORIDE 1 GRAM PO ×2 (08:05→21:23)
[2024-10-03] MEDS: DOLOPHINE 5 MG PO ×3 (08:06→21:23)
[2024-10-03 08:09] LABS: ALT (SGPT) 14 U/L (0-50); AST (SGOT) 16 U/L (17-59); Albumin 2.8 g/dl (3.5-5.0); Alkaline Phosphatase 70 U/L (38-126); Blood Urea Nitrogen 17 mg/dl (9-20); Calcium 8.1 mg/dl (8.4-10.2); Carbon Dioxide 26 mmol/L (22-30); Chloride 105 mmol/L (98-107); Direct Bilirubin 0.2 mg/dl (0.0-0.4); Estimated Creatinine Clearance 56 ml/min; Glucose 106 mg/dl (70-99); Potassium 3.9 mmol/L (3.5-5.1); Sodium 135 mmol/L (135-145); Total Bilirubin 0.6 mg/dl (0.2-1.3); Total Protein 5.2 g/dl (6.3-8.2); eGFR > 60.00
[2024-10-03] MEDS: PT'S OWN INSULIN PUMP - NovoLOG SC ×4 (08:10→21:13)
[2024-10-03] MEDS: ROXICODONE 10 MG PO ×2 (08:13→22:28)
--- NOTE | 2024-10-03 08:25 | PHA.VAN.FU ---
Vancomycin Assessment / Plan
- Assessment
Renal Function: Stable
WBC's are: Stable (4.4 from 3.7)
In the past 24 hrs, patient has been: Afebrile
Concomitant Antimicrobials: Zosyn
- Dosing Plan
Continue: Vancomycin 1250mg IV Q24H
- Monitoring Plan
Peak Level: 10/04/24 @0930
Trough Level: 10/06/19 @0530
- Follow Up
Pharmacy will continue to follow.
Vancomycin Follow UP
- -
Patient Age: 68
Patient Sex: Male
Vancomycin Day #: 3
Indication: Skin And Soft Tissue (TOE GANGRENE)
Requesting Provider: SHAZIA
Height / Weight:
Height 5 ft 10 in
Actual Weight 70.3 kg
Pertinent Past Medical History: S/P MULTIPLE TOE AMPUTATIONS
- Vital Signs / Lab Results
Temp Pulse Resp BP Pulse Ox
97.9 F 53 18 161/65 97
10/03/24 08:01 10/03/24 08:01 10/03/24 08:01 10/03/24 08:01 10/03/24 08:01
Lab Results - Hematology
10/01/24 10/02/24 10/03/24
14:57 06:29 06:12
WBC 4.0 L 3.7 L 4.4 L
Lab Results - Chemistry
10/01/24 10/02/24 10/02/24
14:57 06:29 07:25
BUN 18 17 Cancelled
Creatinine 1.3 1.2 Cancelled
Estimated Creat Clear 60 Cancelled
Albumin 3.1 L
10/03/24
06:12
BUN 17
Creatinine 1.3
Estimated Creat Clear 56
Albumin 2.8 L
--- NOTE | 2024-10-03 09:15 | W.PN.HOSP.TC ---
Today's Communication/Plan
-
Plan for EGD/colonoscopy in a.m.
Assessment / Plan
Assessment / Plan
Physical exam:
General: Acute on chronically ill
HEENT: Normocephalic, Atraumatic and Moist Mucous Membranes
Respiratory: Clear to Auscultation; Negative Wheezes, Rales or Rhonchi
Cardiac: Regular Rhythm and S1/S2
GI: Soft, Nontender and Nondistended
Musculoskeletal: No Clubbing, No Cyanosis and No Edema
Skin: Toe gangrenes, decreased pulses.
Neuro: Awake, Alert and Oriented, no neurological deficit
Psych: Calm
A/P:
Symptomatic anemia/pancytopenia:
Improving
Ten Sleep to be related to chronic liver disease but rule out GI source
After blood transfusion hemoglobin up to 8.8 today
Start IV iron infusion as well
Plan for EGD/colonoscopy tomorrow
Toes gangrene in the setting of peripheral vascular disease:
Vascular surgery consult appreciated
Cover empirically with broad-spectrum IV antibiotics, IV Zosyn and vancomycin
Podiatry and ID eval
Holding antiplatelets and anticoagulation for now and if too prolonged might consider heparin drip but hold for now and reevaluate.
Hyponatremia:
Resolved-->sodium normalized to 135
Hypertension:
Continue home antihypertensives
Continue IV hydralazine as needed
Hyperlipidemia:
Continue statin
Diabetes mellitus type 2:
On insulin pump
PET CREMATORY WORKER diabetic consult
Diabetic neuropathy:
Continue current Lyrica
Depression anxiety:
Continue antidepressant and benzodiazepine
COPD:
No bronchospasm and stable
Inhalers as needed
DVT prophylaxis:
SCDs
CODE STATUS:
Full code
Total time spent on today's encounter was 35 minutes which included time spent in counseling the patient/family regarding diagnosis and treatment plan as listed above, goals of care, and symptom management. Case was discussed with nursing staff,
specialists, and care coordinators/case management. All labs and imaging personally reviewed by me. Remainder the time spent in detailed review of previous records, lab data, imaging, and other medical provider documentation.
Anticipated Discharge: > 48 hours
Subjective/Interval History
-
Date of Service: October 03, 2024
Denies chest pain or shortness of breath. Afebrile
Objective Data
-
Labs:
Laboratory Results
10/03/24
06:12
WBC 4.4 L
Hgb 8.8 L
Hct 26.8 L
Plt Count 78 L
PT 15.3 H
INR 1.18
Sodium 135
Potassium 3.9
Chloride 105
Carbon Dioxide 26
BUN 17
Creatinine 1.3
Glucose 106 H
Calcium 8.1 L
Total Bilirubin 0.6
AST 16 L
ALT 14
Alkaline Phosphatase 70
Vital Signs:
Vital Signs
Temp Pulse Resp BP Pulse Ox
97.9 F 53 18 161/65 97
10/03/24 08:01 10/03/24 08:01 10/03/24 08:01 10/03/24 08:01 10/03/24 08:01
I&O
10/02/24 10/03/24 10/04/24
06:59 06:59 06:59
Intake Total 1480 / 1480 3000 / 3000
Output Total 2650 / 2650 1225 / 1225
Balance -1170 / -1170 1775 / 1775
--- NOTE | 2024-10-03 09:49 | W.PN.GI.CBS2 ---
Addendum entered and electronically signed by Mandie Chaves MD 10/03/24 14:59:
I saw and examined the patient.
The HEAD BAKER or PA's note was reviewed and I agree with the note.
Comment: 68-year-old gentleman remote history of alcohol use, peripheral artery disease with multiple vascular procedures presenting with hemoglobin 6.3 and pancytopenia. Was initially admitted for vascular procedures but given his counts, GI asked
to evaluate. Denies any GI complaints. No weight loss. Father did of colon cancer at 83. Patient never had endoscopy or colonoscopy.
Anemia c/w CLEMENTE most likely due to occult GI blood loss, could also have an element of ACD; suspect cirrhosis leading to pancytopenia (and also playing a role with the anemia).
Reviewed with patient US findings with cirrhosis. Check AFP, hepatitis studies will need outpatient GI follow up.
Plan for endoscopy and colonoscopy tomorrow. Risk, alternatives, benefits of endoscopy colonoscopy reviewed with patient risks including but not limited to bleeding, infection, perforation, missed lesion. Hold Eliquis for now. If needed, can
start heparin drip.
Further recommendations pending procedures.
Original Note:
Today's Communication / Plan
-
etiology of anemia with pancytopenia related to underlying GI loss, vs heme related vs other
iron studies with more chronic disease, b12 321, folate >20
pt agreeable for EGD/colon tomorrow
clear diet
prep ordered
also concern for underlying liver disease with prior heavy ETOH use, hyponatremia, hypoalbuminemia and pancytopenia, repeat INR stable 1.18
US abdomen pending
Eliquis hold last dose 10/01
pt states hx prior heme eval -- consult not reviewed
hep C neg -- pending work up may need further liver serologies
pt await further vascular procedure after anemia work up
Assessment / Plan
-
Pt is a 68yo with hx HTN, hypercholesterolemia, PAD with recent toe amp with gangrene, femoral stents and multiple vascular procedures at [facility], CKD, NIDDM, neuropathy, hyponatremia, COPD, prior ETOH abuse quit 8 years ago asked to see for
anemia with noted pancytopenia with outpatient hbg down to 6.3. Pt is scheduled for further vascular procedures and asked to see for anemia prior to proceeding. In review with patient he had prior evaluation with hematology but did not recall work
up. Pt was noted with brown heme neg stool in ER. In review with patient he denies NSAID use. He admits to issue with bruising and thinning of arms and lower ext swelling but no change in abdominal girth, prior GI bleeding, or confusion. No
know hx liver disease in past. He denies odynophagia, dysphagia, GERD, nausea, vomiting, abdominal pain, diarrhea, constipation, blood or black in stools. No hx EGD or colonoscopy in past. Father with family hx colon CA. No hx IVDA, old tattoos
or prior hepatitis. Pt admits to hx low iron with iron supplement prior to admission.
-pancytopenia with microcytosis hx iron deficiency
-PAD s/p toe amp/femoral stenting awaiting further vascular procedure
-hyponatremia
-hypoalbuminemia
-former ETOH abuse
other med problems:
-HTN
-hyperlipidemia
-CKD
-IDDM with insulin pump
-prior tobacco abuse
-COPD
-father with colon CA
-Oxycodone/methadone use
PLAN:
etiology of anemia with pancytopenia related to underlying GI loss, vs heme related vs other
iron studies with more chronic disease, b12 321, folate >20
pt agreeable for EGD/colon tomorrow
clear diet
prep ordered
also concern for underlying liver disease with prior heavy ETOH use, hyponatremia, hypoalbuminemia and pancytopenia, repeat INR stable 1.18
US abdomen pending
Eliquis hold last dose 10/01
pt states hx prior heme eval -- consult not reviewed
hep C neg -- pending work up may need further liver serologies
pt await further vascular procedure after anemia work up
Subjective
Subjective
Date of Service: October 03, 2024
clear diet, no stools
Objective
Data Reviewed
Laboratory Data:
Laboratory Results
10/03/24 06:12
10/03/24 06:12
Laboratory Results
PT 15.3 Sec (11.4-14.6) H 10/03/24 06:12
INR 1.18 10/03/24 06:12
Total Bilirubin 0.6 mg/dl (0.2-1.3) 10/03/24 06:12
AST 16 U/L (17-59) L 10/03/24 06:12
ALT 14 U/L (0-50) 10/03/24 06:12
Alkaline Phosphatase 70 U/L (38-126) 10/03/24 06:12
Vital Signs and I&O:
Vital Signs
Temp Pulse Resp BP Pulse Ox
97.9 F 53 18 161/65 97
10/03/24 08:01 10/03/24 08:01 10/03/24 08:01 10/03/24 08:01 10/03/24 08:01
I&O
10/02/24 10/03/24 10/04/24
06:59 06:59 06:59
Intake Total 1480 / 1480 3000 / 3000
Output Total 2650 / 2650 1225 / 1225 250 / 250
Balance -1170 / -1170 1775 / 1775 -250 / -250
Physical Exam
Physical Exam
HEENT: Anicteric and Moist mucous membranes
Cardiology: Normal Sinus Rhythm
Pulmonary: Clear
GI: Soft, Non Distended and Non Tender
Extremities: Other (foot with walking shoe , multiple arm bruises )
Neuro: Non Focal
[2024-10-03] MEDS: DULCOLAX 10 MG PO (10:37)
[2024-10-03 11:36] VITALS: BP 166/68
--- NOTE | 2024-10-03 11:40 | W.PN.ONC ---
Today's Communication / Plan
-
Complete anemia workup including Retic count, iron studies, haptoglobin and LDH, direct/total bili, serum vit B12 and folate level, SPEP, EPO level
Impression
Impression
#Pancytopenia:
Etiology likely related to chronic disease as well as history of chronic alcoholism
Hgb currently at 8.8 status post 2 units pRBC- Will order complete anemia workup today
Plt count stable at 78
Resuming antiplatelets and anticoagulant post-op is okay as long as plts >50,000
GI to perform EGD/colon tomorrow
Cont to monitor CBC daily
# Peripheral vascular disease
Vascular surgery following- awaiting anemia workup
Holding antiplatelets and anticoagulation for now and if too prolonged might consider heparin drip but hold for now and reevaluate
Management per primary and vascular surgery
#Hyponatremia
Management per primary
DVT prophylaxis:
SCDs
Plan
Plan
Hgb stable s/p 2units pRBC-Continue to monitor CBC daily
Ordered complete anemia w/u panel
Plt count stable-resuming antiplatelets and anticoagulant post-op is okay as long as plts >50,000
Subjective/Objective
Subjective/Objective
Patient is about the same as yesterday. No new complaints.
Vital Signs:
Vital Signs
Temp Pulse Resp BP Pulse Ox
98 F 62 18 166/68 98
10/03/24 11:36 10/03/24 11:36 10/03/24 11:36 10/03/24 11:36 10/03/24 11:36
Lab Results:
Laboratory Data
WBC 4.4 10^3/uL (4.8-10.8) L 10/03/24 06:12
Hgb 8.8 g/dL (13.0-18.0) L 10/03/24 06:12
Plt Count 78 10^3/uL (130-400) L 10/03/24 06:12
PT 15.3 Sec (11.4-14.6) H 10/03/24 06:12
INR 1.18 10/03/24 06:12
eGFR > 60.00 10/03/24 06:12
Orders
Orders
Orders From Last 24 Hours
10/03/24 11:33
Add On- LAB Routine
10/03/24 11:35
Direct Bilirubin Routine
Erythropoietin (EPO) [S] Routine
Haptoglobin [S] Routine
LDH Routine
Protein Electrophoresis Reflex [S] Routine
Total Bilirubin Routine
Vitamin B12 Routine
--- NOTE | 2024-10-03 11:53 | CON.ID ---
Consultation
-
Date/Time Consultation Requested: October 03, 2024 0900
Date/Time Consultation Performed: October 03, 2024 1155
Requesting Provider: Dr. Shakir Ulrich
Performing Provider: Dr. Bree Pedro
Reason for Consultation: Toe infection
Chief Complaint / Past History
Chief Complaint
Anemia
History of Present Illness
68-year-old male with history of diabetes mellitus, neuropathy who was sent to the ER October 02 by vascular surgeon due to anemia. He has history of requiring multiple endovascular interventions to the latest being August 16, 2024 and August 21, 2024. He
was recently hospitalized from September 11 -September 19 for dry gangrene of the right second toe and left hallux. September 12, he underwent partial ray amputation including the met head of both toes. He was then discharged to SNF. He had follow-up with vascular
on September 26. Patient was complaining of worsening foot pain. The left foot noted to be red and there was drainage from the left great toe amputation site. He was therefore scheduled for angiogram October 02. However preprocedure blood work showed
hemoglobin of 6.3. Patient sent to the ER. In ER hemoglobin 7.3. He is currently being prepped for colonoscopy tomorrow. Currently on vancomycin and Zosyn. He denies fevers or chills. He has stopped smoking since last hospitalization.
Past History
Additional Past Medical History:
Diabetes mellitus
Neuropathy
COPD
Hypertension
Depression/anxiety
Chronic bicytopenia
PAD status post multiple endovascular interventions BLE
Toe gangrene status post left hallux partial ray September 12, 2024
Toe gangrene status post left second toe including met head amputation September 12, 2024
Allergy History:
No Known Allergies Allergy (Verified 10/01/24 14:46)
Medications Reviewed: Yes
Current Antibiotics:
Vancomycin
Zosyn
Social History
Tobacco: Former Smoker (Quit 09/19/24)
Alcohol: Former
Drug: None
Personal:
Family History
Family History: Not Pertinent
Review of Systems
Review of Systems
General: Negative Fever, Chills or Change in Appetite
HEENT: Negative Sinus Problems, Headache or Pharyngitis
Cardiovascular: Negative Chest Pain or Dyspnea
Respiratory: Negative Dyspnea or Cough
Gasteroenterology: Negative Nausea, Vomiting or Diarrhea
Genital / Urological: Negative Dysuria or Flank Pain
Endocrine: Negative Weakness
Neurological: Negative Dizziness
All systems: All other systems were reviewed and were negative
Vital Signs
Temp Pulse Resp BP Pulse Ox
98 F 62 18 166/68 98
10/03/24 11:36 10/03/24 11:36 10/03/24 11:36 10/03/24 11:36 10/03/24 11:36
Physical Exam
Physical Exam
Constitutional: No Acute Distress and Comfortable
Eyes: No Conjunctival Hemorrhage and Sclera Anicteric
Cardiovascular: Regular Rate and S1/S2
Pulmonary: Clear
Gastrointestinal: Soft, Non Tender, Non Distended and Normal Bowel Sounds
Genito-Urinary: Negative CVA Tenderness
Extremities: Negative Edema
Wound: Other (Left hallux amp site with sutures, dried blood, no erythema. R 2nd toe amp site sutures in place with dried blood, no erythema.)
Neurological: AO x 3
Lab / Diagnostic Study Results
10/03/24 06:12
10/03/24 06:12
Abs Immat Gran (auto) 0.0 10^3/uL (0-0.05) 10/03/24 06:12
Absolute Neuts (auto) 2.5 10^3/uL (1.4-6.5) 10/03/24 06:12
Absolute Lymphs (auto) 1.1 10^3/uL (1.2-3.4) L 10/03/24 06:12
Absolute Monos (auto) 0.5 10^3/uL (0.1-0.6) 10/03/24 06:12
Absolute Basos (auto) 0.1 10^3/uL (0-0.2) 10/03/24 06:12
Immature Gran % 0.2 % (0-0.5) 10/03/24 06:12
Neutrophils % 56.2 % (42.2-75.2) 10/03/24 06:12
Lymphocytes % 24.4 % (20.5-51.1) 10/03/24 06:12
Monocytes % 10.9 % (1.7-9.3) H 10/03/24 06:12
Eosinophils % 7.2 % (0-6) H 10/03/24 06:12
Basophils % 1.1 % (0-2) 10/03/24 06:12
PT 15.3 Sec (11.4-14.6) H 10/03/24 06:12
INR 1.18 10/03/24 06:12
Microbiology Results
Micro:
10/02/24 02:51 MRSA Screen - Final
Nose No Methicillin Resistant Staphylococcus aureus isolated.
Assessment / Plan
# PAD
# Recent osteo and gangrene of L hallux and 2nd R toe
- 09/12 s/p partial ray amputation
Bone margins negative osteo
- Amp sites do not appear infected
- DC Vanco/Zosyn and observe
- For Vascular intervention
# Acute on chronic anemia
- Colonoscopy tomorrow
# DM HA1c 6.8
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
Diabetes mellitus
Neuropathy
COPD
Hypertension
Depression/anxiety
Chronic bicytopenia
PAD status post multiple endovascular interventions BLE
Toe gangrene status post left hallux partial ray September 12, 2024
Toe gangrene status post left second toe including met head amputation September 12, 2024
[2024-10-03] MEDS: ATIVAN 1 MG PO (12:02)
[2024-10-03 12:06] LABS: Reticulocyte Count 1.7 % (0.4-2.8)
[2024-10-03] MEDS: DILAUDID 1 MG IV (12:06)
[2024-10-03 12:12] LABS: Glucose - Point of Care 99 mg/dl (70-99)
[2024-10-03 12:17] LABS: Iron < 20 ug/dl (49-181)
[2024-10-03 12:28] LABS: Total Iron Binding Capacity 255 ug/dl (261-462)
[2024-10-03 12:51] LABS: LDH 239 U/L (120-246)
[2024-10-03 13:05] LABS: Ferritin 39.3 ng/ml (17.9-464.0)
[2024-10-03] MEDS: FERRLECIT 110 MG IV (13:35)
[2024-10-03 13:40] LABS: Vitamin B12 389 pg/ml (239-931)
--- NOTE | 2024-10-03 14:07 | CON.MD ---
Consultation - Medical
-
CC: Anemia
History of Present Illness:
This 68-year-old male with history of diabetes mellitus,PAD and neuropathy is well known to me from previous admission for PAD and gangrene. He was sent to the ER October 02 by vascular service due to anemia.
He has a history of endovascular interventions to B/L LEs for limb threatening ischemia and gangrene to both feet. Patient was complaining of worsening foot pain. The left foot noted to be red and there was drainage from the left great toe
amputation site. He was therefore scheduled for angiogram October 02. However preprocedure blood work showed hemoglobin of 6.3. Patient sent to the ER. In ER hemoglobin 7.3. He is currently being prepped for colonoscopy tomorrow. Currently on
vancomycin and Zosyn. He denies fevers or chills. He has stopped smoking since last hospitalization.
Past History:
Diabetes mellitus
COPD
Hypertension
Depression/anxietyChronic bicytopenia
PAD status post multiple endovascular interventions BLE
status post left partial 1st ray and left part 2nd ray amps September 12, 2024
Allergy History:
No Known Allergies Allergy (Verified 10/01/24 14:46)
Medications Reviewed: Yes
Current Antibiotics:
Vancomycin
Zosyn
Social History
Tobacco: Former Smoker (Quit 09/19/24)
Alcohol: Former
Drug: None
Personal: and lives at home with family presently at [facility]
Family History
Family History: Not Pertinent
Review of Systems
Review of Systems
General: Negative Fever, Chills or Change in Appetite
HEENT: Negative Sinus Problems, Headache or Pharyngitis
Cardiovascular: Negative Chest Pain or Dyspnea
Respiratory: Negative Dyspnea or Cough
Gasteroenterology: Negative Nausea, Vomiting or Diarrhea
Genital / Urological: Negative Dysuria or Flank Pain
Endocrine: Negative Weakness
Neurological: Negative Dizziness
All systems: All other systems were reviewed and were negative
Vital Signs
Temp Pulse Resp BP Pulse Ox
98 F 62 18 166/68 98
10/03/24 11:36 10/03/24 11:36 10/03/24 11:36 10/03/24 11:36 10/03/24 11:36
Physical Exam
Physical Exam
Constitutional: No Acute Distress and Comfortable, pleasant and conversant
LE Extremity focused-
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 Feet warm and dry. No LE edema B/L
+Nail growth. Toes pink and warm
The left foot amp site suture line appears to be healing well, bulla present to medial foot 1 week ago is now dry and resolved. No erythema or edema.
Right foot : Eschar noted at incision 2nd ray amp site, mild erythema, no warmth No drainage expresed + mildly tender to touch.
Lab / Diagnostic Study Results
10/03/24 06:12
Abs Immat Gran (auto) 0.0 10^3/uL (0-0.05) 10/03/24 06:12
Absolute Neuts (auto) 2.5 10^3/uL (1.4-6.5) 10/03/24 06:12
Absolute Lymphs (auto) 1.1 10^3/uL (1.2-3.4) L 10/03/24 06:12
Absolute Monos (auto) 0.5 10^3/uL (0.1-0.6) 10/03/24 06:12
Absolute Basos (auto) 0.1 10^3/uL (0-0.2) 10/03/24 06:12
Immature Gran % 0.2 % (0-0.5) 10/03/24 06:12
Neutrophils % 56.2 % (42.2-75.2) 10/03/24 06:12
Lymphocytes % 24.4 % (20.5-51.1) 10/03/24 06:12
Monocytes % 10.9 % (1.7-9.3) H 10/03/24 06:12
Eosinophils % 7.2 % (0-6) H 10/03/24 06:12
Basophils % 1.1 % (0-2) 10/03/24 06:12
PT 15.3 Sec (11.4-14.6) H 10/03/24 06:12
INR 1.18 10/03/24 06:12
Microbiology Results
Micro:
10/02/24 02:51 MRSA Screen - Final
Nose No Methicillin Resistant Staphylococcus aureus isolated.
Assessment / Plan
1-PAD _Vascular/Dr Morrison following
2- Recent osteo and gangrene of L hallux and 2nd R toe
- 09/12 s/p partial ray amputation left 1st and right 2nd rays with delayed healing as result of PAD,anemia, etc, however, presently appears uninfected
- Sutures DC (some are adhered to eschar and left alone), incision redressed today. Wound care orders placed on chart. Will see prn while here
3- Acute on chronic anemia
- Colonoscopy tomorrow
4-DM2 with DPN- HbA1c 6.8
Consultation
-
Date/Time Consultation Requested: 10/03/2024@ 852a
Date/Time Consultation Performed: 10/03/2024 @1330
Requesting Provider: Dr. Shakir Ulrich
Performing Provider: Dr. Amelia Cruz
Reason for Consultation: Follow up S/p amp left 1st ray and right 2nd ray
[2024-10-03 16:04] VITALS: BP 159/67
[2024-10-03 16:44] LABS: Glucose - Point of Care 132 mg/dl (70-99)
[2024-10-03] MEDS: GAVILAX 238 GM PO (17:08)
--- NOTE | 2024-10-03 17:13 | CM ---
Patient continues on IV Vanco and Zosyn. Podiatry in to see patient. He has had some improvement with ABX. Functionally, per activity notes, he is near baseline.
Plan: Case management will continue to follow and assist with discharge planning. Home when stable.
--- NOTE | 2024-10-03 18:00 | PTCARENOTE ---
bowel prep for colonoscopy tm started @ 1700.
[2024-10-03] MEDS: ROXICODONE 5 MG PO (18:20)
[2024-10-03 19:45] VITALS: BP 143/63
[2024-10-03 20:53] LABS: Glucose - Point of Care 84 mg/dl (70-99)
[2024-10-03] MEDS: LIPITOR 40 MG PO (21:23)
[2024-10-03] MEDS: FLOMAX 0.4 MG PO (21:23)
[2024-10-03] MEDS: DESYREL 50 MG PO (21:23)
[2024-10-03 23:26] VITALS: BP 137/84
[2024-10-04] VITALS (10 sets, daily range): BP systolic 17–165; BP diastolic 53–78; BMI 20.8
[2024-10-04 00:21] LABS: Glucose - Point of Care 80 mg/dl (70-99)
[2024-10-04 03:41] LABS: Glucose - Point of Care 83 mg/dl (70-99)
[2024-10-04] MEDS: DILAUDID 1 MG IV ×4 (03:48→21:10)
--- NOTE | 2024-10-04 05:06 | PTCARENOTE ---
Patient refused gavilax prep - states it doesn't make him feel well. Education provided.
[2024-10-04 05:49] LABS: Glucose - Point of Care 92 mg/dl (70-99)
[2024-10-04] MEDS: PT'S OWN INSULIN PUMP - NovoLOG SC ×2 (05:50→14:06)
--- NOTE | 2024-10-04 07:47 | W.PN.HOSP.TC ---
Today's Communication/Plan
-
EGD/colonoscopy
Assessment / Plan
Assessment / Plan
Physical exam:
General: Acute on chronically ill
HEENT: Normocephalic, Atraumatic and Moist Mucous Membranes
Respiratory: Clear to Auscultation; Negative Wheezes, Rales or Rhonchi
Cardiac: Regular Rhythm and S1/S2
GI: Soft, Nontender and Nondistended
Musculoskeletal: No Clubbing, No Cyanosis and No Edema
Skin: Toe gangrenes, decreased pulses.
Neuro: Awake, Alert and Oriented, no neurological deficit
Psych: Calm
A/P:
Symptomatic anemia/pancytopenia:
Improving
[place] to be related to chronic liver disease but rule out GI source-ultrasound liver consistent with cirrhosis.
After blood transfusion hemoglobin up to 9.9 today
Continue IV iron infusion as well
Plan for EGD/colonoscopy today
Toes gangrene in the setting of peripheral vascular disease:
Vascular surgery consult appreciated
Stopped antibiotics
Podiatry and ID eval appreciated
Holding antiplatelets and anticoagulation for now and if too prolonged might consider heparin drip but hold for now and reevaluate.
Hyponatremia:
Resolved-->sodium normalized to 138
Hypertension:
Continue home antihypertensives
Continue IV hydralazine as needed
Hyperlipidemia:
Continue statin
Diabetes mellitus type 2:
On insulin pump
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
Diabetic neuropathy:
Continue current Lyrica
Depression anxiety:
Continue antidepressant and benzodiazepine
COPD:
No bronchospasm and stable
Inhalers as needed
DVT prophylaxis:
SCDs
CODE STATUS:
Full code
Anticipated Discharge: 24 - 48 hours
Subjective/Interval History
-
Date of Service: October 04, 2024
Patient went through bowel prep. No chest pain or shortness of breath. Afebrile
Objective Data
-
Labs:
Laboratory Results
10/04/24
07:29
WBC Pending
Hgb Pending
Hct Pending
Plt Count Pending
Sodium Pending
Potassium Pending
Chloride Pending
Carbon Dioxide Pending
BUN Pending
Creatinine Pending
Glucose Pending
Calcium Pending
Vital Signs:
Vital Signs
Temp Pulse Resp BP Pulse Ox
98.2 F 70 18 147/66 96
10/04/24 03:30 10/04/24 03:30 10/04/24 03:30 10/04/24 04:22 10/04/24 03:30
I&O
10/03/24 10/04/24 10/05/24
06:59 06:59 06:59
Intake Total 3000 / 3000 480 / 480
Output Total 1225 / 1225 1700 / 1700
Balance 1775 / 1775 -1220 / -1220
--- NOTE | 2024-10-04 08:18 | PN.DE.MGMTRT ---
Insulin Management
- -
10/04/2024: Diabetes Insulin pump Management Follow up
Patient admitted 10/[address] [facility] for abnormal lab, decreased hgb and increased pain in both feet. Patient was seen on previous admission by our team for diabetes management. PMH: HTN PAD, Neuropathy, COPD, Anemia and T2DM, s/p RLE arteriogram
with balloon angio R dorsalis pedis and anterior tibial arteries and left lower extremity arteriogram, SFA stents x 2, s/p amputation R 2nd toe and L great toe. A1C from last admission, 08/21, was 6.8%.
Pt is sleeping. Had difficult time with bowel prep, not disturbed. Prior to admission was using Tandem T-Slim insulin pump, Humalog insulin and Dexcom G7 prior to admission. He routinely sees Dr. Vaca for diabetes care.
10/03 Bowel prep for colonoscopy started, patient on clear liquids. Glucose range 84 to 132, patient using pump without difficulty.
Patient evaluated by GI for endoscopy & colonoscopy today 10/04. Patient to continue insulin pump
Patient resumed insulin pump he has adequate supplies. Corrective insulin stopped, patient to bolus for meals and corrections as needed.
Pump settings as follows:
Basal Correction CHO ratio target
12AM 1 1:30 1:14 110
3AM 1 1:30 1:14 110
6am .975 1:30 1:13 110
12PM 1 1:30 1:13 110
8pm 1 1:30 1:13 110
24 hour basal total units 23.85.
Will make no change to pump settings.
Discussed with nurse.
Will cont to follow
Diabetes History
- -
Type of Diabetes: 1
Pre-Admission Diabetes Regimen
Lab Results
Hemoglobin A1c 6.8 % (4.0-5.6) H 10/02/24 06:29
Insulin Pump Settings
IP Diabetes Regimen
10/03/24 10/03/24 10/03/24
12:11 16:43 20:52
POC Glucose 99 132 H 84
10/04/24 10/04/24 10/04/24
00:20 03:39 05:48
POC Glucose 80 83 92
Meal type: Lunch
Meal type: Breakfast
Amount consumed: 100%
Amount consumed: 0
Patient Education
[2024-10-04 08:22] LABS: Hematocrit 29.8 % (39.0-52.0); Hemoglobin 9.9 g/dL (13.0-18.0); Mean Corp Hgb Conc. 33.2 g/dL (33.0-37.0); Mean Corpuscular Hgb 26.5 pg (27.0-31.0); Mean Corpuscular Volume 79.7 fL (80.0-94.0); Platelet Count 73 10^3/uL (130-400); Red Blood Cell Count 3.74 10^6/uL (4.70-6.10); Red Cell Dist. Width 15.7 % (11.5-14.5); White Blood Cell Count 4.5 10^3/uL (4.8-10.8)
[2024-10-04] MEDS: DOLOPHINE 5 MG PO ×3 (09:38→21:03)
[2024-10-04 09:43] LABS: Blood Urea Nitrogen 11 mg/dl (9-20); Calcium 8.9 mg/dl (8.4-10.2); Carbon Dioxide 26 mmol/L (22-30); Chloride 105 mmol/L (98-107); Estimated Creatinine Clearance 62 ml/min; Glucose 91 mg/dl (70-99); Potassium 4.2 mmol/L (3.5-5.1); Sodium 138 mmol/L (135-145); eGFR > 60.00
[2024-10-04] MEDS: LYRICA 100 MG PO ×3 (09:47→21:04)
[2024-10-04] MEDS: ZESTRIL 40 MG PO (09:48)
[2024-10-04] MEDS: PROTONIX 40 MG PO (09:48)
[2024-10-04] MEDS: SODIUM CHLORIDE 1 GRAM PO ×2 (09:49→21:04)
[2024-10-04] MEDS: FOLVITE 1 MG PO (09:49)
[2024-10-04] MEDS: NORVASC 10 MG PO (09:55)
--- NOTE | 2024-10-04 10:18 | W.PN.ONC ---
Today's Communication / Plan
-
Start Iron IV
Will check Methylmalonic acid level
Continue to monitor CBC daily
Impression
Impression
#Pancytopenia:
Etiology likely related to chronic disease as well as history of chronic alcoholism
Hgb stable and currently at 9.9 status post 2 units pRBC
Plt count stable at 73
Resuming antiplatelets and anticoagulant post-op is okay as long as plts >50,000
GI to perform EGD/colon today
Cont to monitor CBC daily
# Peripheral vascular disease
Vascular surgery following
ID team dc'ed antibiotics
Ferritin normal- Serum Iron, TIBC and saturation low suggesting Iron deficiency anemia-will start IV Iron since no active infection or diarrhea present
LDH, Bili Total and direct normal- Retic <2%
EPO, SPEP and hapto pending
B12 on the lower side-Will check Methylmalonic acid and start B12 if low
Holding antiplatelets and anticoagulation- Okay to resume pending GI evaluation
PVD management per primary and vascular surgery
#Hyponatremia
Management per primary
DVT prophylaxis:
SCDs
Plan
Plan
Hgb stable s/p 2units pRBC-Continue to monitor CBC daily
Plt count stable-resuming antiplatelets and anticoagulant post-op is okay as long as plts >50,000 and pending GI w/u
Iron deficiency anemia- Start IV Iron
Will check Methylmalonic acid level
EPO, SPEP and hapto pending
Subjective/Objective
Subjective/Objective
No new complaints. No changes in PE
Vital Signs:
Vital Signs
Temp Pulse Resp BP Pulse Ox
98.7 F 74 20 163/64 100
10/04/24 07:33 10/04/24 07:33 10/04/24 07:33 10/04/24 07:33 10/04/24 07:33
Lab Results:
Laboratory Data
WBC 4.5 10^3/uL (4.8-10.8) L 10/04/24 07:29
Hgb 9.9 g/dL (13.0-18.0) L 10/04/24 07:29
Plt Count 73 10^3/uL (130-400) L 10/04/24 07:29
PT 15.3 Sec (11.4-14.6) H 10/03/24 06:12
INR 1.18 10/03/24 06:12
eGFR > 60.00 10/04/24 07:29
Orders
Orders
Orders From Last 24 Hours
10/03/24 11:33
Add On- LAB Routine
10/03/24 12:12
Erythropoietin (EPO) [S] Routine
Haptoglobin [S] Routine
LDH Routine
Protein Electrophoresis Reflex [S] Routine
Vitamin B12 Routine
--- NOTE | 2024-10-04 12:50 | W.PN.UPDATE ---
Addendum entered and electronically signed by Mandie Chaves MD 10/04/24 13:35:
My office reached out to his facility and made follow up appt in October
d/w hospitalist ok to do coreg with nebs - monitor bp/hr
GI will sign off pls call with ?s
Original Note:
Update Note
Progress Note Update
VOCAL CELESTE SCORE:
Predicted Postoperative Outcomes by the VOCAL-Celeste Score:
30-day mortality: 9.8%
90-day mortality: 16.5%
180-day mortality: 27.2%
90-day decompensation: 12.6%
[2024-10-04] MEDS: ROXICODONE 10 MG PO (14:01)
[2024-10-04] MEDS: FERRLECIT 110 MG IV (14:02)
[2024-10-04] MEDS: COREG 3.125 MG PO ×2 (14:05→21:04)
[2024-10-04] MEDS: ATIVAN 1 MG PO (14:06)
[2024-10-04 14:07] LABS: Glucose - Point of Care 95 mg/dl (70-99)
[2024-10-04 16:44] LABS: Glucose - Point of Care 160 mg/dl (70-99)
[2024-10-04] MEDS: PT'S OWN INSULIN PUMP - NovoLOG 5.77 UNIT SC (17:39)
[2024-10-04] MEDS: LIPITOR 40 MG PO (21:03)
[2024-10-04] MEDS: FLOMAX 0.4 MG PO (21:03)
[2024-10-04] MEDS: DESYREL 50 MG PO (21:04)
[2024-10-04 21:48] LABS: Glucose - Point of Care 161 mg/dl (70-99)
[2024-10-04 22:21] LABS: Hepatitis B Surface Antigen Negative (Negative)
[2024-10-04 22:34] LABS: Hepatitis A IgM Antibody Negative (Negative); Hepatitis B Core Ab, IgM Negative (Negative)
[2024-10-04 22:42] LABS: Hepatitis A Antibody, Total Negative (Negative); Hepatitis B Core Ab, Total Negative (Negative); Hepatitis B Surface Antibody Negative
[2024-10-05] MEDS: DILAUDID 1 MG IV ×2 (00:36→03:35)
[2024-10-05] MEDS: PT'S OWN INSULIN PUMP - NovoLOG SC ×3 (00:40→11:48)
[2024-10-05 03:31] VITALS: BP 156/71
[2024-10-05 07:05] VITALS: BP 161/71
--- NOTE | 2024-10-05 07:19 | PN.DE.MGMTRT ---
Insulin Management
- -
10/05/2024: Diabetes Insulin pump Management Follow up
Patient admitted 10/01 from [facility] for abnormal lab, decreased hgb and increased pain in both feet. Patient was seen on previous admission by our team for diabetes management. PMH: HTN PAD, Neuropathy, COPD, Anemia and T2DM, s/p RLE arteriogram
with balloon angio R dorsalis pedis and anterior tibial arteries and left lower extremity arteriogram, SFA stents x 2, s/p amputation R 2nd toe and L great toe. A1C from last admission, 08/21, was 6.8%.
Pt is awake alert and oriented, able to discuss diabetes care. Prior to admission was using Tandem T-Slim insulin pump, Humalog insulin and Dexcom G7 prior to admission. He routinely sees Dr. Vaca for diabetes care.
10/04 NPO for endoscopy & colonoscopy glucose range 92 and 95 while NPO. Up to 160 after meal. Patient using insulin pump for meal bolus and corrections.
10/05 Patient continues use of insulin pump he has adequate supplies. Glucose stable, patient continues to bolus for meals and corrections as needed.
Pump settings as follows:
Basal Correction CHO ratio target
12AM 1 1:30 1:14 110
3AM 1 1:30 1:14 110
6am .975 1:30 1:13 110
12PM 1 1:30 1:13 110
8pm 1 1:30 1:13 110
24 hour basal total units 23.85.
Will make no change to pump settings.
Discussed with nurse.
Will cont to follow
Diabetes History
- -
Type of Diabetes: 1
Pre-Admission Diabetes Regimen
10/04/24
07:29
Creatinine 1.1
Lab Results
Hemoglobin A1c 6.8 % (4.0-5.6) H 10/02/24 06:29
Insulin Pump Settings
IP Diabetes Regimen
10/04/24 10/04/24 10/04/24
07:29 14:05 16:43
Glucose 91
POC Glucose 95 160 H
10/04/24
21:47
Glucose
POC Glucose 161 H
Meal type: Lunch
Amount consumed: 100%
Patient Education
[2024-10-05] MEDS: LYRICA 100 MG PO (07:38)
[2024-10-05] MEDS: DOLOPHINE 5 MG PO (07:38)
[2024-10-05] MEDS: SODIUM CHLORIDE 1 GRAM PO (07:39)
[2024-10-05] MEDS: PROTONIX 40 MG PO (07:39)
[2024-10-05] MEDS: FOLVITE 1 MG PO (07:39)
[2024-10-05] MEDS: NORVASC 10 MG PO (07:40)
[2024-10-05] MEDS: ZESTRIL 40 MG PO (07:40)
[2024-10-05] MEDS: COREG 3.125 MG PO (07:40)
[2024-10-05] MEDS: ROXICODONE 10 MG PO (07:48)
[2024-10-05 07:55] LABS: Glucose - Point of Care 103 mg/dl (70-99)
[2024-10-05 08:16] LABS: Hematocrit 25.4 % (39.0-52.0); Hemoglobin 8.5 g/dL (13.0-18.0); Mean Corp Hgb Conc. 33.5 g/dL (33.0-37.0); Mean Corpuscular Hgb 26.7 pg (27.0-31.0); Mean Corpuscular Volume 79.9 fL (80.0-94.0); Mean Platelet Volume 12.2 fL (7.4-10.4); Platelet Count 69 10^3/uL (130-400); Red Blood Cell Count 3.18 10^6/uL (4.70-6.10); Red Cell Dist. Width 15.8 % (11.5-14.5); White Blood Cell Count 5.6 10^3/uL (4.8-10.8)
[2024-10-05 08:40] LABS: Blood Urea Nitrogen 10 mg/dl (9-20); Calcium 8.5 mg/dl (8.4-10.2); Carbon Dioxide 25 mmol/L (22-30); Chloride 106 mmol/L (98-107); Estimated Creatinine Clearance 68 ml/min; Glucose 94 mg/dl (70-99); Potassium 3.9 mmol/L (3.5-5.1); Sodium 135 mmol/L (135-145); eGFR > 60.00
--- NOTE | 2024-10-05 10:00 | W.PN.HOSP.TC ---
Addendum entered and electronically signed by Shakir Ulrich MD 10/05/24 15:56:
L heel stage 1 PI
Original Note:
Today's Communication/Plan
-
Discharge planning today
Assessment / Plan
Assessment / Plan
Physical exam:
General: No acute distress
HEENT: Normocephalic, Atraumatic and Moist Mucous Membranes
Respiratory: Clear to Auscultation; Negative Wheezes, Rales or Rhonchi
Cardiac: Regular Rhythm and S1/S2
GI: Soft, Nontender and Nondistended
Musculoskeletal: No Clubbing, No Cyanosis and No Edema
Skin: Toe dry gangrenes and no infection, decreased pulses but present.
Neuro: Awake, Alert and Oriented, no neurological deficit
Psych: Calm
A/P:
Symptomatic anemia/pancytopenia:
Improving
[place] to be related to chronic liver disease but rule out GI source-ultrasound liver consistent with cirrhosis.
After blood transfusion hemoglobin up to 8.5 today
Completed iron infusion today
EGD with portal gastropathy
Colonoscopy with polyps, internal hemorrhoids, diverticulosis.
Toes gangrene in the setting of peripheral vascular disease:
Vascular surgery consult appreciated
Stopped antibiotics
Podiatry and ID eval appreciated
Discussed with vascular surgery today-recommended to discontinue Eliquis completely and just keep on 1 antiplatelet given his high risk of bleeding. Will start him on Plavix.
Hyponatremia:
Resolved-->sodium normalized to 135
Hypertension:
Continue home antihypertensives
Added beta-cecilia that will help for hypertension and for his liver disease as well
Continue IV hydralazine as needed
Hyperlipidemia:
Continue statin
Diabetes mellitus type 2:
On insulin pump
[employer] diabetic consult
Diabetic neuropathy:
Continue current Lyrica
Depression anxiety:
Continue antidepressant and benzodiazepine
COPD:
No bronchospasm and stable
Inhalers as needed
DVT prophylaxis:
SCDs
CODE STATUS:
Full code
Anticipated Discharge: Today
Subjective/Interval History
-
Date of Service: October 05, 2024
No chest pain or shortness of breath. Afebrile.
Objective Data
-
Labs:
Laboratory Results
10/05/24
07:10
WBC 5.6
Hgb 8.5 L
Hct 25.4 L
Plt Count 69 L
Sodium 135
Potassium 3.9
Chloride 106
Carbon Dioxide 25
BUN 10
Creatinine 1.0
Glucose 94
Calcium 8.5
Vital Signs:
Vital Signs
Temp Pulse Resp BP Pulse Ox
97.4 F 59 18 161/71 97
10/05/24 07:05 10/05/24 07:40 10/05/24 07:05 10/05/24 07:40 10/05/24 07:05
I&O
10/04/24 10/05/24 10/06/24
06:59 06:59 06:59
Intake Total 480 / 480 920 / 920
Output Total 1700 / 1700 450 / 450
Balance -1220 / -1220 470 / 470
--- NOTE | 2024-10-05 10:19 | PN.CDI ---
CDI
- -
CDI:
Physician Documentation Request
Admit Date: 10/01/24 18:01
Dear Doctor Mojgan,
WOCN note states ' L heel with tiny patch of nonblanchable redness medical side, suspect stage 1 PI'
Physician documentation of the type and location of wounds is required for compliant documentation. Based on the above clinical findings and your assessment, please provide the following in your progress note:
1. Location of the ulcer/wound, including laterality.
2. Type (etiology) of ulcer/wound:
- Diabetic ulcer
- Arterial (ischemic) ulcer
- Traumatic wound
- Pressure (decubitus) ulcer
- Other
Use of terms such as suspected, likely, concern for, or probable (associated with a specific diagnosis that is being evaluated, monitored, or treated as if it exists) are acceptable and can be coded in the inpatient setting, when documented at the
time of discharge.
Thank you,
Rhoda Barton RN, BSN
CDI Specialist
tiger text
Please use your independent medical judgment in providing your response.
*Source: National Pressure Ulcer Advisory Panel (NPUAP)
[2024-10-05] MEDS: ROXICODONE 5 MG PO (11:42)
[2024-10-05] MEDS: ATIVAN 1 MG PO (11:43)
[2024-10-05 11:47] VITALS: BP 169/66
--- NOTE | 2024-10-05 11:50 | CM ---
Received call from patient who stated that he was advised that as he is not have surgery this week, he can be discharged. Placed a call to [facility] in admissions at [facility] who confirmed bed availability for today. # For report
[phone] and fax [phone]. Messaged attending to determine if patient can be discharged medically today. Patient will need w/c van.
Plan: Case management will continue to follow and assist with discharge planning. [facility] today if patient stable for transfer.
--- NOTE | 2024-10-05 11:52 | W.PN.ONC ---
Documented by User: Shelly Hughes MD, Resident 10/05/24 12:05
Today's Communication / Plan
-
Resuming antiplatelets and anticoagulant is okay as long as plts >50,000- GI cleared for Eliquis
Continue IV Iron
Impression
Impression
#Pancytopenia:
Etiology likely related to chronic disease as well as history of chronic alcoholism
Hgb stable and currently at 8.5 status post 2 units pRBC
Plt count stable at 69
Resuming antiplatelets and anticoagulant post-op is okay as long as plts >50,000
Endo performed on 10/04 suggesting portal HTN gastropathy vs gastritis- GI cleared to restart Eliquis if no overt bleeding
Recommend Fibroscan
Cont to monitor CBC daily
# Peripheral vascular disease
Vascular surgery following- surgery postponed to next Tuesday
ID team dc'ed antibiotics
Ferritin normal- Serum Iron, TIBC and saturation low suggesting Iron deficiency anemia-cont IV Iron since no active infection or diarrhea present
LDH, Bili Total and direct normal- Retic <2%
EPO, SPEP and hapto pending
B12 on the lower side- Methylmalonic acid pending-will start B12 if low
Antiplatelets and anticoagulation- Okay to resume as long as platelets >50,000
PVD management per primary and vascular surgery
#Hyponatremia
Management per primary
DVT prophylaxis:
SCDs
Plan
Plan
Hgb stable s/p 2units pRBC-Continue to monitor CBC daily
Plt count stable-resuming antiplatelets and anticoagulant post-op is okay as long as plts >50,000- GI cleared for Eliquis
Iron deficiency anemia- Continue IV Iron
Methylmalonic acid level pending
EPO, SPEP and hapto pending
Subjective/Objective
Subjective/Objective
Vital Signs:
Vital Signs
Temp Pulse Resp BP Pulse Ox
97.4 F 54 18 169/66 97
10/05/24 07:05 10/05/24 11:47 10/05/24 11:47 10/05/24 11:47 10/05/24 07:05
Lab Results:
Laboratory Data
WBC 5.6 10^3/uL (4.8-10.8) 10/05/24 07:10
Hgb 8.5 g/dL (13.0-18.0) L 10/05/24 07:10
Plt Count 69 10^3/uL (130-400) L 10/05/24 07:10
PT 15.3 Sec (11.4-14.6) H 10/03/24 06:12
INR 1.18 10/03/24 06:12
eGFR > 60.00 10/05/24 07:10
Orders
Orders
Orders From Last 24 Hours
10/04/24 13:57
Methylmalonic Acid [S] Routine

Documented by User: Derek Nino MD 10/05/24 12:40
Today's Communication / Plan
-
Resuming antiplatelets and anticoagulant is okay as long as plts >50,000- GI cleared for Eliquis
Continue IV Iron
Attending: Longstanding mild thrombocytopenia, unclear etiology. Imaging studies have not suggested cirrhosis, but he certainly could have it as an etiology, despite the fact that his spleen is not particularly enlarged. He has tolerated triple
anticoagulant therapy in the past, so I would have no objections to doing that again if necessary. Obviously, bleeding risks are high with anybody on triple anticoagulant therapy.
His anemia seems to be 1 of iron deficiency, as well as possibly of chronic/inflammatory disease.
In light of his thrombocytopenia and multiple thrombotic problems, I have sent off studies for phospholipid antibody syndrome. If he were shown to have that, warfarin would be preferable to a direct inhibitor. No objections to anticipated vascular
surgery next week.
--- NOTE | 2024-10-05 11:57 | W.PN.UPDATE ---
Update Note
Progress Note Update
Patient seen at bedside this a.m. with Dr. Morrison. We are not planning to reschedule his left lower extremity arteriogram for 10/12/2024 as an outpatient. Patient is agreeable to this. He is aware that our office will reach out to him with
instructions when he is discharged in the hospital.
[2024-10-05 12:04] LABS: Glucose - Point of Care 84 mg/dl (70-99)
--- NOTE | 2024-10-05 12:57 | W.DCSUMMARY ---
Discharge Summary
Discharge Data
Date of Admission: 10/01/24
Date of Discharge: 10/05/24
Total time spent discharging patient (in min): 35
-
Pending Results: No
Hospital Course
Patient 68-year-old male with history of diabetes mellitus, peripheral vascular disease, multiple other comorbidities presented to the hospital with pain in both lower extremities more pronounced on the left lower and also found to have significant
symptomatic anemia. Patient had been scheduled for vascular procedure as outpatient but unable to be performed due to his anemia. Patient underwent extensive workup for his anemia. He was seen by hematology and GI. He had an ultrasound of the
liver that shows evidence of cirrhotic liver. He also underwent upper endoscopy and colonoscopy that shows evidence of portal gastropathy. He also was found to have polyps and diverticular disease and internal hemorrhoids. He was transfused with
blood during this hospital stay and given IV iron infusion as well. Patient hemoglobin had been stabilized. His risk of worsening anemia remains but he is cleared to restart anticoagulation and antiplatelet. After discussion with vascular surgery
and patient it was decided for patient to be on one antiplatelet only and discontinue anticoagulation. He had been placed on Plavix. Aspirin and Eliquis have been discontinued. He had also been started on beta-blockers from his liver disease
perspective and hypertensive heart disease as well. He was also evaluated by ID and podiatry and they did not recommend continue any antibiotics for now. Vascular surgery will perform his vascular procedure next week and will arrange for this
procedure. He will be discharged back to his skilled facility today.
Discharge duration: 35 minutes
Discharge Plan
-
Patient Disposition: Assisted/SNF
Discharge Diagnosis/Procedures: Anemia related to chronic liver disease and portal gastropathy. Peripheral vascular disease. Hyponatremia.
Condition: Fair
Diet: Diabetic, Carb Controlled and Restrict fluids to 64 oz
Activity: As tolerated
Blood Work: Please PCP to order CBC, BMP within 1 week
Activity Restrictions/Additional Instructions:
Wound Care Instructions
R 2nd toe: clean with saline, folded adaptic and folded dry gauze dressing change q other day and prn drainage
L great toe: clean with saline, folded dry gauze dressing change q other day and prn drainage
skin tears on arms and legs: clean with saline, silicone foam change q 2-3 days and prn drainage.
Heels: skin prep and adhesive foams change q 3 days and prn soilage
offloading fiber filled heel boots when in bed
Darco shoes when ambulating
Follow up with Diagnostic Sales Specialist and Vascular
Referrals:
Dar Morrison III, MD [Active, Vascular Surgery] - in one to two weeks
Myah Garcia DO [Family Provider, General] - in less than 1 week
Emma Vasquez PA-C [Specified Professional Personl, Gastroenterology] - 11/15/24 11:30 am
Referral Note: Please call to reschedule if you can not keep this appointment. If your insurance requires a referral please contact your primary care physician prior to your appointment.
Prescriptions:
New
Pt's Own Ins. Pump Aspart [Pt's Own Insulin Pump - Novolog]
1 unit SC PRN PRN (Reason: As directed) Qty: 0 0RF
clopidogrel [Plavix] 75 mg tablet
75 mg PO DAILY Qty: 30 0RF
carvedilol [Coreg] 3.125 mg tablet
3.125 mg PO BID Qty: 60 0RF
Continued
pantoprazole 40 MG tablet,delayed release (DR/EC)
40 mg PO NOON
folic acid 1 MG tablet
1 mg PO DAILY
trazodone 50 mg Tablet
50 mg PO HS
lisinopril 40 mg Tablet
40 mg PO DAILY
atorvastatin 40 mg Tablet
40 mg PO HS
lorazepam 1 mg Tablet
1 mg PO NOON
duloxetine 60 mg Capsule,Delayed Release(Dr/Ec)
60 mg PO NOON
tamsulosin [Flomax] 0.4 mg Capsule
0.4 mg PO HS
amlodipine [Norvasc] 10 mg Tablet
10 mg PO DAILY
acetaminophen [Tylenol] 325 mg Tablet
650 mg PO Q4HPRN PRN (Reason: FEVER>100F/MILD PAIN(1-4/10) ON PAIN SCALE)
Rx Instructions:
DO NOT EXCEED 3000MG APAP/24HOURS
magnesium hydroxide [Milk of Magnesia] 400 mg/5 mL Suspension
30 ml PO P24LPST PRN (Reason: GIVE ON DAY 4 IF NO BM BY 3RD DAY)
Rx Instructions:
ONCE DAILY IF NO BM X3 DAYS. GIVE ON DAY 4
bisacodyl [Dulcolax (bisacodyl)] 10 mg Suppository
10 mg KS DAILY PRN (Reason: IF NO BM BY 5TH DAY OR AFTR MOM)
Rx Instructions:
INSERT 1 SUPPOSITORY RECTALLY EVERY 24 HOURS NEEDED FOR CONSTIPATION ONE TIME DAILY IF MILK OF MAGNESIA INEFFECTIVE-GIVE ON DAY 5 OF NO BM;
docusate sodium [Colace] 100 mg Capsule
100 mg PO BID
ferrous sulfate 325 mg (65 mg iron) Tablet,Delayed Release (Dr/Ec)
325 mg PO DAILY
chlorhexidine gluconate [Hibiclens] 4 % Liquid
1 applic TOPICAL BID
Rx Instructions:
APPLY TO FROM NECK DOWN UNTIL 10/03/24
Dakin's Solution 0.25 % Solution
1 applic TOPICAL DAILY
Rx Instructions:
APPLY TO LEFT AND RIGHT 2ND TOE, MEDIAL LEFT FOOT
sodium chloride 1,000 mg Tablet,Soluble
1,000 mg PO BID
cholecalciferol (vitamin D3) [Vitamin D3] 50 mcg (2,000 unit) Tablet
50 mcg PO DAILY
Fleet Enema Extra 19-7 gram/197 mL Enema
197 ml KS DAILYPRN PRN (Reason: IF NO BM GIVE ON DAY 6 )
Rx Instructions:
INSTERT 1 APPLICATION RECTALLY Q24 HR HOURS PRN FOR CONSTIPATION ONCE DAILY IF DULCOLAX SUPPOSITORY IS NOT EFFECTIVE-GIVE ON DAY 6
oxycodone 5 mg tablet
5 mg PO Q4HPRN PRN (Reason: MODERATE/BREAKTHROUGH PAIN)
oxycodone 10 mg tablet
10 mg PO [id number] PRN (Reason: SEVERE PAIN)
insulin lispro 100 unit/mL Cartridge
See Rx Instructions .ROUTE .COMPLEX
Rx Instructions:
12am basal 1 correction 1:30 CHO 1:14 target 110
3am basal 1 correction 1:30 CHO 1:14 target 110
6am basal 0.975 correction 1:30 CHO 1:13 target 110
12pm basal 1 correction 1:30 CHO 1:13 target 110
8pm basal 1 correction 1:30 CHO 1:13 target 110
24 hour basal total units 23.85
Changed
methadone 10 mg Tablet
5 mg PO TID Qty: 0 0RF
pregabalin [Lyrica] 300 MG capsule
100 mg PO TID Qty: 0 0RF
Discontinued
gabapentin 300 mg Capsule
600 mg PO TID
aspirin 81 mg Tablet,Chewable
81 mg PO DAILY Qty: 30 0RF
clonidine HCl 0.1 mg Tablet
0.1 mg PO NOON
Rx Instructions:
HOLD IF SBP<130
doxycycline hyclate 100 mg capsule
100 mg PO BID
Eliquis 5 mg tablet
5 mg PO BID
insulin aspart U-100 [Novolog FlexPen U-100 Insulin] 100 unit/mL (3 mL) Insulin Pen
6 sliding scale dose SC AC
insulin glargine [Lantus Solostar U-100 Insulin] 100 unit/mL (3 mL) Insulin Pen
20 unit SC DAILY
Discharge Orders:
Discharge Patient (As Directed); Ordered 10/05/24
Ordered By: Shakir Ulrich
Discharge Date and Time
Print Language: LATVIAN
[2024-10-05] MEDS: FERRLECIT 110 MG IV (13:51)
[2024-10-05 15:08] VITALS: BP 175/70
[2024-10-05 16:06] LABS: Erythropoietin (EPO) 11 mU/mL (4-27)
[2024-10-06 22:03] LABS: Haptoglobin 206 mg/dL (30-200)
== END 2024-10-05 15:55 | DRG 433 ==
LOC: 4 EAST ACU 18:01
PROVIDERS: Emergency Medicine; Internal Medicine; Nurse Practitioner Adult Health; Physician Assistant; ADMITTING PHYSICIAN Hospitalist; CONSULT PHYSICIAN Internal Medicine Gastroenterology; CONSULT PHYSICIAN Internal Medicine Hematology & Oncology; CONSULT PHYSICIAN Internal Medicine Infectious Disease; CONSULT PHYSICIAN Podiatrist Foot & Ankle Surgery; EMERGENCY PHYSICIAN Emergency Medicine; FAMILY PHYSICIAN Family Medicine
PROC: 30233N1 Transfusion of Nonautologous Red Blood Cells into Peripheral Vein, Percutaneous Approach (ICD-10-PCS; 2024-10-01)
PROC: 0DBH8ZZ Excision of Cecum, Via Natural or Artificial Opening Endoscopic (ICD-10-PCS; 2024-10-04)
PROC: 0DBN8ZZ Excision of Sigmoid Colon, Via Natural or Artificial Opening Endoscopic (ICD-10-PCS; 2024-10-04)
PROC: 0DBP8ZZ Excision of Rectum, Via Natural or Artificial Opening Endoscopic (ICD-10-PCS; 2024-10-04)
PROC: 0DBL8ZZ Excision of Transverse Colon, Via Natural or Artificial Opening Endoscopic (ICD-10-PCS; 2024-10-04)
PROC: 0DB98ZX Excision of Duodenum, Via Natural or Artificial Opening Endoscopic, Diagnostic (ICD-10-PCS; 2024-10-04)
PROC: 0DB68ZX Excision of Stomach, Via Natural or Artificial Opening Endoscopic, Diagnostic (ICD-10-PCS; 2024-10-04)
PROC: 0DBK8ZZ Excision of Ascending Colon, Via Natural or Artificial Opening Endoscopic (ICD-10-PCS; 2024-10-04)
DX: K74.60 Unspecified cirrhosis of liver (principal); D61.818 Other pancytopenia; K76.6 Portal hypertension; E11.52 Type 2 diabetes mellitus with diabetic peripheral angiopathy with gangrene; E87.1 Hypo-osmolality and hyponatremia; D68.32 Hemorrhagic disorder due to extrinsic circulating anticoagulants; E11.40 Type 2 diabetes mellitus with diabetic neuropathy, unspecified; E78.00 Pure hypercholesterolemia, unspecified; N18.9 Chronic kidney disease, unspecified; I13.10 Hypertensive heart and chronic kidney disease without heart failure, with stage 1 through stage 4 chronic kidney disease, or unspecified chronic kidney disease; D50.0 Iron deficiency anemia secondary to blood loss (chronic); D63.8 Anemia in other chronic diseases classified elsewhere; K64.0 First degree hemorrhoids; D12.7 Benign neoplasm of rectosigmoid junction; D12.3 Benign neoplasm of transverse colon; D12.2 Benign neoplasm of ascending colon; D12.0 Benign neoplasm of cecum; K57.30 Diverticulosis of large intestine without perforation or abscess without bleeding; F32.A Depression, unspecified; F41.9 Anxiety disorder, unspecified; F10.10 Alcohol abuse, uncomplicated; L89.621 Pressure ulcer of left heel, stage 1; E88.09 Other disorders of plasma-protein metabolism, not elsewhere classified; K31.89 Other diseases of stomach and duodenum; K44.9 Diaphragmatic hernia without obstruction or gangrene; D69.6 Thrombocytopenia, unspecified; J44.9 Chronic obstructive pulmonary disease, unspecified; F17.200 Nicotine dependence, unspecified, uncomplicated; Z79.01 Long term (current) use of anticoagulants; Z79.82 Long term (current) use of aspirin; Z79.4 Long term (current) use of insulin; Z79.891 Long term (current) use of opiate analgesic; Z89.422 Acquired absence of other left toe(s); Z89.421 Acquired absence of other right toe(s); Z80.0 Family history of malignant neoplasm of digestive organs
CPT/HCPCS: 88305; 36415; 76700; 80048; 80053; 82105; 82248; 82607; 82668; 82728; 82746; 82962; 83010; 83036; 83540; 83550; 83615; 83921; 83935; 84155; 84165; 84300; 85014; 85018; 85025; 85027; 85045; 85610; 86704; 86705; 86706; 86708; 86709; 86803; 86850; 86900; 86901; 86920; 87070; 87340; 88342; 93005; 99285; J2916; P9016

== ENCOUNTER → 2024-10-08 09:38 | Outpatient (REF) | payer OTHER, MEDICARE, SELFPAY ==
[2024-10-08 10:33] LABS: % Basophils 0.7 % (0-2); % Eosinophils 10.1 % (0-6); % Immature Granulocytes 0.5 % (0-0.5); % Lymphocytes 26.4 % (20.5-51.1); % Monocytes 11.1 % (1.7-9.3); % Neutrophils 51.2 % (42.2-75.2); Absolute Eosinophils 0.4 10^3/uL (0-0.7); Absolute Lymphocytes 1.1 10^3/uL (1.2-3.4); Absolute Monocytes 0.5 10^3/uL (0.1-0.6); Absolute Neutrophils 2.1 10^3/uL (1.4-6.5); Hematocrit 25.7 % (39.0-52.0); Hemoglobin 8.6 g/dL (13.0-18.0); Mean Corp Hgb Conc. 33.5 g/dL (33.0-37.0); Mean Corpuscular Hgb 26.5 pg (27.0-31.0); Mean Corpuscular Volume 79.3 fL (80.0-94.0); Mean Platelet Volume 12.6 fL (7.4-10.4); Nucleated Red Blood Cells % 0 % (-); Platelet Count 69 10^3/uL (130-400); Red Blood Cell Count 3.24 10^6/uL (4.70-6.10); Red Cell Dist. Width 15.6 % (11.5-14.5); White Blood Cell Count 4.1 10^3/uL (4.8-10.8)
[2024-10-08 11:19] LABS: Blood Urea Nitrogen 12 mg/dl (9-20); Calcium 8.1 mg/dl (8.4-10.2); Carbon Dioxide 22 mmol/L (22-30); Chloride 105 mmol/L (98-107); Glucose 89 mg/dl (70-99); Potassium 3.8 mmol/L (3.5-5.1); Sodium 133 mmol/L (135-145); eGFR > 60.00
== END ==
LOC: OLABP 09:38
PROVIDERS: ATTENDING PHYSICIAN Family Medicine
DX: N18.31 Chronic kidney disease, stage 3a (principal); N17.9 Acute kidney failure, unspecified; D63.1 Anemia in chronic kidney disease; I10 Essential (primary) hypertension; F33.9 Major depressive disorder, recurrent, unspecified; F41.1 Generalized anxiety disorder; G62.9 Polyneuropathy, unspecified; N13.9 Obstructive and reflux uropathy, unspecified; E87.1 Hypo-osmolality and hyponatremia; E44.0 Moderate protein-calorie malnutrition; D63.8 Anemia in other chronic diseases classified elsewhere
CPT/HCPCS: 36415; 80048; 85025

== ENCOUNTER → 2024-10-11 09:33 | Outpatient (REF) | payer OTHER, MEDICARE, SELFPAY ==
[2024-10-11 11:18] LABS: Blood Urea Nitrogen 20 mg/dl (9-20); Glucose 62 mg/dl (70-99); eGFR 55.43
[2024-10-11 11:19] LABS: Calcium 8.4 mg/dl (8.4-10.2); Carbon Dioxide 26 mmol/L (22-30); Chloride 104 mmol/L (98-107); Potassium 3.8 mmol/L (3.5-5.1); Sodium 134 mmol/L (135-145)
== END ==
LOC: OLABP 09:33
PROVIDERS: ATTENDING PHYSICIAN Family Medicine
DX: N18.31 Chronic kidney disease, stage 3a (principal); N17.9 Acute kidney failure, unspecified; D63.1 Anemia in chronic kidney disease; I10 Essential (primary) hypertension; F33.9 Major depressive disorder, recurrent, unspecified; F41.1 Generalized anxiety disorder; G62.9 Polyneuropathy, unspecified; N13.9 Obstructive and reflux uropathy, unspecified; E87.1 Hypo-osmolality and hyponatremia; E44.0 Moderate protein-calorie malnutrition; D63.8 Anemia in other chronic diseases classified elsewhere
CPT/HCPCS: 36415; 80048

== ENCOUNTER 2024-10-12 05:57 | Day surgery (SDC) | payer MEDICARE, SELFPAY ==
--- NOTE | 2024-10-09 08:21 | PTCARENOTE ---
Patients 10/08 Hgb 8.6, platelets 69- Una @ Dr. Mendoza office notified
--- NOTE | 2024-10-09 15:21 | PTCARENOTE ---
Abn ECG, Hgb 8.6, Plt 69, Dr. Tran made aware, no additional interventions requested.
--- NOTE | 2024-10-10 11:46 | PTCARENOTE ---
Dr. Tavares notified of patients 10/08- Hgb 8.6; Platelets 69. Bedside type an screen ordered.
[2024-10-12] VITALS (22 sets, daily range): BP systolic 138–167; BP diastolic 53–117; BMI 21.6
[2024-10-12 07:28] LABS: Glucose - Point of Care 84 mg/dl (70-99)
[2024-10-12 07:32] LABS: Hematocrit 27.4 % (39.0-52.0); Hemoglobin 9.3 g/dL (13.0-18.0); Mean Corp Hgb Conc. 33.9 g/dL (33.0-37.0); Mean Corpuscular Hgb 26.6 pg (27.0-31.0); Mean Corpuscular Volume 78.3 fL (80.0-94.0); Mean Platelet Volume 11.5 fL (7.4-10.4); Platelet Count 84 10^3/uL (130-400); Red Cell Dist. Width 15.7 % (11.5-14.5)
[2024-10-12 07:34] LABS: INR 1.06; PT 14.1 Sec (11.4-14.6)
[2024-10-12 07:35] LABS: APTT 43.8 Sec (23.4-35.0)
--- NOTE | 2024-10-12 07:48 | W.PN.UPDATE ---
Update Note
Progress Note Update
Patient seen and examined in the preoperative area. His left hallux amputation site has completely healed. His right toe amputation site is slightly open but no drainage or evidence of infection is identified. He does have pain in both feet at
rest. He has known bilateral multilevel occlusive disease. Given the findings above and change in exam over the past several weeks (that is to say, healed hallux amputation on the left and open wound on the right) my recommendation is to proceed
today with a right lower extremity arteriogram and possible endovascular intervention with an arteriogram of the left lower extremity on the way out. This change was discussed with him in detail. The consent was changed and signed appropriately.
The technical aspects of the procedure today were discussed with him in detail. The benefits and rationale for this approach were discussed with him in detail. Operative risks were discussed with him once again in detail including but not limited
to arterial access site injury, bleeding, infection, contrast nephropathy, distal embolization, inability to successfully complete an endovascular intervention and the need for additional procedures. He expressed a clear understanding of our
conversation and agrees to proceed with surgery as detailed above.
Dar Morrison III, MD
Vascular Surgery
[facility]
[2024-10-12 07:49] LABS: Blood Urea Nitrogen 21 mg/dl (9-20); Calcium 8.6 mg/dl (8.4-10.2); Carbon Dioxide 23 mmol/L (22-30); Chloride 101 mmol/L (98-107); Estimated Creatinine Clearance 51 ml/min; Glucose 76 mg/dl (70-99); Sodium 133 mmol/L (135-145); eGFR > 60.00
--- NOTE | 2024-10-12 10:08 | W.SUR.POST ---
Surgical Immediate Post Op
Note
Pre Op Diagnosis: PAD
Post Op Diagnosis: Same
Procedure Performed: Right lower extremity arteriogram with drug-coated balloon to the right SFA in-stent stenosis, 3 Esprit scaffolds stents placed to the anterior tibial artery
Primary Surgeon: Prince
Secondary Surgeons: Latonya PGY 5
Anesthesia: Local and sedation
Estimated Blood Loss: Less than 2 cc
Fluids: See anesthesia flowsheet
Drains/Shunts: None
Specimens/Cultures: None
Doppler/Duplex/Angio (Y/N): Y
Complications: None
Operative Findings: Right DP Doppler signal
[2024-10-12 10:15] LABS: Glucose - Point of Care 93 mg/dl (70-99)
--- NOTE | 2024-10-12 10:30 | OR.RPT ---
Operative Report
Operative Report
Date of Operation: 10/12/2024
Pre Op Diagnosis:
1. [place] artery atherosclerosis with slowly healing right second toe amputation
2. Bilateral ischemic rest pain
Post Op Diagnosis:
1. [place] artery atherosclerosis with slowly healing right second toe amputation
2. Bilateral ischemic rest pain
Procedure:
1.) Balloon angioplasty and bioabsorbable drug-eluting scaffold placement to anterior tibial artery occlusive disease:
2.5 mm x 28 mm Esprit, distal anterior tibial artery
2.5 mm x 38 mm Esprit, mid/distal anterior tibial artery
3 mm x 38 mm Esprit, proximal anterior tibial artery
2.) Drug-Coated balloon angioplasty to right superficial femoral artery in-stent restenosis (6 mm x 60 mm Lutonix)
3.) Diagnostic aortobiiliac arteriogram
4.) Diagnostic right lower extremity arteriogram
5.) Diagnostic left lower extremity arteriogram (limited)
6.) Ultrasound-guided percutaneous access to the left common femoral artery
Surgeon: Dar Morrison III, MD
Crime Scene Technician: Wicho Hanks MD, PGY5
Anesthesia: Sedation with local
Fluoroscopy:
41.5 min
162 mGy
38.14 gy.cm2
Complications: None
Estimated Blood Loss: Less than 20 cc
History and Indications for Procedure: 68-year-old male with known severe bilateral lower extremity arterial disease. Limb threatening ischemia manifested by slowly healing right second toe amputation. He was brought to the operating room for
endovascular intervention.
Procedure in Detail: Jd Cuello was correctly identified and placed supine on the operating table. After adequate induction of anesthesia the bilateral groins were prepped and draped in the usual sterile fashion. A timeout was performed with the
nursing and anesthesia staff confirming the patient's identity as well as the nature and laterality of the procedure.
The left common femoral artery was identified under ultrasound guidance. The artery was patent. Luminal calcified plaque was identified throughout the common femoral artery. The superior and inferior aspects of the femoral head were identified
with radiographic guidance and marked at the skin level. The proposed puncture site was infiltrated with local anesthesia. Under ultrasound guidance we accessed the left common femoral artery with a micropuncture needle and upsized to a 5 Fr sheath
over a [employer] wire. The wire and a Shepherds hook flush catheter were advanced into the distal abdominal aorta and a diagnostic aorto-biiliac arteriogram was performed:
AORTO-ILIAC ARTERIOGRAM:
Aorta: Heavily calcified diffusely. Patent with no significant stenosis identified
Right common iliac artery: Heavily calcified diffusely. Patent with no significant stenosis identified
Right external iliac artery: Patent with no significant stenosis identified
Left common iliac artery: Heavily calcified diffusely. Patent with no significant stenosis identified
Left external iliac artery: Patent with no significant stenosis identified
Under roadmap guidance using a Glidewire and the Shepherds hook catheter we selected the right common iliac artery and then the external iliac artery. A catheter was tracked up and over the aortic bifurcation and placed in the distal external iliac
artery. A diagnostic right lower extremity arteriogram was then performed which demonstrated the following:
RIGHT LOWER EXTREMITY:
Common femoral artery: Calcified. Patent with no significant stenosis identified
Profunda femoral artery: Calcified. Patent with no significant stenosis identified
Superficial femoral artery: Patent throughout. Patent stents. Focal high-grade in-stent restenosis involving the proximal SFA stent and associated proximal SFA stenosis identified.
Popliteal artery: Patent with no significant stenosis identified
Anterior tibial artery: Patent proximal and midportion. Areas of moderate to high-grade stenosis identified. Occluded distally. Reconstituted dorsalis pedis artery in the foot
Tibioperoneal trunk: Patent with no stenosis identified
Peroneal artery: Patent as the single tibial artery runoff vessel. Patent to the ankle with no significant stenosis identified
Posterior tibial artery: Patent proximally but occluded distally
ENDOVASCULAR INTERVENTION: Systemic heparin was administered. Selected the superficial femoral artery with the Quickcross and Glidewire. Exchanged out for a 5 Fr 70 cm sheath over a Storq wire. Selected the anterior tibial artery under roadmap
guidance with Quickcross catheter and glidewire. Using a 0.014 Mongo wire and 0.014 quick cross we were able to navigate through the anterior tibial artery occlusion and advance the wire and catheter into the dorsalis pedis artery in the foot.
Arteriogram confirmed proper position in the true lumen. I then brought into position a 2.5 mm x 200 mm angioplasty balloon. The entire length of anterior tibial artery was ballooned at nominal pressure. 2 separate inflations were performed,
holding each at nominal pressure for 3 minutes. Subsequent arteriogram demonstrated significant improvement with a patent anterior tibial artery but areas of residual stenosis and flow-limiting dissection were identified. In order to treat the
areas of residual stenosis and focal dissection we proceeded with drug-eluting bioabsorbable scaffold stent placement. Under roadmap guidance I brought into position a 2.5 mm x 38 mm Almodovar Esprit. This was positioned in the midportion of the
anterior tibial artery and deployed in the desired location. Next a 3 mm x 38 mm Almodovar Esprit was positioned in the proximal anterior tibial artery and deployed in the desired location. Finally a 2.5 mm x 28 mm Almodovar Esprit was positioned in the
distal anterior tibial artery and deployed in the desired location. The long 2.5 mm x 200 mm angioplasty balloon was brought back into position to treat the mid to distal anterior tibial artery with a prolonged 4-minute inflation at nominal
pressure.
We then focused our attention on the proximal superficial femoral artery disease. The sheath was pulled back into the common femoral artery. I exchanged out for a Storq wire. A 6 mm x 60 mm Lutonix drug-coated balloon was brought to the desired
location in the proximal superficial femoral artery under roadmap guidance. The balloon was inflated to nominal pressure and held in place for 3-minute inflation. The balloon was then deflated and removed over the wire.
COMPLETION ARTERIOGRAM: Excellent technical result. Widely patent superficial femoral artery with no significant residual stenosis identified. Patent anterior tibial artery with brisk flow. In-line flow into the foot via the dorsalis pedis artery
with flow to the forefoot and second toe amputation site identified.
Satisfied with this result we concluded the procedure. The sheath tip was pulled back into the left external iliac artery. A limited arteriogram of the left lower extremity was performed which demonstrated the following:
LEFT LOWER EXTREMITY:
Common femoral artery: Patent. Calcified plaque identified
Profunda femoral artery: Patent
Superficial femoral artery: Patent proximal and midportion (extent of the arteriogram)
The patient tolerated the procedure well and was taken to the recovery area in stable condition.
Attestation: I was present and responsible for the entire procedure.
Signed:
Dar Morrison III, MD
Vascular Surgery
[facility]
[2024-10-12] MEDS: ASPIR LOW (ENTERIC COATED) 81 MG PO (12:07)
[2024-10-12] MEDS: NSS 1000 IV ×2 (12:11→15:20)
[2024-10-12 12:12] LABS: Glucose - Point of Care 130 mg/dl (70-99)
[2024-10-12] MEDS: FLOMAX 0.4 MG PO (12:28)
[2024-10-12] MEDS: ROXICODONE 10 MG PO (13:03)
--- NOTE | 2024-10-12 14:41 | PTCARENOTE ---
patient is monitoring blood glucose via personal insulin pump. He manages on his own. at 1140 patient was 241 and gave himself .85 units of insulin
[2024-10-12] MEDS: PATIENT'S OWN INSULIN PUMP 0.85 UNITS SC (14:43)
--- NOTE | 2024-10-12 14:44 | PTCARENOTE ---
patient bolused himself with 4.57 units of insulin at 1310 before lunch
--- NOTE | 2024-10-12 15:05 | PTCARENOTE ---
patient blood glucose 244 @1303 patient gave himself .55 units
== END 2024-10-12 16:00 | disposition home or self-care (01) ==
LOC: CATH 05:57
PROVIDERS: ATTENDING PHYSICIAN Surgery Vascular Surgery; FAMILY PHYSICIAN Family Medicine; PRIMARYCARE PHYSICIAN Family Medicine
DX: E11.51 Type 2 diabetes mellitus with diabetic peripheral angiopathy without gangrene (principal); I70.211 Atherosclerosis of native arteries of extremities with intermittent claudication, right leg; I10 Essential (primary) hypertension; Z79.82 Long term (current) use of aspirin; Z95.820 Peripheral vascular angioplasty status with implants and grafts; Z79.4 Long term (current) use of insulin; Z89.421 Acquired absence of other right toe(s); F11.90 Opioid use, unspecified, uncomplicated; Z79.84 Long term (current) use of oral hypoglycemic drugs; Z79.899 Other long term (current) drug therapy; J44.9 Chronic obstructive pulmonary disease, unspecified; Z87.891 Personal history of nicotine dependence
CPT/HCPCS: 37230; 37224; 75625; 75710; 80048; 82962; 85027; 85610; 85730; 86850; 86900; 86901; C1725; C1769; C1874; C1894; C2623; Q9967

== ENCOUNTER → 2024-10-17 11:07 | Outpatient (REF) | payer OTHER, MEDICARE, SELFPAY ==
[2024-10-17 11:41] LABS: Hematocrit 24.5 % (39.0-52.0); Hemoglobin 8.5 g/dL (13.0-18.0); Mean Corp Hgb Conc. 34.7 g/dL (33.0-37.0); Mean Corpuscular Volume 78.5 fL (80.0-94.0); Platelet Count 92 10^3/uL (130-400); Red Cell Dist. Width 15.4 % (11.5-14.5)
[2024-10-17 12:12] LABS: Blood Urea Nitrogen 16 mg/dl (9-20); Calcium 8.3 mg/dl (8.4-10.2); Carbon Dioxide 23 mmol/L (22-30); Chloride 102 mmol/L (98-107); Glucose 104 mg/dl (70-99); Potassium 3.9 mmol/L (3.5-5.1); Sodium 128 mmol/L (135-145); eGFR > 60.00
== END ==
LOC: OLABP 11:07
PROVIDERS: ATTENDING PHYSICIAN Family Medicine
DX: N18.31 Chronic kidney disease, stage 3a (principal); N17.9 Acute kidney failure, unspecified; D63.1 Anemia in chronic kidney disease; I10 Essential (primary) hypertension; F33.9 Major depressive disorder, recurrent, unspecified; F41.1 Generalized anxiety disorder; G62.9 Polyneuropathy, unspecified; N13.9 Obstructive and reflux uropathy, unspecified; E87.1 Hypo-osmolality and hyponatremia; E44.0 Moderate protein-calorie malnutrition; D63.8 Anemia in other chronic diseases classified elsewhere
CPT/HCPCS: 36415; 80048; 85027

== ENCOUNTER → 2024-10-20 10:41 | Outpatient (REF) | payer OTHER, MEDICARE, SELFPAY | LOC: OLABP 10:41 | PROVIDERS: ATTENDING PHYSICIAN Family Medicine | DX: N18.31 Chronic kidney disease, stage 3a (principal); N17.9 Acute kidney failure, unspecified; D63.1 Anemia in chronic kidney disease; I10 Essential (primary) hypertension; F33.9 Major depressive disorder, recurrent, unspecified; F41.1 Generalized anxiety disorder; G62.9 Polyneuropathy, unspecified; N13.9 Obstructive and reflux uropathy, unspecified; E87.1 Hypo-osmolality and hyponatremia; E44.0 Moderate protein-calorie malnutrition; D63.8 Anemia in other chronic diseases classified elsewhere | CPT/HCPCS: 84300 ==

== ENCOUNTER → 2024-10-22 10:53 | Outpatient (REF) | payer OTHER, MEDICARE, SELFPAY ==
[2024-10-22 11:27] LABS: Hematocrit 27.9 % (39.0-52.0); Hemoglobin 9.0 g/dL (13.0-18.0); Mean Corp Hgb Conc. 32.3 g/dL (33.0-37.0); Mean Corpuscular Volume 82.1 fL (80.0-94.0); Nucleated Red Blood Cells % 0 % (-); Platelet Count 107 10^3/uL (130-400); Red Cell Dist. Width 15.9 % (11.5-14.5)
[2024-10-22 11:56] LABS: ALT (SGPT) 14 U/L (0-50); AST (SGOT) 17 U/L (17-59); Albumin 3.1 g/dl (3.5-5.0); Alkaline Phosphatase 89 U/L (38-126); Blood Urea Nitrogen 24 mg/dl (9-20); Calcium 8.6 mg/dl (8.4-10.2); Carbon Dioxide 23 mmol/L (22-30); Chloride 110 mmol/L (98-107); Glucose 98 mg/dl (70-99); Potassium 4.1 mmol/L (3.5-5.1); Sodium 140 mmol/L (135-145); Total Protein 5.6 g/dl (6.3-8.2); eGFR 55.43
== END ==
LOC: OLABP 10:53
PROVIDERS: ATTENDING PHYSICIAN Family Medicine
DX: N18.31 Chronic kidney disease, stage 3a (principal); N17.9 Acute kidney failure, unspecified; D63.1 Anemia in chronic kidney disease; I10 Essential (primary) hypertension; F33.9 Major depressive disorder, recurrent, unspecified; F41.1 Generalized anxiety disorder; G62.9 Polyneuropathy, unspecified; N13.9 Obstructive and reflux uropathy, unspecified; E87.1 Hypo-osmolality and hyponatremia; E44.0 Moderate protein-calorie malnutrition; D63.8 Anemia in other chronic diseases classified elsewhere
CPT/HCPCS: 36415; 80053; 85025

== ENCOUNTER → 2024-10-23 11:55 | Outpatient (REF) | payer OTHER, MEDICARE, SELFPAY ==
[2024-10-23 12:56] LABS: Blood Urea Nitrogen 23 mg/dl (9-20); Calcium 8.6 mg/dl (8.4-10.2); Carbon Dioxide 24 mmol/L (22-30); Chloride 111 mmol/L (98-107); Glucose 98 mg/dl (70-99); Potassium 4.3 mmol/L (3.5-5.1); Sodium 139 mmol/L (135-145); eGFR > 60.00
== END ==
LOC: OLABP 11:55
PROVIDERS: ATTENDING PHYSICIAN Family Medicine
DX: N18.31 Chronic kidney disease, stage 3a (principal); N17.9 Acute kidney failure, unspecified; D63.1 Anemia in chronic kidney disease; I10 Essential (primary) hypertension; F33.9 Major depressive disorder, recurrent, unspecified; F41.1 Generalized anxiety disorder; N13.9 Obstructive and reflux uropathy, unspecified; E44.0 Moderate protein-calorie malnutrition; D63.8 Anemia in other chronic diseases classified elsewhere
CPT/HCPCS: 36415; 80048

== ENCOUNTER → 2024-11-02 09:55 | Outpatient (REF) | payer MEDICARE, SELFPAY | LOC: RAD 09:55 | PROVIDERS: ATTENDING PHYSICIAN Registered Nurse | DX: I73.9 Peripheral vascular disease, unspecified (principal) | CPT/HCPCS: 93922; 93925 ==

== ENCOUNTER → 2025-01-18 11:19 | Outpatient (REF) | payer MEDICARE, SELFPAY | LOC: DHVS 11:19 | PROVIDERS: ATTENDING PHYSICIAN Registered Nurse; FAMILY PHYSICIAN Family Medicine | DX: I73.9 Peripheral vascular disease, unspecified (principal) | CPT/HCPCS: 93922 ==

== ENCOUNTER 2025-01-24 18:11 | Inpatient (IN) | payer MEDICARE, SELFPAY ==
[2025-01-24] VITALS (7 sets, daily range): BP systolic 133–208; BP diastolic 51–80; BMI 21.3; BMI 20.6
[2025-01-24 14:33] LABS: Hematocrit 29.3 % (39.0-52.0); Hemoglobin 9.8 g/dL (13.0-18.0); Mean Corp Hgb Conc. 33.4 g/dL (33.0-37.0); Mean Corpuscular Volume 76.1 fL (80.0-94.0); Nucleated Red Blood Cells % 0 % (-); Platelet Count 112 10^3/uL (130-400); Red Cell Dist. Width 14.0 % (11.5-14.5)
[2025-01-24 14:35] LABS: ALT (SGPT) 15 U/L (0-50); AST (SGOT) 22 U/L (17-59); Albumin 3.5 g/dl (3.5-5.0); Alkaline Phosphatase 120 U/L (38-126); Blood Urea Nitrogen 14 mg/dl (9-20); Calcium 8.5 mg/dl (8.4-10.2); Carbon Dioxide 26 mmol/L (22-30); Chloride 99 mmol/L (98-107); Glucose 90 mg/dl (70-99); Potassium 4.7 mmol/L (3.5-5.1); Sodium 129 mmol/L (135-145); Total Protein 6.6 g/dl (6.3-8.2); eGFR > 60.00
--- NOTE | 2025-01-24 16:51 | ED.GENMED ---
History of Present Illness
General
Chief Complaint: Extremity Pain (non-traumatic)
Source: patient
Exam Limitations: none
Time Seen by Provider: 01/24/25 16:13
Nursing documentation reviewed up to this point in time: agreed with
History of Present Illness
History of Present Illness:
Patient with history of diabetes, currently being treated for left foot ulcer with antibiotics, presents ED secondary to worsening symptoms with drainage, with outpatient MRI 2 days ago showing osteomyelitis. Patient referred to ED by her
float phlebotomist for IV antibiotics and likely partial amputation. Patient denies fever or chills. Denies nausea or vomiting. Patient has been taking oxycodone at home for pain, with minimal relief. Patient unfortunately has had multiple toe
amputations recently, including this spring.
Past History
Past History
ED Past Medical History: HTN, Hypercholesterolemia, IDDM, Psychiatric and Other (Ankle abuse)
ED Past Surgical History: None
Social History
Tobacco: Non-smoker
Alcohol: Chronic alcoholic
Drug: None
Personal:
Living: with family
Review of Systems
Review of Systems
Allergies reviewed?: Yes
All Other Systems: ROS reviewed and negative except as documented in HPI and ROS
Constitutional: Reports no symptoms; Denies fever
ABD/GI: Reports no symptoms; Denies nausea or vomiting
Musculoskeletal: Reports no symptoms
Skin: Reports other (Foot ulcer with drainage)
Neurological: Reports no symptoms
Phy Exam
Physical Exam
Physical Exam:
Physical Exam
General: mild distress, not acutely ill. afebrile
Head: nc/at. eomi
Neck: supple. normal range of motion
Abdomen: normal bowel sounds. not tender.
Neuro: alert and oriented x 3. no focal neurological deficits
Skin: left foot: an approx 1cm open ulcer on plantar surface at 2nd MTP with drainage
Psychiatric: well kept. interactive and cooperative
Extremities: no edema. no calf tenderness.
Course
Orders/Labs/Results
Orders:
Orders
01/24/25 14:09
C-Reactive Protein Urgent
Comment: ADD ON
CMP [Comprehensive Metabolic Panel] Urgent
Complete Blood Count/With Diff Urgent
Erythrocyte Sed Rate Urgent
Comment: ADD ON
01/24/25 16:49
Piperacillin/Tazo 3.375 Gram [Zosyn] 3.375 gram in 50 ml IV NOW
01/24/25 16:55
Add On- LAB Routine
Tests Added?: esr, crp
01/24/25 17:21
HYDROmorphone [Dilaudid] 0.5 mg IV NOW STA
01/24/25 17:23
Lactic Acid Q4H
Comment: CANCEL 2nd LACTIC ACID IF 1st LACTIC ACID IS LESS THAN 2
Blood Culture Q30M
ZANE Source: Blood/Venous
Specimen Description:
Blood Culture Q30M
ZANE Source: Blood/Venous
Specimen Description:
01/24/25 17:34
Vancomycin [Vancocin] 1,500 mg 0.9% Sodium Chloride 500 ml [Nss] 500 ml IV NOW
01/24/25 17:46
Admit/Transfer Patient As Directed
Co-Sign Provider:
Level of Care: Inpatient admission
Assign to:: Medical/Surgical
Physician / Group: Nikkie
Diagnosis: Left Foot Osteomyelitis
Reason for Hospitalization: IV abx, Podiatry and Vascular Consults
Expected length of stay greater than two midnights?: Yes
ELOS- Estimated Length of Stay in days: 3
I certify the patient meets the requirements for IP care: Yes
01/24/25 17:48
PRN Pain Medication Management As Directed
May give lesser potent ordered pain med per pt: Yes
preference::
Protocol:: Medication orders for pain may be administered in a
manner that supports deferring to patient preference
when the pt is:
- Requesting an ordered lesser potent pain medication.
Least to most potent pain medications are defined
as: acetaminophen < NSAID < tramadol < opioids
(morphine, oxycodone, hydromorphone).
- Requesting a lesser dose of the same medication IF
ORDERED.
- Requesting a less intrusive route of administration
if both routes are prescribed by the provider (PO <
IV).
01/24/25 17:51
Code Status As Directed
Resuscitation Status: Full Code
01/24/25 17:55
PODIATRY CONSULT Routine
Consulting Provider: Amelia Cruz
Was physician already notified: Yes
01/24/25 18:09
HydrALAZINE [Apresoline] 5 mg IV Q4HPRN PRN
01/24/25 20:45
Lactic Acid Q4H
Comment: CANCEL 2nd LACTIC ACID IF 1st LACTIC ACID IS LESS THAN 2
Abnormal Lab Results
01/24/25 01/24/25
14:09 17:23
RBC 3.85 L 10^6/uL
(4.70-6.10)
Hgb 9.8 L g/dL
(13.0-18.0)
Hct 29.3 L %
(39.0-52.0)
MCV 76.1 L fL
(80.0-94.0)
MCH 25.5 L pg
(27.0-31.0)
Plt Count 112 L 10^3/uL
(130-400)
MPV 10.7 H fL
(7.4-10.4)
Lymphocytes % 20.4 L %
(20.5-51.1)
ESR 74 H mm/hour
(0-20)
Sodium 129 L mmol/L
(135-145)
Lactic Acid 0.5 L mmol/L
(0.7-2.0)
C-Reactive Protein 19.70 H mg/L
(0.0-10.00)
01/24/25 14:09
01/24/25 14:09
Vital Signs
Initial and Last Documented VS:
Initial Vital Signs
Temp Pulse Resp BP Pulse Ox
98.3 F 56 16 196/80 98
01/24/25 13:55 01/24/25 13:55 01/24/25 13:55 01/24/25 13:55 01/24/25 13:55
Last Documented Vital Signs
Temp Pulse Resp BP Pulse Ox
98.0 F 66 20 195/70 99
01/24/25 17:52 01/24/25 18:49 01/24/25 17:52 01/24/25 18:49 01/24/25 18:30
MDM/Problems Addressed
MDM/Problems Addressed:
History and exam concerning for left foot osteomyelitis, currently failing outpatient therapy. As such, patient will be admitted for IV antibiotics and podiatry consultation.
(podiatry) notified via [employer]
*Pulse Oximetry
SaO2: 98
Oxygen Mode of Delivery: Room air
Patient hypoxic: no
*Critical Care Note
Total Time (30-74mins, 75-104mins- exclusive of procedures): Not Applicable
ED Attending Note
-
Portions of this chart may have been created with voice recognition software.� Occasional wrong word or��sound alike� substitutions may have occurred due to the inherent limitations of voice recognition software.
Discharge Plan
Departure
Patient Disposition: Admit
Date of Disposition: 01/24/25
Time of Disposition: 17:24
Admit to: Med/Surg
Presentation/result/management discussed w/ accepting MD/DO: Hospitalist
Discharge Problem:
Acute osteomyelitis of foot
Interventions
Interventions:
*Risk Screen - Suicide Last Done: 01/24/25 13:55
*General Assessment Last Done: 01/24/25 13:55
*Neglect/Abuse Screening Last Done: 01/24/25 13:55
*ED COVID-19 Vaccine History Last Done: 01/24/25 13:55
*ED Influenza Vaccine History Last Done: 01/24/25 13:55
ED-Skin Assessment Last Done: 01/24/25 15:30
ED-Peripheral Vascular Assessment Last Done: 01/24/25 15:30
ED-Musculoskeletal Assessment Last Done: 01/24/25 15:30
--- NOTE | 2025-01-24 16:56 | HPS.HSE ---
Addendum entered and electronically signed by Alejandra Sam PA-C 01/24/25 18:32:
Correction:
Reviewed with vascular surgery who recommends continuing Plavix. Reviewed with Podiatry who is OK to continue.
Continue Plavix
Addendum entered and electronically signed by Jocelyne Lundy MD 01/24/25 18:27:
Pt seen and examined independently. Agree with note as written by DREW--Sirda Sam.
GENERAL: well developed, well nourished, very pleasant male in no apparent distress
HEENT: NC/AT--no O2 requirements
HEART: regular rate and rhythm, +S1, +S2
LUNGS : clear to auscultation bilaterally
ABDOM: soft, nontender, nondistended, + bowel sounds
EXT: no cyanosis, clubbing, or edema--left foot with bandage in place--foul smelling
Osteomyelitis Left Foot--happened with callous after toe amputation--outpt MRI confirms osteo--sent by podiatry for OR--check cultures--cont vanco/zosyn--consult podiatry and vascular-- NPO post midnight
Extensive Peripheral Arterial Disease s/p Bilateral Lower Extremity Angioplasty/Stents--consult vascular--cont asa--holding plavix
Hyponatremia, mild--Patient previously on sodium tablets which he is no longer taking--agree with fluid restriction--follow--may need those back--renal consult if no better
Diabetes Mellitus, Type II with Diabetic Neuropathy and insulin pump--consult DM [employer]--follow HGB Z8V--xaes insulin pump for now
Essential Hypertension--BP exceedingly high--agree with IV hydralazine--pt bradycardic so blocking agents likely not best choice--cont amlodipine, lisinopril, aldactone--was also on lasix at one time--no longer taking
Hyperlipidemia--Continue atorvastatin
Anxiety/Depression--Continue Trazodone and Lorazepam
Chronic Pain with Opioid Dependence-Continue methadone--Continue oxycodone prn--Continue gabapentin, and pregabalin
Anemia of chronic dissease--no active bleeding noted--cont iron supplementation
BPH--Continue Tamsulosin
DVT proph-- Lovenox
Code Status--Full Code
Original Note:
Family Physician
-
Family Physician: Lei Dee DO
Chief Complaint
-
Left Foot Wound
History of Present Illness
Patient is a 69 y/o male past medical history of peripheral arterial disease, diabetes mellitus with diabetic neuropathy, hypertension, hyperlipidemia, and chronic pain who presents with left foot wound. Patient underwent partial left ray
amputation in August 2024. Patient reports the initial surgical site healed but then he developed a callus that has subsequently turned into another wound. He had an MRI as outpatient yesterday which revealed osteomyelitis and he was sent to the
emergency department for evaluation. Patient denies any fevers, sweats or chills.
Medical History
Past Medical History
Past Medical History: Reports Other
Additional Past Medical History:
Peripheral Arterial Disease
Diabetes Mellitus, Type II with Diabetic Neuropathy
Essential Hypertension
Hyperlipidemia
COPD
Anxiety / Depression
Chronic Pain with Opioid Dependence
Chronic Anemia
BPH
Past Surgical History: Reports Other
Additional Past Surgical History:
Bilateral Lower Extremity Angioplasty / Stent
Amputation Right Second Toe and Metatarsal Head
Partial Left First Ray Amputation
Social History
Tobacco: Smoker (1.5pack per day )
Alcohol: None
Drug: None
Personal:
Living: With Family
Employment: Retired
Family History
Family History: Not pertinent
Allergies / Home Medications
Allergies reflects when Allergies were last updated in [employer].
Home Medications with original date entered in [employer]
Allergy/Medication List:
Allergies
Allergy/AdvReac Type Severity Reaction Status Date / Time
No Known Allergies Allergy Verified 01/24/25 14:00
Home Medications
folic acid 1 mg tablet 1 mg PO DAILY Supplement 11/28/15
pantoprazole 40 mg tablet,delayed release 40 mg PO NOON GERD 11/28/15
trazodone 50 mg tablet 50 mg PO HS INSOMNIA 03/18/22
lisinopril 40 mg tablet 40 mg PO DAILY HTN 04/02/22
atorvastatin 40 mg tablet 40 mg PO HS HLD 03/02/24
duloxetine 60 mg capsule,delayed release 60 mg PO NOON ANXIETY 03/02/24
lorazepam 1 mg tablet 1 mg PO NOON Mental Health/Anxiety 03/02/24
tamsulosin 0.4 mg capsule (Flomax) 0.4 mg PO HS BPH 09/11/24
acetaminophen 325 mg tablet (Tylenol) 650 mg PO Q4HPRN PRN FEVER>100F/MILD PAIN(1-4/10) ON PAIN SCALE 09/28/24
cholecalciferol (vitamin D3) 50 mcg (2,000 unit) tablet (Vitamin D3) 50 mcg PO DAILY Supplement 09/28/24
ferrous sulfate 325 mg (65 mg iron) tablet,delayed release 325 mg PO DAILY Supplement 09/28/24
oxycodone 10 mg tablet 10 mg PO [id number] PRN SEVERE PAIN 09/28/24
oxycodone 5 mg tablet 5 mg PO Q4HPRN PRN MODERATE/BREAKTHROUGH PAIN 09/28/24
clopidogrel 75 mg tablet (Plavix) 75 mg PO DAILY #30 tabs 10/05/24
amlodipine 10 mg tablet (Norvasc) 10 mg PO DAILY 10/11/24
ascorbic acid (vitamin C) 500 mg tablet (Vitamin C) 500 mg PO DAILY 10/11/24
clonidine HCl 0.1 mg tablet 0.1 mg PO NOON 10/11/24
methadone 5 mg tablet 5 mg PO TID 10/11/24
naloxone 0.4 mg/mL injection solution 0.4 mg SC PRN PRN opiod suspected overdose 10/11/24
pregabalin 100 mg capsule (Lyrica) 100 mg PO TID 10/11/24
aspirin 81 mg tablet,delayed release 81 mg PO DAILY #180 tabs 10/12/24
Pt's Own Insulin Pump - Lispro 1 unit SC ACHS 01/24/25
carvedilol 3.125 mg tablet 3.125 mg PO BID 01/24/25
gabapentin 300 mg capsule 600 mg PO QID 01/24/25
spironolactone 25 mg tablet 25 mg PO DAILY 01/24/25
Review of Systems
-
A 12 point ROS was completed and negative except as noted: Yes
Constitutional: Denies Fever
Respiratory: Denies Cough or Trouble Breathing
Cardiac: Denies Chest Pain or Palpitations
Physical Exam
Vital Signs
Vital Signs
Temp Pulse Resp BP Pulse Ox
98.3 F 56 16 196/80 98
01/24/25 13:55 01/24/25 13:55 01/24/25 13:55 01/24/25 13:55 01/24/25 16:53
Physical Exam
General: Comfortable and Conversant
HEENT: Anicteric and Moist mucous membranes
Respiratory: Clear and Non Labored Respirations
Cardiac: S1/S2 and Regular Rhythm
GI: Soft and Non Tender
Musculoskeletal: No Clubbing and No Cyanosis
Skin: Warm, Dry and Other (Wound left wound with foul smelling drainage noted)
Neuro: Awake, Alert and Nonfocal/grossly intact
Psych: Calm
Laboratory Results
-
01/24/25 14:09
01/24/25 14:09
Laboratory Results
Total Bilirubin 0.5 mg/dl (0.2-1.3) 01/24/25 14:09
AST 22 U/L (17-59) 01/24/25 14:09
ALT 15 U/L (0-50) 01/24/25 14:09
Alkaline Phosphatase 120 U/L (38-126) 01/24/25 14:09
Data Reviewed
-
Lab Data: Labs Reviewed by me
Old Records: Reviewed
Impression/Plan
-
Osteomyelitis Left Foot
-Consult Podiatry - Plan for OR tomorrow
-Continue Vancomycin and Zosyn
-Await blood cultures
Peripheral Arterial Disease s/p Bilateral Lower Extremity Angioplasty / Stents
-Consult Vascular Surgery
-Continue aspirin
-Hold Plavix for OR
Hyponatremia, mild
-Patient previously on sodium tablets which he is no longer taking
-Add fluid restriction
-Recheck sodium in AM - If remains low may need to resume sodium tablets
Diabetes Mellitus, Type II with Diabetic Neuropathy
-Check HgbA1c
-Continue Insulin Pump
-Consult [employer] for insulin management
Essential Hypertension
-BP running on the high side possibly due to missed meds
-Hold Coreg due to mild bradycardia
-Continue amlodipine, clonidine, lisinopril and spironolactone
-Add hydralazine PRN
Hyperlipidemia
-Continue atorvastatin
Anxiety / Depression
-Continue Trazodone and Lorazepam
Chronic Pain with Opioid Dependence
-Continue methadone
-Continue oxycodone prn
-Continue gabapentin, and pregabalin
Chronic Anemia
-Hgb stable compared to prior
-Continue ferrous sulfate
BPH
-Continue Tamsulosin
DVT proph: Lovenox
Code Status: Full Code
[2025-01-24] MEDS: ZOSYN 50 IV (17:34)
[2025-01-24] MEDS: DILAUDID 0.5 MG IV (17:35)
[2025-01-24 18:22] LABS: C-Reactive Protein 19.70 mg/L (0.0-10.00)
[2025-01-24] MEDS: VANCOCIN 530 MG IV (18:41)
[2025-01-24] MEDS: APRESOLINE 5 MG IV (18:49)
--- NOTE | 2025-01-24 19:09 | CON.MD ---
Consultation - Medical
-
CC: Acute Osteomyelitis left foot
History of Present Illness
Patient is a 69 y/o male who is well know to me for treatment of ischemic diabetic foot wounds and history of gangrene and OM right 2nd toe and left great toe sucessfully treated with amputation. Approx 3 weeks ago He experienced an acute onset of
pain and swelling to the left foot and was noted to have an acute abscess and punched out appearing wound to the plantar left foot. He denied any known injury or foreign body and did not have a previous ulcer or callus in this area within the 2-3
weeks prior to the onset of this abscess (he was seen in the office just 3 weeks prior with no skin breakdown and was being seen by [facility] for delayed wound healing to the right foot amp site). XRAYs were performed and negative for bone change, follow
up MRI confirmed OM to residual 1st met left foot
Patient denies any fevers, sweats or chills, vomiting or diarrhea. + nausea
Medical History
Past Medical History
Past Medical History: Reports Other
Additional Past Medical History:
Peripheral Arterial Disease
Diabetes Mellitus, Type II with Diabetic Neuropathy
Essential Hypertension
Hyperlipidemia
COPD
Anxiety / Depression
Chronic Pain with Opioid Dependence
Chronic Anemia
BPH
Past Surgical History: Reports Other
Additional Past Surgical History:
Bilateral Lower Extremity Angioplasty / Stent
Amputation Right Second ray (partial)
Partial Left First Ray Amputation
Social History
Tobacco: Smoker (1.5pack per day )
Alcohol: None
Drug: None
Personal:
Living: With Family
Employment: Retired
Family History
Family History: Not pertinent
Allergies / Home Medications: reviewed on chart
Allergies reflects when Allergies were last updated in [employer].
Home Medications with original date entered in [employer]
Allergy/Medication List:
Allergies
Allergy/AdvReac Type Severity Reaction Status Date / Time
No Known Allergies Allergy Verified 01/24/25 14:00
Home Medications
folic acid 1 mg tablet 1 mg PO DAILY Supplement 11/28/15
pantoprazole 40 mg tablet,delayed release 40 mg PO NOON GERD 11/28/15
trazodone 50 mg tablet 50 mg PO HS INSOMNIA 03/18/22
lisinopril 40 mg tablet 40 mg PO DAILY HTN 04/02/22
atorvastatin 40 mg tablet 40 mg PO HS HLD 03/02/24
duloxetine 60 mg capsule,delayed release 60 mg PO NOON ANXIETY 03/02/24
lorazepam 1 mg tablet 1 mg PO NOON Mental Health/Anxiety 03/02/24
tamsulosin 0.4 mg capsule (Flomax) 0.4 mg PO HS BPH 09/11/24
acetaminophen 325 mg tablet (Tylenol) 650 mg PO Q4HPRN PRN FEVER>100F/MILD PAIN(1-4/10) ON PAIN SCALE 09/28/24
cholecalciferol (vitamin D3) 50 mcg (2,000 unit) tablet (Vitamin D3) 50 mcg PO DAILY Supplement 09/28/24
ferrous sulfate 325 mg (65 mg iron) tablet,delayed release 325 mg PO DAILY Supplement 09/28/24
oxycodone 10 mg tablet 10 mg PO [id number] PRN SEVERE PAIN 09/28/24
oxycodone 5 mg tablet 5 mg PO Q4HPRN PRN MODERATE/BREAKTHROUGH PAIN 09/28/24
clopidogrel 75 mg tablet (Plavix) 75 mg PO DAILY #30 tabs 10/05/24
amlodipine 10 mg tablet (Norvasc) 10 mg PO DAILY 10/11/24
ascorbic acid (vitamin C) 500 mg tablet (Vitamin C) 500 mg PO DAILY 10/11/24
clonidine HCl 0.1 mg tablet 0.1 mg PO NOON 10/11/24
methadone 5 mg tablet 5 mg PO TID 10/11/24
naloxone 0.4 mg/mL injection solution 0.4 mg SC PRN PRN opiod suspected overdose 10/11/24
pregabalin 100 mg capsule (Lyrica) 100 mg PO TID 10/11/24
aspirin 81 mg tablet,delayed release 81 mg PO DAILY #180 tabs 10/12/24
Own Insulin Pump - Lispro 1 unit SC ACHS 01/24/25
carvedilol 3.125 mg tablet 3.125 mg PO BID 01/24/25
gabapentin 300 mg capsule 600 mg PO QID 01/24/25
spironolactone 25 mg tablet 25 mg PO DAILY 01/24/25
Review of Systems
-
A 12 point ROS was completed and negative except as noted: Yes
Constitutional: Denies Fever
Respiratory: Denies Cough or Trouble Breathing
Cardiac: Denies Chest Pain or Palpitations
Physical Exam
Vital Signs
Vital Signs
Temp Pulse Resp BP Pulse Ox
98.3 F 56 16 196/80 98
01/24/25 13:55 01/24/25 13:55 01/24/25 13:55 01/24/25 13:55 01/24/25 16:53
Physical Exam
General: Comfortable and Conversant
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 superficial uninfected wound to the right posterior calf approx 1cm L x 0.5cm wide, cicatrix amp site right foot, + edema to LEs
Plantar left foot wound is approx 0.5cm2 but probes to bone + copious drainage expressed + edema + erythema to the left forefoot w/o lymphangitis left foot
Laboratory Results:
01/24/25 14:09
Laboratory Results
Total Bilirubin 0.5 mg/dl (0.2-1.3) 01/24/25 14:09
AST 22 U/L (17-59) 01/24/25 14:09
ALT 15 U/L (0-50) 01/24/25 14:09
Alkaline Phosphatase 120 U/L (38-126) 01/24/25 14:09
Data Reviewed
-
Lab Data: Labs Reviewed by me
Old Records: Reviewed
Last arterial doppler U/S :
IMPRESSION:
1. Right lower extremity: LYLA 0.92, within low-normal limits. In the prior study, LYLA was felt to be inaccurate secondary to medial calcinosis. Therefore, this may be the case in the current study as well. TBI is 0.61, mildly reduced. Continuous
pedal Doppler waveforms are monophasic.
2. Left lower extremity: LYLA is 0.90, within low-normal limits. In the prior study, LYLA was felt to be inaccurate secondary to medial calcinosis. Therefore, this may be the case in the current study as well. TBI is severely reduced at 0.32. Stable
from prior study. Continuous pedal Doppler waveforms are monophasic.
Impression/Plan:
1-DM2 with PAD - Dr Morrison following
2-DM2 with DPN and absent protective sensation
3-Cellulitis left foot- IV ABT per ID, Bld cx pending
4-Acute OM left 1st met s/p partial 1st ray amp
5-Chronic Pain with Opioid Dependence
NPO post MN, pt added to OR sched for resection of infected bone 1st met (after 2p tomorrow), however, will await Dr Morrison's assessment and will continue anticoags per vascular sx
Will follow closely with you
-
Consultation
-
Date/Time Consultation Requested: 01/24/2025 @ 1642
Date/Time Consultation Performed: 01/24/2025 @ 1845
Requesting Provider: Dr Alejandra Sam
Performing Provider: Dr Amelia Cruz
Reason for Consultation: Acute osteomyelitis left foot
--- NOTE | 2025-01-24 20:35 | PTCARENOTE ---
Pt received from ED via stretcher accompanied by ED staff. AAOx3. Ambulated to bed. VSS. Complains of 8/10 pain, RN administered 10mg Roxicodone. Pt oriented to room with call bobby within reach
[2025-01-24 21:51] LABS: Glucose - Point of Care 190 mg/dl (70-99)
--- NOTE | 2025-01-24 21:56 | PHA.VAN.IN ---
Assessment
- Assessment
Renal Function: Appears similar to baseline
Concomitant Antimicrobials: PIPERACILLIN/TAZO
AUC Dosing Plan
- Dosing Variables
Dosing Weight (kg): 65
Dosing CrCl (ml/min): 55
Vd coefficient (L/kg): 0.7
- Empiric Dosing
Initial / Loading Dose: VANCOMYCIN 1500 MG IV ~ 1900
Maintenance Regimen: VANCOMYCIN 1250 MG IV Q24H
Estimated AUC (mcg*h/mL): 569
Estimated Peak (mcg*h/mL): 39
Estimated Trough (mcg/ml): 12.7
Estimated Half Life (H): 13.8
- Monitoring
No levels ordered at this time: Consider levels in next few days
Pharmacokinetics Vancomycin I
- -
Patient Age: 69
Patient Sex: Male
Vancomycin Day #: 1
Indication: Bone And Joint
Requesting Provider: Flaco Harris PA-C
Height / Weight:
Height 5 ft 10 in
Actual Weight 65.119 kg
Pertinent Past Medical History: IDDM pt w. Osteomyelitis Left Foot--happened with callous after toe amp.
- Vital Signs / Lab Results
Temp Pulse Resp BP Pulse Ox
98.3 F 66 18 179/64 97
01/24/25 20:43 01/24/25 20:43 01/24/25 20:43 01/24/25 20:00 01/24/25 20:43
Lab Results - Hematology
01/24/25
14:09
WBC 7.2
Lab Results - Chemistry
01/24/25
14:09
BUN 14
Creatinine 1.2
Albumin 3.5
01/24/25
17:23
Lactic Acid 0.5 L
[2025-01-24] MEDS: NEURONTIN 600 MG PO (22:07)
[2025-01-24] MEDS: LYRICA 100 MG PO (22:07)
[2025-01-24] MEDS: DESYREL 50 MG PO (22:07)
[2025-01-24] MEDS: LIPITOR 40 MG PO (22:07)
[2025-01-24] MEDS: FLOMAX 0.4 MG PO (22:07)
[2025-01-24] MEDS: DOLOPHINE 5 MG PO (22:07)
[2025-01-24] MEDS: ROXICODONE 10 MG PO (22:08)
[2025-01-24] MEDS: NEURONTIN PO (22:52)
[2025-01-24] MEDS: PT'S OWN INSULIN PUMP - HumaLOG 2.3 UNIT SC (22:53)
[2025-01-25] VITALS (15 sets, daily range): BP systolic 136–189; BP diastolic 61–77
[2025-01-25] MEDS: ZOSYN 50 IV ×4 (00:36→21:35)
[2025-01-25] MEDS: DILAUDID 0.25 MG IV (03:34)
[2025-01-25 06:37] LABS: Glucose - Point of Care 87 mg/dl (70-99)
[2025-01-25] MEDS: PT'S OWN INSULIN PUMP - HumaLOG 1 UNIT SC ×2 (06:48→23:47)
[2025-01-25] MEDS: NSS 1000 IV (07:54)
[2025-01-25] MEDS: ZESTRIL 40 MG PO (07:56)
[2025-01-25] MEDS: NEURONTIN 600 MG PO ×3 (07:57→21:33)
[2025-01-25] MEDS: VITAMIN C 500 MG PO (07:57)
[2025-01-25] MEDS: ASPIR LOW (ENTERIC COATED) 81 MG PO (07:59)
[2025-01-25] MEDS: NORVASC 10 MG PO (07:59)
[2025-01-25] MEDS: ALDACTONE 25 MG PO (07:59)
[2025-01-25] MEDS: VITAMIN D3 (cholecalciferol) 50 MCG PO (07:59)
[2025-01-25] MEDS: LYRICA 100 MG PO ×3 (08:00→21:33)
[2025-01-25] MEDS: FEOSOL 325 MG PO (08:00)
[2025-01-25] MEDS: DOLOPHINE 5 MG PO ×3 (08:00→21:33)
[2025-01-25] MEDS: FOLVITE 1 MG PO (08:00)
[2025-01-25] MEDS: PLAVIX 75 MG PO (08:07)
[2025-01-25 08:11] LABS: Glucose - Point of Care 140 mg/dl (70-99)
--- NOTE | 2025-01-25 08:16 | PN.DE.MGMTRT ---
Insulin Management
- -
01/25/2025: Diabetes Insulin pump Management Consult
69 year old male with PMH: HTN PAD, Neuropathy, COPD, Anemia, T2DM, Gangrene and Osteomyelitis of right 2nd toe and left great toe s/p amputation.
Patient experienced an acute onset of pain and swelling to the left foot and was noted to have an acute abscess and punched out appearing wound to the plantar left foot~ 3 weeks ago. 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
video presentation operator, Dr. Villanueva, after an OP MRI showed Osteomyelitis.
Pt is awake, alert, oriented, resting in bed, offers no complaints, Able to discuss diabetes management.
Has been using Tandem T-Slim, Humalog insulin and Dexcom G7 prior to admission.
He routinely sees Dr. Vaca for diabetes care. A1C was 6.5%, Cr 1.2, eGFR>60
Current blood sugar is 140, FBG 87 POC this AM via hospital glucose monitor. Pt states he has been administering bolus at meal times.
He is NPO for OR later today.
pump settings as follows:
Basal Correction CHO ratio target
12AM 1 1:30 1:14 110
3AM 1 1:30 1:14 110
6am .975 1:30 1:13 110
12PM 1 1:30 1:13 110
8pm 1 1:30 1:13 110
24 hour basal total units 23.85.
Will make no change to pump settings.
Discussed with nurse and instructed to keep insulin pump worksheet at bedside. Will cont to follow
Diabetes History
- -
Type of Diabetes: 2 requiring insulin
Pre-Admission Diabetes Regimen
01/24/25
14:09
Creatinine 1.2
Insulin Pump Settings
IP Diabetes Regimen
01/24/25 01/24/25 01/25/25
14:09 21:49 06:35
Glucose 90
POC Glucose 190 H 87
01/25/25
08:08
Glucose
POC Glucose 140 H
Patient Education
[2025-01-25 08:30] LABS: Hematocrit 25.6 % (39.0-52.0); Hemoglobin 8.6 g/dL (13.0-18.0); Mean Corp Hgb Conc. 33.6 g/dL (33.0-37.0); Mean Corpuscular Volume 75.7 fL (80.0-94.0); Platelet Count 83 10^3/uL (130-400); Red Cell Dist. Width 13.8 % (11.5-14.5)
--- NOTE | 2025-01-25 08:38 | WOUNDNOTE ---
WOC RN NOTE: Consult ordered for left foot wound. Dr. Cruz has seen patient and ordered wound care. TT Dr. Ramirez and plan is to cancel consult.
[2025-01-25 08:50] LABS: Blood Urea Nitrogen 14 mg/dl (9-20); Calcium 8.2 mg/dl (8.4-10.2); Carbon Dioxide 25 mmol/L (22-30); Chloride 102 mmol/L (98-107); Estimated Creatinine Clearance 55 ml/min; Glucose 102 mg/dl (70-99); Potassium 4.0 mmol/L (3.5-5.1); Sodium 132 mmol/L (135-145); eGFR > 60.00
--- NOTE | 2025-01-25 09:14 | PHA.VAN.FU ---
Vancomycin Assessment / Plan
- Assessment
Renal Function: Stable
Concomitant Antimicrobials: piperacillin/tazobactam
- Dosing Plan
Continue: Vanc 1250mg Q24H
- Monitoring Plan
No level(s) ordered at this time: consider levels in next few days
- Follow Up
Pharmacy will continue to follow.
Vancomycin Follow UP
- -
Patient Age: 69
Patient Sex: Male
Vancomycin Day #: 2
Indication: Bone And Joint
Requesting Provider: Flaco Harris PA-C
Pertinent Antimicrobial Allergies:
NKDA
Height / Weight:
Height 5 ft 10 in
Actual Weight 65.119 kg
Pertinent Past Medical History: DM II, PAD
- Vital Signs / Lab Results
Temp Pulse Resp BP Pulse Ox
96.7 F L 65 18 176/68 96
01/25/25 08:00 01/25/25 08:00 01/25/25 08:00 01/25/25 08:00 01/25/25 08:00
Lab Results - Hematology
01/24/25 01/25/25
14:09 07:13
WBC 7.2 4.4 L
Lab Results - Chemistry
01/24/25 01/25/25
14:09 07:13
BUN 14 14
Creatinine 1.2 1.2
Estimated Creat Clear 55
Albumin 3.5
01/24/25 01/24/25
17:23 20:45
Lactic Acid 0.5 L Cancelled
[2025-01-25 09:28] LABS: Glycohemoglobin (HgbA1c) 6.5 % (4.0-5.6)
[2025-01-25] MEDS: ROXICODONE 5 MG PO (09:49)
[2025-01-25] MEDS: APRESOLINE 5 MG IV (10:00)
--- NOTE | 2025-01-25 10:09 | CON.VAS ---
Consultation
Consultation Request
Date/Time Consultation Performed: 01/25/25
Requesting Provider: Anthony
Performing Provider: Prince
Reason for Consultation: PAD/CLTI
Medical History
-
Chief Complaint: CLTI/Left foot osteomyelitis
History of Present Illness:
Well known to me
Prior endo interventions bilat
LLE with known SFA stent and tibial disease
Osteomyelitis in left foot
Recent LYLA likely falsely elevated based on last result
TBI severely reduced
Allergies / Home Medications
Allergy/AdvReac Type Severity Reaction Status Date / Time
No Known Allergies Allergy Verified 01/24/25 14:00
�Medication �Instructions �Recorded �Confirmed �Type
folic acid 1 mg tablet 1 mg PO DAILY Supplement 11/28/15 01/24/25 History
pantoprazole 40 mg tablet,delayed 40 mg PO NOON GERD 11/28/15 01/24/25 History
release
trazodone 50 mg tablet 50 mg PO HS INSOMNIA 03/18/22 01/24/25 History
lisinopril 40 mg tablet 40 mg PO DAILY HTN 04/02/22 01/24/25 History
atorvastatin 40 mg tablet 40 mg PO 1400 HLD 03/02/24 01/24/25 History
duloxetine 60 mg capsule,delayed 60 mg PO NOON ANXIETY 03/02/24 01/24/25 History
release
lorazepam 1 mg tablet 1 mg PO NOON Mental Health/Anxiety 03/02/24 01/24/25 History
tamsulosin 0.4 mg capsule (Flomax) 0.4 mg PO HS BPH 09/11/24 01/24/25 History
acetaminophen 325 mg tablet 650 mg PO Q4HPRN PRN 09/28/24 01/24/25 History
(Tylenol) FEVER>100F/MILD PAIN(1-4/10) ON
PAIN SCALE
cholecalciferol (vitamin D3) 50 50 mcg PO DAILY Supplement 09/28/24 01/24/25 History
mcg (2,000 unit) tablet (Vitamin
D3)
ferrous sulfate 325 mg (65 mg 325 mg PO DAILY Supplement 09/28/24 01/24/25 History
iron) tablet,delayed release
oxycodone 10 mg tablet 10 mg PO HS PRN severe pain 09/28/24 01/24/25 History
oxycodone 5 mg tablet 5 mg PO Q4HPRN PRN 09/28/24 01/24/25 History
MODERATE/BREAKTHROUGH PAIN
clopidogrel 75 mg tablet (Plavix) 75 mg PO DAILY #30 tabs 10/05/24 01/24/25 Rx
amlodipine 10 mg tablet (Norvasc) 10 mg PO DAILY Blood Pressure 10/11/24 01/24/25 History
ascorbic acid (vitamin C) 500 mg 500 mg PO DAILY Supplement 10/11/24 01/24/25 History
tablet (Vitamin C)
clonidine HCl 0.1 mg tablet 0.1 mg PO PRN PRN blood pressure 10/11/24 01/24/25 History
methadone 5 mg tablet 5 mg PO TID Pain 10/11/24 01/24/25 History
naloxone 0.4 mg/mL injection 0.4 mg SC PRN PRN opiod suspected 10/11/24 01/24/25 History
solution overdose
pregabalin 100 mg capsule (Lyrica) 100 mg PO TID Neurological 10/11/24 01/24/25 History
Condition
aspirin 81 mg tablet,delayed 81 mg PO DAILY #180 tabs 10/12/24 01/24/25 Rx
release
Pt's Own Insulin Pump - Lispro 1 unit SC ACHS Diabetes 01/24/25 01/24/25 History
carvedilol 3.125 mg tablet 3.125 mg PO BID Blood Pressure 01/24/25 01/24/25 History
gabapentin 300 mg capsule 600 mg PO QID Neurological 01/24/25 01/24/25 History
Condition
spironolactone 25 mg tablet 25 mg PO DAILY Fluid 01/24/25 01/24/25 History
Retention/Swelling
Physical Exam
Vital Signs
Temp Pulse Resp BP Pulse Ox
96.7 F L 65 18 189/77 96
01/25/25 08:00 01/25/25 10:00 01/25/25 08:00 01/25/25 10:00 01/25/25 08:00
Lab Results
01/25/25 07:13
01/25/25 07:13
Physical Exam
General: Other (Non toxic, No acute distress. Non palp pedal pulses on the left. Left plantar surface foot wound near first met head)
Assessment / Plan
-
Threatening ischemia, left lower extremity manifested by left plantar surface foot wound and osteomyelitis. He has a known history of severe peripheral arterial occlusive disease. My recommendation is that we move forward with left lower
extremity arteriogram and possible endovascular intervention prior to any podiatric surgical intervention. The technical aspects of this procedure were discussed with him in detail. The benefits and rationale for this approach were discussed with
him in detail. Operative risks were discussed with him in detail including but not limited to arterial access site injury, bleeding, infection, contrast nephropathy, distal embolization and limb loss. We also discussed the possibility that no
endovascular intervention can be performed in which case he may need additional procedures for revascularization. He expressed a clear understanding of our conversation and agrees to proceed with surgery as detailed above. I also discussed this
with Dr. Cruz.
[2025-01-25] MEDS: CYMBALTA DELAYED RELEASE 60 MG PO (11:03)
[2025-01-25] MEDS: PROTONIX 40 MG PO (11:03)
[2025-01-25] MEDS: ATIVAN 1 MG PO (11:04)
[2025-01-25] MEDS: CATAPRES 0.1 MG PO (11:05)
[2025-01-25 11:13] LABS: Glucose - Point of Care 130 mg/dl (70-99)
[2025-01-25] MEDS: PT'S OWN INSULIN PUMP - HumaLOG SC ×2 (12:02→21:02)
[2025-01-25] MEDS: VANCOCIN 275 MG IV (12:15)
[2025-01-25 15:11] LABS: Glucose - Point of Care 92 mg/dl (70-99)
--- NOTE | 2025-01-25 15:30 | W.PN.HOSP.TC ---
Today's Communication/Plan
-
Angio
Assessment / Plan
Assessment / Plan
Physical Exam
General: Comfortable and Conversant
HEENT: Anicteric and Moist mucous membranes
Respiratory: Clear and Non Labored Respirations
Cardiac: S1/S2 and Regular Rhythm
GI: Soft and Non Tender
Musculoskeletal: No Clubbing and No Cyanosis
Skin: Warm, Dry and Other (Wound left wound with foul smelling drainage noted)
Neuro: Awake, Alert and Nonfocal/grossly intact
Psych: Calm
Osteomyelitis Left Foot
-Consult Podiatry -
Vascular consulted for CTA prior to OR
-Continue Vancomycin and Zosyn
-Await blood cultures
Peripheral Arterial Disease s/p Bilateral Lower Extremity Angioplasty / Stents
-Consult Vascular Surgery- Angio today
-Continue aspirin
-Hold Plavix for OR
Hyponatremia, mild
-Patient previously on sodium tablets which he is no longer taking
-Add fluid restriction
-Recheck sodium in AM - If remains low may need to resume sodium tablets
Diabetes Mellitus, Type II with Diabetic Neuropathy
-Continue Insulin Pump
-Consult Grounds Person for insulin management
Essential Hypertension
-BP running on the high side possibly due to missed meds
-Hold Coreg due to mild bradycardia
-Continue amlodipine, clonidine, lisinopril and spironolactone
-Add hydralazine PRN
Hyperlipidemia
-Continue atorvastatin
Anxiety / Depression
-Continue Trazodone and Lorazepam
Chronic Pain with Opioid Dependence
-Continue methadone
-Continue oxycodone prn
-Continue gabapentin, and pregabalin
Chronic Anemia
-Hgb stable compared to prior
-Continue ferrous sulfate
BPH
-Continue Tamsulosin
DVT proph: Lovenox
Code Status: Full Code
Anticipated Discharge: > 48 hours
Subjective/Interval History
-
Date of Service: January 25, 2025
Lower extremity arteriogram and possible endovascular intervention prior to any podiatric surgical intervention.
Objective Data
-
Labs:
Laboratory Results
01/25/25
07:13
WBC 4.4 L
Hgb 8.6 L
Hct 25.6 L
Plt Count 83 L D
Sodium 132 L
Potassium 4.0
Chloride 102
Carbon Dioxide 25
BUN 14
Creatinine 1.2
Glucose 102 H
Calcium 8.2 L
Vital Signs:
Vital Signs
Temp Pulse Resp BP Pulse Ox
97.5 F 64 17 136/77 98
01/25/25 15:00 01/25/25 15:00 01/25/25 15:00 01/25/25 15:00 01/25/25 15:00
I&O
01/24/25 01/25/25 01/26/25
06:59 06:59 06:59
Intake Total 480 / 480 300 / 300
Output Total 1000 / 1000 1050 / 1050
Balance -520 / -520 -750 / -750
Review of Systems
-
History Source: Patient
All other systems: Not reviewed unless documented
--- NOTE | 2025-01-25 15:36 | CM ---
Patient seen at bedside on . Patient states that he lives with and has been to [facility] in the recent past. Patient states that nothing has changed recently and that he has a walker and cane at home. Patient PCP is Dr. Dee and he uses
the [facility] in [place] on [address] Patient is open to going to SNF again if needed pending medical treatment plan. CM will continue to follow for discharge planning needs.
Plan; SNF vs home with VN pending medical treatment plan
--- NOTE | 2025-01-25 15:36 | PTCARENOTE ---
received pt from 411-[facility] , [address]. pt awake , alert and oriented . lungs clear , sat 98% on ra. B/p 127/64 ,nsb at 50 bpm. temp 98.1 orally. Anesthesia aware pt is here. bilat dp pulses by doppler .iv of nss infusing via left A/C at 80 cc hr.
rt 2nd toe previously amputated w bandage, dry and intact. bandage at plantar surface of left foot . Anesthesia in to interview pt at present.
--- NOTE | 2025-01-25 16:02 | PTCARENOTE ---
notified DR Gogo Espinoza of pts hgb of 8.6 this am ,which is down from 9.8 yesterday afternoon .
--- NOTE | 2025-01-25 16:16 | PTCARENOTE ---
Dr Stewart informed that the pt has an insulin pump infusing @ a varying basal rate. Per pt disconnected insulin pump at this time. Pump placed in labeled bag with chart. Dressing dry and intact to right post calf. Dr Morrison at bedside to
consent pt.
--- NOTE | 2025-01-25 16:50 | PTCARENOTE ---
Hand off report given to Marlene Knott RN, pt transported to vascular OR
[2025-01-25 18:56] LABS: Glucose - Point of Care 89 mg/dl (70-99)
--- NOTE | 2025-01-25 19:27 | OR.RPT ---
Operative Report
Operative Report
Date of Operation: 01/25/2025
Pre Op Diagnosis: Limb threatening ischemia, left lower extremity manifested by left plantar surface first metatarsal head wound
Post Op Diagnosis: Limb threatening ischemia, left lower extremity manifested by left plantar surface first metatarsal head wound
Procedure:
1. Intravascular lithotripsy to left tibioperoneal trunk and proximal peroneal artery stenosis (3 mm x 80 mm Shockwave E8)
2. Drug-coated balloon angioplasty to popliteal artery stenosis (5 mm x 40 mm Lutonix)
3. Diagnostic aortobiiliac arteriogram
4. Diagnostic left lower extremity arteriogram
5. Ultrasound-guided percutaneous access to the right common femoral artery
Surgeon: Dar Morrison III, MD
Air Quality Engineer: Gogo Espinoza MD PGY2
Anesthesia: Sedation with local
Fluoroscopy:
30 min
74 mGy
20.56 gy.cm2
Complications: None
Estimated Blood Loss: Less than 10 cc
History and Indications for Procedure: 69-year-old male with known peripheral arterial occlusive disease who presented with limb threatening ischemia of his left lower extremity that was manifested by a first metatarsal head plantar surface wound.
I recommended arteriogram and possible endovascular intervention.
Procedure in Detail: Jd Cuello was correctly identified and placed supine on the operating table. After adequate induction of anesthesia the bilateral groins were prepped and draped in the usual sterile fashion. A timeout was performed with the
nursing and anesthesia staff confirming the patient's identity as well as the nature and laterality of the procedure.
The right common femoral artery was identified under ultrasound guidance. The artery was patent. The superior and inferior aspects of the femoral head were identified with radiographic guidance and marked at the skin level. The proposed puncture
site was infiltrated with local anesthesia. Under ultrasound guidance we accessed the right common femoral artery with a micropuncture needle and upsized to a 5 Fr sheath over a WIBson wire. The wire and a [place] and [place] hook flush catheter were
advanced into the distal abdominal aorta and a diagnostic aorto-biiliac arteriogram was performed:
AORTO-ILIAC ARTERIOGRAM:
Aorta: Heavily calcified but patent with no significant stenosis identified
Right common iliac artery: Heavily calcified, patent, no significant stenosis identified
Right external iliac artery: Patent with no significant stenosis identified
Left common iliac artery: Heavily calcified, patent with no significant stenosis identified
Left external iliac artery: Heavily calcified, patent with no significant stenosis identified
Under roadmap guidance using a Glidewire and the [place] [employer] hook catheter we selected the left common iliac artery followed by the external iliac artery and then the common femoral artery. A catheter was tracked up and over the aortic bifurcation and
placed in the common femoral artery. A diagnostic left lower extremity arteriogram was then performed which demonstrated the following:
LEFT LOWER EXTREMITY:
Common femoral artery: Calcified. Patent. Mild stenosis
Profunda femoral artery: Patent
Superficial femoral artery: Calcified proximally. Patent. Mild stenosis proximally. No significant stenosis identified. Patent stents with no significant in-stent restenosis
Popliteal artery: Patent stents. No significant in-stent restenosis identified. At the terminal end of the popliteal stent behind the knee there was a high-grade focal stenosis.
Anterior tibial artery: High takeoff from popliteal artery behind the knee. Patent with no significant stenosis identified. Continues to form the dorsalis pedis artery. Areas of stenosis identified within the DP.
Tibioperoneal trunk: Heavily calcified with high-grade stenosis
Peroneal artery: Calcified stenosis at its origin. Patent to the ankle.
Posterior tibial artery: Diffusely and heavily calcified. Occluded. No meaningful distal reconstitution identified. Significant small vessel occlusive disease identified in the plantar distribution
ENDOVASCULAR INTERVENTION: Systemic heparin was administered. Exchanged out for a 5 Fr 45 cm sheath over a Storq wire. Selected the superficial femoral artery under roadmap guidance. The focal popliteal artery stenosis just distal to the stent was
crossed with a Quick[place] and Glidewire. The wire and catheter were advanced through the calcified tibioperoneal trunk stenosis in the proximal peroneal stenosis. The wire and catheter were advanced into the mid peroneal artery. Exchanged out for
a Storq wire. A 5 mm x 40 mm Lutonix drug-coated angioplasty balloon was positioned in the desired location across the popliteal artery stenosis just distal to the stent. The balloon was inflated to nominal pressure, held in place for 3 minutes
and then slowly deflated and removed over the wire. We then exchanged the wire out for a [address] Due to the heavily calcified nature of the tibioperoneal trunk and proximal peroneal artery disease and in an effort to modify the calcium to
achieve maximum luminal gain with endovascular intervention I elected to proceed with intravascular lithotripsy. A 3 mm x 80 mm E8 shockwave balloon was placed across the calcified stenosis under roadmap guidance. Alternating rounds of lithotripsy
pulse delivery at sub-nominal pressure and angioplasty at nominal pressure was performed across the stenosis. In between rounds of pulse delivery and angioplasty the balloon was deflated and repositioned under roadmap guidance. All 400 pulses were
delivered to the tibioperoneal trunk and proximal peroneal artery.
COMPLETION ARTERIOGRAM: Excellent technical result with a widely patent tibioperoneal trunk and peroneal artery and no residual stenosis identified. Widely patent popliteal artery with no significant residual stenosis identified. Intact runoff
through the anterior tibial artery and dorsalis pedis artery which appeared to supply the forefoot. Once again identified was severe small vessel occlusive disease in the plantar distribution.
Satisfied with this result we concluded the procedure. The sheath tip was pulled back into the right external iliac artery. Protamine was administered. The sheath was pulled and direct manual pressure was held over the puncture site until
hemostasis was achieved. A sterile dressing was applied..
The patient tolerated the procedure well and was taken to the recovery area in stable condition.
Attestation: I was present and responsible for the entire procedure.
Signed:
Dar Morrison III, MD
Vascular Surgery
[facility]
--- NOTE | 2025-01-25 20:08 | W.PN.UPDATE ---
Update Note
Progress Note Update
Patient has had angio LLE and peripheral flow optimized and ready for resection of infected bone to the left 1st metatarsal.
Pt added to the OR schedule for 01/26/2025 am and NPO orders written.
[2025-01-25] MEDS: NEURONTIN PO (21:02)
[2025-01-25] MEDS: ZOSYN IV (21:06)
[2025-01-25 21:24] LABS: Glucose - Point of Care 156 mg/dl (70-99)
[2025-01-25] MEDS: LIPITOR 40 MG PO (21:33)
[2025-01-25] MEDS: DESYREL 50 MG PO (21:33)
[2025-01-25] MEDS: FLOMAX 0.4 MG PO (21:33)
[2025-01-26] VITALS (13 sets, daily range): BP systolic 18–179; BP diastolic 60–74
[2025-01-26] MEDS: ROXICODONE 10 MG PO ×2 (01:01→13:01)
[2025-01-26] MEDS: NSS 1000 IV (02:01)
--- NOTE | 2025-01-26 03:22 | W.PN.UPDATE ---
Update Note
Progress Note Update
clarified with podiatry regarding anticoagulant preop.
Per podiatry hold Lovenox, continue plavix.
[2025-01-26] MEDS: ZOSYN 50 IV ×3 (04:31→21:46)
[2025-01-26] MEDS: VANCOCIN 275 MG IV (05:41)
[2025-01-26 05:42] LABS: Glucose - Point of Care 90 mg/dl (70-99)
[2025-01-26] MEDS: PT'S OWN INSULIN PUMP - HumaLOG 1 UNIT SC (05:42)
[2025-01-26 08:56] LABS: Hematocrit 24.6 % (39.0-52.0); Hemoglobin 8.4 g/dL (13.0-18.0); Mean Corp Hgb Conc. 34.1 g/dL (33.0-37.0); Mean Corpuscular Volume 77.6 fL (80.0-94.0); Platelet Count 80 10^3/uL (130-400); Red Cell Dist. Width 13.9 % (11.5-14.5)
[2025-01-26 09:23] LABS: ALT (SGPT) 11 U/L (0-50); AST (SGOT) 17 U/L (17-59); Albumin 2.7 g/dl (3.5-5.0); Alkaline Phosphatase 97 U/L (38-126); Blood Urea Nitrogen 13 mg/dl (9-20); Calcium 8.0 mg/dl (8.4-10.2); Carbon Dioxide 22 mmol/L (22-30); Chloride 109 mmol/L (98-107); Estimated Creatinine Clearance 55 ml/min; Glucose 73 mg/dl (70-99); Potassium 3.9 mmol/L (3.5-5.1); Sodium 136 mmol/L (135-145); Total Protein 5.4 g/dl (6.3-8.2); eGFR > 60.00
[2025-01-26] MEDS: ZOSYN IV (09:39)
--- NOTE | 2025-01-26 10:23 | W.SUR.POST ---
Surgical Immediate Post Op
Note
Pre Op Diagnosis: Osteomyelitis 1st met and chronic wound left foot
Post Op Diagnosis: same as above
Procedure Performed: Debridement of wound left foot and resection of 1st metatarsal/revision amputation left foot
Primary Surgeon: Mimi
Secondary Surgeons: N/A
Anesthesia: IV sed and local block 5mL 1% Lido pl and 5mL 0.5% shari plain
Estimated Blood Loss: 15mL
Fluids: NA
Drains/Shunts: Iodo packing plantar foot wound
Specimens/Cultures: Bone prox margin left 1st met -path and cx
Doppler/Duplex/Angio (Y/N): N
Complications: Pt has episode of Afib- went into SR on his own
Operative Findings: Bone destruction distally, resected prox to area of healthy appearing bleeding bone
[2025-01-26] MEDS: DILAUDID 0.25 MG IV (10:27)
[2025-01-26 10:30] LABS: Glucose - Point of Care 87 mg/dl (70-99)
[2025-01-26] MEDS: LYRICA 100 MG PO ×3 (10:40→21:43)
[2025-01-26] MEDS: DOLOPHINE 5 MG PO ×3 (10:40→21:43)
[2025-01-26] MEDS: NEURONTIN 600 MG PO ×3 (10:40→21:43)
--- NOTE | 2025-01-26 11:00 | PTCARENOTE ---
Pt was received from PACU at 1100. Pt is AAOx3, BP elevated. AM meds given at this time. Pt resting in bed comfortably. Medicated in PACU prior to arrival on the floor. Left foot dressing clean, dry and intact. Leg elevated on a pillow. Pt ordering
lunch.
[2025-01-26] MEDS: ALDACTONE 25 MG PO (11:10)
[2025-01-26] MEDS: ZESTRIL 40 MG PO (11:11)
[2025-01-26] MEDS: ASPIR LOW (ENTERIC COATED) 81 MG PO (11:11)
[2025-01-26] MEDS: CATAPRES 0.1 MG PO (11:11)
[2025-01-26] MEDS: VITAMIN C 500 MG PO (11:11)
[2025-01-26] MEDS: CYMBALTA DELAYED RELEASE 60 MG PO (11:11)
[2025-01-26] MEDS: VITAMIN D3 (cholecalciferol) 50 MCG PO (11:11)
[2025-01-26] MEDS: NORVASC 10 MG PO (11:11)
[2025-01-26] MEDS: ATIVAN 1 MG PO (11:11)
[2025-01-26] MEDS: FOLVITE 1 MG PO (11:12)
[2025-01-26] MEDS: PROTONIX 40 MG PO (11:12)
[2025-01-26] MEDS: PLAVIX 75 MG PO (11:12)
[2025-01-26] MEDS: FEOSOL 325 MG PO (11:12)
[2025-01-26 11:18] LABS: Glucose - Point of Care 81 mg/dl (70-99)
[2025-01-26] MEDS: PT'S OWN INSULIN PUMP - HumaLOG 5.57 UNIT SC (11:55)
[2025-01-26] MEDS: TYLENOL 650 MG PO (13:01)
--- NOTE | 2025-01-26 13:02 | W.PN.VS ---
Today's Communication / Plan
-
care per primary
vascular signing off
Assessment/Plan
-
69M POD 1 s/p LLE angio
-c/w DAPT
-f/u as outpatient with MD Prince
Subjective Data
-
Date of Service: January 26, 2025
seen and examined at bedside. returned from OR after toe amp with debridement. no pain at access site
Objective Data
-
Vital Signs
Temp Pulse Resp BP Pulse Ox
97.7 F 57 18 151/66 93
01/26/25 13:01 01/26/25 13:01 01/26/25 13:01 01/26/25 13:01 01/26/25 13:01
Intake and Output
01/25/25 01/26/25 01/27/25
06:59 06:59 06:59
Intake Total 480 / 480 1310 / 1310
Output Total 1000 / 1000 3050 / 3050
Balance -520 / -520 -1740 / -1740
Intake:
Oral fluids 480 / 480
IV fluids (Total) 1010 / 1010
NSS 50 / 50
IV piggybacks 300 / 300
Output:
Urine, Voided 1000 / 1000 3050 / 3050
Other:
Number of approximated MODERATE 1
amounts of urine
Lab Results
01/26/25 08:00
01/26/25 08:00
Calcium 8.0 mg/dl (8.4-10.2) L 01/26/25 08:00
Total Bilirubin 0.3 mg/dl (0.2-1.3) 01/26/25 08:00
AST 17 U/L (17-59) 01/26/25 08:00
ALT 11 U/L (0-50) 01/26/25 08:00
Alkaline Phosphatase 97 U/L (38-126) 01/26/25 08:00
Total Protein 5.4 g/dl (6.3-8.2) L 01/26/25 08:00
Albumin 2.7 g/dl (3.5-5.0) L 01/26/25 08:00
Physical Exam
-
R Groin: access site C/D/I without hematooma
--- NOTE | 2025-01-26 13:26 | PHA.VAN.FU ---
Vancomycin Assessment / Plan
- Assessment
Renal Function: Stable
WBC's are: Trending Down
In the past 24 hrs, patient has been: Afebrile
Concomitant Antimicrobials: piperacillin/tazobactam
- Dosing Plan
Continue: 1250mg q24h
- Monitoring Plan
No level(s) ordered at this time: consider within next few days as patient approaches steady state
- Follow Up
Pharmacy will continue to follow.
Vancomycin Follow UP
- -
Patient Age: 69
Patient Sex: Male
Vancomycin Day #: 3
Indication: Bone And Joint
Requesting Provider: Flaco Harris PA-C
Pertinent Antimicrobial Allergies:
NKDA
Height / Weight:
Height 5 ft 10 in
Actual Weight 65.119 kg
Pertinent Past Medical History: DM II, PAD
- Vital Signs / Lab Results
Temp Pulse Resp BP Pulse Ox
97.7 F 57 18 151/66 93
01/26/25 13:01 01/26/25 13:01 01/26/25 13:01 01/26/25 13:01 01/26/25 13:01
Lab Results - Hematology
01/24/25 01/25/25 01/26/25
14:09 07:13 08:00
WBC 7.2 4.4 L 3.8 L
Lab Results - Chemistry
01/24/25 01/25/25 01/26/25
14:09 07:13 08:00
BUN 14 14 13
Creatinine 1.2 1.2 1.2
Estimated Creat Clear 55 55
Albumin 3.5 2.7 L
01/24/25 01/24/25
17:23 20:45
Lactic Acid 0.5 L Cancelled
Microbiology Results
01/24/25 22:47 MRSA Screen - Final
Nose No Methicillin Resistant Staphylococcus aureus isolated.
01/24/25 17:23 Blood Culture - Preliminary
Blood/Venous No Growth in 24 hours- Final report to follow
01/24/25 17:23 Blood Culture - Preliminary
Blood/Venous No Growth in 24 hours- Final report to follow
[2025-01-26] MEDS: NEURONTIN PO (13:34)
--- NOTE | 2025-01-26 14:00 | CON.CAR ---
Consultation
Consultation Request
Date/Time Consultation Requested: 01/26/2025 1230
Date/Time Consultation Performed: 01/26/2025 1300
Requesting Provider: Dr Lundy
Performing Provider: Dr Proctor
Reason for Consultation: AF
Medical History
-
Chief Complaint: Leg pain, infection
History of Present Illness:
Patient is a 69-year-old male with a past medical history significant for chronic anemia, opioid dependence, anxiety/depression, hypertension, hyperlipidemia, diabetes mellitus type 2 with neuropathy, significant peripheral arterial disease,
osteomyelitis who is undergoing treatment for peripheral arterial disease with vascular surgery and management of osteomyelitis left foot with podiatry. Patient on antibiotics for this infection. Periprocedurally today while undergoing wound
debridement, patient was noted to go into a brief episode of tachycardia concerning for AF. Rhythm strip from this episode perioperatively not available. EKG postprocedure demonstrated what appears to be atrial tachycardia versus flutter with
return to sinus rhythm. Telemetry had demonstrated sinus rhythm with first-degree AV block and PAC/PAT. No definitive evidence of atrial fibrillation noted. In discussion with patient, he reports no chest pain, shortness of breath, palpitations,
near-syncope syncope or weakness. Patient follows with an outpatient senior user experience architect and has not been diagnosed with or undergone discussion for atrial arrhythmias including atrial fibrillation. Patient is undergoing treatment for peripheral arterial
disease on dual antiplatelet. Patient is a current active smoker, no alcohol, no illicits.
Past Medical History
Past Medical History: Other (See HPI)
Past Surgical History: Other (Peripheral arterial stenting, amputations)
Social History
Tobacco: Smoker
Alcohol: None
Drug: None
Personal:
Living: With Family
Employment: Retired
Family History
Family History: Reviewed & Not Pertinent
Allergies / Home Medications
Allergy/AdvReac Type Severity Reaction Status Date / Time
No Known Allergies Allergy Verified 01/24/25 14:00
�Medication �Instructions �Recorded �Confirmed �Type
folic acid 1 mg tablet 1 mg PO DAILY Supplement 11/28/15 01/24/25 History
pantoprazole 40 mg tablet,delayed 40 mg PO NOON GERD 11/28/15 01/24/25 History
release
trazodone 50 mg tablet 50 mg PO HS INSOMNIA 03/18/22 01/24/25 History
lisinopril 40 mg tablet 40 mg PO DAILY HTN 04/02/22 01/24/25 History
atorvastatin 40 mg tablet 40 mg PO 1400 HLD 03/02/24 01/24/25 History
duloxetine 60 mg capsule,delayed 60 mg PO NOON ANXIETY 03/02/24 01/24/25 History
release
lorazepam 1 mg tablet 1 mg PO NOON Mental Health/Anxiety 03/02/24 01/24/25 History
tamsulosin 0.4 mg capsule (Flomax) 0.4 mg PO HS BPH 09/11/24 01/24/25 History
acetaminophen 325 mg tablet 650 mg PO Q4HPRN PRN 09/28/24 01/24/25 History
(Tylenol) FEVER>100F/MILD PAIN(1-4/10) ON
PAIN SCALE
cholecalciferol (vitamin D3) 50 50 mcg PO DAILY Supplement 09/28/24 01/24/25 History
mcg (2,000 unit) tablet (Vitamin
D3)
ferrous sulfate 325 mg (65 mg 325 mg PO DAILY Supplement 09/28/24 01/24/25 History
iron) tablet,delayed release
oxycodone 10 mg tablet 10 mg PO HS PRN severe pain 09/28/24 01/24/25 History
oxycodone 5 mg tablet 5 mg PO Q4HPRN PRN 09/28/24 01/24/25 History
MODERATE/BREAKTHROUGH PAIN
clopidogrel 75 mg tablet (Plavix) 75 mg PO DAILY #30 tabs 10/05/24 01/24/25 Rx
amlodipine 10 mg tablet (Norvasc) 10 mg PO DAILY Blood Pressure 10/11/24 01/24/25 History
ascorbic acid (vitamin C) 500 mg 500 mg PO DAILY Supplement 10/11/24 01/24/25 History
tablet (Vitamin C)
clonidine HCl 0.1 mg tablet 0.1 mg PO PRN PRN blood pressure 10/11/24 01/24/25 History
methadone 5 mg tablet 5 mg PO TID Pain 10/11/24 01/24/25 History
naloxone 0.4 mg/mL injection 0.4 mg SC PRN PRN opiod suspected 10/11/24 01/24/25 History
solution overdose
pregabalin 100 mg capsule (Lyrica) 100 mg PO TID Neurological 10/11/24 01/24/25 History
Condition
aspirin 81 mg tablet,delayed 81 mg PO DAILY #180 tabs 10/12/24 01/24/25 Rx
release
Pt's Own Insulin Pump - Lispro 1 unit SC ACHS Diabetes 01/24/25 01/24/25 History
carvedilol 3.125 mg tablet 3.125 mg PO BID Blood Pressure 01/24/25 01/24/25 History
gabapentin 300 mg capsule 600 mg PO QID Neurological 01/24/25 01/24/25 History
Condition
spironolactone 25 mg tablet 25 mg PO DAILY Fluid 01/24/25 01/24/25 History
Retention/Swelling
Review of Systems
-
History Source: Patient
All other systems: Negative unless noted
Constitutional: No Symptoms
EENT: No Symptoms
Respiratory: No Symptoms
Cardiac: No Symptoms
Abdomen/GI: No Symptoms
: No Symptoms
Musculoskeletal: Other (Foot leg pain)
Skin: No Symptoms
Neurological: No Symptoms
Endocrine: No Symptoms
Hematologic/Lymphatic: No Symptoms
Physical Exam
Vital Signs
Temp Pulse Resp BP Pulse Ox
97.7 F 57 18 151/66 93
01/26/25 13:01 01/26/25 13:01 01/26/25 13:01 01/26/25 13:01 01/26/25 13:01
Lab Results
01/26/25 08:00
01/26/25 08:00
Physical exam:
GENERAL: no acute distress
EYE: sclera anicteric
NECK: Supple, no JVD, no carotid bruit appreciated
ENT: normal nose, moist mucosal membranes
CARDIAC: Regular rate and rhythm, +S1/S2, no murmur, rubs, or gallops
CHEST/PULMONARY: Normal effort, clear breath sounds
ABDOMEN: Soft, without focal tenderness or distention
NEUROLOGICAL: Alert and oriented x3
SKIN: Warm and dry; bandages lower extremity
PSYCH: Normal and appropriate interaction.
Telemetry sinus rhythm, PACs, brief PAT; no clear evidence of atrial fibrillation
Impression / Plan
-
Family Physician: Lei Dee, DO
Retail Assistant Store Manager: Dr. Ryan Barrera
Impression:
Nonsustained, paroxysmal SVT
� EKG demonstrates regular narrow complex tachycardia with spontaneous return of sinus rhythm differential includes AT versus atrial flutter favoring AT based on PACs/PAT on telemetry monitoring
� Currently undergoing treatment for osteomyelitis and severe peripheral arterial disease
� No prior documentation of atrial arrhythmias or atrial fibrillation
Osteomyelitis
Peripheral arterial disease, follows with vascular surgery
Diabetes mellitus type 2 with neuropathy
Dyslipidemia
Hypertension
Chronic pain
Tobacco use disorder
Opioid dependence
Echo 08/20/2024: Normal LV size and function, no regional wall motion abnormality, EF 55-60%, mild concentric LVH, no significant valvular disease
Recommendation:
� Continue to monitor on telemetry; no clear evidence of atrial fibrillation or atrial flutter at this time. Patient with PACs, PAT as noted by telemetry monitoring. No rhythm strip from periprocedural time however EKG had demonstrated as above.
Would continue with current medical therapy. If no evidence of atrial fibrillation during hospitalization, recommend outpatient follow-up with primary senior user experience architect which may include monitor and further testing
� Replete electrolytes goal potassium greater than 4, magnesium greater than 2
� Treat underlying infection
� Continue goal-directed therapy including aspirin, statin, Plavix, FEDE inhibitor, amlodipine; no reported palpitations can consider addition of beta-cecilia if symptomatic
Discussed with nursing, patient, hospitalist
Data Reviewed
-
EKG: Tracing Personally Visualized and interpreted
Radiology: Report Reviewed by me
Medical Tests (Nuc Med, Echo etc): Report Reviewed by me
Labs: Labs Reviewed by me
--- NOTE | 2025-01-26 14:23 | W.PN.HOSP.TC ---
Today's Communication/Plan
-
apprec vascular/podiatry
cont asa/plavix/abx
consult and apprec cards
Assessment / Plan
Assessment / Plan
Pt is a 69 year old male
Osteomyelitis Left Foot--happened with callous after toe amputation--outpt MRI confirms osteo--apprec podiatry and vascular s/p OR-- cultures pending--cont vanco/zosyn
new onset possible afib intraop--apprec cards--cont tele--does not appear to be afib--follow for now--nothing further unless converts to afib--outpt cards follow up
Extensive Peripheral Arterial Disease s/p Bilateral Lower Extremity Angioplasty/Stents--consult vascular--cont asa--continuing plavix--s/p angio by vascular
Hyponatremia, mild--Patient previously on sodium tablets which he is no longer taking--agree with fluid restriction--improved to 136
Diabetes Mellitus, Type II with Diabetic Neuropathy and insulin pump--consult DM STUDENT RECRUITER--follow HGB C2L--vese insulin pump for now
Essential Hypertension--BP exceedingly high--agree with IV hydralazine--pt bradycardic so blocking agents likely not best choice--cont amlodipine, lisinopril, aldactone--was also on lasix at one time--no longer taking
Hyperlipidemia--Continue atorvastatin
Anxiety/Depression--Continue Trazodone and Lorazepam
Chronic Pain with Opioid Dependence-Continue methadone--Continue oxycodone prn--Continue gabapentin, and pregabalin
Anemia of chronic disease--no active bleeding noted--cont iron supplementation
BPH--Continue Tamsulosin
DVT proph-- Lovenox
Code Status--Full Code
Anticipated Discharge: 24 - 48 hours
Subjective/Interval History
-
Date of Service: January 26, 2025
pt s/p OR for Debridement of wound left foot and resection of 1st metatarsal/revision amputation left foot
Objective Data
-
Labs:
Laboratory Results
01/26/25
08:00
WBC 3.8 L
Hgb 8.4 L
Hct 24.6 L
Plt Count 80 L
Sodium 136
Potassium 3.9
Chloride 109 H
Carbon Dioxide 22
BUN 13
Creatinine 1.2
Glucose 73
Calcium 8.0 L
Total Bilirubin 0.3
AST 17
ALT 11
Alkaline Phosphatase 97
Vital Signs:
max temp for 24 hours
01/26/25
00:12
Temp 97.6 F
Vital Signs
Temp Pulse Resp BP Pulse Ox
98.7 F 53 18 152/60 95
01/26/25 14:03 01/26/25 14:03 01/26/25 14:03 01/26/25 14:03 01/26/25 14:03
I&O
01/25/25 01/26/25 01/27/25
06:59 06:59 06:59
Intake Total 480 / 480 1310 / 1310
Output Total 1000 / 1000 3050 / 3050
Balance -520 / -520 -1740 / -1740
Review of Systems
-
All other systems: Reviewed and negative
Physical Exam
-
General: Well Developed, Well Nourished and No Apparent Distress
HEENT: Normocephalic and Atraumatic; Negative Oxygen
Respiratory: Clear to Auscultation; Negative Wheezes or Rhonchi
Cardiac: Regular Rhythm and S1/S2; Negative Murmur
GI: Soft, Nontender, Nondistended and Normal Bowel Sounds
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
Neuro: Awake
Psych: Calm
[2025-01-26] MEDS: NSS IV (15:28)
[2025-01-26] MEDS: DILAUDID 0.5 MG IV ×2 (15:48→20:11)
[2025-01-26 16:29] LABS: Glucose - Point of Care 191 mg/dl (70-99)
[2025-01-26] MEDS: PT'S OWN INSULIN PUMP - HumaLOG 5.84 UNIT SC (17:22)
--- NOTE | 2025-01-26 20:00 | PTCARENOTE ---
Pts R groin cath site INTEGRATION MANAGER, pts gown with moderate amount of dried blood present. No current bleeding at this time. pulses found via doppler, pt with decreased sensation to L foot- stating 'has been like that since surgery'. House MARKETING SALES MANAGER aware.
[2025-01-26 21:18] LABS: Glucose - Point of Care 143 mg/dl (70-99)
[2025-01-26] MEDS: DESYREL 50 MG PO (21:43)
[2025-01-26] MEDS: FLOMAX 0.4 MG PO (21:43)
[2025-01-26] MEDS: LIPITOR 40 MG PO (21:43)
[2025-01-26] MEDS: PT'S OWN INSULIN PUMP - HumaLOG SC (21:45)
[2025-01-26] MEDS: ROXICODONE 5 MG PO (22:57)
[2025-01-27] MEDS: ZOSYN 50 IV ×4 (03:01→22:40)
[2025-01-27] MEDS: ROXICODONE 5 MG PO ×3 (03:01→20:13)
[2025-01-27 03:12] VITALS: BP 155/67
[2025-01-27] MEDS: DILAUDID 0.5 MG IV ×3 (05:52→18:38)
[2025-01-27 06:36] LABS: Hematocrit 23.3 % (39.0-52.0); Hemoglobin 7.8 g/dL (13.0-18.0); Mean Corp Hgb Conc. 33.5 g/dL (33.0-37.0); Mean Corpuscular Volume 79.5 fL (80.0-94.0); Platelet Count 84 10^3/uL (130-400); Red Cell Dist. Width 13.8 % (11.5-14.5)
[2025-01-27] MEDS: VANCOCIN 275 MG IV (06:40)
[2025-01-27 07:29] LABS: ALT (SGPT) 10 U/L (0-50); AST (SGOT) 15 U/L (17-59); Albumin 2.5 g/dl (3.5-5.0); Alkaline Phosphatase 90 U/L (38-126); Blood Urea Nitrogen 13 mg/dl (9-20); Calcium 8.0 mg/dl (8.4-10.2); Carbon Dioxide 25 mmol/L (22-30); Chloride 105 mmol/L (98-107); Estimated Creatinine Clearance 51 ml/min; Glucose 80 mg/dl (70-99); Magnesium 1.8 mg/dl (1.6-2.3); Potassium 4.1 mmol/L (3.5-5.1); Sodium 133 mmol/L (135-145); Total Protein 5.2 g/dl (6.3-8.2); eGFR > 60.00
[2025-01-27 08:00] VITALS: BP 172/75
[2025-01-27 08:40] LABS: Glucose - Point of Care 87 mg/dl (70-99)
[2025-01-27] MEDS: NEURONTIN 600 MG PO ×4 (09:46→22:41)
[2025-01-27] MEDS: NORVASC 10 MG PO (09:47)
[2025-01-27] MEDS: LYRICA 100 MG PO ×3 (09:47→22:41)
[2025-01-27] MEDS: ALDACTONE 25 MG PO (09:47)
[2025-01-27] MEDS: DOLOPHINE 5 MG PO ×3 (09:47→22:41)
[2025-01-27] MEDS: PLAVIX 75 MG PO (09:48)
[2025-01-27] MEDS: FEOSOL 325 MG PO (09:48)
[2025-01-27] MEDS: VITAMIN D3 (cholecalciferol) 50 MCG PO (09:48)
[2025-01-27] MEDS: FOLVITE 1 MG PO (09:48)
[2025-01-27] MEDS: ASPIR LOW (ENTERIC COATED) 81 MG PO (09:48)
[2025-01-27] MEDS: ZESTRIL 40 MG PO (09:48)
[2025-01-27] MEDS: VITAMIN C 500 MG PO (09:48)
--- NOTE | 2025-01-27 09:50 | W.PN.POD ---
Today's Communication
Today's Communication
POD #1 S/P revision of amp left foot 1st ray w/ resection of bone
Pt tolerated dressing change well and was unaware when 6 in of packing removed or when it was repacked into wound and redressed
prelim bone cx neg so far. Clinically appears to be surgical cure.
May WB to the left heel in post op shoe for transfers to bed/chair and commode and up to 50 feet
Assessment / Plan
-
DM2 with PAD-Dr Morrison following S/P recent revasc LLE
DM2 w/Peripheral neuropathy
Ischemic leg/foot pain-chronic pain- Opioid dependance
OM left 1st met in area of prev amputation - POD #1 S/P revision of amp and prox resection of 1st met
Afib- ? new onset, hospitalist and cardiology following
Subjective
Chief Complaint
osteomyelitis left foot
Subjective
Pt states he has same chronic pain to legs and feet, denies new symptoms or concerns
Objective
Temp Pulse Resp BP Pulse Ox
97.8 F 57 18 172/75 96
01/27/25 08:00 01/27/25 08:00 01/27/25 08:00 01/27/25 08:00 01/27/25 08:00
01/27/25 05:56
01/27/25 05:56
Vital Signs and Lab results were reviewed.
Bone cx prox margin 1st met- so far neg for bact growth, path pending
Inspection: Cellulitis (none), Inflammation (mild) and Ulcer (plantar left foot w/ surgical packing in place)
Review of Systems
Review of Systems
Review of Systems: No Fever, No Chills, No Headache, No Nausea, No Diarrhea and No Joint Pain
Physical Exam
Physical Exam
General: No Apparent Distress, Comfortable, Conversant and Appears Chronically Ill
Musculoskeletal: No Cyanosis and No Edema
Skin: Warm, Dry and Ischemic Ulcer (left plantar foot- packing intact, no odor or drainage)
Neuro: AO x 3 and Protective Sensation Diminished
Vascular: Pedal Hair Absent and Skin Temperature Warm to Cool
Dorsalis Pedis: Diminished
Posterior Tibialis: Diminished
[2025-01-27] MEDS: PT'S OWN INSULIN PUMP - HumaLOG 5.57 UNIT SC (09:52)
[2025-01-27] MEDS: PROTONIX 40 MG PO (11:21)
[2025-01-27] MEDS: CATAPRES 0.1 MG PO (11:21)
[2025-01-27] MEDS: CYMBALTA DELAYED RELEASE 60 MG PO (11:21)
[2025-01-27] MEDS: ATIVAN 1 MG PO (11:21)
--- NOTE | 2025-01-27 11:27 | W.PN.CARDCBS ---
Today's Communication / Plan
-
Monitor on telemetry while inpatient
Treat underlying infection
Will need outpatient follow-up with primary avionics engineer
Impression / Plan
-
Family Physician: Lei Dee DO
Morgue Technician: Dr. Ryan Barrera
Impression:
Nonsustained, paroxysmal SVT
� EKG demonstrates regular narrow complex tachycardia with spontaneous return of sinus rhythm differential includes AT versus atrial flutter favoring AT based on PACs/PAT on telemetry monitoring
� Currently undergoing treatment for osteomyelitis and severe peripheral arterial disease
� No prior documentation of atrial arrhythmias or atrial fibrillation
Osteomyelitis
Peripheral arterial disease, follows with vascular surgery
Diabetes mellitus type 2 with neuropathy
Dyslipidemia
Hypertension
Chronic pain
Tobacco use disorder
Opioid dependence
Echo 08/20/2024: Normal LV size and function, no regional wall motion abnormality, EF 55-60%, mild concentric LVH, no significant valvular disease
Recommendation:
� Continue to monitor on telemetry; no clear evidence of atrial fibrillation or atrial flutter at this time. Patient with PACs, PAT as noted by telemetry monitoring. No rhythm strip from periprocedural time however EKG had demonstrated as above.
Would continue with current medical therapy. If no evidence of atrial fibrillation during hospitalization, recommend outpatient follow-up with primary avionics engineer which may include monitor and further testing
� Replete electrolytes goal potassium greater than 4, magnesium greater than 2
� Treat underlying infection
� Continue goal-directed therapy including aspirin, statin, Plavix, FEDE inhibitor, amlodipine; no reported palpitations can consider addition of beta-cecilia if symptomatic
� No further recommendations at this time, will sign off. Please call with questions.
Discussed with nursing, patient, hospitalist
Progress Note - Morgue Technician
Subjective
Date of Service: January 27, 2025
Patient seen and examined. No acute events overnight. Patient resting comfortably in bed. Denies any chest pain, shortness breath, palpitations, lightheadedness, dizziness, near-syncope syncope or weakness. Telemetry demonstrates sinus rhythm
with PACs and brief PAT nonsustained. No reported symptoms associated with this.
Objective
Labs:
01/27/25 05:56
01/27/25 05:56
Labs
Hgb 7.8 g/dL (13.0-18.0) L 01/27/25 05:56
Hct 23.3 % (39.0-52.0) L 01/27/25 05:56
Plt Count 84 10^3/uL (130-400) L 01/27/25 05:56
Sodium 133 mmol/L (135-145) L 01/27/25 05:56
Potassium 4.1 mmol/L (3.5-5.1) 01/27/25 05:56
BUN 13 mg/dl (9-20) 01/27/25 05:56
Creatinine 1.3 mg/dL (0.7-1.3) 01/27/25 05:56
Glucose 80 mg/dl (70-99) 01/27/25 05:56
Vital Signs and I&O:
Vital Signs
Temp Pulse Resp BP Pulse Ox
97.8 F 57 18 172/75 96
01/27/25 08:00 01/27/25 08:00 01/27/25 08:00 01/27/25 08:00 01/27/25 08:00
Vital Signs
Temp Pulse Resp BP Pulse Ox
97.8 F 57 18 172/75 96
01/27/25 08:00 01/27/25 08:00 01/27/25 08:00 01/27/25 08:00 01/27/25 08:00
Intake & Output
01/25/25 01/26/25 01/27/25 01/28/25
06:59 06:59 06:59 06:59
Intake Total 480 / 480 1310 / 1310 960 / 960
Output Total 1000 / 1000 3050 / 3050 2480 / 2480
Balance -520 / -520 -1740 / -1740 -1520 / -1520
Physical Exam
Physical Exam
GENERAL: no acute distress
EYE: sclera anicteric
NECK: Supple, no JVD, no carotid bruit appreciated
ENT: normal nose, moist mucosal membranes
CARDIAC: Regular rate and rhythm, +S1/S2, no murmur, rubs, or gallops
CHEST/PULMONARY: Normal effort, clear breath sounds
ABDOMEN: Soft, without focal tenderness or distention
NEUROLOGICAL: Alert and oriented x3
SKIN: Warm and dry; bandages lower extremity
PSYCH: Normal and appropriate interaction.
Telemetry sinus rhythm, PACs, brief PAT; no clear evidence of atrial fibrillation
--- NOTE | 2025-01-27 11:40 | W.PN.HOSP.TC ---
Today's Communication/Plan
-
PT/OT with new weight bearing instructions
stop vanco
cont zosyn for now--if cultures remain neg, consider stopping zosyn too
Assessment / Plan
Assessment / Plan
Pt is a 69 year old male
Osteomyelitis Left Foot--happened with callous after toe amputation--outpt MRI confirmed osteo--apprec podiatry and vascular s/p OR 01/26/25 --S/P revision of amp left foot 1st ray w/ resection of bone-- blood and tissue cultures negative--cont zosyn
new onset possible afib intraop--apprec cards--cont tele--does not appear to be afib--follow for now--nothing further unless converts to afib--outpt cards follow up
Extensive Peripheral Arterial Disease s/p Bilateral Lower Extremity Angioplasty/Stents--apprec vascular--cont asa--continuing plavix--s/p angio by vascular
Hyponatremia, mild--Patient previously on sodium tablets which he is no longer taking--agree with fluid restriction--improved
Diabetes Mellitus, Type II with Diabetic Neuropathy and insulin pump--consult DM ORACLE DATABASE DEVELOPER--follow HGB Z1U--lohz insulin pump for now
Essential Hypertension--BP exceedingly high--agree with IV hydralazine--pt bradycardic so blocking agents likely not best choice--cont amlodipine, lisinopril, aldactone--was also on lasix at one time--no longer taking
Hyperlipidemia--Continue atorvastatin
Anxiety/Depression--Continue Trazodone and Lorazepam
Chronic Pain with Opioid Dependence-Continue methadone--Continue oxycodone prn--Continue gabapentin, and pregabalin
Anemia of chronic disease--no active bleeding noted--cont iron supplementation
BPH--Continue Tamsulosin
DVT proph-- Lovenox
Code Status--Full Code
Anticipated Discharge: Within 24 hours
Subjective/Interval History
-
Date of Service: January 27, 2025
pt doing OK
Objective Data
-
Labs:
Laboratory Results
01/27/25
05:56
WBC 3.9 L
Hgb 7.8 L
Hct 23.3 L
Plt Count 84 L
Sodium 133 L
Potassium 4.1
Chloride 105
Carbon Dioxide 25
BUN 13
Creatinine 1.3
Glucose 80
Calcium 8.0 L
Total Bilirubin 0.3
AST 15 L
ALT 10
Alkaline Phosphatase 90
Vital Signs:
max temp for 24 hours
01/26/25
15:28
Temp 98.8 F
Vital Signs
Temp Pulse Resp BP Pulse Ox
97.8 F 57 18 172/75 96
01/27/25 08:00 01/27/25 08:00 01/27/25 08:00 01/27/25 08:00 01/27/25 08:00
I&O
01/26/25 01/27/25 01/28/25
06:59 06:59 06:59
Intake Total 1310 / 1310 960 / 960
Output Total 3050 / 3050 2480 / 2480
Balance -1740 / -1740 -1520 / -1520
Review of Systems
-
All other systems: Reviewed and negative
Physical Exam
-
General: Well Developed, Well Nourished and No Apparent Distress
HEENT: Normocephalic and Atraumatic
Respiratory: Clear to Auscultation; Negative Wheezes or Rhonchi
Cardiac: Regular Rhythm and S1/S2; Negative Murmur
GI: Soft, Nontender, Nondistended and Normal Bowel Sounds
Musculoskeletal: No Clubbing, No Cyanosis, No Edema and Other (bandage to left foot--changed by podiatry this AM)
[2025-01-27 11:52] VITALS: BP 165/64
[2025-01-27] MEDS: PT'S OWN INSULIN PUMP - HumaLOG 5.74 UNIT SC (13:56)
[2025-01-27 15:30] VITALS: BP 168/67
[2025-01-27] MEDS: PT'S OWN INSULIN PUMP - HumaLOG 6.38 UNIT SC (17:30)
[2025-01-27 17:32] LABS: Glucose - Point of Care 219 mg/dl (70-99)
[2025-01-27 19:14] VITALS: BP 102/63
[2025-01-27] MEDS: LIPITOR 40 MG PO (20:13)
[2025-01-27] MEDS: FLOMAX 0.4 MG PO (20:13)
[2025-01-27 21:59] LABS: Glucose - Point of Care 161 mg/dl (70-99)
[2025-01-27] MEDS: DESYREL 50 MG PO (22:41)
[2025-01-27] MEDS: PT'S OWN INSULIN PUMP - HumaLOG SC (22:42)
[2025-01-27 23:24] VITALS: BP 155/62
[2025-01-28] VITALS (7 sets, daily range): BP systolic 139–171; BP diastolic 51–69
[2025-01-28] MEDS: DILAUDID 0.5 MG IV ×3 (02:19→20:48)
[2025-01-28] MEDS: ZOSYN 50 IV ×2 (05:06→09:17)
[2025-01-28 07:38] LABS: Glucose - Point of Care 162 mg/dl (70-99)
--- NOTE | 2025-01-28 07:57 | W.PN.HOSP.TC ---
Today's Communication/Plan
-
Discontinue abx, monitor off
discharge planning Home with home services
Assessment / Plan
Assessment / Plan
Physical Exam
General: Well Developed, Well Nourished and No Apparent Distress
HEENT: Normocephalic and Atraumatic
Respiratory: Clear to Auscultation; Negative Wheezes or Rhonchi
Cardiac: Regular Rhythm and S1/S2; Negative Murmur
GI: Soft, Nontender, Nondistended and Normal Bowel Sounds
Musculoskeletal: No Clubbing, No Cyanosis, No Edema, left foot bandage clean dry intact
Neuro: AOx3 conversant coherent
Psych: Calm
Pt is a 69 year old male
Osteomyelitis Left Foot--happened with callous after toe amputation--outpt MRI confirmed osteo--apprec podiatry and vascular s/p OR 01/26/25 --S/P revision of amp left foot 1st ray w/ resection of bone-- blood and tissue cultures negative-- zosyn
discontinued monitor off
new onset possible afib intraop--apprec cards--cont tele--does not appear to be afib--follow for now--nothing further unless converts to afib--outpt cards follow up
Extensive Peripheral Arterial Disease s/p Bilateral Lower Extremity Angioplasty/Stents--apprec vascular--cont asa--continuing plavix--s/p angio by vascular
Hyponatremia, mild--Patient previously on sodium tablets which he is no longer taking--agree with fluid restriction--improved
Diabetes Mellitus, Type II with Diabetic Neuropathy and insulin pump--consult DM HOSPITAL PHARMACIST--follow HGB K6H--ophp insulin pump for now
Essential Hypertension--BP exceedingly high--agree with IV hydralazine--pt bradycardic so blocking agents likely not best choice--cont amlodipine, lisinopril, aldactone--was also on lasix at one time--no longer taking
Hyperlipidemia--Continue atorvastatin
Anxiety/Depression--Continue Trazodone and Lorazepam
Chronic Pain with Opioid Dependence-Continue methadone--Continue oxycodone prn--Continue gabapentin, and pregabalin
Anemia of chronic disease--no active bleeding noted--cont iron supplementation
BPH--Continue Tamsulosin
PT/OT appreciated home health
DVT proph-- Lovenox
Code Status--Full Code
Discussed with patient and patient's daughter Damaris
I spent a total of 40 minutes with the patient or on the floor. More than 50% of this time involved counseling and coordination of care.
Anticipated Discharge: Within 24 hours
Subjective/Interval History
-
Date of Service: January 28, 2025
No acute distress, overall reports feeling well. Denies new acute issues.
Objective Data
-
Labs:
Laboratory Results
01/28/25
06:00
WBC Pending
Hgb Pending
Hct Pending
Plt Count Pending
Sodium Pending
Potassium Pending
Chloride Pending
Carbon Dioxide Pending
BUN Pending
Creatinine Pending
Glucose Pending
Calcium Pending
Total Bilirubin Pending
AST Pending
ALT Pending
Alkaline Phosphatase Pending
Vital Signs:
Vital Signs
Temp Pulse Resp BP Pulse Ox
97.4 F 50 12 160/63 97
01/28/25 03:17 01/28/25 03:17 01/28/25 03:17 01/28/25 03:17 01/28/25 03:17
I&O
01/27/25 01/28/25 01/29/25
06:59 06:59 06:59
Intake Total 960 / 960 1020 / 1020
Output Total 2480 / 2480 3225 / 3225
Balance -1520 / -1520 -2205 / -2205
--- NOTE | 2025-01-28 08:08 | PN.DE.MGMTRT ---
Insulin Management
- -
01/28/2025: Diabetes Insulin pump Management Follow up
69 year old male with PMH: HTN PAD, Neuropathy, COPD, Anemia, T2DM, Gangrene and Osteomyelitis of right 2nd toe and left great toe s/p amputation.
Patient experienced an acute onset of pain and swelling to the left foot and was noted to have an acute abscess and punched out appearing wound to the plantar left foot~ 3 weeks ago. He presented to [facility] ED for evaluation at request of his
marine fire fighter, Dr. Villanueva, after an OP MRI showed Osteomyelitis.
Pt is awake, alert, oriented, resting in bed, offers no complaints, Able to discuss diabetes management.
Has been using Tandem T-Slim, Humalog insulin and Dexcom G7 prior to admission.
He routinely sees Dr. Vaca for diabetes care. A1C was 6.5%, Cr 1.2, eGFR>60
POD # 3 s/p revision of amp left foot 1st ray w/ resection of bone.
Glucose stable and in range, 87 to 219, FBG 162 POC this AM.
Pt states he has been administering bolus at meal times.
pump settings as follows:
Basal Correction CHO ratio target
12AM 1 1:30 1:14 110
3AM 1 1:30 1:14 110
6am .975 1:30 1:13 110
12PM 1 1:30 1:13 110
8pm 1 1:30 1:13 110
24 hour basal total units 23.85.
Will make no change to pump settings.
Discussed with nurse and instructed to keep insulin pump worksheet at bedside.
Will cont to follow
Diabetes History
- -
Type of Diabetes: 2 requiring insulin
Pre-Admission Diabetes Regimen
Lab Results
Hemoglobin A1c 6.5 % (4.0-5.6) H 01/25/25 07:13
Insulin Pump Settings
IP Diabetes Regimen
01/27/25 01/27/25 01/27/25
08:39 17:31 21:11
POC Glucose 87 219 H 161 H
01/28/25
07:36
POC Glucose 162 H
Meal type: Breakfast
Amount consumed: 50%
Patient Education
[2025-01-28 09:07] LABS: Hematocrit 25.9 % (39.0-52.0); Hemoglobin 8.6 g/dL (13.0-18.0); Mean Corp Hgb Conc. 33.2 g/dL (33.0-37.0); Mean Corpuscular Volume 77.5 fL (80.0-94.0); Platelet Count 74 10^3/uL (130-400); Red Cell Dist. Width 14.0 % (11.5-14.5)
[2025-01-28] MEDS: ASPIR LOW (ENTERIC COATED) 81 MG PO (09:14)
[2025-01-28] MEDS: FEOSOL 325 MG PO (09:14)
[2025-01-28] MEDS: VITAMIN C 500 MG PO (09:14)
[2025-01-28] MEDS: PLAVIX 75 MG PO (09:14)
[2025-01-28] MEDS: FOLVITE 1 MG PO (09:14)
[2025-01-28] MEDS: VITAMIN D3 (cholecalciferol) 50 MCG PO (09:14)
[2025-01-28] MEDS: NEURONTIN 600 MG PO ×4 (09:14→21:40)
[2025-01-28] MEDS: NORVASC 10 MG PO (09:15)
[2025-01-28] MEDS: ZESTRIL 40 MG PO (09:15)
[2025-01-28] MEDS: ALDACTONE 25 MG PO (09:16)
[2025-01-28] MEDS: DOLOPHINE 5 MG PO ×3 (09:17→21:40)
[2025-01-28] MEDS: LYRICA 100 MG PO ×3 (09:17→21:40)
[2025-01-28] MEDS: PT'S OWN INSULIN PUMP - HumaLOG 5 UNIT SC ×2 (09:23→13:30)
[2025-01-28] MEDS: ROXICODONE 5 MG PO ×3 (09:30→22:41)
[2025-01-28 09:51] LABS: ALT (SGPT) < 10 U/L (0-50); AST (SGOT) 16 U/L (17-59); Albumin 2.7 g/dl (3.5-5.0); Alkaline Phosphatase 101 U/L (38-126); Blood Urea Nitrogen 13 mg/dl (9-20); Calcium 8.1 mg/dl (8.4-10.2); Carbon Dioxide 25 mmol/L (22-30); Chloride 106 mmol/L (98-107); Estimated Creatinine Clearance 55 ml/min; Glucose 155 mg/dl (70-99); Magnesium 1.8 mg/dl (1.6-2.3); Potassium 4.5 mmol/L (3.5-5.1); Sodium 135 mmol/L (135-145); Total Protein 5.4 g/dl (6.3-8.2); eGFR > 60.00
--- NOTE | 2025-01-28 10:30 | CM ---
Chart reviewed. Cont IV Zosyn
Therapy recommending home PT and OT at d/c
Discussed w/ patient bedside, confirmed that he is current w/ [facility] for VN for his wound care. Would like to continue services w/ [facility] referral entered in [facility]
IMM verbally reviewed, copy provided, copy on chart
[facility]

Plan: Home[facility]
[2025-01-28 11:29] LABS: Glucose - Point of Care 256 mg/dl (70-99)
[2025-01-28] MEDS: ATIVAN 1 MG PO (12:36)
[2025-01-28] MEDS: PROTONIX 40 MG PO (12:36)
[2025-01-28] MEDS: CYMBALTA DELAYED RELEASE 60 MG PO (12:36)
[2025-01-28] MEDS: CATAPRES 0.1 MG PO (12:37)
--- NOTE | 2025-01-28 16:50 | W.PN.POD ---
Today's Communication
Today's Communication
Wound packing removed and wound irrigated with NSS, 1/4 in Iodoform packing was re packed into wound with sterile hemostat. Xeroform applied to dorsal incision and dressed with ABD and Kerlix. Dressing changes to be performed By [facility] every other day
and prn if soiled or removed.
POD #2 S/P revision of amp and prox resection of 1st met, prox margin appears to be clear
OK now to WBAT to the left foot in post op shoe
Able to be DC to home when medically stable from my perspective
Assessment / Plan
-
DM2 with PAD-Dr Morrison following S/P recent revasc LLE
DM2 w/Peripheral neuropathy
Ischemic leg/foot pain-chronic pain- Opioid dependance
OM left 1st met in area of prev amputation - POD #2 S/P revision of amp and prox resection of 1st met, prox margin appears to be clear
Afib- hospitalist and cardiology following
Subjective
Chief Complaint
Osteomyelitis left 1st met/PAD
Subjective
POD # 2 S/P revision of amp and resection of bone left 1st met
Objective
Temp Pulse Resp BP Pulse Ox
98.0 F 53 16 141/64 96
01/28/25 15:35 01/28/25 15:35 01/28/25 15:35 01/28/25 15:35 01/28/25 15:35
01/28/25 08:05
01/28/25 08:05
Vital Signs and Lab results were reviewed.
Path bone cx 01/26- pending
Bone cx prox margin- No growth x 48 hrs
Inspection: Cellulitis (none), Inflammation (mild left foot) and Ulcer (plantar left foot)
Review of Systems
Review of Systems
Review of Systems: No Fever, No Chills, No Nausea and No Diarrhea
Physical Exam
Physical Exam
General: No Apparent Distress and Conversant
Musculoskeletal: No Cyanosis and No Edema
Skin: Warm, Dry and Ischemic Ulcer (plantar left foot- with clear bloody drainage expressed. No odor or cellulitis, wound measures <0.5cm2)
Neuro: AO x 3 and Protective Sensation Absent
Vascular: Capillary Refill Delayed, Pedal Hair Absent and Skin Temperature Warm to Cool
Dorsalis Pedis: Diminished
Posterior Tibialis: Diminished
[2025-01-28 17:01] LABS: Glucose - Point of Care 122 mg/dl (70-99)
[2025-01-28] MEDS: PT'S OWN INSULIN PUMP - HumaLOG 5.3 UNIT SC (18:07)
[2025-01-28 21:16] LABS: Glucose - Point of Care 98 mg/dl (70-99)
[2025-01-28] MEDS: LIPITOR 40 MG PO (21:40)
[2025-01-28] MEDS: DESYREL 50 MG PO (21:40)
[2025-01-28] MEDS: FLOMAX 0.4 MG PO (21:40)
[2025-01-28] MEDS: PT'S OWN INSULIN PUMP - HumaLOG SC (22:54)
[2025-01-29] MEDS: ROXICODONE 5 MG PO ×4 (02:54→16:45)
[2025-01-29 03:12] VITALS: BP 161/63
--- NOTE | 2025-01-29 07:47 | W.PN.HOSP.TC ---
Today's Communication/Plan
-
discharge
Assessment / Plan
Assessment / Plan
Physical Exam
General: Well Developed, Well Nourished and No Apparent Distress
HEENT: Normocephalic and Atraumatic
Respiratory: Clear to Auscultation; Negative Wheezes or Rhonchi
Cardiac: Regular Rhythm and S1/S2; Negative Murmur
GI: Soft, Nontender, Nondistended and Normal Bowel Sounds
Musculoskeletal: No Clubbing, No Cyanosis, No Edema, left foot bandage clean dry intact
Neuro: AOx3 conversant coherent
Psych: Calm
Pt is a 69 year old male
Osteomyelitis Left Foot--happened with callous after toe amputation--outpt MRI confirmed osteo--apprec podiatry and vascular s/p OR 01/26/25 --S/P revision of amp left foot 1st ray w/ resection of bone-- blood and tissue cultures negative-- zosyn
discontinued monitor off
new onset possible afib intraop--apprec cards--cont tele--does not appear to be afib--follow for now--nothing further unless converts to afib--outpt cards follow up
Extensive Peripheral Arterial Disease s/p Bilateral Lower Extremity Angioplasty/Stents--apprec vascular--cont asa--continuing plavix--s/p angio by vascular
Hyponatremia, mild--Patient previously on sodium tablets which he is no longer taking--agree with fluid restriction--improved
Diabetes Mellitus, Type II with Diabetic Neuropathy and insulin pump--consult DM SUSTAINABILITY CONSULTANT--follow HGB J4R--ebdw insulin pump for now
Essential Hypertension--BP exceedingly high--agree with IV hydralazine--pt bradycardic so blocking agents likely not best choice--cont amlodipine, lisinopril, aldactone--was also on lasix at one time--no longer taking
Hyperlipidemia--Continue atorvastatin
Anxiety/Depression--Continue Trazodone and Lorazepam
Chronic Pain with Opioid Dependence-Continue methadone--Continue oxycodone prn--Continue gabapentin, and pregabalin
Mild Pancytopenia
Anemia of chronic disease--no active bleeding noted--cont iron supplementation
stable, cont outpt follow up with Dr Marks recommended.
Low B12 level likely contributing to anemia
B12 supplementation
BPH--Continue Tamsulosin
PT/OT appreciated home health
DVT proph-- Lovenox
Code Status--Full Code
Medically stable for discharge home with home services and outpatient follow up recommendations.
Discussed with patient and patient's daughter Damaris
Total Time Preparing Discharge __40 minutes including examination of the patient, summary of the hospital stay, instructions for continuing care to all relevant caregivers; and preparation of discharge records, prescriptions, and referral
forms if necessary.
Anticipated Discharge: Today
Subjective/Interval History
-
Date of Service: January 29, 2025
No acute distress, overall reports feeling well though fatigue. Pain well controlled at this time.
Objective Data
-
Labs:
Laboratory Results
01/29/25
07:24
WBC Pending
Hgb Pending
Hct Pending
Plt Count Pending
Sodium Pending
Potassium Pending
Chloride Pending
Carbon Dioxide Pending
BUN Pending
Creatinine Pending
Glucose Pending
Calcium Pending
Vital Signs:
Vital Signs
Temp Pulse Resp BP Pulse Ox
97.4 F 51 16 161/63 97
01/29/25 03:12 01/29/25 03:12 01/29/25 03:12 01/29/25 03:12 01/29/25 03:12
I&O
01/28/25 01/29/25 01/30/25
06:59 06:59 06:59
Intake Total 1020 / 1020 720 / 720
Output Total 3225 / 3225 1200 / 1200
Balance -2205 / -2205 -480 / -480
[2025-01-29 07:56] VITALS: BP 138/52
[2025-01-29 08:15] LABS: Hematocrit 25.5 % (39.0-52.0); Hemoglobin 8.0 g/dL (13.0-18.0); Mean Corp Hgb Conc. 31.4 g/dL (33.0-37.0); Mean Corpuscular Volume 81.5 fL (80.0-94.0); Platelet Count 83 10^3/uL (130-400); Red Cell Dist. Width 13.9 % (11.5-14.5)
[2025-01-29 08:22] LABS: Blood Urea Nitrogen 15 mg/dl (9-20); Calcium 8.2 mg/dl (8.4-10.2); Carbon Dioxide 28 mmol/L (22-30); Chloride 104 mmol/L (98-107); Estimated Creatinine Clearance 47 ml/min; Glucose 82 mg/dl (70-99); Potassium 4.5 mmol/L (3.5-5.1); Sodium 135 mmol/L (135-145); eGFR 55.09
[2025-01-29] MEDS: VITAMIN D3 (cholecalciferol) 50 MCG PO (08:30)
[2025-01-29] MEDS: FOLVITE 1 MG PO (08:30)
[2025-01-29] MEDS: ALDACTONE 25 MG PO (08:30)
[2025-01-29] MEDS: FEOSOL 325 MG PO (08:30)
[2025-01-29] MEDS: ZESTRIL 40 MG PO (08:30)
[2025-01-29] MEDS: NORVASC 10 MG PO (08:30)
[2025-01-29] MEDS: NEURONTIN 600 MG PO ×2 (08:30→12:44)
[2025-01-29] MEDS: VITAMIN C 500 MG PO (08:30)
[2025-01-29] MEDS: DOLOPHINE 5 MG PO ×2 (08:30→16:21)
[2025-01-29] MEDS: ASPIR LOW (ENTERIC COATED) 81 MG PO (08:30)
[2025-01-29] MEDS: PLAVIX 75 MG PO (08:30)
[2025-01-29] MEDS: LYRICA 100 MG PO ×2 (08:31→16:21)
--- NOTE | 2025-01-29 09:26 | PN.DE.MGMTRT ---
Insulin Management
- -
01/29/2025: Diabetes Insulin pump Management Follow up
69 year old male with PMH: HTN PAD, Neuropathy, COPD, Anemia, T2DM, Gangrene and Osteomyelitis of right 2nd toe and left great toe s/p amputation.
Patient experienced an acute onset of pain and swelling to the left foot and was noted to have an acute abscess and punched out appearing wound to the plantar left foot~ 3 weeks ago. He presented to [facility] ED for evaluation at request of his
restaurant shift leader, Dr. Villanueva, after an OP MRI showed Osteomyelitis.
Pt is awake, alert, oriented, resting in bed, offers no complaints, Able to discuss diabetes management.
Has been using Tandem T-Slim, Humalog insulin and Dexcom G7 prior to admission.
He routinely sees Dr. Vaca for diabetes care. A1C was 6.5%, Cr 1.2, eGFR>60
POD #4 s/p revision of amp left foot 1st ray w/ resection of bone.
Changed infusion set yesterday. Glucose stable and in range, 122 to 256, FBG 82 V this AM.
Pt states he has been administering bolus at meal times.
pump settings as follows:
Basal Correction CHO ratio target
12AM 1 1:30 1:14 110
3AM 1 1:30 1:14 110
6am .975 1:30 1:13 110
12PM 1 1:30 1:13 110
8pm 1 1:30 1:13 110
24 hour basal total units 23.85.
Will make no change to pump settings.
Discussed with nurse and instructed to keep insulin pump worksheet at bedside.
Will cont to follow
Diabetes History
- -
Type of Diabetes: 2 requiring insulin
Pre-Admission Diabetes Regimen
01/28/25 01/29/25
08:05 07:24
Creatinine 1.2 1.4 H
Lab Results
Hemoglobin A1c 6.5 % (4.0-5.6) H 01/25/25 07:13
Insulin Pump Settings
IP Diabetes Regimen
01/28/25 01/28/25 01/28/25
08:05 11:27 17:00
Glucose 155 H
POC Glucose 256 H 122 H
01/28/25 01/29/25
21:15 07:24
Glucose 82
POC Glucose 98
Patient Education
[2025-01-29] MEDS: PT'S OWN INSULIN PUMP - HumaLOG 5.37 UNIT SC (10:37)
[2025-01-29 11:30] VITALS: BP 139/58
[2025-01-29 11:54] LABS: Glucose - Point of Care 133 mg/dl (70-99)
[2025-01-29 12:34] LABS: Iron 25 ug/dl (49-181)
[2025-01-29 12:43] LABS: Total Iron Binding Capacity 210 ug/dl (261-462)
[2025-01-29] MEDS: PROTONIX 40 MG PO (12:44)
[2025-01-29] MEDS: CATAPRES 0.1 MG PO (12:44)
[2025-01-29] MEDS: CYMBALTA DELAYED RELEASE 60 MG PO (12:44)
[2025-01-29] MEDS: ATIVAN 1 MG PO (12:44)
[2025-01-29] MEDS: PT'S OWN INSULIN PUMP - HumaLOG 5.77 UNIT SC (13:05)
[2025-01-29 13:51] LABS: Ferritin 54.3 ng/ml (17.9-464.0)
[2025-01-29 14:22] LABS: Folate > 20.0 ng/ml (2.76-20); Vitamin B12 278 pg/ml (239-931)
[2025-01-29 15:54] VITALS: BP 137/67
--- NOTE | 2025-01-29 16:15 | W.DCSUMMARY ---
Discharge Summary
Discharge Data
Date of Admission: 01/24/25
Date of Discharge: 01/29/25
-
Pending Results: Yes
Additional Pending Results:
official culture results, pathology
Discharge Plan
-
Patient Disposition: Home with Home Care
Discharge Diagnosis/Procedures: Osteomyelitis Left Foot status post revision of amputation left foot 1st ray with resection of bone- likely surgical cure
new onset intraoperative atrial fibrillation since resolved
Extensive Peripheral Arterial Disease status post Bilateral Lower Extremity Angioplasty/Stents
Mild Hyponatremia since resolved
Diabetes Mellitus, Type II with Diabetic Neuropathy and insulin pump
Bradycardia
Essential Hypertension
Hyperlipidemia
Anxiety/Depression
Chronic Pain with Opioid Dependence
Mild Pancytopenia
Anemia of chronic disease
Low Vitamin B12 level
Condition: Fair
Diet: Diabetic, Carb Controlled and Restrict fluids to 64 oz
Activity: As tolerated and No strenuous activity
Additional Activity: Weight Bearing As Tolerated left foot with post op shoe and walker assist
Driving Restrictions: As prior to admission
Bathing Restrictions: dressing must be kept clean and dry at all times
Others Tests: Your follow up arterial ultrasound is scheduled on 02/20/2025 at 2pm here at [facility]
Wound Care: LEFT FOOT: remove packing plantar wound, irrigat w/NSS, pat dry and repack wound with 1/4in plain packing, adaptic (single layer) to dorsal incision) cover all with 4x4s, ABD and wrap loosely with kerlix every other day and prn if
soiled or removed
Activity Restrictions/Additional Instructions:
Follow up with primary care provider and Podiatry in 1 week of discharge and keep your appointment with Vascular Surgeon. Follow up with Aircraft Structural Fitter and Hematology in 2 weeks of discharge.
Vitamin B12 supplementation prescribed for low Vitamin b12 levels.
Clonidine has been changed from as needed to scheduled 0.1 mg at noon for better blood pressure control.
Coreg has been placed on hold due to Bradycardia. Follow up with primary care provider or Cardiology to determine when safe to resume, if necessary to resume, and/or if an alternative medication is required instead.
Please take medications as prescribed/recommended and follow up with primary care provider and/or other healthcare provider involved in your care for refills and/or further adjustment to your medication regimen as necessary.
Stand Alone Forms: Vascular Surg Discharge Instr
Referrals:
Lei Dee DO [Family Provider, Family Practice] - in one week
Ryan Barrera DO [Non-Admitting Privileges, Cardiology] - in two weeks
Amelia Cruz DPM [Active, Podiatry] - in one week
Sandy Barraza CRNP [Specified Professional Personl, Vascular Surgery] - 02/25/25 2:00 pm
Dillan Marks MD [Active, Hematology / Oncology] - in two weeks
Prescriptions:
New
cyanocobalamin (vitamin B-12) [Vitamin B-12] 500 mcg Tablet
1,000 mcg PO DAILY Qty: 60 0RF
Continued
pantoprazole 40 MG tablet,delayed release (DR/EC)
40 mg PO NOON
folic acid 1 MG tablet
1 mg PO DAILY
trazodone 50 mg Tablet
50 mg PO HS
lisinopril 40 mg Tablet
40 mg PO DAILY
atorvastatin 40 mg Tablet
40 mg PO 1400
lorazepam 1 mg Tablet
1 mg PO NOON
duloxetine 60 mg Capsule,Delayed Release(Dr/Ec)
60 mg PO NOON
tamsulosin [Flomax] 0.4 mg Capsule
0.4 mg PO HS
acetaminophen [Tylenol] 325 mg Tablet
650 mg PO Q4HPRN PRN (Reason: FEVER>100F/MILD PAIN(1-4/10) ON PAIN SCALE)
Rx Instructions:
DO NOT EXCEED 3000MG APAP/24HOURS
ferrous sulfate 325 mg (65 mg iron) Tablet,Delayed Release (Dr/Ec)
325 mg PO DAILY
cholecalciferol (vitamin D3) [Vitamin D3] 50 mcg (2,000 unit) Tablet
50 mcg PO DAILY
oxycodone 5 mg tablet
5 mg PO Q4HPRN PRN (Reason: MODERATE/BREAKTHROUGH PAIN)
oxycodone 10 mg tablet
10 mg PO HS PRN (Reason: severe pain)
clopidogrel [Plavix] 75 mg tablet
75 mg PO DAILY Qty: 30 0RF
naloxone 0.4 mg/mL Solution
0.4 mg SC PRN PRN (Reason: opiod suspected overdose)
ascorbic acid (vitamin C) [Vitamin C] 500 mg Tablet
500 mg PO DAILY
amlodipine [Norvasc] 10 mg Tablet
10 mg PO DAILY
methadone 5 mg Tablet
5 mg PO TID
pregabalin [Lyrica] 100 mg Capsule
100 mg PO TID
aspirin 81 mg Tablet,Delayed Release (Dr/Ec)
81 mg PO DAILY Qty: 180 0RF
spironolactone 25 mg tablet
25 mg PO DAILY
gabapentin 300 mg capsule
600 mg PO QID
Pt's Own Insulin Pump - Lispro
1 unit SC ACHS
Changed
clonidine HCl 0.1 mg Tablet
0.1 mg PO NOON Qty: 14 0RF
Held
carvedilol 3.125 mg tablet
3.125 mg PO BID
Hold Instructions: On hold due to bradycardia. Follow up with primary care provider or sales hunter to determine when safe to resume, if necessary to resume, and/or if an alternative medication is necessary.
Discharge Orders:
Discharge Patient (As Directed); Ordered 01/29/25
Ordered By: Viktor Lowery
Discharge Date and Time
Print Language: URDU
[2025-01-29] MEDS: FLUZONE HIGH-DOSE 2025-26 0.5 ML IM (16:21)
[2025-01-29] MEDS: VITAMIN B-12 1000 MCG PO (16:21)
== END 2025-01-29 17:30 | disposition home health service (06) | DRG 617 ==
LOC: 4 EAST ACU 18:11
PROVIDERS: Emergency Medicine; Internal Medicine; Physician Assistant Medical; ADMITTING PHYSICIAN Internal Medicine; ATTENDING PHYSICIAN Internal Medicine; CONSULT PHYSICIAN Internal Medicine Cardiovascular Disease; CONSULT PHYSICIAN Podiatrist Foot & Ankle Surgery; CONSULT PHYSICIAN Surgery Vascular Surgery; EMERGENCY PHYSICIAN Emergency Medicine; FAMILY PHYSICIAN Family Medicine
PROC: 047N3Z1 Dilation of Left Popliteal Artery using Drug-Coated Balloon, Percutaneous Approach (ICD-10-PCS; 2025-01-25)
PROC: B41G1ZZ Fluoroscopy of Left Lower Extremity Arteries using Low Osmolar Contrast (ICD-10-PCS; 2025-01-25)
PROC: 04FN3ZZ Fragmentation of Left Popliteal Artery, Percutaneous Approach (ICD-10-PCS; 2025-01-25)
PROC: B4101ZZ Fluoroscopy of Abdominal Aorta using Low Osmolar Contrast (ICD-10-PCS; 2025-01-25)
PROC: 04FU3ZZ Fragmentation of Left Peroneal Artery, Percutaneous Approach (ICD-10-PCS; 2025-01-25)
PROC: 0Y6Q0Z0 Detachment at Left 1st Toe, Complete, Open Approach (ICD-10-PCS; 2025-01-26)
PROC: 3E02340 Introduction of Influenza Vaccine into Muscle, Percutaneous Approach (ICD-10-PCS; 2025-01-29)
DX: E11.69 Type 2 diabetes mellitus with other specified complication (principal); D61.818 Other pancytopenia; M86.172 Other acute osteomyelitis, left ankle and foot; E87.1 Hypo-osmolality and hyponatremia; F11.20 Opioid dependence, uncomplicated; I47.10 Supraventricular tachycardia, unspecified; I97.791 Other intraoperative cardiac functional disturbances during other surgery; I48.91 Unspecified atrial fibrillation; E11.42 Type 2 diabetes mellitus with diabetic polyneuropathy; I10 Essential (primary) hypertension; E78.00 Pure hypercholesterolemia, unspecified; F32.A Depression, unspecified; F41.9 Anxiety disorder, unspecified; G89.29 Other chronic pain; D63.8 Anemia in other chronic diseases classified elsewhere; Z79.02 Long term (current) use of antithrombotics/antiplatelets; N40.0 Benign prostatic hyperplasia without lower urinary tract symptoms; Z23 Encounter for immunization; Z79.899 Other long term (current) drug therapy; F17.200 Nicotine dependence, unspecified, uncomplicated; J44.9 Chronic obstructive pulmonary disease, unspecified; Z79.82 Long term (current) use of aspirin; Z89.429 Acquired absence of other toe(s), unspecified side; Z96.41 Presence of insulin pump (external) (internal); Z79.4 Long term (current) use of insulin; E11.51 Type 2 diabetes mellitus with diabetic peripheral angiopathy without gangrene; E11.621 Type 2 diabetes mellitus with foot ulcer; I44.0 Atrioventricular block, first degree; I70.209 Unspecified atherosclerosis of native arteries of extremities, unspecified extremity; L97.529 Non-pressure chronic ulcer of other part of left foot with unspecified severity
CPT/HCPCS: 73620; 75625; 75710; 80048; 80053; 82607; 82728; 82746; 82962; 83036; 83540; 83550; 83605; 83735; 85025; 85027; 85652; 86140; 87040; 87070; 87147; 87176; 87205; 88304; 88311; 90662; 93005; 96365; 96366; 96367; 96375; 97116; 97162; 97166; 99284; 99406; C1761; C1769; C1894; C2623; C9772; G0008

== ENCOUNTER → 2025-02-20 12:58 | Outpatient (REF) | payer MEDICARE, SELFPAY | LOC: RAD 12:58 | PROVIDERS: ATTENDING PHYSICIAN Surgery Vascular Surgery; FAMILY PHYSICIAN Family Medicine | DX: I73.9 Peripheral vascular disease, unspecified (principal) | CPT/HCPCS: 93922; 93925 ==